=== PATIENT | male | born 1970 | race Two or more races ===

== ENCOUNTER 2020-09-13 14:54 | Inpatient (IN) | payer OTHER, SELFPAY ==
[2020-09-13 15:41] VITALS: BP 133/82; PULSE 78; RESP 20; TEMP 36.6; O2SAT 97; BMI 29.7
--- NOTE | 2020-09-13 16:08 | CT_ITS ---
EXAMINATION: CT ABDOMEN AND PELVIS WITH CONTRAST CLINICAL INFORMATION: Abdominal pain. Recent cholecystectomy. COMPARISON: CT abdomen/pelvis dated 07/13/2020. TECHNIQUE: Multidetector volumetric images were obtained from the superior aspect of the liver through the pubic symphysis following administration 85 mL of Omnipaque 350 intravenous contrast. Sagittal and coronal reformatted images were obtained on the technologist's workstation. Oral Contrast: No. This CT examination was performed using dose optimization techniques as appropriate, variously including the following: *Automated exposure control. *Adjustment of mA and/or kV according to patient size (this includes techniques or standardized protocols for targeted exams where dose is matched to indication/reason for exam; i.e. extremities or head). *Use of iterative reconstruction technique. DLP: 791 mGy-cm FINDINGS: LUNG BASES: Linear foci of atelectasis versus scarring within the right middle and lower lobes. LIVER, GALLBLADDER, AND BILIARY TREE: The liver is normal in size and shape. Parenchymal hypoattenuation, consistent with steatosis. No focal hepatic lesion or biliary ductal dilatation is present. Status post cholecystectomy. Minimal stranding in the region of the gallbladder fossa, which could represent postsurgical change. No organized fluid collection or evidence of abscess formation. PANCREAS: Unremarkable. SPLEEN: Mildly enlarged measuring up to 14 cm in AP dimension. ADRENAL GLANDS: Unremarkable. KIDNEYS AND URETERS: The kidneys are normal in size, shape, and attenuation. No hydronephrosis, hydroureter, or calculi seen. No perinephric stranding. BLADDER: Nondistended and unremarkable. GASTROINTESTINAL TRACT: No bowel wall thickening or associated inflammatory change. No small or large bowel obstruction. Unremarkable appendix. PERITONEAL CAVITY: No intra-abdominal free air or free fluid. No intra-abdominal mass or organized fluid collection/abscess. ABDOMINAL WALL: No significant hernia is appreciated. LYMPH NODES: Subcentimeter retroperitoneal lymph nodes. No significant lymphadenopathy. VASCULAR: Unremarkable. PELVIC VISCERA: The prostate and seminal vesicles are unremarkable. Phleboliths within the pelvis. OSSEOUS STRUCTURES: Unremarkable. CT/CT abdomen pelvis w con IMPRESSION: 1. Status post cholecystectomy. Mild stranding within the gallbladder fossa and adjacent to the common bile duct, which may represent a postsurgical result. A residual infectious or inflammatory process cannot be entirely excluded. No evidence of fluid collection or abscess formation. 2. Linear areas of scarring versus atelectasis within the right middle and lower lobes. 3. Mild splenomegaly.
[2020-09-13 16:16] LABS: MANUAL DIFF FLAG NO
[2020-09-13 16:19] LABS: Glucose Urine UA NEG (NEG); Leukocyte Esterase Urine NEG (NEG); Nitrite Urine NEG (NEG); Urine Blood NEG (NEG); Urine Ketones NEG (NEG); Urine Protein NEG (NEG-TRACE)
[2020-09-13 16:21] LABS: Basophils Absolute Auto 0.1 X10*3/uL (0.0-0.2); Basophils Percent Auto 1.1 % (0-2); Eosinophils Absolute Auto 0.3 X10*3/uL (0.0-0.4); Eosinophils Percent Auto 4.8 % (0-4); Hemoglobin 12.5 g/dl (14.0-18.0); Imm Gran Pct Auto 1.8 % (0.0-0.4); Lymphocytes Absolute Auto 0.8 X10*3/uL (1.2-4.9); Lymphocytes Percent Auto 13.5 % (20-40); Mean Corpuscular HGB Conc 32.9 g/dl (31.0-36.0); Mean Corpuscular Hemoglobin 26.5 pg (27.0-33.0); Mean Corpuscular Volume 80.5 fL (80-98); Mean Platelet Volume 9.1 fL (9.4-12.4); Monocytes Absolute Auto 0.3 X10*3/uL (0.1-1.2); Monocytes Percent Auto 6.1 % (2-11); Neutrophils Absolute Auto 4.1 X10*3/uL (2.0-8.3); Neutrophils Percent Auto 72.7 % (45-73); Platelet Count 160 X10*3/uL (160-400); Red Blood Count 4.72 X10*6/uL (4.60-5.80); Red Cell Distribution Width 14.2 % (11.0-16.0); White Blood Count 5.6 X10*3/uL (4.8-10.8)
--- NOTE | 2020-09-13 16:21 | ED.ABDPAIN ---
HPI - Abdominal Pain General Chief Complaint: Abdominal Pain Stated Complaint: ABD PAIN Time Seen by Provider: 09/13/20 15:33 Source: patient Mode of arrival: ambulatory Limitations: no limitations History of Present Illness HPI narrative: 50-year-old male with a past medical history of anxiety, diabetes, s/p lap alice 09/[address] Prince here with abdominal pain, vomiting since monday. patient tells me night he had [place] Citizen soup with spice and pork. Woke up 3am with upper abdominal pain and vomiting. Called out of work Monday and Monday d/t persistent pain and vomiting. No vomiting today. Patient continues to have pain and took a Bentyl at home with continued pain. He tells me his urine was very dark today. He drink a lot of water and then his urine seems to lighten up. No fevers, chills, diarrhea. Last bowel movement was Monday. MD elicited complaint: abdominal pain Pertinent past history: none Onset (ago): day(s) Pain Consistency: constant Location: none Severity: mild Quality: sharp Radiation: LUQ, RUQ and epigastric Migration to: no migration Exacerbating factors: nothing Relieving factors: nothing Associated symptoms: nausea and vomiting Related Data Allergies Allergy/AdvReac Type Severity Reaction Status Date / Time No Known Allergies Allergy Unverified 07/30/20 15:59 [No Known Allergies*] Review of Systems Review of Systems Yes all other systems are reviewed and are negative Constitutional: Reports no additional constitutional complaints, Denies body ache(s), Denies chills, Denies fever(s), Denies headache(s) and Denies weakness Eyes: Reports no additional eye complaints and Denies change in vision Reports system reviewed and no additional complaints, except as documented, Denies dizziness, Denies headache(s), Denies nasal congestion, Denies nasal discharge and Denies neck pain Cardiovascular: Reports no additional cardiovascular complaints, Denies chest pain, Denies leg edema and Denies dyspnea Respiratory: Reports no additional respiratory complaints, Denies cough and Denies dyspnea Gastrointestinal: Reports no additional gastrointestinal complaints, Reports abdominal pain, Denies diarrhea, Reports nausea and Reports vomiting Genitourinary: Denies urinary incontinence Musculoskeletal: Reports no additional musculoskeletal complaints, Denies back pain, Denies arthralgias, Denies joint swelling, Denies neck pain, Denies numbness and Denies tingling Skin/Breast: Reports system reviewed and no additional complaints, except as docu and Denies rash Reports system reviewed and no additional complaints, except as documented, Denies Abnormal speech present, Denies dizziness, Denies headache(s), Denies numbness, Denies tingling and Denies weakness Physical Exam Vital Signs: Vital Signs: Vital Signs Temp Pulse Resp BP Pulse Ox 09/13/20 15:41 97.8 F 78 20 133/82 97 Body Mass Index 29.7 Const: General: cooperative, healthy appearing, comfortable and no acute distress Orientation/consciousness: patient oriented x3 Limitations: no limitations HENMT: Head: Yes normal to inspection Ears: hearing grossly normal bilaterally General nose exam: Normal external nose present Face and sinus: Yes normal facial exam Mouth: Normal oral and palatal mucosa present Throat: Yes posterior oropharynx normal Eyes: General: appearance normal, both eyes and all related structures Pupils: Equal, round and reactive pupils present Neck: Neck: Yes normal visual inspection Chest: Chest palpation & inspection: normal inspection of the chest Resp: Effort & Inspection: normal respiratory effort Auscultation: clear to auscultation bilaterally Cardio: Rate: regular rate Rhythm: regular rhythm Peripheral pulses: Peripheral pulses 2+ throughout GI: Inspection: Yes normal to inspection Palpation (GI): Soft to palpation and Tenderness to palpation present (GI) ( diffuse tenderness but more focal in the epigastric area. Some guarding w) Auscultation: normal bowel sounds Back/Spine/Pelvis: Thoracic/Lumbar Spine: thoracic and lumbar spine normal to inspection Skin: General skin exam: no rashes or lesions noted Neuro: General: patient oriented x3, no focal motor deficits and normal sensation to monofilament Cranial nerves: Yes Equal, round and reactive pupils present Cognition (Neuro): normal cognition Speech: No Abnormal speech present Gait exam (Neuro): Normal gait present Motor exam (neuro): 5/5 motor strength present throughout Extrem: General: Yes normal to inspection Course Course Course Narrative: 50-year-old male here with abdominal pain more focal in the epigastric area for the last few days. Recently had a lap choly with Dr. Carnes here. The patient has also had some associated vomiting. On exam he does have some epigastric discomfort. Will need labs, UA, CT abdomen / pelvis. Will give IV fluids, antiemetic and analgesia. 1700-Elevated LFTs. Add on APAP, hepatitis panel. May be from retained gallstone. patient will need admission. Rapid COVID ordered. Sign out to Mary DELGADILLO pending above. MDM - Abdominal Pain MDM Narrative Medical decision making narrative: Retained gallstone, perforation, gastritis, gastroenteritis, pancreatitis, GERD Medical Records Attestation: I reviewed the patient's medical records. Lab Data Attestation: I reviewed the patient's lab results. Result diagrams: 09/13/20 16:09 09/13/20 16:09 Labs: Lab Results 09/13/20 09/13/20 09/13/20 Range/Units 16:09 16:09 16:09 WBC 5.6 (4.8-10.8) X10*3/uL RBC 4.72 (4.60-5.80) X10*6/uL Hgb 12.5 L (14.0-18.0) g/dl Hct 38.0 L (42-52) % MCV 80.5 (80-98) fL MCH 26.5 L (27.0-33.0) pg MCHC 32.9 (31.0-36.0) g/dl RDW 14.2 (11.0-16.0) % Plt Count 160 (160-400) X10*3/uL MPV 9.1 L (9.4-12.4) fL Immature Gran % (Auto) 1.8 H (0.0-0.4) % Neut % (Auto) 72.7 (45-73) % Lymph % (Auto) 13.5 L (20-40) % [place] % (Auto) 6.1 (2-11) % Eos % (Auto) 4.8 H (0-4) % Baso % (Auto) 1.1 (0-2) % Lymph # (Auto) 0.8 L (1.2-4.9) X10*3/uL [place] # (Auto) 0.3 (0.1-1.2) X10*3/uL Eos # (Auto) 0.3 (0.0-0.4) X10*3/uL Baso # (Auto) 0.1 (0.0-0.2) X10*3/uL Abs Immat Gran (auto) 0.10 H (0.00-0.03) X10*3/uL Absolute Neuts (auto) 4.1 (2.0-8.3) X10*3/uL Absolute Nucleated RBC 0.000 (0.0-0.012) X10*3/uL Nucleated RBC % (auto) 0.0 (0.0-0.2) /100WBC Hold Blue Top SEE NOTE Sodium (135-145) mmol/L Potassium (3.3-5.1) mmol/l Chloride (96-108) mmol/L Carbon Dioxide (22-29) mmol/L Anion Gap (12-20) BUN (9-16) mg/dL Creatinine (0.5-1.4) mg/dL Estim Creat Clear Calc Estimated GFR Random Glucose (60-115) mg/dL Calcium (8.4-10.2) mg/dL Magnesium (1.6-2.6) mg/dL Total Bilirubin (0.0-1.0) mg/dL Direct Bilirubin (0.0-0.5) mg/dL AST (5-37) U/L ALT (0-40) U/L Alkaline Phosphatase (39-117) U/L Total Protein (6.5-8.0) g/dL Albumin (3.5-5.0) g/dL Lipase (8-78) U/L Urine Color YELLOW Urine Appearance CLEAR Urine pH 6.0 (5.0-8.0) Ur Specific [place] 1.010 (1.005-1.025) Urine Protein NEG (NEG-TRACE) MG/DL Urine Glucose (UA) NEG (NEG) MG/DL Urine Ketones NEG (NEG) MG/DL Urine Blood NEG (NEG) Urine Nitrite NEG (NEG) Ur Leukocyte Esterase NEG (NEG) 09/13/20 Range/Units 16:09 WBC (4.8-10.8) X10*3/uL RBC (4.60-5.80) X10*6/uL Hgb (14.0-18.0) g/dl Hct (42-52) % MCV (80-98) fL MCH (27.0-33.0) pg MCHC (31.0-36.0) g/dl RDW (11.0-16.0) % Plt Count (160-400) X10*3/uL MPV (9.4-12.4) fL Immature Gran % (Auto) (0.0-0.4) % Neut % (Auto) (45-73) % Lymph % (Auto) (20-40) % [place] % (Auto) (2-11) % Eos % (Auto) (0-4) % Baso % (Auto) (0-2) % Lymph # (Auto) (1.2-4.9) X10*3/uL [place] # (Auto) (0.1-1.2) X10*3/uL Eos # (Auto) (0.0-0.4) X10*3/uL Baso # (Auto) (0.0-0.2) X10*3/uL Abs Immat Gran (auto) (0.00-0.03) X10*3/uL Absolute Neuts (auto) (2.0-8.3) X10*3/uL Absolute Nucleated RBC (0.0-0.012) X10*3/uL Nucleated RBC % (auto) (0.0-0.2) /100WBC Hold Blue Top Sodium 138 (135-145) mmol/L Potassium 3.7 (3.3-5.1) mmol/l Chloride 102 (96-108) mmol/L Carbon Dioxide 24 (22-29) mmol/L Anion Gap 16 (12-20) BUN 10 (9-16) mg/dL Creatinine 0.80 (0.5-1.4) mg/dL Estim Creat Clear Calc 140.2 Estimated GFR > 60 Random Glucose 153 H (60-115) mg/dL Calcium 8.1 L (8.4-10.2) mg/dL Magnesium 1.9 (1.6-2.6) mg/dL Total Bilirubin 3.8 H (0.0-1.0) mg/dL Direct Bilirubin 3.1 H (0.0-0.5) mg/dL AST 366 H (5-37) U/L ALT 596 H (0-40) U/L Alkaline Phosphatase 249 H (39-117) U/L Total Protein 6.4 L (6.5-8.0) g/dL Albumin 3.8 (3.5-5.0) g/dL Lipase 14 (8-78) U/L Urine Color Urine Appearance Urine pH (5.0-8.0) Ur Specific [place] (1.005-1.025) Urine Protein (NEG-TRACE) MG/DL Urine Glucose (UA) (NEG) MG/DL Urine Ketones (NEG) MG/DL Urine Blood (NEG) Urine Nitrite (NEG) Ur Leukocyte Esterase (NEG) [facility] Past Medical History Attestation statement: The following information was validated with the patient. Source: obtained from family and nursing notes reviewed Medical History Anxiety Cholecystectomy planned Diabetes mellitus, type 2 Social History Social History Alcohol intake: current Alcohol intake frequency: a few times a week Smoking Status: Current some day smoker Use of substances other than those prescribed or required for medical reasons: No Advance Directives: No Advance Directives Information Provided: Yes
[2020-09-13 16:24] LABS: Appearance Urine CLEAR; Color Urine YELLOW
[2020-09-13 16:47] LABS: Alanine Aminotransferase 596 U/L (0-40); Albumin Level 3.8 g/dL (3.5-5.0); Alkaline Phosphatase 249 U/L (39-117); Anion Gap 16 (12-20); Aspartate Amino Transferase 366 U/L (5-37); Bilirubin Direct 3.1 mg/dL (0.0-0.5); Bilirubin Total 3.8 mg/dL (0.0-1.0); Blood Urea Nitrogen 10 mg/dL (9-16); Calcium 8.1 mg/dL (8.4-10.2); Carbon Dioxide 24 mmol/L (22-29); Chloride 102 mmol/L (96-108); Creatinine Clr Calc Pharmacy 140.2; Estimated Glomerular Filt Rate > 60; Glucose Random 153 mg/dL (60-115); Lipase 14 U/L (8-78); Magnesium 1.9 mg/dL (1.6-2.6); Potassium 3.7 mmol/l (3.3-5.1); Sodium 138 mmol/L (135-145); Total Protein 6.4 g/dL (6.5-8.0)
[2020-09-13] MEDS: Morphine Sulfate 4 MG/ML CARTRIDGE IVPUSH (16:58)
[2020-09-13] MEDS: ondansetron HCL 4 MG/2 ML VIAL IVPUSH (16:58)
[2020-09-13] MEDS: 0.9 % Sodium Chloride 1,000 ML 999 ML IV (16:59)
[2020-09-13 17:21] LABS: Acetaminophen LAB 3 mcg/mL (<30)
[2020-09-13] MEDS: iohexoL 350 MG/ML 100 ML INFUS..BTL IV (17:50)
[2020-09-13 17:51] VITALS: PULSE 68; RESP 16
[2020-09-13 17:51] LABS: SARS COV2 PCR INHOUSE NEGATIVE (Negative)
[2020-09-13 18:22] VITALS: BP 158/82; PULSE 72; RESP 20
--- NOTE | 2020-09-13 19:13 | PC.NURSE ---
Patient awake and alert. Skin PWD, resp even and non labored. Speaking in full, clear sentences. reports abdominal pain w/ n/v. states pain is under control at this time. Hospitalist at bedside
--- NOTE | 2020-09-13 19:40 | PM.IMHP ---
History of Present Illness Date of Service: 09/13/20 <ELIE Craig - Last Filed: 09/13/20 20:00> Chief Complaint: abdominal pain <ELIE Craig - Last Filed: 09/13/20 20:00> this is a 50-year-old male who presents to the emergency department with abdominal pain. Patient states he woke up with abdominal pain on Monday morning. His abdominal pain is generalized and associated with nausea. He had 1 episode of vomiting on Monday morning. He also had 1 episode of chills. He denies any diarrhea, recent travel, takeout food, recent sick contacts. Workup in the emergency department revealed elevated LFTs. He went underwent a CAT scan of the abdomen which showed mild stranding within the gallbladder fossa and adjacent to the common bile duct which could be a result of his cholecystectomy longest although infectious or inflammatory process could not be entirely excluded. Patient does report that he takes 2 325 mg Tylenol twice daily to manage his chronic back pain. He denies using any other [id number] medication. He denies use of alcohol. Tylenol level was 3. abdominal pain as per significantly after morphine <ELIE Craig - Last Filed: 09/13/20 20:00> Review of Systems Review of Systems: Yes all other systems are reviewed and are negative <ELIE Craig - Last Filed: 09/13/20 20:00> Constitutional: Constitutional: Denies chills and Denies fever(s) <EILE Craig - Last Filed: 09/13/20 20:00> Cardiovascular: Cardiovascular: Denies chest pain <ELIE Craig Last Filed: 09/13/20 20:00> Respiratory: Respiratory: Denies cough <ELIE Craig Last Filed: 09/13/20 20:00> Gastrointestinal: Gastrointestinal: Reports abdominal pain and Reports nausea <ELIE Craig Last Filed: 09/13/20 20:00> [facility] Medical History: Medical History Anxiety Elevated triglycerides with high cholesterol Pre-diabetes <ELIE Craig Last Filed: 09/13/20 20:00> Functional capacity: independent ambulation <ELIE Craig - Last Filed: 09/13/20 20:00> Family history: reviewed and not pertinent <ELIE Craig - Last Filed: 09/13/20 20:00> Surgical History: Surgical History History of cholecystectomy <ELIE Craig - Last Filed: 09/13/20 20:00> Social History: Social History (Updated 09/13/20 @ 19:49 by ELIE Craig) Household Members: Spouse Housing: House Alcohol intake: current Smoking Status: Current some day smoker Use of substances other than those prescribed or required for medical reasons: No Currently Displaying Signs/Symptoms of Drug Intoxication Withdrawal: No Other Past Substance Use Problem:: remote abuse of pain pills - on suboxone Have you been hit, kicked, punched, or otherwise hurt by someone within the past year? If so, by whom?: No Do you feel safe in your current relationship?: Yes Is there a partner from a previous relationship who is making you feel unsafe now?: No Are you made to feel afraid or neglected: No Advance Directives: No Advance Directives Information Provided: Yes Do you have thoughts of harming others: None Do you have a plan to hurt others: No Plan Recently lost weight without trying: No <ELIE Craig - Last Filed: 09/13/20 20:00> Meds Allergies/Adverse reactions: Allergies Allergy/AdvReac Type Severity Reaction Status Date / Time No Known Allergies Allergy Verified 09/13/20 22:59 [No Known Allergies*] <ELIE Craig - Last Filed: 09/13/20 20:00> Home medications: Home Medications Medication Instructions Recorded Confirmed Type buprenorphine-naloxone 1 strip SUBLINGUAL DAILY 09/13/20 09/13/20 History clonidine HCl 1 tab PO BID 09/13/20 09/13/20 History dicyclomine 1 tab PO QID 09/13/20 09/13/20 History hydroxyzine HCl 1 tab PO TID PRN 09/13/20 09/13/20 History metformin 1 tab PO BID 09/13/20 09/13/20 History <ELIE Craig - Last Filed: 09/13/20 20:00> Physical Exam Vital Signs and Narrative: Vital Signs: Last Vital Signs Temp 97.8 F 09/13/20 15:41 Pulse 72 09/13/20 18:22 Resp 20 09/13/20 18:22 BP 158/82 H 09/13/20 18:22 Pulse Ox 97 09/13/20 15:41 Body Mass Index 29.7 <ELIE Craig - Last Filed: 09/13/20 20:00> Const: Nutritional Appearance: well nourished <ELIE Craig - Last Filed: 09/13/20 20:00> Orientation/consciousness: patient oriented x3 <ELIE Craig - Last Filed: 09/13/20 20:00> HENMT: Head: Yes normocephalic and Yes atraumatic <ELIE Craig - Last Filed: 09/13/20 20:00> Eyes: Sclerae: sclerae normal <ELIE Craig - Last Filed: 09/13/20 20:00> Chest: Chest palpation & inspection: normal inspection of the chest <ELIE Craig - Last Filed: 09/13/20 20:00> Resp: Effort & Inspection: normal respiratory effort and no respiratory distress <ELIE Craig - Last Filed: 09/13/20 20:00> Auscultation: clear to auscultation bilaterally <ELIE Craig - Last Filed: 09/13/20 20:00> Cardio: Rate: regular rate <ELIE Craig - Last Filed: 09/13/20 20:00> Rhythm: regular rhythm <ELIE Craig - Last Filed: 09/13/20 20:00> GI: Palpation (GI): Soft to palpation and nontender <ELIE Craig - Last Filed: 09/13/20 20:00> Skin: General skin exam: no rashes or lesions noted <ELIE Craig - Last Filed: 09/13/20 20:00> Neuro: General: patient oriented x3 <ELIE Craig - Last Filed: 09/13/20 20:00> Cranial nerves: Yes CN's II-XII intact bilaterally and Yes Bilaterally intact EOM present <ELIE Craig Last Filed: 09/13/20 20:00> Extrem: General: Yes normal to inspection <ELIE Craig - Last Filed: 09/13/20 20:00> Results Labs Labs: Laboratory Tests 09/13/20 09/13/20 09/13/20 16:09 16:09 16:09 WBC 5.6 RBC 4.72 Hgb 12.5 L Hct 38.0 L MCV 80.5 MCH 26.5 L MCHC 32.9 RDW 14.2 Plt Count 160 MPV 9.1 L Immature Gran % (Auto) 1.8 H Neut % (Auto) 72.7 Lymph % (Auto) 13.5 L [place] % (Auto) 6.1 Eos % (Auto) 4.8 H Baso % (Auto) 1.1 Lymph # (Auto) 0.8 L [place] # (Auto) 0.3 Eos # (Auto) 0.3 Baso # (Auto) 0.1 Abs Immat Gran (auto) 0.10 H Absolute Neuts (auto) 4.1 Absolute Nucleated RBC 0.000 Nucleated RBC % (auto) 0.0 Hold Blue Top SEE NOTE Sodium Potassium Chloride Carbon Dioxide Anion Gap BUN Creatinine Estim Creat Clear Calc Estimated GFR Random Glucose Calcium Magnesium Total Bilirubin Direct Bilirubin AST ALT Alkaline Phosphatase Total Protein Albumin Lipase Urine Color YELLOW Urine Appearance CLEAR Urine pH 6.0 Ur Specific [place] 1.010 Urine Protein NEG Urine Glucose (UA) NEG Urine Ketones NEG Urine Blood NEG Urine Nitrite NEG Ur Leukocyte Esterase NEG Acetaminophen Coronavirus (PCR) 09/13/20 09/13/20 16:09 16:54 WBC RBC Hgb Hct MCV MCH MCHC RDW Plt Count MPV Immature Gran % (Auto) Neut % (Auto) Lymph % (Auto) [place] % (Auto) Eos % (Auto) Baso % (Auto) Lymph # (Auto) [place] # (Auto) Eos # (Auto) Baso # (Auto) Abs Immat Gran (auto) Absolute Neuts (auto) Absolute Nucleated RBC Nucleated RBC % (auto) Hold Blue Top Sodium 138 Potassium 3.7 Chloride 102 Carbon Dioxide 24 Anion Gap 16 BUN 10 Creatinine 0.80 Estim Creat Clear Calc 140.2 Estimated GFR > 60 Random Glucose 153 H Calcium 8.1 L Magnesium 1.9 Total Bilirubin 3.8 H Direct Bilirubin 3.1 H AST 366 H ALT 596 H Alkaline Phosphatase 249 H Total Protein 6.4 L Albumin 3.8 Lipase 14 Urine Color Urine Appearance Urine pH Ur Specific [place] Urine Protein Urine Glucose (UA) Urine Ketones Urine Blood Urine Nitrite Ur Leukocyte Esterase Acetaminophen 3 Coronavirus (PCR) NEGATIVE <ELIE Craig - Last Filed: 09/13/20 20:00> Assessment and Plan (1) Elevated LFTs: Status: Acute <ELIE Craig - Last Filed: 09/13/20 20:00> this is a 50 year male with history of prediabetes, dyslipidemia, remote history of opiate abuse on Suboxone, cholecystectomy in June who presents with abdominal pain found to have elevated LFTs abdominal pain/ elevated LFTs CT shows steatosis. ? component of chronic toxicity given daily tylenol use - hepatitis panel - abdominal ultrasound - GI consult - trend LFTs - supportive care pre diabetes - hold metformin dyslipidemia - fenofibrate not on med reconciliation. confirm in a.m. mood - continue Atarax DVT prophylaxis- mechanical devices code status- full code this case was discussed with Dr. Rose <ELIE Craig - Last Filed: 09/13/20 20:00>
--- NOTE | 2020-09-13 20:00 | PM.EVENT ---
Event Note Event Note: Admisssion note: 50 y/o male who presented from home due to abdominal pain x 3 days associated with nausea and vomiting. No hx of alcohol abuse, smoking or drug abuse. Acetaminophen level of 3. Patient has hx of cholecystectomy in the past. Reports taking tylenol but a total of 650 mg per day. On presentation patient noted to have elevated LFT's, alk phosph and direct bilirubin of 3.1. CT abdomen showing possible inflammatory changes. Decision for admission given. ROS as above otherwise negative. Physical exam negative for guarding or any palpable masses. Assessment/Plan: 1- Abnormal liver function test likely secondary to intrabiliriary obstruction vs autoimmune US abdomen done shows no evidence of any biliary ductal dilation Follow up GGT Follow up AMA level GI consult for possible need of ERCP if recommended Diet as tolerated Rest of the plan as discussed with ELIE Leyva as per H and P
--- NOTE | 2020-09-13 20:16 | US_ITS ---
EXAMINATION: US ABDOMEN LIMITED CLINICAL INFORMATION: Abdominal pain. Cholecystectomy, evaluate for retained stones. Elevated LFTs. COMPARISON: None TECHNIQUE: Real-time imaging of the right upper quadrant abdominal viscera including the pancreas, liver, and common bile duct as per the ordering clinician. FINDINGS: PANCREAS: Unremarkable. LIVER: Increased hepatic parenchymal echogenicity, which can be seen in the setting of steatosis. Underlying hepatocellular disease cannot be excluded. No hepatic parenchymal lesion or biliary ductal dilatation. GALLBLADDER: Status post cholecystectomy. Trace fluid within the gallbladder fossa. COMMON BILE DUCT: The common bile duct measures up to 0.8 cm in greatest dimension. No visualized common bile duct stone. US/US abdomen limited IMPRESSION: 1. Status post cholecystectomy. Trace fluid within the gallbladder fossa. No organized fluid collection or mass. 2. Common bile duct measures up to 0.8 cm without visualized choledocholithiasis. No intrahepatic biliary ductal dilatation.
[2020-09-13 20:29] LABS: INTERNATIONAL NORM RATIO 1.1 (0.9-1.1); Prothrombin Time 13.1 SEC (10.8-13.0)
[2020-09-13 20:42] VITALS: BP 123/72; PULSE 55; RESP 16; O2SAT 100
--- NOTE | 2020-09-13 20:45 | PC.NURSE ---
Report given to RN on S3 for patient admit
--- NOTE | 2020-09-13 21:08 | PC.NURSE ---
waiting for ultrasound prior to transfer to S3
[2020-09-13 21:29] LABS: Amphetamine Screen Urine Not Detected (Not Detect); Barbiturates, Urine Not Detected (Not Detect); Benzodiazepines Screen Urine POSITIVE (Not Detect); Cannabinoid Screen Urine Not Detected (Not Detect); Cocaine Screen Urine Not Detected (Not Detect); Opiate Screen Urine Not Detected (Not Detect); Phencyclidine Screen Urine Not Detected (Not Detect)
[2020-09-13 22:00] VITALS: BP 126/72; PULSE 66; RESP 16; TEMP 36.1; O2SAT 94
[2020-09-13] MEDS: 0.9 % Sodium Chloride 1,000 ML 100 ML IVCONT (22:26)
[2020-09-13] MEDS: cloNIDine HCL 0.1 MG TABLET 0.3 MG PO (22:28)
[2020-09-13] MEDS: Docusate Sodium 100 MG CAPSULE PO (22:29)
[2020-09-14] VITALS (14 sets, daily range): BP systolic 119–152; BP diastolic 59–96; PULSE 44–68; RESP 16–20; TEMP 35.9–36.9; O2SAT 93–100; BMI 29.7
--- NOTE | 2020-09-14 | MR_ITS ---
EXAMINATION: MR ABDOMEN WITHOUT CONTRAST CLINICAL INFORMATION: Elevated liver function tests. Post laparoscopic cholecystectomy June 2020 COMPARISON: Previous CT of the abdomen and pelvis 09/13/2020 and ultrasound of the abdomen limited 09/13/2020 TECHNIQUE: MR abdomen is performed without gadolinium contrast. MRCP sequences were also performed. FINDINGS: LUNG BASES: The visualized lung bases are unremarkable. LIVER, GALLBLADDER, AND BILIARY TREE: There is fatty infiltration of the liver. The liver is slightly enlarged, right lobe measuring 20 cm in length. The liver is normal in shape. No focal liver lesion is seen. The gallbladder has been removed. There is trace fluid seen in the gallbladder fossa adjacent to the right lobe of the liver. There is no intra or extrahepatic biliary duct dilatation. The common bile duct measures 6 mm. There is a small 3 mm filling defect in the distal common bile duct suggestive of a common bile duct stone. PANCREAS: There is focal fatty infiltration of the uncinate process of the head of the pancreas. The pancreas is otherwise unremarkable. The main pancreatic duct is normal. SPLEEN: The spleen is slightly enlarged. The spleen measures 13.5 cm in length. ADRENAL GLANDS: Unremarkable. KIDNEYS AND URETERS: The kidneys are normal in size and shape. No hydronephrosis. No perinephric stranding. GASTROINTESTINAL TRACT: No bowel obstruction. No ascites or fluid collection. ABDOMINAL WALL: There is a small umbilical hernia containing fat. LYMPH NODES: No lymphadenopathy. VASCULAR: Unremarkable. OSSEOUS STRUCTURES: Marrow signal normal. There is loss of bright T2 disc signal at L4-L5. MR/MR MRCP IMPRESSION: No intra or extrahepatic biliary duct dilatation. 3 mm filling defect in the distal common bile duct suggestive of a common bile duct stone. Slightly enlarged fatty liver. Mild splenomegaly. Focal fatty infiltration of the uncinate process of the head of the pancreas.
[2020-09-14] MEDS: Morphine Sulfate 4 MG/ML CARTRIDGE 2 MG IVPUSH ×2 (01:23→07:37)
[2020-09-14 03:37] LABS: HBS Num1 25.28 mIU/mL (0-7.99); HBc Num1 0.04 S/CO (0.00-0.79); Hepatitis B Core Antibody Nonreactive (Nonreactive); ~HepC Num1 0.06 S/CO (0.00-0.79); ~Hepatitis B Surface Antibody REACTIVE (Nonreactive); ~Hepatitis C Antibody Nonreactive (Nonreactive)
[2020-09-14 04:08] LABS: HBsAGNum1 0.12 S/CO (0.00-0.99); Hepatitis B Surface Antigen Negative (Negative)
[2020-09-14] MEDS: ondansetron HCL 4 MG/2 ML VIAL IVPUSH (06:25)
[2020-09-14 06:50] LABS: Hematocrit 37.6 % (42-52); Mean Corpuscular HGB Conc 31.9 g/dl (31.0-36.0); Mean Corpuscular Hemoglobin 26.3 pg (27.0-33.0); Mean Corpuscular Volume 82.3 fL (80-98); Mean Platelet Volume 9.4 fL (9.4-12.4); Platelet Count 165 X10*3/uL (160-400); Red Blood Count 4.57 X10*6/uL (4.60-5.80); Red Cell Distribution Width 14.4 % (11.0-16.0); White Blood Count 4.3 X10*3/uL (4.8-10.8)
[2020-09-14 07:00] LABS: Alanine Aminotransferase 511 U/L (0-40); Albumin Level 3.6 g/dL (3.5-5.0); Alkaline Phosphatase 275 U/L (39-117); Anion Gap 13 (12-20); Aspartate Amino Transferase 292 U/L (5-37); Bilirubin Direct 2.9 mg/dL (0.0-0.5); Bilirubin Total 3.4 mg/dL (0.0-1.0); Blood Urea Nitrogen 7 mg/dL (9-16); Calcium 8.2 mg/dL (8.4-10.2); Carbon Dioxide 26 mmol/L (22-29); Chloride 106 mmol/L (96-108); Creatinine Clr Calc Pharmacy 136.8; Estimated Glomerular Filt Rate > 60; Gamma Glutamyl Transpeptidase 1360 U/L (11-51); Glucose Random 165 mg/dL (60-115); Potassium 4.8 mmol/l (3.3-5.1); Sodium 140 mmol/L (135-145); Total Protein 6.1 g/dL (6.5-8.0)
--- NOTE | 2020-09-14 08:35 | P.CONGS_ITS ---
History of Present Illness Consult details Narrative: 50M referred for abdominal pain and abnormal LFT's. He came to the ED last night because of pain around the umbilicus and the epigastric area. This started very early Monday morning and has been constant. He had some vomitting as well last Monday and his pain persisted, so he decided to go the the ED last night. He had an inpatient laparoscopic cholecystectomy with Dr. Carnes last June and was noted to have gangrenous cholecystitis. He had some low grade fevers postop, and mildly elevated liver tests, and was eventually discharged on Jul.16. He says he had been doing well since that time until last Monday which was 2-3 days before admission. He currently states he is comfortable because he just got pain meds. Review of Systems Constitutional: Constitutional: Denies headache(s) and Denies weakness ENT: Denies dizziness and Denies headache(s) Cardiovascular: Cardiovascular: Denies chest pain, Denies dyspnea and Denies dyspnea on exertion Respiratory: Respiratory: Denies cough, Denies dyspnea and Denies dyspnea on exertion Gastrointestinal: Gastrointestinal: Denies hematochezia and Denies change in bowel habits Genitourinary: Genitourinary: Reports hematuria and Reports difficulty urinating Musculoskeletal: Musculoskeletal: Denies numbness and Denies tingling Neurologic: Reports system reviewed and no additional complaints, except as documented, Denies Abnormal speech present, Denies dizziness, Denies headache( s), Denies numbness, Denies tingling and Denies weakness Psychiatric: Psychiatric: Denies depression and Denies mood swings PMFSH Past Medical History Medical History Anxiety Elevated triglycerides with high cholesterol Pre-diabetes Functional capacity: independent ambulation Family History Family history: reviewed and not pertinent Surgical History Surgical History History of cholecystectomy Social History Social History Household Members: Spouse Housing: House Alcohol intake: current Smoking Status: Current some day smoker Use of substances other than those prescribed or required for medical reasons: No Currently Displaying Signs/Symptoms of Drug Intoxication Withdrawal: No Other Past Substance Use Problem:: remote abuse of pain pills - on suboxone Have you been hit, kicked, punched, or otherwise hurt by someone within the past year? If so, by whom?: No Do you feel safe in your current relationship?: Yes Is there a partner from a previous relationship who is making you feel unsafe now?: No Are you made to feel afraid or neglected: No Advance Directives: No Advance Directives Information Provided: Yes Do you have thoughts of harming others: None Do you have a plan to hurt others: No Plan Recently lost weight without trying: No Meds Allergies Allergy/AdvReac Type Severity Reaction Status Date / Time No Known Allergies Allergy Verified 09/13/20 22:59 [No Known Allergies*] Home Medications Medication Instructions Recorded Confirmed Type buprenorphine-naloxone 1 strip SUBLINGUAL DAILY 09/13/20 09/13/20 History clonidine HCl 1 tab PO BID 09/13/20 09/13/20 History dicyclomine 1 tab PO QID 09/13/20 09/13/20 History hydroxyzine HCl 1 tab PO TID PRN 09/13/20 09/13/20 History metformin 1 tab PO BID 09/13/20 09/13/20 History Physical Exam Vital Signs: Vital Signs: Vital Signs Temp Pulse Resp BP Pulse Ox 09/14/20 07:39 97.6 F 57 16 140/84 H 94 09/14/20 04:05 54 09/14/20 03:55 96.8 F 44 L 16 121/59 L 94 09/14/20 02:31 20 09/14/20 00:00 97.1 F 49 L 18 119/68 93 09/13/20 22:00 96.9 F 66 16 126/72 94 09/13/20 20:42 55 16 123/72 100 09/13/20 18:22 72 20 158/82 H 09/13/20 17:51 68 16 09/13/20 15:41 97.8 F 78 20 133/82 97 Body Mass Index 29.7 Const: General: comfortable and no acute distress Orientation/ consciousness: patient oriented x3 Eyes: Other: mildly icteric Neck: Neck: Yes no lymphadenopathy Resp: Auscultation: clear to auscultation bilaterally Cardio: Rhythm: regular rhythm GI: Palpation (GI): Soft to palpation, Tenderness to palpation present (GI) (mild tenderness to deep palpation, epigastric area) and no guarding Neuro: General: patient oriented x3 Speech: No Abnormal speech present Results Labs Result diagrams: 09/14/20 06:07 09/14/20 06:07 Labs: Abnormal lab results 09/13/20 09/13/20 09/13/20 Range/Units 16:09 16:09 16:09 WBC (4.8-10.8) X10*3/uL RBC (4.60-5.80) X10*6/uL Hgb 12.5 L (14.0-18.0) g/dl Hct 38.0 L (42-52) % MCH 26.5 L (27.0-33.0) pg MPV 9.1 L (9.4-12.4) fL Immature Gran % (Auto) 1.8 H (0.0-0.4) % Lymph % (Auto) 13.5 L (20-40) % Eos % (Auto) 4.8 H (0-4) % Lymph # (Auto) 0.8 L (1.2-4.9) X10*3/uL Abs Immat Gran (auto) 0.10 H (0.00-0.03) X10*3/uL PT (10.8-13.0) SEC BUN (9-16) mg/dL Random Glucose 153 H (60-115) mg/dL Calcium 8.1 L (8.4-10.2) mg/dL Total Bilirubin 3.8 H (0.0-1.0) mg/dL Direct Bilirubin 3.1 H (0.0-0.5) mg/dL GGT (11-51) U/L AST 366 H (5-37) U/L ALT 596 H (0-40) U/L Alkaline Phosphatase 249 H (39-117) U/L Total Protein 6.4 L (6.5-8.0) g/dL U Benzodiazepines Scrn POSITIVE H (Not Detect) 09/13/20 09/14/20 09/14/20 Range/Units 20:19 06:07 06:07 WBC 4.3 L (4.8-10.8) X10*3/uL RBC 4.57 L (4.60-5.80) X10*6/uL Hgb 12.0 L (14.0-18.0) g/dl Hct 37.6 L (42-52) % MCH 26.3 L (27.0-33.0) pg MPV (9.4-12.4) fL Immature Gran % (Auto) (0.0-0.4) % Lymph % (Auto) (20-40) % Eos % (Auto) (0-4) % Lymph # (Auto) (1.2-4.9) X10*3/uL Abs Immat Gran (auto) (0.00-0.03) X10*3/uL PT 13.1 H (10.8-13.0) SEC BUN 7 L (9-16) mg/dL Random Glucose 165 H (60-115) mg/dL Calcium 8.2 L (8.4-10.2) mg/dL Total Bilirubin 3.4 H (0.0-1.0) mg/dL Direct Bilirubin 2.9 H (0.0-0.5) mg/dL GGT 1360 H (11-51) U/L AST 292 H (5-37) U/L ALT 511 H (0-40) U/L Alkaline Phosphatase 275 H (39-117) U/L Total Protein 6.1 L (6.5-8.0) g/dL U Benzodiazepines Scrn (Not Detect) Short CBC 09/13/20 09/14/20 Range/Units 16:09 06:07 WBC 5.6 4.3 L (4.8-10.8) X10*3/uL Hgb 12.5 L 12.0 L (14.0-18.0) g/dl Hct 38.0 L 37.6 L (42-52) % Plt Count 160 165 (160-400) X10*3/uL BMP 09/13/20 09/14/20 16:09 06:07 Sodium 138 140 Potassium 3.7 4.8 D Chloride 102 106 Carbon Dioxide 24 26 BUN 10 7 L Creatinine 0.80 0.82 Calcium 8.1 L 8.2 L Liver Function 09/13/20 09/14/20 Range/Units 16:09 06:07 Total Bilirubin 3.8 H 3.4 H (0.0-1.0) mg/dL Direct Bilirubin 3.1 H 2.9 H (0.0-0.5) mg/dL GGT 1360 H (11-51) U/L AST 366 H 292 H (5-37) U/L ALT 596 H 511 H (0-40) U/L Alkaline Phosphatase 249 H 275 H (39-117) U/L Albumin 3.8 3.6 (3.5-5.0) g/dL Urine 09/13/20 Range/Units 16:09 Urine Color YELLOW Urine Appearance CLEAR Urine pH 6.0 (5.0-8.0) Ur Specific [place] 1.010 (1.005-1.025) Urine Protein NEG (NEG-TRACE) MG/DL Urine Glucose (UA) NEG (NEG) MG/DL All other labs normal. Assessment and Plan (1) Elevated LFTs: Status: Acute He had laparoscopic cholecystectomy last July 13 for gangrenous cholecystitis. His CT scan shows mild stranding in the GB fossa that may be seen as postop changes. There is no obvious CBD dilatation on CT, although his elevated bilirubin, both direct and total suggests CBD obstruction. this may be from a retained stone. He just had an MRCP done and we will review this. He is awaiting GI consult as well for possible ERCP or primary hepatic parenchymal disease. He has a benign exam otherwise, and his bilirubin has trended down slightly today.
--- NOTE | 2020-09-14 09:23 | P.PNIM_ITS ---
Subjective Subjective Date of Service: 09/14/20 Interval History: Seen in f/u for acute hepatitis, abdominal pain. Persistent pain, no n/v Review of Systems Gen: no fever Resp: no sob, no cough CV: no chest, no VELASQUEZ, no leg edema GI: No n/v, +abd pain Physical Exam Vital Signs: Vital Signs: Vital Signs Temp Pulse Resp BP Pulse Ox 09/14/20 07:39 97.6 F 57 16 140/84 H 94 09/14/20 04:05 54 09/14/20 03:55 96.8 F 44 L 16 121/59 L 94 09/14/20 02:31 20 09/14/20 00:00 97.1 F 49 L 18 119/68 93 09/13/20 22:00 96.9 F 66 16 126/72 94 09/13/20 20:42 55 16 123/72 100 09/13/20 18:22 72 20 158/82 H 09/13/20 17:51 68 16 09/13/20 15:41 97.8 F 78 20 133/82 97 Body Mass Index 29.7 General: AO X 3, no acute distress but Resp: CTA bilateral CVS: S1,S2,RRR GI: +BS, NT, no distention, no tenderness Skin: No rash, jaundice Neuro: motor grossly intact Psych: appropriate affect Objective Data Current Medications Generic Name Dose Route Start Last Admin Trade Name Freq PRN Reason Stop Dose Admin Buprenorphine/Naloxone 1 film 09/14/20 09:00 Buprenorphine/Naloxone 4/1 Mg Film SUBLINGUAL DAILY ALIYA Clonidine HCl 0.3 mg 09/13/20 21:00 09/13/20 22:28 Clonidine Hcl 0.1 Mg Tablet PO 0.3 mg BID ALIYA Administration Protocol Docusate Sodium 100 mg 09/13/20 21:00 09/13/20 22:29 Docusate Sodium 100 Mg Capsule PO 100 mg BID ALIYA Administration Hydroxyzine HCl 25 mg 09/13/20 20:16 Hydroxyzine Hcl 25 Mg Tablet PO TID PRN Anxiety Sodium Chloride 1,000 mls @ 100 mls/hr 09/13/20 20:16 09/14/20 06:08 Ns IVCONT Not Given .Q10H ALIYA Morphine Sulfate 2 mg 09/13/20 20:16 09/14/20 07:37 Morphine Sulfate 4 Mg/Ml Cartridge IVPUSH 2 mg Q4H PRN Administration Pain, Severe (Pain Scale 7-10) Ondansetron HCl 4 mg 09/13/20 20:16 09/14/20 06:25 Ondansetron Hcl 4 Mg/2 Ml Vial IVPUSH 4 mg Q8H PRN Administration Nausea and Vomiting Pharmacy Consult 1 each 09/13/20 16:51 Consult Rx Perform Med Rec MISCELLANE ONCE PRN Consult order Sodium Chloride 3 ml 09/14/20 00:00 09/14/20 07:32 0.9 % Sodium Chloride Flush 3 Ml Syringe IVFLUSH Not Given QSHIFT [facility] Labs CBC & Chem 7: 09/14/20 06:07 09/14/20 06:07 Labs: Laboratory Tests 09/13/20 09/14/20 16:09 06:07 Total Bilirubin 3.8 H 3.4 H AST 366 H 292 H ALT 596 H 511 H INR 1.1 today Assessment and Plan (1) Common bile duct stone: Status: Acute (2) Elevated LFTs: Status: Acute (3) Jaundice: Status: Acute (4) Total bilirubin, elevated: Status: Acute Assessment and Plan: 50/M with who had Cholecystectomy in June of this year due to gangrenous gallbladder disease and now here with abdominal pain, elevated LFTs, Jaundice and MRCP suggesting CBD stone. 1. CBD stone, elevated LFTs--likely from retained stone. -GI eval for ERCP and stone estraction -surgery following 2. Diabetes--SSI, hold Metformin 3. HLD--hold statin due to increased LFTs 4. h/o of opiate dependence--Suboxone
[2020-09-14] MEDS: cloNIDine HCL 0.1 MG TABLET 0.3 MG PO ×2 (09:52→20:06)
[2020-09-14] MEDS: Buprenorphine/Naloxone 4/1 mg FILM 1 FILM SUBLINGUAL (09:52)
[2020-09-14] MEDS: Docusate Sodium 100 MG CAPSULE PO ×2 (09:53→20:05)
[2020-09-14] MEDS: 0.9 % Sodium Chloride 1,000 ML 100 ML IVCONT (09:56)
--- NOTE | 2020-09-14 12:19 | MHC.CM.PN ---
PER PHYSICAN ROUNDS, PATIENT IS LIKELY GOING TO NEED AN ERCP. CASE MANAGEMENT FOLLOWING FOR ANY DISCHARGE NEEDS.
[2020-09-14] MEDS: levoFLOXacin/D5W 500 MG/100 ML PIGGYBACK 100 MG IV (14:38)
--- NOTE | 2020-09-14 15:20 | HO.ANESPROP2 ---
HPI - Anesthesia Eval Consult details Narrative: 50 M s/p lap alice pf Ercp. PMFSH Past Medical History Medical History Anxiety Elevated triglycerides with high cholesterol Pre-diabetes Functional capacity: independent ambulation Surgical History Surgical History (Updated 09/14/20 @ 15:22 by Paxton Burroughs MD) History of cholecystectomy Social History Social History Household Members: Spouse Housing: House Alcohol intake: current Smoking Status: Current some day smoker Use of substances other than those prescribed or required for medical reasons: No Currently Displaying Signs/Symptoms of Drug Intoxication Withdrawal: No Other Past Substance Use Problem:: remote abuse of pain pills - on suboxone Have you been hit, kicked, punched, or otherwise hurt by someone within the past year? If so, by whom?: No Do you feel safe in your current relationship?: Yes Is there a partner from a previous relationship who is making you feel unsafe now?: No Are you made to feel afraid or neglected: No Advance Directives: No Advance Directives Information Provided: Yes Do you have thoughts of harming others: None Do you have a plan to hurt others: No Plan Recently lost weight without trying: No service: No Current occupational status: employed Meds Allergies Allergy/AdvReac Type Severity Reaction Status Date / Time No Known Allergies Allergy Verified 09/13/20 22:59 [No Known Allergies*] Home Medications Medication Instructions Recorded Confirmed Type buprenorphine-naloxone 1 strip SUBLINGUAL DAILY 09/13/20 09/13/20 History clonidine HCl 1 tab PO BID 09/13/20 09/13/20 History dicyclomine 1 tab PO QID 09/13/20 09/13/20 History hydroxyzine HCl 1 tab PO TID PRN 09/13/20 09/13/20 History metformin 1 tab PO BID 09/13/20 09/13/20 History Exam Exam Date and Time: September 14, 2020 1520 Height,Weight and Vital Signs: Height 6 ft 1 in Weight 102.058 kg Last Vital Signs Temp 97.9 F 09/14/20 14:32 Pulse 61 09/14/20 14:32 Resp 16 09/14/20 14:32 BP 135/88 09/14/20 14:32 Pulse Ox 95 09/14/20 14:32 Pertinent Lab Results Pertinent Lab Results: Laboratory Tests 09/13/20 09/13/20 09/13/20 16:09 16:09 16:09 WBC 5.6 RBC 4.72 Hgb 12.5 L Hct 38.0 L MCV 80.5 MCH 26.5 L MCHC 32.9 RDW 14.2 Plt Count 160 MPV 9.1 L Immature Gran % (Auto) 1.8 H Neut % (Auto) 72.7 Lymph % (Auto) 13.5 L [place] % (Auto) 6.1 Eos % (Auto) 4.8 H Baso % (Auto) 1.1 Lymph # (Auto) 0.8 L [place] # (Auto) 0.3 Eos # (Auto) 0.3 Baso # (Auto) 0.1 Abs Immat Gran (auto) 0.10 H Absolute Neuts (auto) 4.1 Absolute Nucleated RBC 0.000 Nucleated RBC % (auto) 0.0 PT INR Hold Blue Top SEE NOTE Sodium Potassium Chloride Carbon Dioxide Anion Gap BUN Creatinine Estim Creat Clear Calc Estimated GFR Random Glucose Calcium Magnesium Total Bilirubin Direct Bilirubin GGT AST ALT Alkaline Phosphatase Total Protein Albumin Lipase Urine Color YELLOW Urine Appearance CLEAR Urine pH 6.0 Ur Specific [place] 1.010 Urine Protein NEG Urine Glucose (UA) NEG Urine Ketones NEG Urine Blood NEG Urine Nitrite NEG Ur Leukocyte Esterase NEG Urine Opiates Screen Acetaminophen Ur Barbiturates Screen Ur Phencyclidine Scrn Ur Amphetamines Screen U Benzodiazepines Scrn Urine Cocaine Screen U Marijuana (THC) Screen Coronavirus (PCR) Hep Bs Antigen Hep Bs Antibody Hep B Core Total Ab Hepatitis C Ab (EIA) 09/13/20 09/13/20 09/13/20 16:09 16:09 16:54 WBC RBC Hgb Hct MCV MCH MCHC RDW Plt Count MPV Immature Gran % (Auto) Neut % (Auto) Lymph % (Auto) [place] % (Auto) Eos % (Auto) Baso % (Auto) Lymph # (Auto) [place] # (Auto) Eos # (Auto) Baso # (Auto) Abs Immat Gran (auto) Absolute Neuts (auto) Absolute Nucleated RBC Nucleated RBC % (auto) PT INR Hold Blue Top Sodium 138 Potassium 3.7 Chloride 102 Carbon Dioxide 24 Anion Gap 16 BUN 10 Creatinine 0.80 Estim Creat Clear Calc 140.2 Estimated GFR > 60 Random Glucose 153 H Calcium 8.1 L Magnesium 1.9 Total Bilirubin 3.8 H Direct Bilirubin 3.1 H GGT AST 366 H ALT 596 H Alkaline Phosphatase 249 H Total Protein 6.4 L Albumin 3.8 Lipase 14 Urine Color Urine Appearance Urine pH Ur Specific [place] Urine Protein Urine Glucose (UA) Urine Ketones Urine Blood Urine Nitrite Ur Leukocyte Esterase Urine Opiates Screen Not Detected Acetaminophen 3 Ur Barbiturates Screen Not Detected Ur Phencyclidine Scrn Not Detected Ur Amphetamines Screen Not Detected U Benzodiazepines Scrn POSITIVE H Urine Cocaine Screen Not Detected U Marijuana (THC) Screen Not Detected Coronavirus (PCR) NEGATIVE Hep Bs Antigen Hep Bs Antibody Hep B Core Total Ab Hepatitis C Ab (EIA) 09/13/20 09/13/20 09/14/20 17:07 20:19 06:07 WBC 4.3 L RBC 4.57 L Hgb 12.0 L Hct 37.6 L MCV 82.3 MCH 26.3 L MCHC 31.9 RDW 14.4 Plt Count 165 MPV 9.4 Immature Gran % (Auto) Neut % (Auto) Lymph % (Auto) [place] % (Auto) Eos % (Auto) Baso % (Auto) Lymph # (Auto) [place] # (Auto) Eos # (Auto) Baso # (Auto) Abs Immat Gran (auto) Absolute Neuts (auto) Absolute Nucleated RBC 0.000 Nucleated RBC % (auto) 0.0 PT 13.1 H INR 1.1 Hold Blue Top Sodium Potassium Chloride Carbon Dioxide Anion Gap BUN Creatinine Estim Creat Clear Calc Estimated GFR Random Glucose Calcium Magnesium Total Bilirubin Direct Bilirubin GGT AST ALT Alkaline Phosphatase Total Protein Albumin Lipase Urine Color Urine Appearance Urine pH Ur Specific [place] Urine Protein Urine Glucose (UA) Urine Ketones Urine Blood Urine Nitrite Ur Leukocyte Esterase Urine Opiates Screen Acetaminophen Ur Barbiturates Screen Ur Phencyclidine Scrn Ur Amphetamines Screen U Benzodiazepines Scrn Urine Cocaine Screen U Marijuana (THC) Screen Coronavirus (PCR) Hep Bs Antigen Negative Hep Bs Antibody REACTIVE Hep B Core Total Ab Nonreactive Hepatitis C Ab (EIA) Nonreactive 09/14/20 06:07 WBC RBC Hgb Hct MCV MCH MCHC RDW Plt Count MPV Immature Gran % (Auto) Neut % (Auto) Lymph % (Auto) [place] % (Auto) Eos % (Auto) Baso % (Auto) Lymph # (Auto) [place] # (Auto) Eos # (Auto) Baso # (Auto) Abs Immat Gran (auto) Absolute Neuts (auto) Absolute Nucleated RBC Nucleated RBC % (auto) PT INR Hold Blue Top Sodium 140 Potassium 4.8 D Chloride 106 Carbon Dioxide 26 Anion Gap 13 BUN 7 L Creatinine 0.82 Estim Creat Clear Calc 136.8 Estimated GFR > 60 Random Glucose 165 H Calcium 8.2 L Magnesium Total Bilirubin 3.4 H Direct Bilirubin 2.9 H GGT 1360 H AST 292 H ALT 511 H Alkaline Phosphatase 275 H Total Protein 6.1 L Albumin 3.6 Lipase Urine Color Urine Appearance Urine pH Ur Specific [place] Urine Protein Urine Glucose (UA) Urine Ketones Urine Blood Urine Nitrite Ur Leukocyte Esterase Urine Opiates Screen Acetaminophen Ur Barbiturates Screen Ur Phencyclidine Scrn Ur Amphetamines Screen U Benzodiazepines Scrn Urine Cocaine Screen U Marijuana (THC) Screen Coronavirus (PCR) Hep Bs Antigen Hep Bs Antibody Hep B Core Total Ab Hepatitis C Ab (EIA) Airway Mallampati Class: II Neck ROM: Full Loose/Missing/Broken Teeth: No Heart: rrr Lungs: nl Other: o Assessment and Plan Assessment Anesthesia Assessment: Anesthesia Plan Discussed and Chart Reviewed Final Anesthetic Review NPO: Yes ASA Class: II Final Preanesthetic Review: No Changes in Pt Med Stat, Meds/Allgs Chart Reviewed, Consent Obtained/Reviewed and Anes Risks/Benef Reviewed Patient Risk: Intermediate Procedure Risk: Intermediate Anesthetic Plan Anesthetic Plan: GA Disposition: Standard PACU
--- NOTE | 2020-09-14 15:32 | PM.EVENT ---
Event Note Event Note: GI Consult-Full note dictated Hx via patient and EMR. Imp: Choledocholithiasis based on MRCP findings, clinical history, and elevated LFT's. Rec: ERCP today. Full consent obtained from him for this, including risks of bleeding, perforation, cholangitis, and pancreatitis. The patient is comfortable with this plan. Thanks.
--- NOTE | 2020-09-14 15:58 | FL_ITS ---
EXAMINATION: XR FLUOROSCOPY WITH IMAGES CLINICAL INFORMATION: ERCP. Elevated liver function tests. Status post laparoscopic cholecystectomy June 2020. 3 mm distal CBD calculus suspected on MRCP. COMPARISON: MRCP 09/14/2020, ultrasound abdomen 09/13/2020, CT abdomen 09/13/2020 TECHNIQUE: Fluoroscopy performed by Dr. Jhon Eisenberg. Fluoroscopy time: 3.2 minutes DAP: 21.1 Gycm2 Images: 11 FINDINGS: There is contrast in the biliary tree. The common duct shows no stricture or displacement or extrinsic compression. There is no persistent intraluminal filling defect seen to correspond to the small calculus suspected on MRCP. FL/FL guidance in OR IMPRESSION: Fluoroscopy for ERCP.
--- NOTE | 2020-09-14 16:28 | CONS_ITS ---
DATE OF SERVICE: 09/14/2020 REASON FOR CONSULTATION: Abdominal pain and choledocholithiasis, elevated LFTs. HISTORY OF PRESENT ILLNESS: This has been obtained from the patient and the medical record. The patient is a 50-year-old male, who underwent a laparoscopic cholecystectomy at the end of June for gallstones and a gangrenous gallbladder. He describes that he did well thereafter up until 2 days before this admission. Two days ago, he began having abdominal pain rather diffusely and some dark urine. He came to the ER last night and was admitted. He does report that the pain is somewhat better today. He was noted to have elevated LFTs and underwent MRCP with the finding of a small distal common duct stone on MRCP. Prior to the past 2 days, he was not having any problems with abdominal pain nor jaundice. He tends to enjoy a good appetite without any significant heartburn nor dysphagia. His bowel movements have been fairly regular and without any hematochezia nor melena. He denies any pre-existing history of liver disease in himself nor family members. He denies any recent weight loss. His hospital course has otherwise been stable including vital signs. He has been afebrile. MEDICATIONS: At home included Suboxone, clonidine, hydroxyzine, and metformin. He also reports he is on sertraline. His medications here in the hospital include acetaminophen, Suboxone, clonidine, Colace, Dilaudid p.r.n., Atarax, morphine p.r.n., Zofran p.r.n., oxycodone p.r.n. PAST MEDICAL HISTORY: Laparoscopic cholecystectomy as above. Hemorrhoid surgery. Anxiety and depression. Previous history of addiction to pain medication. Borderline diabetes. He denies any history of heart disease, stroke, nor lung disease. SOCIAL HISTORY: He is . He does not smoke nor use any significant amounts of alcohol. 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 FAMILY HISTORY: Noncontributory. REVIEW OF SYSTEMS: CONSTITUTIONAL: Prior to the past 2 days, he has been feeling well with good energy and good appetite. SKIN: No rash. No pruritus. CARDIAC: No chest pain. PULMONARY: No cough. No hemoptysis. GASTROINTESTINAL: As above. URINARY: No dysuria. No hematuria. PHYSICAL EXAMINATION: GENERAL: The patient is presently comfortable and appears well. SKIN: Warm and dry. HEENT: Anicteric sclerae. NECK: Supple. ABDOMEN: Soft, nondistended, but with some mild diffuse tenderness. There is no palpable mass, rebound, or guarding. LABORATORY DATA: White blood cell count 4.3, hemoglobin 12.0, platelets 165,000. PT 13.1 with INR 1.1. His electrolytes, BUN, and creatinine have been normal. His total bilirubin yesterday was 3.8 and today is 3.4 with a direct bilirubin of 2.9. AST yesterday was 366 and today is 292. ALT yesterday was 596 and today is 511. Alkaline phosphatase yesterday was 249 and today is 275. His MRCP as mentioned above does show evidence of a 6 mm bile duct and a 3 mm filling defect in the distal duct consistent with a stone. There was no intrahepatic biliary ductal dilatation. There was no sign of any ascites. IMPRESSION: Given the patient's clinical history along with the findings on his LFTs and MRCP, this seems quite consistent with choledocholithiasis. As such, he will undergo planned ERCP today with general anesthesia. Full consent has been obtained for this, including risks of bleeding, perforation, cholangitis, and pancreatitis. He will receive a dose of IV Levaquin prior to the procedure. This has been discussed with the patient in detail and he is comfortable with this plan. Thank your for this consultation. MD ALEX Fallon/DONALD / [id number]
--- NOTE | 2020-09-14 17:03 | PM.OP ---
Brief Operative Note Date of procedure: 09/14/20 Pre-op diagnosis: Choledocholithiasis Post-op diagnosis: other (Normal cholangiogram) Procedure: ERCP with sphincterotomy Surgeon: Jhon Eisenberg Anesthesia: GETA (General Anesthesia) Estimated blood loss (mL): 2.0 Pathology: none sent Condition: stable Disposition: PACU
--- NOTE | 2020-09-14 17:05 | PM.EVENT ---
Event Note Event Note: ERCP-Full note dictated Findings: 1. Normal major papilla. 2. Selective cholangiograms revealed a normal intrahepatic and extrahepatic biliary tree, without any sign of obstruction, filling defects, nor stricture. 3. Performed an approx 8mm sphincterotomy given the clinical history and MRCP report of a 3mm stone. There was good flow of bile and contrast noted. 4. Duct swept multiple times with a fully inflated 12mm balloon catheter which pulled easily into the duodenum, but without any stone nor sludge removed from the bile duct. There was no purulent drainage. 5. The pancreatic duct was not cannulated nor injected. Imp: Normal appearing biliary tree. He most likely passed the tiny CBD stone spontaneously. Rec: Observe overnight, F/U LFT's, advance diet as tolerated. He can be discharged in AM, 11/3, if stable. D/W patient and his . Thanks
[2020-09-14] MEDS: 0.9 % Sodium Chloride Flush 3 ML SYRINGE IVFLUSH (18:07)
--- NOTE | 2020-09-14 19:04 | OP_ITS ---
SURGEON: Jhon Eisenberg MD INDICATIONS: The patient presents for evaluation of abdominal pain, elevated LFTs, and MRCP suggesting a tiny common duct stone. Full consent has been obtained from him for this, including risks of bleeding, perforation, cholangitis, and pancreatitis. PREOPERATIVE DIAGNOSIS: Choledocholithiasis. POSTOPERATIVE DIAGNOSIS: Normal cholangiogram. PROCEDURE PERFORMED: ERCP, sphincterotomy. ESTIMATED BLOOD LOSS: COMPLICATIONS: ANESTHESIA: General anesthesia and glucagon 0.5 mg IV x2 doses. ASSISTANTS: SPECIMENS: DESCRIPTION OF PROCEDURE: The patient was placed in the semiprone position. The [employer] disposable therapeutic duodenoscope was passed in the posterior oropharynx and upper esophagus. The scope entered into the stomach and was advanced to pylorus. The duodenum was cannulated to the descending portion. The region of the major papilla was visualized. This appeared normal. I was able to achieve a selective cannulation of the biliary tree over a straight guidewire. Selective cholangiograms at that point revealed good filling of the intrahepatic and extrahepatic biliary tree. The biliary tree appeared normal without any sign of filling defects, stricture, nor any sign of obstruction. There was no sign of any extravasation of contrast. Given the patient's clinical history and the reported MRI with a tiny stone, I did opt to perform an approximately 8 mm sphincterotomy over the guidewire without any immediate complication. There was good drainage of bile and dye noted without any purulence. Over the guidewire, I passed a 12 mm balloon catheter. With the balloon fully inflated, the duct was swept multiple times and pulled easily into the duodenum. However, I did not see any stone nor sludge come into the duodenum. Cholangiograms with the balloon both inflated and deflated appeared normal. Again, the 12 mm balloon pulled easily into the duodenum. Final cholangiogram did not show any sign of filling defects. At that point with good drainage obtained, the procedure was terminated. Of note, the pancreas was not injected nor cannulated. He was transferred to the recovery area in stable condition. IMPRESSION: Normal cholangiogram. PLAN: The patient will be observed overnight. He will have followup laboratories tomorrow. If he is feeling better and the LFTs are improving, his diet can be advanced and he can hopefully be discharged by tomorrow. Instructions have been given that he should not use any aspirin, NSAIDs, nor anticoagulants for 1 week. This has all been discussed with the patient and his . MD ALEX Fallon/DONALD / [id number]
[2020-09-14] MEDS: oxyCODONE HCl Immed Release 5 MG TABLET PO (20:06)
[2020-09-15] MEDS: 0.9 % Sodium Chloride 1,000 ML 100 ML IVCONT ×2 (00:16→09:41)
[2020-09-15 03:06] VITALS: BP 160/85; PULSE 50; RESP 19; TEMP 36.4; O2SAT 94
[2020-09-15 03:11] VITALS: RESP 18
[2020-09-15] MEDS: Morphine Sulfate 4 MG/ML CARTRIDGE 2 MG IVPUSH (03:11)
[2020-09-15 06:11] LABS: MANUAL DIFF FLAG NO
[2020-09-15 06:27] LABS: Basophils Percent Auto 0.6 % (0-2); Eosinophils Percent Auto 0.1 % (0-4); Hematocrit 38.6 % (42-52); Hemoglobin 12.6 g/dl (14.0-18.0); Imm Gran Abs Auto 0.16 X10*3/uL (0.00-0.03); Imm Gran Pct Auto 2.2 % (0.0-0.4); Lymphocytes Absolute Auto 1.2 X10*3/uL (1.2-4.9); Lymphocytes Percent Auto 16.1 % (20-40); Mean Corpuscular HGB Conc 32.6 g/dl (31.0-36.0); Mean Corpuscular Volume 79.8 fL (80-98); Mean Platelet Volume 9.3 fL (9.4-12.4); Monocytes Absolute Auto 0.4 X10*3/uL (0.1-1.2); Monocytes Percent Auto 5.1 % (2-11); Neutrophils Absolute Auto 5.5 X10*3/uL (2.0-8.3); Neutrophils Percent Auto 75.9 % (45-73); Platelet Count 219 X10*3/uL (160-400); Red Blood Count 4.84 X10*6/uL (4.60-5.80); Red Cell Distribution Width 13.9 % (11.0-16.0); White Blood Count 7.3 X10*3/uL (4.8-10.8)
[2020-09-15 06:55] LABS: Alanine Aminotransferase 518 U/L (0-40); Alkaline Phosphatase 340 U/L (39-117); Anion Gap 16 (12-20); Aspartate Amino Transferase 314 U/L (5-37); Bilirubin Direct 1.6 mg/dL (0.0-0.5); Blood Urea Nitrogen 7 mg/dL (9-16); Calcium 8.6 mg/dL (8.4-10.2); Carbon Dioxide 23 mmol/L (22-29); Chloride 105 mmol/L (96-108); Creatinine Clr Calc Pharmacy 149.5; Estimated Glomerular Filt Rate > 60; Glucose Fasting 172 mg/dL (60-99); Sodium 140 mmol/L (135-145); Total Protein 6.8 g/dL (6.5-8.0)
[2020-09-15 07:25] VITALS: BP 174/97; PULSE 54; RESP 20; TEMP 36.5; O2SAT 95
[2020-09-15 07:30] VITALS: BP 174/97; PULSE 55; RESP 20; TEMP 36.1; O2SAT 95
--- NOTE | 2020-09-15 08:19 | PM.PNGS ---
Subjective Subjective Interval history: Ezequiel feels improved today with no abdominal pain, nausea, or vomiting. Tolerated the ERCP well yesterday. He tolerated the clear liquid diet last night as well. Physical Exam Vital Signs: Vital Signs: Vital Signs Temp Pulse Resp BP Pulse Ox 09/15/20 07:30 97 F 55 20 174/97 H 95 09/15/20 07:25 97.7 F 54 20 174/97 H 95 09/15/20 03:11 18 09/15/20 03:06 97.6 F 50 19 160/85 H 94 09/14/20 23:27 97.7 F 68 19 152/85 H 94 09/14/20 17:44 96.7 F L 60 18 147/96 H 93 09/14/20 17:28 68 18 142/88 H 96 09/14/20 17:13 60 16 139/83 96 09/14/20 17:08 58 18 134/79 97 09/14/20 17:03 60 18 138/84 98 09/14/20 16:58 98.2 F 68 18 146/84 H 100 09/14/20 14:32 97.9 F 61 16 135/88 95 09/14/20 11:39 98.5 F 59 17 145/83 H 94 Body Mass Index 29.7 Const: General: comfortable and no acute distress Nutritional Appearance: well nourished Orientation/consciousness: patient oriented x3 Resp: Effort & Inspection: normal respiratory effort GI: Other: Soft, nondistended, nontender, no rebound Skin: Other: warm and dry, no apparent jaundice Neuro: General: patient oriented x3 Progress Note: A&P Assessment and plan (1) Common bile duct stone: Status: Acute Assessment and Plan: status post laparoscopic cholecystectomy now presenting with choledocholithiasis presumably from a retained cystic duct stone. He is status post ERCP, sphincterotomy. No stone was noted on this examination. LFTs today reveal a down trending of the bilirubin levels but continued elevation of the transaminases. Symptomatic lead the patient is much improved suggestive of a passed stone. Fall Risk Details Current Medications: Current Medications Generic Name Dose Route Start Last Admin Trade Name Freq PRN Reason Stop Dose Admin Acetaminophen 650 mg 09/14/20 15:24 Acetaminophen 325 Mg Tablet PO ONCE PRN Pain, Mild (Pain Scale 1-3) Buprenorphine/Naloxone 1 film 09/14/20 09:00 09/14/20 09:52 Buprenorphine/Naloxone 4/1 Mg Film SUBLINGUAL 1 film DAILY ALIYA Administration Clonidine HCl 0.3 mg 09/13/20 21:00 09/14/20 20:06 Clonidine Hcl 0.1 Mg Tablet PO 0.3 mg BID ALIYA Administration Protocol Docusate Sodium 100 mg 09/13/20 21:00 09/14/20 20:05 Docusate Sodium 100 Mg Capsule PO 100 mg BID ALIYA Administration Hydromorphone HCl 0.25 mg 09/14/20 15:24 Hydromorphone Hcl 0.5 Mg/0.5 Ml Syringe IVPUSH Q5M PRN Pain, Severe (Pain Scale 7-10) Hydroxyzine HCl 25 mg 09/13/20 20:16 Hydroxyzine Hcl 25 Mg Tablet PO TID PRN Anxiety Sodium Chloride 1,000 mls @ 100 mls/hr 09/13/20 20:16 09/15/20 00:16 Ns IVCONT 100 mls/hr .Q10H ALIYA Administration Medication 1 each 09/14/20 17:55 No Nsaids MISCELLANE 09/22/20 17:18 DAILY ALIYA Medication 1 each 09/14/20 17:55 No Anticoagulants MISCELLANE 09/22/20 17:18 DAILY [facility] Medication 1 each 09/14/20 17:55 No Aspirin MISCELLANE 09/22/20 17:19 DAILY [facility] Morphine Sulfate 2 mg 09/13/20 20:16 09/15/20 03:11 Morphine Sulfate 4 Mg/Ml Cartridge IVPUSH 2 mg Q4H PRN Administration Pain, Severe (Pain Scale 7-10) Ondansetron HCl 4 mg 09/13/20 20:16 09/14/20 06:25 Ondansetron Hcl 4 Mg/2 Ml Vial IVPUSH 4 mg Q8H PRN Administration Nausea and Vomiting Ondansetron HCl 4 mg 09/14/20 15:24 Ondansetron Hcl 4 Mg/2 Ml Vial IVPUSH ONCE PRN Nausea and Vomiting Pharmacy Consult 1 each 09/13/20 16:51 Consult Rx Perform Med Rec MISCELLANE ONCE PRN Consult order Sodium Chloride 3 ml 09/14/20 00:00 09/15/20 00:13 0.9 % Sodium Chloride Flush 3 Ml Syringe IVFLUSH Not Given QSHIFT [facility] Time Spent With Patient Time: Total time spent is greater than 50% in coordination of care (as documented) at patient's floor/unit and/or counseling patient: Time with patient: less than 15 minutes
--- NOTE | 2020-09-15 09:39 | HO.PM.IMPN ---
Subjective Subjective Date of Service: 09/15/20 Interval History: Seen in f/u for acute hepatitis, abdominal pain. Pain is better, tolerating liquid diet. LFTs remain high Review of Systems no fever no abdominal pain Physical Exam Vital Signs: Vital Signs: Vital Signs Temp Pulse Resp BP Pulse Ox 09/15/20 07:30 97 F 55 20 174/97 H 95 09/15/20 07:25 97.7 F 54 20 174/97 H 95 09/15/20 03:11 18 09/15/20 03:06 97.6 F 50 19 160/85 H 94 09/14/20 23:27 97.7 F 68 19 152/85 H 94 09/14/20 17:44 96.7 F L 60 18 147/96 H 93 09/14/20 17:28 68 18 142/88 H 96 09/14/20 17:13 60 16 139/83 96 09/14/20 17:08 58 18 134/79 97 09/14/20 17:03 60 18 138/84 98 09/14/20 16:58 98.2 F 68 18 146/84 H 100 09/14/20 14:32 97.9 F 61 16 135/88 95 09/14/20 11:39 98.5 F 59 17 145/83 H 94 Body Mass Index 29.7 General: AO X 3, no acute distress but Resp: CTA bilateral CVS: S1,S2,RRR GI: +BS, NT, no distention, no tenderness Skin: No rash, jaundice Neuro: motor grossly intact Psych: appropriate affect Objective Data Current Medications Generic Name Dose Route Start Last Admin Trade Name Miranda PRN Reason Stop Dose Admin Acetaminophen 650 mg 09/14/20 15:24 Acetaminophen 325 Mg Tablet PO ONCE PRN Pain, Mild (Pain Scale 1-3) Buprenorphine/Naloxone 1 film 09/14/20 09:00 09/14/20 09:52 Buprenorphine/Naloxone 4/1 Mg Film SUBLINGUAL 1 film DAILY ALIYA Administration Clonidine HCl 0.3 mg 09/13/20 21:00 09/14/20 20:06 Clonidine Hcl 0.1 Mg Tablet PO 0.3 mg BID ALIYA Administration Protocol Docusate Sodium 100 mg 09/13/20 21:00 09/14/20 20:05 Docusate Sodium 100 Mg Capsule PO 100 mg BID ALIYA Administration Hydromorphone HCl 0.25 mg 09/14/20 15:24 Hydromorphone Hcl 0.5 Mg/0.5 Ml Syringe IVPUSH Q5M PRN Pain, Severe (Pain Scale 7-10) Hydroxyzine HCl 25 mg 09/13/20 20:16 Hydroxyzine Hcl 25 Mg Tablet PO TID PRN Anxiety Sodium Chloride 1,000 mls @ 100 mls/hr 09/13/20 20:16 09/15/20 00:16 Ns IVCONT 100 mls/hr .Q10H ALIYA Administration Medication 1 each 09/14/20 17:55 No Nsaids MISCELLANE 09/22/20 17:18 DAILY [facility] Medication 1 each 09/14/20 17:55 No Anticoagulants MISCELLANE 09/22/20 17:18 DAILY [facility] Medication 1 each 09/14/20 17:55 No Aspirin MISCELLANE 09/22/20 17:19 DAILY [facility] Morphine Sulfate 2 mg 09/13/20 20:16 09/15/20 03:11 Morphine Sulfate 4 Mg/Ml Cartridge IVPUSH 2 mg Q4H PRN Administration Pain, Severe (Pain Scale 7-10) Ondansetron HCl 4 mg 09/13/20 20:16 09/14/20 06:25 Ondansetron Hcl 4 Mg/2 Ml Vial IVPUSH 4 mg Q8H PRN Administration Nausea and Vomiting Ondansetron HCl 4 mg 09/14/20 15:24 Ondansetron Hcl 4 Mg/2 Ml Vial IVPUSH ONCE PRN Nausea and Vomiting Pharmacy Consult 1 each 09/13/20 16:51 Consult Rx Perform Med Rec MISCELLANE ONCE PRN Consult order Sodium Chloride 3 ml 09/14/20 00:00 09/15/20 00:13 0.9 % Sodium Chloride Flush 3 Ml Syringe IVFLUSH Not Given QSHIFT [facility] Labs CBC & Chem 7: 09/15/20 05:57 09/15/20 05:57 Assessment and Plan (1) Common bile duct stone: Status: Acute (2) Elevated LFTs: Status: Acute (3) Jaundice: Status: Acute (4) Total bilirubin, elevated: Status: Acute Assessment and Plan: 50/M with who had Cholecystectomy in June of this year due to gangrenous gallbladder disease and now here with abdominal pain, elevated LFTs, Jaundice and MRCP suggesting CBD stone. 1. Elevted LFTs, concern for CBD stone but cholangiogram on 09/14 was normal - -GI eval for ERCP and stone estraction -surgery following 2. Diabetes--SSI, hold Metformin 3. HLD--hold statin due to increased LFTs 4. h/o of opiate dependence--Suboxone
[2020-09-15] MEDS: Docusate Sodium 100 MG CAPSULE PO (09:40)
[2020-09-15] MEDS: Buprenorphine/Naloxone 4/1 mg FILM 1 FILM SUBLINGUAL (09:40)
[2020-09-15] MEDS: cloNIDine HCL 0.1 MG TABLET 0.3 MG PO (09:41)
--- NOTE | 2020-09-15 10:57 | HO.POSTANES ---
Post Anesthesia Evaluation Post Anesthesia Evaluation Vital Signs: Vital Signs Temp Pulse Resp BP Pulse Ox 09/15/20 07:30 97 F 55 20 174/97 H 95 09/15/20 07:25 97.7 F 54 20 174/97 H 95 09/15/20 03:11 18 09/15/20 03:06 97.6 F 50 19 160/85 H 94 09/14/20 23:27 97.7 F 68 19 152/85 H 94 Anesthesia: Monitored Mental Status: Awake Pain Control: Satisfactory Nausea/Vomiting: None Hydration: Adequate Anesthesia-Related Issues: No Anes. Related Issues
[2020-09-15 12:00] VITALS: BP 141/86; PULSE 57; RESP 20; TEMP 36.6; O2SAT 92
--- NOTE | 2020-09-15 12:05 | P.DS_ITS ---
DS: Providers Provider Date of admission: 09/13/20 19:39 Primary care physician: Unknown Physician Consults: 09/13/20 20:16 Consult to Gastroenterology Routine Consulting Provider: Jhon Eisenberg Reason for consultation: abdominal pain, elevated lfts Has provider been notified: No 09/14/20 08:48 Consult to General Surgery Routine Consulting Provider: Deni Garcia Reason for consultation: abd pain Has provider been notified: Yes DS: Diagnosis Discharge Diagnosis (1) Common bile duct stone: Status: Acute (2) Elevated LFTs: Status: Acute (3) Jaundice: Status: Acute (4) Total bilirubin, elevated: Status: Acute DS: Summary Hospital Course Hospital Course: 50M with diabetes who presented to ED with abdominal pain and elevated LFTS. t. He had an inpatient laparoscopic cholecystectomy with Dr. Carnes on June and was noted to have gangrenous cholecystitis. He was discharged on July 16 and was doing well until 2 to 3 days prior to admission when having abdominal pain, some nausea and vomitting. He was noted to have elevated LFTS and bili. AST was 366 and ALT was [address] and US showed no evidence of stone. MRCP later showed obstruction in CBD so he underwent ERCP by Dr. Eisenberg on 09/14/20 yet cholangiogram was normal--may have passed stone. The next day bili went down to 20 and LFTs slightly higher but likely related to dye, and experimentation. His symptoms however have dicipated and he is tolerating regular. He will have repeat LFTS on Monday09/14/20. He is advised to avoid Tyelenol, Motrin, ASA for at least one week due Phycterectomy during ERCP and to call Dr. Eisenberg if any symptoms arise. Status at Discharge Functional status at discharge: independent ambulation Overall status at discharge: patient is progressing back to baseline Time Spent with Patient Time attestation: Total time spent providing and/or coordinating discharge services: Time spent: Greater than 30 minutes Physical Exam Vital Signs: Vital Signs: Vital Signs Temp Pulse Resp BP Pulse Ox 09/15/20 12:00 97.8 F 57 20 141/86 H 92 09/15/20 07:30 97 F 55 20 174/97 H 95 09/15/20 07:25 97.7 F 54 20 174/97 H 95 09/15/20 03:11 18 09/15/20 03:06 97.6 F 50 19 160/85 H 94 09/14/20 23:27 97.7 F 68 19 152/85 H 94 09/14/20 17:44 96.7 F L 60 18 147/96 H 93 09/14/20 17:28 68 18 142/88 H 96 09/14/20 17:13 60 16 139/83 96 09/14/20 17:08 58 18 134/79 97 09/14/20 17:03 60 18 138/84 98 09/14/20 16:58 98.2 F 68 18 146/84 H 100 09/14/20 14:32 97.9 F 61 16 135/88 95 Body Mass Index 29.7 General: AO X 3, no acute distress but Resp: CTA bilateral CVS: S1,S2,RRR GI: +BS, NT, no distention, no tenderness Skin: No rash, jaundice Neuro: motor grossly intact Psych: appropriate affect DS: Data Data Completed and Pending Labs on day of discharge: Labs from last 24 hours 09/15/20 09/15/20 05:57 05:57 WBC 7.3 RBC 4.84 Hgb 12.6 L Hct 38.6 L MCV 79.8 L MCH 26.0 L MCHC 32.6 RDW 13.9 Plt Count 219 D MPV 9.3 L Immature Gran % (Auto) 2.2 H Neut % (Auto) 75.9 H Lymph % (Auto) 16.1 L Bennett % (Auto) 5.1 Eos % (Auto) 0.1 Baso % (Auto) 0.6 Lymph # (Auto) 1.2 Bennett # (Auto) 0.4 Eos # (Auto) 0.0 Baso # (Auto) 0.0 Abs Immat Gran (auto) 0.16 H Absolute Neuts (auto) 5.5 Absolute Nucleated RBC 0.000 Nucleated RBC % (auto) 0.0 Sodium 140 Potassium 4.0 Chloride 105 Carbon Dioxide 23 Anion Gap 16 BUN 7 L Creatinine 0.75 Estim Creat Clear Calc 149.5 Estimated GFR > 60 Fasting Glucose 172 H Calcium 8.6 Total Bilirubin 2.0 H Direct Bilirubin 1.6 H AST 314 H ALT 518 H Alkaline Phosphatase 340 H D Total Protein 6.8 Albumin 4.0 Discharge Plan Discharge Anticipated Discharge Date/Time: 11/03/20 11:58 Patient Disposition: Home, Self-Care Referrals: Physician,Unknown [Primary Care Provider] - Discharge Medications: Continued clonidine HCl 0.3 mg tablet 1 tab PO BID RF: 0 dicyclomine 20 mg tablet 1 tab PO QID RF: 0 metformin 1,000 mg tablet 1 tab PO BID RF: 0 hydroxyzine HCl 25 mg tablet 1 tab PO TID PRN (Reason: Anxiety) RF: 0 buprenorphine-naloxone 4-1 mg film 1 strip sublingual DAILY RF: 0 Discharge Orders: Discharge Order (Routine); Ordered 09/15/20 Ordered By: Av Freeman Diet: advance to your usual diet and diabetic diet Activity on Discharge: As tolerated Stand Alone Forms: Work/School Release Discharge Date/Time: 09/15/20 14:16 Other Ambulatory Orders: Liver Panel (Routine) Timeframe: 20200921 Facility: [facility] - Location: Laboratory Ordered By: Av Freeman Visit Report Forms: Patient Portal Discharge page Care Plan Goals: Resolution of jaundice and return of Liver test to normal Health Concerns: liver injury Plan of Treatment: Avoid Tyelenol, Motrin or advil or Aspirin. Check with your Doctor before taking any new medication. Check liver labs on September 21 and if you have your symptoms come back contact Dr. Eisenberg's office at [phone]. Call your Doctor and arrange for follow up appointment within a week.
--- NOTE | 2020-09-15 12:29 | MHC.CM.PN ---
Patient is discharged home with no need for services. RN aware of plan to transport.
[2020-09-16 07:27] LABS: Hepatitis A Antibody IgM 0.31 Index (0-0.79); ~Hepatitis A Antibody IgM Nonreactive (Nonreactive)
[2020-09-17 12:53] LABS: Mitochondrial Antibodies NEGATIVE (NEGATIVE)
== END 2020-09-15 14:16 | disposition home or self-care (01) | DRG 445 ==
LOC: HO.ED 19:28 → HO.S3 20:00
PROVIDERS: Internal Medicine; Nurse Practitioner Family; Physician Assistant; Physician Assistant Medical; Admitting Provider Internal Medicine; Emergency Provider Emergency Medicine; Visit Provider Internal Medicine
PROC: 0F798DZ Dilation of Common Bile Duct with Intraluminal Device, Via Natural or Artificial Opening Endoscopic (ICD-10-PCS; CPT 43260; principal; 2020-09-14 15:00)
DX: K80.50 Calculus of bile duct without cholangitis or cholecystitis without obstruction (principal); F11.20 Opioid dependence, uncomplicated; F41.9 Anxiety disorder, unspecified; Z20.828 Contact with and (suspected) exposure to other viral communicable diseases; F17.210 Nicotine dependence, cigarettes, uncomplicated; Z71.6 Tobacco abuse counseling; E78.5 Hyperlipidemia, unspecified; R73.03 Prediabetes; Z79.84 Long term (current) use of oral hypoglycemic drugs; Z79.899 Other long term (current) drug therapy
CPT/HCPCS: 36415; 74177; 74181; 76705; 80048; 80053; 80076; 80307; 81003; 82977; 83690; 83735; 85025; 85027; 85610; 86255; 86256; 86704; 86706; 86709; 86803; 87340; 96361; 96374; 96375; 99284; G0480; J0330; J0573; J1100; J1610; J1956; J2250; J2270; J2405; J2765; J3010; Q9967; U0003

== ENCOUNTER 2021-01-20 08:33 | Outpatient (REF) | payer OTHER, SELFPAY ==
[2021-01-20 09:47] LABS: Hematocrit 45.9 % (42-52); Hemoglobin 14.8 g/dl (14.0-18.0); Mean Corpuscular HGB Conc 32.2 g/dl (31.0-36.0); Mean Corpuscular Hemoglobin 26.3 pg (27.0-33.0); Mean Corpuscular Volume 81.5 fL (80-98); Mean Platelet Volume 9.7 fL (9.4-12.4); Platelet Count 212 X10*3/uL (160-400); Red Blood Count 5.63 X10*6/uL (4.60-5.80); Red Cell Distribution Width 13.8 % (11.0-16.0); White Blood Count 7.2 X10*3/uL (4.8-10.8)
[2021-01-20 09:58] LABS: Estimated Average Glucose 143 mg/dL; Hemoglobin A1c % 6.6 %
[2021-01-20 10:09] LABS: Alanine Aminotransferase 20 U/L (0-40); Albumin Level 4.6 g/dL (3.5-5.0); Alkaline Phosphatase 76 U/L (39-117); Anion Gap 13 (12-20); Aspartate Amino Transferase 22 U/L (5-37); Bilirubin Total 0.4 mg/dL (0.0-1.0); Blood Urea Nitrogen 13 mg/dL (9-16); Calcium 9.4 mg/dL (8.4-10.2); Carbon Dioxide 28 mmol/L (22-29); Chloride 103 mmol/L (96-108); Cholesterol 250 mg/dL; Estimated Glomerular Filt Rate > 60; Glucose Random 124 mg/dL (60-115); HDL Cholesterol 45 mg/dL; Potassium 4.4 mmol/L (3.3-5.1); Sodium 140 mmol/L (135-145); Total Protein 7.4 g/dL (6.5-8.0); Triglycerides 557 mg/dL
[2021-01-20 10:34] LABS: Prostate Specific Antigen 0.55 ng/mL (<0.05-4.0); Vitamin D 25-OH Total 41.6 ng/mL (>30)
[2021-01-20 10:45] LABS: Reflex LDLD? Yes
[2021-01-21 04:06] LABS: LDL Cholesterol Direct 111 mg/dL (<100)
== END 2021-01-20 08:34 | disposition home or self-care (01) ==
LOC: HO.LAB 08:33
PROVIDERS: PCP Internal Medicine; Visit Provider Internal Medicine
DX: E11.9 Type 2 diabetes mellitus without complications (principal); Z12.5 Encounter for screening for malignant neoplasm of prostate
CPT/HCPCS: 36415; 80053; 80061; 82306; 83036; 83721; 84153; 85027

== ENCOUNTER 2021-03-09 10:35 | Inpatient (IN) | payer OTHER, SELFPAY ==
--- NOTE | ~2021-03-09 | CT_ITS ---
EXAMINATION: CT ABDOMEN AND PELVIS WITH CONTRAST CLINICAL INFORMATION: 51-year-old male with abdominal pain. COMPARISON: MRCP September 14, 2020 and abdominal ultrasound and CT abdomen pelvis September 13, 2020 TECHNIQUE: Multidetector volumetric images were obtained from the superior aspect of the liver through the pubic symphysis following administration 85 mL of Omnipaque 350 intravenous contrast. Sagittal and coronal reformatted images were obtained on the technologist's workstation. Oral contrast: No This CT examination was performed using dose optimization techniques as appropriate, variously including the following: *Automated exposure control *Adjustment of mA and/or kV according to patient size (this includes techniques or standardized protocols for targeted exams where dose is matched to indication/reason for exam; i.e. extremities or head) *Use of iterative reconstruction technique DLP: 784 mGy-cm FINDINGS: Visualized lung bases demonstrate mild dependent atelectasis. The liver is normal in size but demonstrates diffusely decreased attenuation suggesting hepatic steatosis. The gallbladder is surgically absent. Symmetrically enhancing pancreas. There is peripancreatic stranding most prominent around the pancreatic head. No pancreatic pseudocysts identified. Similar mild prominence of the spleen. The adrenal glands are unremarkable. Symmetrically enhancing kidneys. There is no hydronephrosis bilaterally. Normal caliber loops of small and large bowel. Normal appendix. Small fat-containing umbilical hernia is unchanged. Nonaneurysmal abdominal aorta. No retroperitoneal lymphadenopathy. The bladder is well-distended and normal in appearance. The prostate gland is not enlarged. No gross free pelvic fluid. No inguinal lymphadenopathy. No acute osseous abnormality. CT/CT abdomen pelvis w con IMPRESSION: CT findings most suggestive of acute pancreatitis. No complicating pseudocyst identified. Correlation with amylase and lipase it is recommended.
--- NOTE | ~2021-03-09 | XR_ITS ---
EXAMINATION: XR ABDOMEN KUB CLINICAL INDICATION: Abdominal pain COMPARISON: 03/09/2021 TECHNIQUE: AP view of the abdomen. FINDINGS: Right upper quadrant surgical clips. Contrast in the bladder. Phleboliths overlie the pelvis. Nonobstructive bowel gas pattern. No dilated loops of bowel. XR/XR KUB IMPRESSION: Normal bowel gas pattern.
--- NOTE | ~2021-03-09 | US_ITS ---
EXAMINATION: US ABDOMEN COMPLETE CLINICAL INFORMATION: Acute pancreatitis. COMPARISON: None TECHNIQUE: Real-time imaging of the abdominal viscera. FINDINGS: PANCREAS: The pancreas is obscured by overlying gas. ABDOMINAL AORTA: The proximal are normal in caliber. The mid and distal segments of the aorta are not seen well. INFERIOR VENA CAVA: Visualized portions are normal. LIVER: Normal. The liver is normal in size. The liver contour is normal. Parenchymal echogenicity is increased. No focal hepatic lesion. There is no intrahepatic biliary duct dilatation seen. GALLBLADDER: Normal. The gallbladder is physiologically distended without evidence of stones, sludge, polyps, wall thickening or pericholecystic fluid. COMMON BILE DUCT: Normal in caliber measuring 0.2 cm in diameter. RIGHT KIDNEY: Normal. No hydronephrosis. No renal calculi or focal parenchymal lesions. The kidney measures 10.9 cm in maximum dimension. LEFT KIDNEY: Normal. No hydronephrosis. No renal calculi or focal parenchymal lesions. The kidney measures 12.7 cm in maximum dimension. SPLEEN: Normal. The spleen measures 14.2 cm in maximum dimension. FREE FLUID: None. US/US abdomen complete IMPRESSION: Diffuse hepatic steatosis without any focal lesion. The pancreas is not well visualized. Rest of the abdominal ultrasound is unremarkable.
--- NOTE | 2021-03-09 10:40 | ED_ITS ---
HPI - Abdominal Pain General Chief Complaint: Abdominal Pain Stated Complaint: abd pain Time Seen by Provider: 03/09/21 10:40 History of Present Illness HPI narrative: Patient complains of onset of abdominal pain this morning which is similar to prior bouts of pancreatitis, he feels nauseous but has not vomited, the pain does not radiate it is in the upper abdomen, pain is a 10/10, there is no diarrhea there is no burning on urination is no fever no chills no dysuria no chest pain no shortness of breath Related Data Home Medications Medication Instructions Recorded Confirmed buprenorphine-naloxone 1 strip SUBLINGUAL DAILY 09/13/20 09/13/20 clonidine HCl 1 tab PO BID 09/13/20 09/13/20 dicyclomine 1 tab PO QID 09/13/20 09/13/20 hydroxyzine HCl 1 tab PO TID PRN 09/13/20 09/13/20 metformin 1 tab PO BID 09/13/20 09/13/20 ascorbic acid (vitamin C) [Vitamin 500 mg PO DAILY 03/09/21 03/09/21 C] cholecalciferol (vitamin D3) 25 mcg PO DAILY 03/09/21 03/09/21 fenofibrate 1 tab PO DAILY 03/09/21 03/09/21 melatonin 3 mg PO BEDTIME PRN 03/09/21 03/09/21 multivitamin 1 tab PO DAILY 03/09/21 03/09/21 omega-3 fatty acids [[place] 3] 1,000 mg PO DAILY 03/09/21 03/09/21 sertraline 2 tab PO DAILY 03/09/21 zinc 100 mg PO DAILY 03/09/21 03/09/21 Allergies Allergy/AdvReac Type Severity Reaction Status Date / Time No Known Allergies Allergy Verified 09/13/20 22:59 [No Known Allergies*] Review of Systems Review of Systems Positive for abdominal pain and nausea Negatives are no fever no chills no dizziness no weakness no fainting no shortness of breath no chest pain no headache no neck pain no diarrhea no dysuria no frequency no burning of urination no changes to bowel or bladder no skin rash no numbness no weakness Yes all other systems are reviewed and are negative Physical Exam Vital Signs: Vital Signs: Last Vital Signs Temp 98.0 F 03/09/21 14:54 Pulse 66 03/09/21 14:54 Resp 22 H 03/09/21 14:54 BP 136/86 03/09/21 14:54 Pulse Ox 97 03/09/21 14:54 Body Mass Index 29.8 General appearance is very uncomfortable appearing, no acute distress, A&O x3 and come and cooperative The head is normocephalic atraumatic Eyes are anicteric with no pallor The pharynx is moist The chest is clear to auscultation bilaterally with symmetric equal breath sounds Heart no murmur auscultated The abdomen had tenderness over the mid upper abdomen, no rebound no guarding no right-sided tenderness, no McBurney point tenderness The back had no CVA tenderness The extremities full range of motion x4 No edema of the legs, no calf tenderness or swelling Skin no rash Neuro no focal motor or sensory deficit, no facial asymmetry, verbal interaction both understanding and speech are normal Course Course Course Narrative: Patient blood testing showed a lipase of [address] scan results that showed pancreatic stranding but no abscess no other acute finding Renal function and liver function were normal Patient was afebrile and stable throughout time in the ER Patient's pain was very difficult to control as he has been taking Suboxone Dilaudid would control pain for a period of time and then pain would return Patient was hydrated, nausea was controlled with Zofran Patient was admitted to medical service for pancreatitis MDM - Abdominal Pain Lab Data Attestation: I reviewed the patient's lab results. Result diagrams: 03/09/21 10:52 03/09/21 10:52 Labs: Lab Results 03/09/21 03/09/21 03/09/21 Range/Units 10:52 10:52 10:52 WBC 9.2 (4.8-10.8) X10*3/uL RBC 5.60 (4.60-5.80) X10*6/uL Hgb 14.8 (14.0-18.0) g/dl Hct 44.9 (42-52) % MCV 80.2 (80-98) fL MCH 26.4 L (27.0-33.0) pg MCHC 33.0 (31.0-36.0) g/dl RDW 13.5 (11.0-16.0) % Plt Count 214 (160-400) X10*3/uL MPV 9.0 L (9.4-12.4) fL Immature Gran % (Auto) 0.9 H (0.0-0.4) % Neut % (Auto) 66.7 (45-73) % Lymph % (Auto) 23.6 (20-40) % [place] % (Auto) 5.2 (2-11) % Eos % (Auto) 2.6 (0-4) % Baso % (Auto) 1.0 (0-2) % Lymph # (Auto) 2.2 (1.2-4.9) X10*3/uL [place] # (Auto) 0.5 (0.1-1.2) X10*3/uL Eos # (Auto) 0.2 (0.0-0.4) X10*3/uL Baso # (Auto) 0.1 (0.0-0.2) X10*3/uL Abs Immat Gran (auto) 0.08 H (0.00-0.03) X10*3/uL Absolute Neuts (auto) 6.2 (2.0-8.3) X10*3/uL Absolute Nucleated RBC 0.000 (0.0-0.012) X10*3/uL Nucleated RBC % (auto) 0.0 (0.0-0.2) /100WBC Hold Blue Top SEE NOTE Sodium 138 (135-145) mmol/L Potassium 4.0 (3.3-5.1) mmol/L Chloride 99 (96-108) mmol/L Carbon Dioxide 29 (22-29) mmol/L Anion Gap 14 (12-20) BUN 10 (9-16) mg/dL Creatinine 0.94 (0.5-1.4) mg/dL Estim Creat Clear Calc 114.9 Estimated GFR > 60 Random Glucose 154 H (60-115) mg/dL Calcium 10.1 D (8.4-10.2) mg/dL Total Bilirubin 0.5 (0.0-1.0) mg/dL Direct Bilirubin 0.2 (0.0-0.5) mg/dL AST 34 D (5-37) U/L ALT 35 (0-40) U/L Alkaline Phosphatase 65 (39-117) U/L Total Protein 7.4 (6.5-8.0) g/dL Albumin 4.6 (3.5-5.0) g/dL Triglycerides 310 mg/dL Lipase 358 H (8-78) U/L COVID-19 (OLE) (Negative) COVID-19 Clin Com 03/09/21 Range/Units 15:08 WBC (4.8-10.8) X10*3/uL RBC (4.60-5.80) X10*6/uL Hgb (14.0-18.0) g/dl Hct (42-52) % MCV (80-98) fL MCH (27.0-33.0) pg MCHC (31.0-36.0) g/dl RDW (11.0-16.0) % Plt Count (160-400) X10*3/uL MPV (9.4-12.4) fL Immature Gran % (Auto) (0.0-0.4) % Neut % (Auto) (45-73) % Lymph % (Auto) (20-40) % [place] % (Auto) (2-11) % Eos % (Auto) (0-4) % Baso % (Auto) (0-2) % Lymph # (Auto) (1.2-4.9) X10*3/uL [place] # (Auto) (0.1-1.2) X10*3/uL Eos # (Auto) (0.0-0.4) X10*3/uL Baso # (Auto) (0.0-0.2) X10*3/uL Abs Immat Gran (auto) (0.00-0.03) X10*3/uL Absolute Neuts (auto) (2.0-8.3) X10*3/uL Absolute Nucleated RBC (0.0-0.012) X10*3/uL Nucleated RBC % (auto) (0.0-0.2) /100WBC Hold Blue Top Sodium (135-145) mmol/L Potassium (3.3-5.1) mmol/L Chloride (96-108) mmol/L Carbon Dioxide (22-29) mmol/L Anion Gap (12-20) BUN (9-16) mg/dL Creatinine (0.5-1.4) mg/dL Estim Creat Clear Calc Estimated GFR Random Glucose (60-115) mg/dL Calcium (8.4-10.2) mg/dL Total Bilirubin (0.0-1.0) mg/dL Direct Bilirubin (0.0-0.5) mg/dL AST (5-37) U/L ALT (0-40) U/L Alkaline Phosphatase (39-117) U/L Total Protein (6.5-8.0) g/dL Albumin (3.5-5.0) g/dL Triglycerides mg/dL Lipase (8-78) U/L COVID-19 (OLE) Negative (Negative) COVID-19 Clin Com See Note Imaging Data CT scan - abdomen: Radiologist's impression: *Adjustment of mA and/or kV according to patient size (this includes techniques or standardized protocols for targeted exams where dose is matched to indication/reason for exam; i.e. extremities or head) *Use of iterative reconstruction technique DLP: 784 mGy-cm FINDINGS: Visualized lung bases demonstrate mild dependent atelectasis. The liver is normal in size but demonstrates diffusely decreased attenuation suggesting hepatic steatosis. The gallbladder is surgically absent. Symmetrically enhancing pancreas. There is peripancreatic stranding most prominent around the pancreatic head. No pancreatic pseudocysts identified. Similar mild prominence of the spleen. The adrenal glands are unremarkable. Symmetrically enhancing kidneys. There is no hydronephrosis bilaterally. Normal caliber loops of small and large bowel. Normal appendix. Small fat-containing umbilical hernia is unchanged. Nonaneurysmal abdominal aorta. No retroperitoneal lymphadenopathy. The bladder is well-distended and normal in appearance. The prostate gland is not enlarged. No gross free pelvic fluid. No inguinal lymphadenopathy. No acute osseous abnormality. CT/CT abdomen pelvis w con IMPRESSION: CT findings most suggestive of acute pancreatitis. No complicating pseudocyst identified. Correlation with amylase and lipase it is recommended. Discharge Plan Discharge Clinical Impression: Acute pancreatitis Qualifiers: Pancreatitis type: unspecified pancreatitis type Acute pancreatitis compl ication: unspecified Qualified Code(s): K85.90 - Acute pancreatitis without necrosis or infection, unspecified Patient Disposition: Admitted As Inpatient [facility] Past Medical History [facility] Narrative: Past medical history includes cholecystitis with surgery to remove his gallbladder as well as pancreatitis in the past He takes Suboxone and no longer uses any street drugs and he denies any recent alcohol use but says he did drink years ago Source: nursing notes reviewed Medical History Anxiety Elevated triglycerides with high cholesterol Pancreatitis Pre-diabetes Surgical History History of cholecystectomy Social History Social History Household Members: Spouse Housing: House Alcohol intake: current Smoking Status: Current some day smoker Advance Directives: No Advance Directives Information Provided: No service: No Current occupational status: employed
[2021-03-09 10:42] VITALS: BP 151/105; PULSE 65; RESP 21; TEMP 37; O2SAT 96; BMI 29.8
[2021-03-09] MEDS: 0.9 % Sodium Chloride 1,000 ML 999 ML IV ×3 (10:53→18:41)
[2021-03-09 10:57] LABS: MANUAL DIFF FLAG NO
[2021-03-09] MEDS: ondansetron HCL 4 MG/2 ML VIAL IVPUSH ×2 (10:58→16:25)
[2021-03-09 11:00] LABS: Basophils Absolute Auto 0.1 X10*3/uL (0.0-0.2); Eosinophils Absolute Auto 0.2 X10*3/uL (0.0-0.4); Eosinophils Percent Auto 2.6 % (0-4); Hematocrit 44.9 % (42-52); Hemoglobin 14.8 g/dl (14.0-18.0); Imm Gran Abs Auto 0.08 X10*3/uL (0.00-0.03); Imm Gran Pct Auto 0.9 % (0.0-0.4); Lymphocytes Absolute Auto 2.2 X10*3/uL (1.2-4.9); Lymphocytes Percent Auto 23.6 % (20-40); Mean Corpuscular Hemoglobin 26.4 pg (27.0-33.0); Mean Corpuscular Volume 80.2 fL (80-98); Monocytes Absolute Auto 0.5 X10*3/uL (0.1-1.2); Monocytes Percent Auto 5.2 % (2-11); Neutrophils Absolute Auto 6.2 X10*3/uL (2.0-8.3); Neutrophils Percent Auto 66.7 % (45-73); Platelet Count 214 X10*3/uL (160-400); Red Cell Distribution Width 13.5 % (11.0-16.0); White Blood Count 9.2 X10*3/uL (4.8-10.8)
[2021-03-09] MEDS: HYDROmorphone HCl 2 MG/ML VIAL IVPUSH ×3 (11:00→15:03)
[2021-03-09 11:37] LABS: Alanine Aminotransferase 35 U/L (0-40); Albumin Level 4.6 g/dL (3.5-5.0); Alkaline Phosphatase 65 U/L (39-117); Anion Gap 14 (12-20); Aspartate Amino Transferase 34 U/L (5-37); Bilirubin Direct 0.2 mg/dL (0.0-0.5); Bilirubin Total 0.5 mg/dL (0.0-1.0); Blood Urea Nitrogen 10 mg/dL (9-16); Calcium 10.1 mg/dL (8.4-10.2); Carbon Dioxide 29 mmol/L (22-29); Chloride 99 mmol/L (96-108); Creatinine Clr Calc Pharmacy 114.9; Estimated Glomerular Filt Rate > 60; Glucose Random 154 mg/dL (60-115); Lipase 358 U/L (8-78); Sodium 138 mmol/L (135-145); Total Protein 7.4 g/dL (6.5-8.0)
[2021-03-09 11:52] VITALS: RESP 20
[2021-03-09] MEDS: HYDROmorphone HCl 2 MG/ML VIAL 1.5 MG IVPUSH (11:52)
[2021-03-09] MEDS: iohexoL 350 MG/ML 100 ML INFUS..BTL IV (13:01)
[2021-03-09] MEDS: HYDROmorphone HCl 0.5 MG/0.5 ML SYRINGE IVPUSH (13:11)
[2021-03-09 14:49] VITALS: BP 136/85; PULSE 61; RESP 24
[2021-03-09 14:54] VITALS: BP 136/86; PULSE 66; RESP 22; TEMP 36.7; O2SAT 97
[2021-03-09 15:40] LABS: COVID-19 Test Negative (Negative); IDNOW Serial# 9DD0AD1C
[2021-03-09] MEDS: Acetaminophen 325 MG TABLET 650 MG PO (16:25)
[2021-03-09] MEDS: HYDROmorphone HCl 1 MG/ML SYRINGE IVPUSH ×4 (16:25→23:20)
--- NOTE | 2021-03-09 16:38 | P.HPHOSP_ITS ---
History of Present Illness Date of Service: 03/09/21 Chief Complaint: Abdominal pain, nausea, vomiting A 51 years old male with PMH of prediabetes, HLD who presents to the hospital complaining of abdominal pain, nausea and vomiting of sudden onset since the morning. Reported doing well until yesterday night with no abdominal pain or nausea. He woke up this morning severe pain and was unable to tolerated associ ated with nausea and episode of vomiting. Pain is mainly epigastric and goes to his back. He has a history of pancreatitis previously and CBD problem with stone but had cholecystectomy and has been doing well since then. In the emergency CT scan was positive for pancreatitis picture with elevated l ipase. Admitted for further evaluation and treatment. Review of Systems Review of Systems: No fever, chills or weakness No chest pain, palpitation No shortness of breath or coughing Severe abdominal pain with associated nausea and vomiting No urinary symptoms No any rash or wounds [facility] Medical History Anxiety Elevated triglycerides with high cholesterol Pancreatitis Pre-diabetes Surgical History History of cholecystectomy Social History Household Members: Spouse Housing: Apartment Do you presently have visiting nurse or other home services: No Alcohol intake: current Smoking Status: Never smoker Second Hand Smoke Exposure: No Use of substances other than those prescribed or required for medical reasons: No Currently Displaying Signs/Symptoms of Drug Intoxication Withdrawal: No Have you been hit, kicked, punched, or otherwise hurt by someone within the past year? If so, by whom?: No Do you feel safe in your current relationship?: Yes Is there a partner from a previous relationship who is making you feel unsafe now?: No Are you made to feel afraid or neglected: No Advance Directives: No Advance Directives Information Provided: No Do you have thoughts of harming others: None Do you have a plan to hurt others: No Plan Recently lost weight without trying: No service: No Current occupational status: employed Meds Allergies Allergy/AdvReac Type Severity Reaction Status Date / Time No Known Allergies Allergy Verified 09/13/20 22:59 [No Known Allergies*] Active Medications: Current Medications Generic Name Dose Route Start Last Admin Trade Name Freq PRN Reason Stop Dose Admin Acetaminophen 650 mg 03/09/21 16:18 03/09/21 16:25 Acetaminophen 325 Mg Tablet PO 650 mg Q6H PRN Administration Pain, Mild (Pain Scale 1-3) Enoxaparin Sodium 40 mg 03/09/21 18:00 Enoxaparin Sodium 40 Mg/0.4 Ml Syringe SUBCUT Q24H ALIYA Fenofibrate 160 mg 03/10/21 09:00 Fenofibrate 160 Mg Tablet PO DAILY ALIYA Hydromorphone HCl 1 mg 03/09/21 16:45 Hydromorphone Hcl 1 Mg/Ml Syringe IVPUSH Q2H ALIYA Sodium Chloride 1,000 mls @ 999 mls/hr 03/09/21 16:15 03/09/21 16:24 Ns IV 03/09/21 17:15 999 mls/hr .Q1H1M ALIYA Administration Sodium Chloride 1,000 mls @ 150 mls/hr 03/09/21 16:18 Ns IVCONT .Q6H40M ALIYA Sodium Chloride 1,000 mls @ 999 mls/hr 03/09/21 16:45 Ns IV 03/09/21 17:45 .Q1H1M ALIYA Ondansetron HCl 4 mg 03/09/21 16:18 03/09/21 16:25 Ondansetron Hcl 4 Mg/2 Ml Vial IVPUSH 4 mg Q8H PRN Administration Nausea and Vomiting Pharmacy Consult 1 each 03/09/21 16:05 Consult Rx Perform Med Rec MISCELLANE ONCE PRN Consult order Sodium Chloride 3 ml 03/10/21 00:00 0.9 % Sodium Chloride Flush 3 Ml Syringe IVFLUSH QSHIFT [facility] Home Medications Medication Instructions Recorded Confirmed Last Taken Type buprenorphine-naloxone 1 strip SUBLINGUAL DAILY 09/13/20 03/09/21 03/08/21 History clonidine HCl 1 tab PO BID 09/13/20 03/09/21 03/08/21 History dicyclomine 1 tab PO QID PRN 09/13/20 03/09/21 03/08/21 History hydroxyzine HCl 1 tab PO TID PRN 09/13/20 03/09/21 03/08/21 History metformin 1 tab PO BID 09/13/20 03/09/21 03/08/21 History ascorbic acid (vitamin C) [Vitamin 500 mg PO DAILY 03/09/21 03/09/21 03/08/21 History C] cholecalciferol (vitamin D3) 25 mcg PO DAILY 03/09/21 03/09/21 03/08/21 History fenofibrate 1 tab PO DAILY 03/09/21 03/09/21 03/08/21 History melatonin 3 mg PO BEDTIME PRN 03/09/21 03/09/21 Unknown History multivitamin 1 tab PO DAILY 03/09/21 03/09/21 03/08/21 History omega-3 fatty acids [[place] 3] 1,000 mg PO DAILY 03/09/21 03/09/21 03/08/21 History sertraline 2 tab PO DAILY 03/09/21 03/09/21 03/08/21 History zinc 100 mg PO DAILY 03/09/21 03/09/21 03/08/21 History Physical Exam Vital Signs and Narrative: Vital Signs: Last Vital Signs Temp 98.0 F 03/09/21 14:54 Pulse 66 03/09/21 14:54 Resp 22 H 03/09/21 14:54 BP 136/86 03/09/21 14:54 Pulse Ox 97 03/09/21 14:54 Body Mass Index 29.8 Const: Other: Constitutional : Alert, oriented, not in distress Neck : Normal inspection, Supple Cardiovascular : RRR, S1 S2, no lower extremity edema Respiratory : Good bilateral air entry, no crackles, wheezes or rhonchi Gastrointestinal: Epigastric tenderness, abdomen is soft and lax though, no rebound or surgical signs. Skin : Warm/Dry, No rash Neurological : Alert & oriented x3, No focal deficit Results Labs CBC and Chem 7: 03/10/21 06:59 03/10/21 06:59 Labs: Laboratory Results - last 24 hr 03/09/21 03/09/21 03/09/21 10:52 10:52 10:52 MCV 80.2 MCH 26.4 L MCHC 33.0 RDW 13.5 Plt Count 214 MPV 9.0 L Immature Gran % (Auto) 0.9 H Neut % (Auto) 66.7 Lymph % (Auto) 23.6 [place] % (Auto) 5.2 Eos % (Auto) 2.6 Baso % (Auto) 1.0 Lymph # (Auto) 2.2 [place] # (Auto) 0.5 Eos # (Auto) 0.2 Baso # (Auto) 0.1 Abs Immat Gran (auto) 0.08 H Absolute Neuts (auto) 6.2 Absolute Nucleated RBC 0.000 Nucleated RBC % (auto) 0.0 Hold Blue Top SEE NOTE Anion Gap 14 Estim Creat Clear Calc 114.9 Estimated GFR > 60 Random Glucose 154 H Calcium 10.1 D Total Bilirubin 0.5 Direct Bilirubin 0.2 AST 34 D ALT 35 Alkaline Phosphatase 65 Total Protein 7.4 Albumin 4.6 Lipase 358 H COVID-19 (OLE) COVID-19 Clin Com 03/09/21 15:08 MCV MCH MCHC RDW Plt Count MPV Immature Gran % (Auto) Neut % (Auto) Lymph % (Auto) [place] % (Auto) Eos % (Auto) Baso % (Auto) Lymph # (Auto) [place] # (Auto) Eos # (Auto) Baso # (Auto) Abs Immat Gran (auto) Absolute Neuts (auto) Absolute Nucleated RBC Nucleated RBC % (auto) Hold Blue Top Anion Gap Estim Creat Clear Calc Estimated GFR Random Glucose Calcium Total Bilirubin Direct Bilirubin AST ALT Alkaline Phosphatase Total Protein Albumin Lipase COVID-19 (OLE) Negative COVID-19 Clin Com See Note Imaging Radiologist's Impressions: Impressions Abdomen/Pelvis CT 03/09/21 11:14 IMPRESSION: CT findings most suggestive of acute pancreatitis. No complicating pseudocyst identified. Correlation with amylase and lipase it is recommended. Assessment and Plan (1) Pancreatitis, acute: Status: Acute A 51 years old male with PMH of prediabetes, HLD who presents to the hospital complaining of abdominal pain, nausea and vomiting of sudden onset since the morning. Acute pancreatitis Patient denies any alcohol abuse and reports the last drink was years ago He had gallbladder removed surgically with no CBD dilatation noticed on images To check triglyceride level next [place] to start IV fluid bolus and maintenance Dilaudid for pain Zofran p.r.n. for nausea pre diabetes SSI HLD continue fenofibrate DVT PPX Lovenox
[2021-03-09 16:50] LABS: Triglycerides 310 mg/dL
[2021-03-09] MEDS: 0.9 % Sodium Chloride 1,000 ML 150 ML IVCONT (18:49)
[2021-03-09] MEDS: Enoxaparin Sodium 40 MG/0.4 ML SYRINGE SUBCUT (18:50)
[2021-03-09 19:22] LABS: Glucose, Whole Blood 176 mg/dL (60-115)
[2021-03-09 21:03] LABS: Glucose, Whole Blood 195 mg/dL (60-115)
[2021-03-09 21:04] VITALS: BP 145/89; PULSE 78
[2021-03-09] MEDS: cloNIDine HCL 0.1 MG TABLET 0.3 MG PO (21:04)
[2021-03-09] MEDS: Insulin Lispro 100 UNIT/ML 3 ML VIAL SUBCUT (21:04)
[2021-03-09 22:12] VITALS: BP 160/93; PULSE 73; RESP 18; O2SAT 96
[2021-03-09] MEDS: Metoclopramide HCl 10 MG/2 ML VIAL 5 MG IVPUSH (23:25)
--- NOTE | 2021-03-09 23:29 | PC.NURSE ---
patient was starting to vomit- called the hospitalist and reglan was ordered and give, patient vomited 300cc of dark green emesis.
[2021-03-10] VITALS (8 sets, daily range): BP systolic 125–161; BP diastolic 66–97; PULSE 80–95; RESP 16–19; TEMP 36.1–37.3; O2SAT 93–97
[2021-03-10] MEDS: 0.9 % Sodium Chloride 1,000 ML 150 ML IVCONT ×3 (01:27→12:54)
[2021-03-10] MEDS: 0.9 % Sodium Chloride Flush 3 ML SYRINGE IVFLUSH ×2 (01:28→16:18)
[2021-03-10] MEDS: ondansetron HCL 4 MG/2 ML VIAL IVPUSH ×3 (01:47→20:42)
[2021-03-10] MEDS: HYDROmorphone HCl 1 MG/ML SYRINGE IVPUSH ×6 (01:49→20:33)
--- NOTE | 2021-03-10 01:49 | PC.NURSE ---
patient is up ambulatory to the bathroom with a steady gait, patient was vomiting in the bathroom. Medicated per orders.
[2021-03-10 02:03] LABS: Glucose, Whole Blood 196 mg/dL (60-115)
[2021-03-10 02:06] LABS: Appearance Urine CLEAR; Color Urine YELLOW; Glucose Urine UA NEG (NEG); Leukocyte Esterase Urine TRACE (NEG); Nitrite Urine NEG (NEG); UACC Culture Trigger YES; Urine Blood NEG (NEG); Urine Ketones NEG (NEG); Urine Protein NEG (NEG-TRACE)
[2021-03-10 02:15] LABS: Bacteria Urine TRACE /LPF; Mucus Urine TRACE /LPF; RBC Urine 0 /HPF (0); Squamous Epithelial Cell Urine TRACE /LPF
[2021-03-10] MEDS: Morphine Sulfate 2 MG/ML CARTRIDGE IVPUSH (02:58)
--- NOTE | 2021-03-10 05:05 | PC.NURSE ---
patient was sleeping, awoke with severe pain, medicated with dilaudid per order
[2021-03-10 07:16] LABS: MANUAL DIFF FLAG NO
[2021-03-10 07:25] LABS: Basophils Absolute Auto 0.1 X10*3/uL (0.0-0.2); Basophils Percent Auto 0.3 % (0-2); Eosinophils Absolute Auto 0.1 X10*3/uL (0.0-0.4); Eosinophils Percent Auto 0.5 % (0-4); Hematocrit 43.8 % (42-52); Hemoglobin 14.6 g/dl (14.0-18.0); Imm Gran Abs Auto 0.11 X10*3/uL (0.00-0.03); Imm Gran Pct Auto 0.8 % (0.0-0.4); Lymphocytes Percent Auto 6.6 % (20-40); Mean Corpuscular HGB Conc 33.3 g/dl (31.0-36.0); Mean Corpuscular Hemoglobin 26.5 pg (27.0-33.0); Mean Corpuscular Volume 79.5 fL (80-98); Mean Platelet Volume 9.2 fL (9.4-12.4); Monocytes Absolute Auto 0.6 X10*3/uL (0.1-1.2); Monocytes Percent Auto 4.3 % (2-11); Neutrophils Absolute Auto 12.7 X10*3/uL (2.0-8.3); Neutrophils Percent Auto 87.5 % (45-73); Platelet Count 205 X10*3/uL (160-400); Red Blood Count 5.51 X10*6/uL (4.60-5.80); Red Cell Distribution Width 13.5 % (11.0-16.0); White Blood Count 14.6 X10*3/uL (4.8-10.8)
[2021-03-10] MEDS: hydrOXYzine HCL 25 MG TABLET PO ×2 (08:03→20:33)
[2021-03-10 08:10] LABS: Alanine Aminotransferase 29 U/L (0-40); Alkaline Phosphatase 54 U/L (39-117); Anion Gap 14 (12-20); Aspartate Amino Transferase 22 U/L (5-37); Bilirubin Direct 0.3 mg/dL (0.0-0.5); Bilirubin Total 0.6 mg/dL (0.0-1.0); Blood Urea Nitrogen 9 mg/dL (9-16); Carbon Dioxide 25 mmol/L (22-29); Chloride 102 mmol/L (96-108); Creatinine Clr Calc Pharmacy 136.8; Estimated Glomerular Filt Rate > 60; Glucose Random 184 mg/dL (60-115); Potassium 3.9 mmol/L (3.3-5.1); Sodium 137 mmol/L (135-145); Total Protein 6.5 g/dL (6.5-8.0)
[2021-03-10 08:12] LABS: Glucose, Whole Blood 173 mg/dL (60-115)
[2021-03-10 08:13] LABS: Estimated Average Glucose 140 mg/dL; Hemoglobin A1c % 6.5 %
--- NOTE | 2021-03-10 10:26 | MHC.CM.PN ---
NURSE SIGNAL CONSTRUCTOR NOTE ELECTRONIC MEDICAL RECORD REVIEWED ALONG , MET WITH PATIENT , ALERT AND ORIENTATED, CONTINUES TO BE HAVING ABDOMINAL PAIN. 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 discharge plan home no services will need return to work note pcp power [facility] [employer] [facility]
[2021-03-10] MEDS: Fenofibrate 160 MG TABLET PO (10:35)
[2021-03-10] MEDS: Sertraline HCL 100 MG TABLET 200 MG PO (10:35)
[2021-03-10] MEDS: cloNIDine HCL 0.1 MG TABLET 0.3 MG PO ×2 (10:35→20:34)
[2021-03-10] MEDS: Ketorolac Tromethamine 30 MG/ML VIAL IVPUSH (10:36)
[2021-03-10 11:40] LABS: Glucose, Whole Blood 149 mg/dL (60-115)
--- NOTE | 2021-03-10 13:51 | HO.PM.IMPN ---
Subjective Subjective Date of Service: 03/10/21 Interval History: the patient was seen and evaluated this morning Laying in bed, complaining of significant amount epigastric area Reporting nausea med mildly better than yesterday Denies any fever, chills or shortness of breath No reported other overnight events. Review of Systems No fever, chills or weakness No chest pain, palpitation No shortness of breath or coughing Severe abdominal pain with associated nausea and vomiting No urinary symptoms No any rash or wounds Physical Exam Vital Signs: Vital Signs: Last Vital Signs Temp 97.4 F 03/10/21 11:38 Pulse 95 03/10/21 11:38 Resp 18 03/10/21 11:38 BP 141/81 H 03/10/21 11:38 Pulse Ox 94 03/10/21 11:38 Body Mass Index 29.8 Const: Other: Constitutional : Alert, oriented, not in distress Neck : Normal inspection, Supple Cardiovascular : RRR, S1 S2, no lower extremity edema Respiratory : Good bilateral air entry, no crackles, wheezes or rhonchi Gastrointestinal: Epigastric tenderness, abdomen is soft and lax though, no rebound or surgical signs. Skin : Warm/Dry, No rash Neurological : Alert & oriented x3, No focal deficit Objective Data Current Medications Generic Name Dose Route Start Last Admin Trade Name Freq PRN Reason Stop Dose Admin Acetaminophen 650 mg 03/09/21 16:18 03/09/21 16:25 Acetaminophen 325 Mg Tablet PO 650 mg Q6H PRN Administration Pain, Mild (Pain Scale 1-3) Buprenorphine/Naloxone 1 film 03/10/21 09:00 03/10/21 10:04 Buprenorphine/Naloxone 4/1 Mg Film SUBLINGUAL Not Given DAILY ALIYA Clonidine HCl 0.3 mg 03/09/21 21:00 03/10/21 10:35 Clonidine Hcl 0.1 Mg Tablet PO 0.3 mg BID ALIYA Administration Protocol Enoxaparin Sodium 40 mg 03/09/21 18:00 03/09/21 18:50 Enoxaparin Sodium 40 Mg/0.4 Ml Syringe SUBCUT 40 mg Q24H ALIYA Administration Fenofibrate 160 mg 03/10/21 09:00 03/10/21 10:35 Fenofibrate 160 Mg Tablet PO 160 mg DAILY ALIYA Administration Hydromorphone HCl 1 mg 03/10/21 13:24 Hydromorphone Hcl 1 Mg/Ml Syringe IVPUSH Q4H PRN Pain, Severe (Pain Scale 7-10) Hydroxyzine HCl 25 mg 03/09/21 17:24 03/10/21 08:03 Hydroxyzine Hcl 25 Mg Tablet PO 25 mg TID PRN Administration Anxiety Sodium Chloride 1,000 mls @ 200 mls/hr 03/09/21 16:18 03/10/21 12:55 Ns IVCONT 200 mls/hr .Q5H [facility] Infusion Insulin Human Lispro 0 unit 03/09/21 21:00 03/10/21 12:48 Insulin Lispro 100 Unit/Ml 3 Ml Vial SUBCUT Not Given QIDACHS [facility] Protocol Melatonin 3 mg 03/09/21 17:24 Melatonin 3 Mg Tablet PO BEDTIME PRN Sleep Naloxone HCl 0.04 mg 03/10/21 13:24 Naloxone Hcl 0.4 Mg/Ml Vial IVPUSH Q5M PRN Respiratory Rate < 10 Ondansetron HCl 4 mg 03/09/21 16:18 03/10/21 10:36 Ondansetron Hcl 4 Mg/2 Ml Vial IVPUSH 4 mg Q8H PRN Administration Nausea and Vomiting Pharmacy Consult 1 each 03/09/21 16:05 Consult Rx Perform Med Rec MISCELLANE ONCE PRN Consult order Sertraline HCl 200 mg 03/10/21 09:00 03/10/21 10:35 Sertraline Hcl 100 Mg Tablet PO 200 mg DAILY ALIYA Administration Sodium Chloride 3 ml 03/10/21 00:00 03/10/21 08:02 0.9 % Sodium Chloride Flush 3 Ml Syringe IVFLUSH Not Given QSHIFT [facility] Labs CBC & Chem 7: 03/10/21 06:59 03/10/21 06:59 Assessment and Plan (1) Pancreatitis, acute: Status: Acute Assessment and Plan: A 51 years old male with PMH of prediabetes, HLD who presents to the hospital complaining of abdominal pain, nausea and vomiting of sudden onset since the morning. Acute pancreatitis Patient denies any alcohol abuse and reports the last drink was years ago He had gallbladder removed surgically with no CBD dilatation noticed on images Ultrasound negative for any CBD dilatation or slight itch Mildly elevated triglyceride of 500 To check IgG4 Increase IVF rate to 200 cc/hour Dilaudid for pain Zofran p.r.n. for nausea Keep NPO today Leukocytosis Likely reactive to vomiting No clear source of infection, will continue to monitor to follow CBC Hyperglycemia secondary to the pre diabetes A1c of 6.5 SSI HLD continue fenofibrate DVT PPX Lovenox
[2021-03-10 16:13] LABS: Glucose, Whole Blood 132 mg/dL (60-115)
[2021-03-10] MEDS: Enoxaparin Sodium 40 MG/0.4 ML SYRINGE SUBCUT (16:32)
[2021-03-10] MEDS: 0.9 % Sodium Chloride 1,000 ML 200 ML IVCONT ×2 (19:27→23:53)
[2021-03-10 20:19] LABS: Glucose, Whole Blood 113 mg/dL (60-115)
[2021-03-10] MEDS: Melatonin 3 MG TABLET PO (20:34)
[2021-03-11] MEDS: HYDROmorphone HCl 1 MG/ML SYRINGE IVPUSH ×2 (00:29→04:35)
[2021-03-11 03:20] VITALS: BP 146/77; PULSE 86; RESP 20; TEMP 36.9; O2SAT 95
[2021-03-11] MEDS: 0.9 % Sodium Chloride 1,000 ML 200 ML IVCONT ×4 (04:31→20:50)
[2021-03-11] MEDS: ondansetron HCL 4 MG/2 ML VIAL IVPUSH ×2 (04:38→14:16)
[2021-03-11 06:55] LABS: Hematocrit 37.8 % (42-52); Hemoglobin 12.3 g/dl (14.0-18.0); Mean Corpuscular HGB Conc 32.5 g/dl (31.0-36.0); Mean Corpuscular Hemoglobin 26.2 pg (27.0-33.0); Mean Corpuscular Volume 80.6 fL (80-98); Mean Platelet Volume 9.6 fL (9.4-12.4); Platelet Count 182 X10*3/uL (160-400); Red Blood Count 4.69 X10*6/uL (4.60-5.80); Red Cell Distribution Width 14.1 % (11.0-16.0); White Blood Count 10.6 X10*3/uL (4.8-10.8)
[2021-03-11 07:10] VITALS: BP 145/80; PULSE 89; RESP 20; TEMP 37.4; O2SAT 94
[2021-03-11 07:27] LABS: Anion Gap 12 (12-20); Blood Urea Nitrogen 10 mg/dL (9-16); Calcium 8.1 mg/dL (8.4-10.2); Carbon Dioxide 25 mmol/L (22-29); Chloride 108 mmol/L (96-108); Creatinine Clr Calc Pharmacy 138.5; Estimated Glomerular Filt Rate > 60; Glucose Random 130 mg/dL (60-115); Potassium 3.4 mmol/L (3.3-5.1); Sodium 142 mmol/L (135-145)
[2021-03-11 07:46] LABS: Glucose, Whole Blood 138 mg/dL (60-115)
[2021-03-11] MEDS: hydrOXYzine HCL 25 MG TABLET PO (08:15)
[2021-03-11] MEDS: Sertraline HCL 100 MG TABLET 200 MG PO (08:15)
[2021-03-11] MEDS: cloNIDine HCL 0.1 MG TABLET 0.3 MG PO (08:15)
[2021-03-11] MEDS: Fenofibrate 160 MG TABLET PO (08:15)
[2021-03-11] MEDS: Acetaminophen 325 MG TABLET 650 MG PO (08:20)
[2021-03-11] MEDS: Ketorolac Tromethamine 30 MG/ML VIAL IVPUSH ×2 (10:41→20:57)
[2021-03-11 11:25] LABS: Glucose, Whole Blood 132 mg/dL (60-115)
[2021-03-11 11:45] VITALS: BP 112/67; PULSE 70; RESP 18; TEMP 36.8; O2SAT 96
--- NOTE | 2021-03-11 11:52 | P.PNIM_ITS ---
Subjective Subjective Date of Service: 03/11/21 Interval History: Patient complaining of significant abdominal pain localized to epigastric area no radiation, associated with mild nausea, no fever, no chills, no diarrhea, patient NPO. General no headache, no dizziness no fever chills. CVS no chest pain, no palpitation. Respiratory no cough, no sob Gastrointestinal nausea, no vomiting, abdominal pain Physical Exam Vital Signs: Vital Signs: Last Vital Signs Temp 98.2 F 03/11/21 11:45 Pulse 70 03/11/21 11:45 Resp 18 03/11/21 11:45 BP 112/67 03/11/21 11:45 Pulse Ox 96 03/11/21 11:45 Body Mass Index 29.8 General no acute distress. Neck no JVD. CVS regular rate rhythm, Respiratory lungs clear to auscultation, no respiratory distress Gastrointestinal epigastric tenderness to palpation, bowel sounds audible, no guarding , no rigidity. Extremities no edema. Neuro nonfocal Skin no rash Objective Data Current Medications Generic Name Dose Route Start Last Admin Trade Name Abhinavq PRN Reason Stop Dose Admin Acetaminophen 650 mg 03/09/21 16:18 03/11/21 08:20 Acetaminophen 325 Mg Tablet PO 650 mg Q6H PRN Administration Pain, Mild (Pain Scale 1-3) Buprenorphine/Naloxone 1 film 03/10/21 09:00 03/11/21 10:12 Buprenorphine/Naloxone 4/1 Mg Film SUBLINGUAL Not Given DAILY ALIYA Clonidine HCl 0.3 mg 03/09/21 21:00 03/11/21 08:15 Clonidine Hcl 0.1 Mg Tablet PO 0.3 mg BID ALIYA Administration Protocol Enoxaparin Sodium 40 mg 03/09/21 18:00 03/10/21 16:32 Enoxaparin Sodium 40 Mg/0.4 Ml Syringe SUBCUT 40 mg Q24H ALIYA Administration Fenofibrate 160 mg 03/10/21 09:00 03/11/21 08:15 Fenofibrate 160 Mg Tablet PO 160 mg DAILY ALIYA Administration Hydromorphone HCl 1 mg 03/10/21 13:24 03/11/21 04:35 Hydromorphone Hcl 1 Mg/Ml Syringe IVPUSH 1 mg Q4H PRN Administration Pain, Severe (Pain Scale 7-10) Hydroxyzine HCl 25 mg 03/09/21 17:24 03/11/21 08:15 Hydroxyzine Hcl 25 Mg Tablet PO 25 mg TID PRN Administration Anxiety Sodium Chloride 1,000 mls @ 200 mls/hr 03/09/21 16:18 03/11/21 10:11 Ns IVCONT 200 mls/hr .Q5H ALIYA Administration Insulin Human Lispro 0 unit 03/09/21 21:00 03/11/21 08:15 Insulin Lispro 100 Unit/Ml 3 Ml Vial SUBCUT Not Given QIDACHS [facility] Protocol Ketorolac Tromethamine 30 mg 03/11/21 10:17 03/11/21 10:41 Ketorolac Tromethamine 30 Mg/Ml Vial IVPUSH 30 mg Q6H PRN Administration Pain, Severe (Pain Scale 7-10) Melatonin 3 mg 03/09/21 17:24 03/10/21 20:34 Melatonin 3 Mg Tablet PO 3 mg BEDTIME PRN Administration Sleep Naloxone HCl 0.04 mg 03/10/21 13:24 Naloxone Hcl 0.4 Mg/Ml Vial IVPUSH Q5M PRN Respiratory Rate < 10 Ondansetron HCl 4 mg 03/09/21 16:18 03/11/21 04:38 Ondansetron Hcl 4 Mg/2 Ml Vial IVPUSH 4 mg Q8H PRN Administration Nausea and Vomiting Pharmacy Consult 1 each 03/09/21 16:05 Consult Rx Perform Med Rec MISCELLANE ONCE PRN Consult order Sertraline HCl 200 mg 03/10/21 09:00 03/11/21 08:15 Sertraline Hcl 100 Mg Tablet PO 200 mg DAILY ALIYA Administration Sodium Chloride 3 ml 03/10/21 00:00 03/11/21 08:16 0.9 % Sodium Chloride Flush 3 Ml Syringe IVFLUSH Not Given QSHIFT [facility] Labs CBC & Chem 7: 03/11/21 05:53 03/11/21 05:53 Microbiology Microbiology Results: Microbiology 03/10/21 01:58 Urine clean catch - Clean Catch Midstream Urine Culture - Final No growth. Assessment and Plan (1) Acute pancreatitis: Status: Acute Assessment and Plan: 51 years old male with PMH of prediabetes, HLD who presents to the hospital complaining of abdominal pain, nausea and vomiting of sudden onset since the morning. Acute Pancreatitis Question etiology, Persistent abdominal pain and nausea,Patient denies alcohol abuse , reports last drink was years ago, normal LFTs, status post cholecystectomy, no CBD dilatation noticed on images,triglycerides in 300 patient on lofibrate, no trauma, no medications known to cause pancreatitis Continue supportive treatment with IVF 200 cc/hour, analgesic and antiemetic, continue NPO Obtain GI consultation Leukocytosis Resolved was Likely reactive to vomiting Hyperglycemia secondary to the pre diabetes A1c of 6.5, stable blood sugar continue SSI HLD continue fenofibrate h/o of opiate dependence--Suboxone Depression continue Zoloft DVT PPX Lovenox
[2021-03-11] MEDS: Buprenorphine/Naloxone 4/1 mg FILM 1 FILM SUBLINGUAL (12:02)
--- NOTE | 2021-03-11 13:00 | MHC.CM.PN ---
nurse acute care physical therapist note ELECTRONIC MEDICAL RECORD REVIEWED ALONG WITH CASE DISCUSSED WITH STAFF NURSE AND ON MULTIPLE DISCIPLINARY ROUNDS. WHEN I MET PATIENT YESTERDAY HE DENIED HAVING ANY HISTORY OF MENTAL HEALTH DIAGNOSIS AND DENIES USING DRUGS, (HE HOWEVER WAS ALSO IN A LOT OF PAIN ,
--- NOTE | 2021-03-11 13:08 | MHC.AU.CP8 ---
(Central) Auditory Processing Evaluation Date of Visit: Reason for Evaluation: Previous Evaluations: Previous Audiological Evaluation: / History: History: History (Other): /Delivery History: /Delivery History (Other): Hearing Screening: Patient History: Health History: Health History (Other): Medications: Developmental History: Family History of Childhood-Onset Hearing Loss: Academic History: School: Current Grade: Educational Services: Auditory Continuous Performance Test (ACPT): is an attention screening that evaluates the ability to listen over a prolonged period of time. Normative data for Jacky age at the time of testing indicates possible attention difficulties if 25 or more errors are made. Ezequiel scored inattention errors and impulsivity errors for a total of errors on this test, which is within normal limits and suggests Ezequiel is capable of sustained auditory attention. Ezequiel scored inattention errors and impulsivity errors for a total of errors on this test, which it outside normal limits and suggests possible difficulty sustaining attention. EVALUATION: Frequency Patterns Test is a test of temporal processing skills, specifically frequency discrimination, linguistic labeling, and temporal pattern perception. Three tones are presented to the listener, which alternate in pitch from low to high. The listener has to verbally label the pitch patterns. Bertrams score was correct when the pattern was labeled verbally. Normative values for this age group are 40% correct or better. The result of the Frequency Patterns test is within normal limits, suggesting normal temporal processing ability. The result of the Frequency Patterns test is below normal limits, suggesting a temporal processing deficit. When asked to sing/hum back the pattern of pitches, which does not require language, Bertrams score was for both ears. This suggests that temporal processing ability is normal, since Ezequiel is able to discriminate the difference between pitches. The difficulty attaching the language label to the sequence suggests an auditory integration/interhemispheric transfer deficit. Dichotic Digits Test is a test of binaural integration. During this test, a different pair of numbers is presented simultaneously to each ear, and the patient must repeat all four numbers presented. Bertrams scores were correct in the right ear and correct in the left ear. Normative values for this age group are 75% correct or better in the right ear and 65% or better in the left ear. The results of the Dichotic Digits test are within normal limits, and suggest normal binaural integration ability. The result of the Dichotic Digits test are within normal limits for the right ear and below normal limits for the left ear, suggesting a binaural integration deficit. The result of the Dichotic Digits test are below normal limits bilaterally, suggesting a binaural integration deficit. Competing Sentences Test is a test of binaural separation. Different sentences are presented to each ear simultaneously, with the target sentence 15 dBHL softer. The patient is asked to repeat only what was heard in the target ear. Ezequiel?s scores were correct in the right ear and correct in the left ear. Normative values for this age group are 82% or better in the right ear and 40% or better in the left ear. The results of the Competing Sentences test are within normal limits, and suggest normal binaural separation ability. The results of the Competing Sentences test are within normal limits for the right ear and below normal limits for the left ear, suggesting a binaural separation deficit. The results of the Competing Sentences test are below normal limits bilaterally, suggesting a binaural separation deficit. Nrooac-az-Arqkla is a test of auditory closure. The patient is asked to repeat single-syllable words in the presence of babble/noise. Ezequiel?s scores were correct in the right ear and correct in the left ear. Normative values for this age group are 70% or better for each ear. % The results of the Zxdwpw-ep-Zycchx test are within normal limits, and suggest normal auditory closure ability. The results of the Kejdvz-ea-Ldmwjg test are within normal limits for the right ear and below normal limits for the left ear, suggesting an auditory closure deficit. The results of the Ifhwje-ga-Oopyne test are within normal limits for the left ear and below normal limits for the right ear, suggesting an auditory closure deficit. The results of the Ephzvg-ar-Mgdkkt test are below normal limits bilaterally, suggesting an auditory closure deficit. Masking Level Difference is a test of binaural interaction. The listener repeats words in increasing levels of noise, first with the words out of phase, then with the words in phase, until they can no longer understand the words. The difference in threshold between words presented out of phase and in phase is calculated to measure the listener?s release from masking. Ezequiel?s score revealed a threshold release from masking. Normative values for this age group are 6 dB or greater. The result of the Masking Level Difference test is within normal limits, and suggests normal binaural interaction ability. The result of the Masking Level Difference test is below normal limits, which suggests a binaural interaction deficit. INTERPRETATION OF RESULTS: Ezequiel was able to sustain sufficient attention and effort throughout testing today. It is felt that today's results are a reliable representation of their auditory processing abilities. Ezequiel exhibited signs of inattention throughout the evaluation today, such as excessive fidgeting and needing frequent re-direction to stay on task. Children who have difficulty maintaining focus/attention often appear to not understand or follow auditory information; therefore, today's results should be interpreted with caution. Normative data for the tests performed was based on performance of individuals with IQs of 80 and above. When children have an IQ below 80, it is difficult to determine if the deficits noted on the auditory processing evaluation are truly due to an auditory processing disorder, or if they are due to a more global cognitive deficit; therefore, today's results should be interpreted with caution. A (Central) Auditory Processing Disorder is typically diagnosed if a child falls below normal limits on two or more subtests, or significantly poor performance (more than 3 standard deviations from the mean) on one subtest. -The results of today's (Central) Auditory Processing evaluation are consistent with a (Central) Auditory Processing Disorder. -The results of today?s (Central) Auditory Processing evaluation suggest normal (Central) auditory processing ability and are not consistent with a (Central) Auditory Processing Disorder. -Today, Ezequiel scored below normal limits on all five tests. According to the Caroleis/Patricia model of (Central) Auditory Processing, an individual who performs poorly on all tests administered suggests that there may be involvement of a higher-order cognitive, attention, or global deficit that is not specific to the auditory system; therefore, it cannot be concluded if today's results are due to an auditory processing disorder. IMPRESSIONS: Ezequiel exhibits difficulties in the areas of auditory closure, binaural separation, binaural integration, binaural interaction, temporal processing, and auditory integration (interhemsipheric transfer). The auditory system is usually matured around the age of 12 years. Younger children typically show left-ear deficits on dichotic listening tasks and weaker temporal sequencing skills. It is important for children who perform below normative values for their age to have frequent exposure to specific listening activities that will help strengthen the weaker skills. Auditory closure refers to the ability to fill in missing or distorted portions of the auditory signal and interpret the entire message. Difficulties with auditory closure may result in difficulty filling in the missing components when a portion of the auditory signal is inaudible. Often, the individual has difficulties with auditory discrimination and decoding. Listeners tend to have weak top-down processing, which may be influenced by attention or language-related problems. Binaural separation refers to the ability to process an auditory message coming into one ear while ignoring a message presented to the opposite ear at the same time. Deficits in binaural separation ability may cause difficulty hearing in background noise, or when more than one person is speaking at the same time. For example, a student who is trying to listen in a classroom may experience difficulty hearing and understanding the teacher if a classmate was talking nearby. Binaural integration refers to the ability of a listener to process different information being presented to both ears simultaneously. People with binaural separation or integration difficulties often show problems hearing in background noise or when more than one person is talking at the same time. Binaural interaction is the degree to which the auditory system can make use of subtle differences in frequency (pitch), intensity, or phase to enhance listening ability. Deficits in binaural interaction have been shown to lead to difficulties processing speech information in noisy environments. Temporal processing refers to time-related aspects of the acoustic signal, and reflects the listener's ability to recognize acoustic contours. This ability contributes to a listener's ability to extract and utilize prosodic aspects of speech, such as rhythm, stress, and intonation. Individuals who have difficulties with temporal processing may show deficits in sequencing, phonological processing, auditory discrimination, using prosodic features of speech, and understanding verbal social cues. Auditory Integration (Interhemispheric Transfer) refers to the ability to transfer auditory information between the two hemispheres of the brain. On the Frequency Patterns test, Ezequiel could recognize the difference between the high and low pitches, but had difficulty putting the language label to the sequence. Being able to say the language label requires transferring information to the left side of the brain efficiently. An auditory integration deficit may cause difficulty with background noise, sound-symbol association, and simultaneous use of multiple types of information (audio, visual, tactile, etc). RECOMMENDATIONS: -A comprehensive Neuropsychological Evaluation to better assess Ezequiel?s attention, memory, learning, cognition, and executive function. -Continued speech/language services. -Future suggested speech/language evaluations include: TAPS- Entire test CELF- Clinical Evaluation of Language Fundamentals (ages 5-21 receptive and expressive language) CASL- Comprehensive Assessment of Spoken Language (ages 3-21 Abstract language) CTOPP- Comprehensive Test of Phonological Processing (ages 4-25) Listening Comprehension Test - (2 versions, 6-11 year olds and Adolescents 12-17 years) -Listening activities, both at home and with a speech/language pathologist, are recommended. Research shows processing skills improve the more frequently the child is exposed to these listening activities. -Consideration of computer programs such as Earobics, SoundSmart, and Fast ForWord to enhance listening skills, phonemic awareness, working memory, etc. -Ezequiel may benefit from formal musical training. Research has strongly suggested that learning to play a musical instrument enhances auditory processing ability, improves sghess-wz-uerey understanding, and facilitates speech-language skills that play an important role in academic performance. The instructor should be educated regarding the nature of Ezequiel?s disorder so that lessons aren't initially made too challenging. -In order to determine if today's noted weaknesses are related to delayed maturation of the auditory system or due to a fixed deficit, a repeat auditory processing assessment is recommended at the age of 12. -The environmental modifications and teaching strategies listed below are very important for Ezequiel. Students with auditory processing disorders already have to exert significant energy into listening, and therefore need better access to critical auditory information. Noise, reverberation, and distance can interfere with the ability to receive auditory information. Environmental Modifications -Reduce excessive background noise. -Identify consistent sources of noise, such as heating/cooling systems, fans, overhead projectors, fish tanks, etc. Ensure that the student is seated away from these sources of noise. -Check classroom acoustics. Reduce reflective surfaces, such as hard floors, bare windows, and hard wall surfaces. Ideas for covering reflective surfaces include carpet squares, cork boards/soft bulletin boards, window treatments, and adding felt pads to the bottom of chairs. -Reduce visual distractions. Complex visual stimulation may interfere with the ability to pay attention to auditory information. Teaching Strategies -Preferential seating near the teacher or other target sound source (ex. guest speaker, television, computer, etc). -Seat student away from open windows or hallway noise. -Ensure that the teacher or speaker's face is visible (less than a 45? angle) from the student. -Ensure that you have gained the student's attention prior to presenting important information. -Check frequently for understanding. -Multimodality cues (visual, tactile, audio, etc.), if used, should be introduced one modality at a time. Children with integration difficulties may not respond well when these cues are presented simultaneously, as it may cause more confusion. These cues are effective only if concrete examples and repeated modeling of the desired outcome are provided. -Rephrase or restate, rather than repeating exactly what has been said. -Use Clear Speech -Speak clearly and deliberately -Slow down your rate of speech -Take short pauses in between thoughts -Do not yell -Use multimodal teaching strategies (visual aids, props, hands-on examples, etc). -Provide written notes or an outline of information that will be presented verbally before class so the student can concentrate on the material presented and not on the writing of notes -Assign a peer sea captain to supplement the student's own notes -Pre-teach complicated information/topics -Have the student read ahead prior to starting a new topic -Describe upcoming vocabulary and concepts -Be cautious of the use of slang terms; check for understanding if you do -Encourage participation and questions. Provide positive reinforcement -Plan for breaks from listening Direct Remediation Ideas: Binaural Separation Suggested for School: -Speech in noise drills- Give verbal directions in both quiet and noisy/potentially distracting situations. The directions can be informal and in guise of another activity. Begin the directions as simple and straightforward for the student, and increase the difficulty by introducing multi-step directions. Suggested for Home: Localization training- Play games such as ?MoPalso? where the child is blindfolded, then locates the direction from which sounds or voices are coming. Suggested for Home and/or School: -Separation activities can be performed using two audio devices. Device 1 can be a portable audio device with headphones, such as an iPod or smartphone, that plays audio recordings the student will repeat. Device 2 will be a speaker ( ?boom box, computer speaker, etc.) that will play competing sound into the room. The setup is: -One earphone from Device 1 is placed on the target ear. -Device 2 is placed approximately two feet from the opposite ear. -At first, the volume level for Device 1 should be louder and heard easily compared to the volume level of Device 2. -Ask the child to repeat what is heard from Device 1. Begin with simple material and progress to more complex material. Use a variety of lists to the target ear to prevent the child from memorizing material. -When the child can correctly repeat 70-80% of the material presented from Device 1, progressively decrease the volume of Device 1 until it eventually is the same volume as Device 2. -The volume of Device 2 should remain the same during the entire training session. -Each training session should last 20-30 minutes. -When increasing the complexity of the stimuli (for example, passages of a book), comprehension is not important at first; however, as training progresses, the child should demonstrate understanding of the passages. The ultimate goal is to have passages from books presented to both ears at the different intensity levels and have the child answer comprehension questions about the target ear. Examples of stimuli include: Target Ear Opposite Ear Consonant-Vowel Combinations White Noise Single Words Sentences Sentences Digits Passage from a favorite book Babble/crowd noise Auditory Closure Suggested for School: -Auditory training with emphasis on phoneme decoding can assist in developing accurate phonemic representation. The focus should begin on consonant discrimination, involving the use of minimal contrast phoneme pairs (i.e. /p/ vs. /t/). Phonemes are presented in isolation and the child should be able to master one phoneme pair before moving on to another. Vowel discrimination activities can also be included in the training. After the child has mastered phonemes in isolation, training can focus on consonant-vowel or vowel-consonant complexes and then move onto words. Activities should work progress to work on identifying differences between: -High frequency consonants (/s/ /f/) vs. long vowels -High frequency consonants vs. short vowels -High frequency consonants vs. low frequency consonants (/v/ /l/) -Long vowels vs. voices stop consonant (/b/ /d/) -Long vowels vs. voiceless stop consonants (/t/ /k/) -Voiced stop consonants vs. voiceless stop consonants -Long vowels vs. consonant clusters (/pr/ /fr/) -Short vowels vs. consonant clusters -Consonant clusters vs. consonant clusters with widely variant acoustic cues (/st/ vs. /br/) -Consonant clusters vs. consonant clusters with similar acoustic cues (/sh/ vs. /st/) Discrimination of Sounds: -Dissimilar sounds - (Ex. bear/tear) -Similar sounds - (Ex. bear/pear) Student must recognize the unique qualities of a sound stimulus and differentiate one stimulus from another. -Remediation activities to target auditory closure should assist the child in learning to fill in the missing parts in order to perceive the entire message. Context plays an important role in auditory closure. Missing word exercises can include the use of familiar songs or rhymes to help the child predict rhyming words ( e.g. David and Phyllis went up a ), Progress to unfamiliar messages in which context is used to fill in the missing word. Missing syllable exercises can include sentences in which the target syllable is missing and the child must fill in the missing syllable (e.g. He hit a home run in ____ball game or (colors are pur___, yel___) ). Missing phoneme exercises include sentences where the target phoneme is missing (e.g. She (w)atches the (m)ovie). These types of drill help the child to rely less on hearing and decoding and become more reliant on contextual derivation to interpret the entire message. -Build vocabulary using context cues. Auditory and visual input of the new vocabulary word is essential as a first step in this process. The child must be able to say the new word and visually recognize it. At this point in the activity, no definition of the new word is given to the child. The next step is to have the child figure out the meaning of the new word from contextual cues. The context of the sentence must include familiar words which provide clues as to what the new word means. Example: pilfered The thief pilfered the timothy ring from the [employer] store. You can provide multiple sentences to the child if necessary to deduce the meaning of the word. To solidify the meaning of the new word, have the child read a story that incorporates the target word several times. The story can be read aloud to the child if necessary. This is another opportunity for the child to decode the meaning if they were not able to from the previous sentence provided. At this point if the child still is not able to deduce the meaning, provide a succinct definition of the word. Review the word to facilitate retention and memory. Ask the child to provide a definition in their own vocabulary and to use the word in a sentence. Suggested for Home: -Practice identifying where a sound is in a word (ex. t is at the end of cat, o is in the middle of coat). List words by designated sound (ex. fun, feet, fish). -Last Sound Game- Each person takes a turn and says a word that begins with the same sound as the last sound in the previous word (ex. [id number]). -Games such as Wheel [employer] and [employer]. -Selective listening activities- The child is first given words they need to listen for while the adult reads a story out loud (ex. the child could raise their hand every time an animal word is used). Over time the child should listen to the entire story, not only the individual words, so the child is encouraged to listen for meaning and answer comprehension questions. Interhemispheric Training Suggested for School: -The following activity to target auditory memory and the transfer of interhemispheric information is recommended. Provide a short written story which is broken down into segments. Each segment should have one main idea. The student should read each segment and sketch the main idea of each segment in 45 seconds. The time concept is critical; only allow 45 seconds to sketch after reading a segment. After the sketches are completed, take them away, and ask the student to summarize the story by looking at his sketches. Suggested for Home: -Music activities that involve both linguistic-output (a left-hemisphere function) and a melodic output (a right-hemisphere function). These activities can include listening to songs to decipher the lyrics and music lessons that involve the use of both hands. -Bipedal activities (Ex. dancing, jumping, basketball, tossing a ball) -Commercial games such as MediaPasst, Nextivaz, Brain Warp Suggested for Home and School: -Other interhemispheric training exercises include the following: -Instruct the child to find a particular object with their left hand from a bag where they cannot see the object. -Ask the child to find an object with their left hand and label it verbally in regards to shape, texture, and identifying details. -Have the child verbally describe a picture while they are drawing it. Temporal Processing Suggested for School: -Have the student imitate rhythm and beats. -Read aloud with exaggerated prosodic features (emphasis on intonation, stress, and rhythm). -Train the student on rhythm, stress, and intonation. Begin the training with word pairs in which the stress pattern changes the meaning of the word (convict vs. convict, record vs. record). Following training with words, sentence material can be introduced with different stress patterns (ex. I fell into a snowdrift vs I watched the snow drift by ). Suggested for Home and School: -Utilize the [place] Game in therapy -Initially the child and the individual who is facilitating the rehabilitation program should each play the [place] game on their own for 2 weeks according to the agricultural labor camp manager?s directions. -Next, the child must be turned away from the [place] game or blindfolded, so that no visual input can be received. The child should be instructed to listen to the patterns and report what is heard. In order to do this, a communication must be established as to how to report what is heard. This can be done in several ways. Examples include: tones can be labeled by color as specified by the agricultural labor camp manager, tones can be numbered 1 through 4, or tones can be assigned a ?pitch label?, such as low, mid-low, mid-high, and high. This step targets the process of temporal sequencing and ordering. -For the next step, targets should be selected from the patterns of the [place] game. Again, the child should not have visual input from the game. A target is a specific tone. When the child hears the target tone, they should keep track of it, and at the end of the entire sequence played report how many times it was heard, or if it was not heard at all. To progress after this skill is mastered, more than one target can be chosen in a sequence. The child can also be instructed to indicate where the target occurred; at the beginning, middle, or end of the sequence. This step targets the temporal analytic process. -Instruct the child to recognize a particular pattern within the sequences played without visual input. For example, red followed by yellow, or low followed by high. To begin, two successive tones should be identified from the sequence. To progress, three successive tones should be identified, but no more than three. The child should verbally indicate when they have heard the sequence to the elevator pilot. This gives the child practice at transferring a temporal sequence to an auditory imprint. -Lastly, the elevator pilot should play the Wellington game while the child has no visual input. [place] should be set to the setting of game choices where the player plays a sequence, and the instrument plays it back plus a new tone. Then the child plays that sequence back, plus a new tone. The game will alternate in this fashion, and a new tone is added at the end of every sequence. The goal of the child is to repeat back the new tone at the end of each sequence, and to compare it to the last tone in the sequence. The child should indicate if the new tone is higher, lower, or the same as the tone before it. This is a temporal discrimination comparison task. Central Resource Training Given the normal results on today's assessment, no recommendations for direct services to address auditory processing skills will be recommended; however, given Ezequiel?s academic difficulties and speech/language deficits, Central Resource Training may be beneficial. Central Resource Training involves the areas of general cognition, metacognition, and metalinguistic skills, which are highly dependent on attention, executive control, memory and decision making. It can help develop compensatory strategies to improve listening comprehension, as well help to determine and retain the content/meaning of a verbal message. Please refer to a speech-language pathologist for guidance in this area: The following are examples that may be incorporated as needed: -Use of active listening strategies to help accept responsibility for listening comprehension and strengthen existing processing skills. These include: Whole-body listening techniques where the child places their body in an alert position, inclining head toward the speaker, keeping his eyes firmly on the speaker, and avoiding activities that can take attention away from the speaker such as excess movement or fidgeting. Help the child to analyze their listening environments. The goal is to have the child independently identify sources of competing noise that interfere with speech intelligibility and determine how best to change the environment (for example, request to be moved to a quieter place in the classroom) The child should be encouraged to indicate when they do not understand what has been said. -Use of meta-memory strategies Chunking- Breaking down long messages or lists into smaller components and grouping similar concepts together. Elaboration- Use of analogies and acronyms to improve auditory memory. Verbal Rehearsal - repeating the auditory message over and over again. Self-instruction and re-auditorization- Begin with modeling a chosen task by having the clinician/teacher demonstrate the task while ?talking out? the steps involved. Then the adult verbalizes the steps while the student performs the task. Next, the student is taught to self-instruct or ?talk out? the steps as they perform the task. The self-instruction is first done aloud and progresses gradually to a whisper until it is finally silently performed by the student. -Use of linguistic strategies: Training in the use and meaning of tag words (first, last, next, before, but, however, although) that imply relationships among parts of a message. This helps the child with auditory processing difficulties to organize information and make predictions based on expectations. Using ?scripts? to rehearse particular situations. This helps the student to better interpret and understand a situation by using contextual cues and their experiences to ?fill in? missing pieces that may not have been understood. Diagnosis Codes: Primary Diagnosis: Secondary Diagnosis: Services Performed: Signature: Please feel free to contact us with any questions or concerns at . Student/Clinical Fellow: I have reviewed/agreed with student/fellow documentation: Provider:
--- NOTE | 2021-03-11 13:09 | MHC.CM.PN ---
NURSE TEST AND TURN UP TECHNICIAN NOTE ELECTRONIC MEDICAL RECORD REVIEWED INITIAL ASSESSMENT WITH PATIENT HE DENIED HISTORY OF SUBSTANCE ABUSE AND AND MENTAL HEALTH DIAGNOSIS , UPON REVIEWING THE CHART TODAY HOSPITALIST NOTED HISTORY OF OPIOD ABUSE AND HAS BEEN ON SUBOXONE HE ALSO HAS DEPRESSION AND IS ON ZOLOFT. PATIENE IS STILL IN SIGNIFANT ABDOMINAL PAIN, GERONTOLOGIST TO SEE P[ATIENT AND PER HOSPITALIST ANTICIPATE ERCP TO BE DONE DISCHARGE PLAN HOME NO SERVICES PCP DR CELSA ALMAZAN [facility]
[2021-03-11 15:57] LABS: Immunoglobulin G Subclass 1 388 mg/dL (382-929); Immunoglobulin G Subclass 2 281 mg/dL (241-700); Immunoglobulin G Subclass 3 27 mg/dL (22-178); Immunoglobulin G Subclass 4 25.8 mg/dL (4-86); Immunoglobulin G Total 740 mg/dL (600-1640)
[2021-03-11 16:00] VITALS: BP 141/87; PULSE 78; RESP 19; TEMP 35.6; O2SAT 92
--- NOTE | 2021-03-11 16:34 | PM.EVENT ---
Event Note Date of Service: 03/11/21 Event Note: Imp: Uncomplicated resolving pancreatitis of ? etiology. There is no hx of EtOH and there is no sign of biliary disease. He does have a hx of elevated TG's but most recently not in the range of causing pancreatitis. MRCP last year described a normal pancreatic duct. He had an ERCP with sphincterotomy in 09/2020 that was unremarkable. He presently feels much better other than an upset stomach . He denies actual abdominal pain. He is hungry. Rec: Try to advance diet. I ordered clear liquids for tonight. I told him to hold off on pain meds. F/U labs in AM. If stable in AM, his diet can be advanced and he could be discharged. If things worsen I would then order a MRCP. Continue his medication for the elevated TG's. D/W patient in detail. Thanks.
[2021-03-11 16:38] LABS: Glucose, Whole Blood 124 mg/dL (60-115)
[2021-03-11] MEDS: Enoxaparin Sodium 40 MG/0.4 ML SYRINGE SUBCUT (17:54)
[2021-03-11 19:52] VITALS: BP 146/86; PULSE 72; RESP 19; TEMP 35.8; O2SAT 94
[2021-03-11 20:26] LABS: Glucose, Whole Blood 140 mg/dL (60-115)
--- NOTE | 2021-03-11 21:31 | CONS_ITS ---
DATE OF SERVICE: 03/11/2021 REASON FOR CONSULTATION: Abdominal pain and pancreatitis. HISTORY OF PRESENT ILLNESS: The patient is a 51-year-old male with a previous history of a laparoscopic cholecystectomy in June of 2020 for gallstones and gangrenous gallbladder. He was admitted here in September of 2020 for recurrent abdominal pain, elevated LFTs, and what appeared to be a small common duct stone on MRCP. He underwent an ERCP, which did not reveal any definitive stones in the bile duct, although he did have a sphincterotomy done at that time. He did not have a pancreatogram at that time. The MRCP had revealed what appeared to be a normal-appearing pancreas at that time. Since September of 2020, he reports he was feeling very well up until the past several days when he began having some upper abdominal pain. He did have some vomiting, but no sign of any bleeding. He does not use any alcohol. He has not noticed any signs of jaundice. He has no family history of pancreatitis. He does have a history of hypertriglyceridemia, for which he is on medication. Since admission here, he does report that he is feeling better. He is now having some GI upset, but no actual pain. He has been passing flatus, but no bowel movements. He denies any urinary difficulties. He denies any chest pain or shortness of breath. MEDICATIONS: Medications at home included Suboxone, vitamin D, clonidine, dicyclomine, fenofibrate, hydroxyzine, melatonin, metformin, multivitamin, fish oil, sertraline, zinc. His medications here in the hospital include acetaminophen, clonidine, Lovenox, fenofibrate, Dilaudid p.r.n., Atarax p.r.n., sliding scale insulin, Toradol, melatonin, morphine p.r.n., Zofran, and sertraline. PAST MEDICAL HISTORY: Cholecystectomy. Zxw-[id number] diabetes mellitus. Hypertriglyceridemia. He has cholecystectomy. He has also had a hemorrhoidectomy. Has history of anxiety and depression. Previous history of addiction to pain medication. He denies any history of CT, stroke, nor lung disease. SOCIAL HISTORY: He is . He does not smoke nor use any alcohol. 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 FAMILY HISTORY: Noncontributory, specifically without any history of pancreatitis. REVIEW OF SYSTEMS: CONSTITUTIONAL: Prior to the past several days, he has been feeling well with good energy and good appetite. SKIN: No rash. No pruritus. CARDIAC: No chest pain. PULMONARY: No cough. No hemoptysis. GASTROINTESTINAL: As above. URINARY: No dysuria. No hematuria. PHYSICAL EXAMINATION: GENERAL: The patient is a pleasant, alert, comfortable-appearing male. SKIN: Warm and dry. HEENT: Anicteric sclerae. Moist mucous membranes. CHEST: Clear. CARDIAC: Normal S1 and S2. ABDOMEN: Soft. Normal bowel sounds. Nontender without mass or organomegaly. LABORATORY DATA: White blood cell count 10.6, hemoglobin 12.3, platelets 182,000. His liver profile on March 10 was completely normal as was the liver profile on March 09. His lipase level was 358 on March 09. It has not been repeated. Triglyceride level was 310 on March 09. His CAT scan of the abdomen and pelvis done on March 09 describes a mild inflammation in the head of the pancreas, but without any sign of necrosis nor pseudocyst. There is no sign of any biliary obstruction. Abdominal ultrasound done yesterday describes a normal-appearing liver and biliary tree. The common bile duct measured 2 mm. There was no ascites. IMPRESSION: The patient appears to have presented with an acute episode of pancreatitis that is now quickly resolving. This appears to be a very uncomplicated case. The etiology is not clear, however, given normal LFTs, no sign of biliary disease, and a triglyceride level that is not particularly high. He denies any history of alcohol use, which seems very reliable. Again, the MRCP last year described as normal pancreatic duct. Again, I do not think this is a biliary source of pancreatitis given normal LFTs and the previous ERCP with sphincterotomy last year. At this point since he is feeling better, I think we could treat him conservatively. I would recommend advancing his diet, and follow up laboratories in the morning. If things remain stable, I think he could be discharged in the next 24 hours. I did advise him to continue his medication for the history of hypertriglyceridemia. If things worsen, I would then recommend ordering a followup MRCP. This has all been discussed with the patient in detail and he is comfortable with the plan. Thank you for this consultation. MD ALEX Fallon/DONALD / [phone]
[2021-03-11 22:16] VITALS: BP 146/86; PULSE 72
[2021-03-11] MEDS: cloNIDine HCL 0.2 MG TABLET 0.3 MG PO (22:16)
[2021-03-12] VITALS: BP 118/64; PULSE 71; RESP 16; TEMP 37.1; O2SAT 93
[2021-03-12] MEDS: ondansetron HCL 4 MG/2 ML VIAL IVPUSH (00:32)
[2021-03-12] MEDS: 0.9 % Sodium Chloride 1,000 ML 200 ML IVCONT ×2 (02:30→07:28)
[2021-03-12 03:47] VITALS: BP 115/59; PULSE 67; RESP 17; TEMP 37.2; O2SAT 92
[2021-03-12 06:08] LABS: MANUAL DIFF FLAG NO
[2021-03-12 06:14] LABS: Basophils Absolute Auto 0.1 X10*3/uL (0.0-0.2); Basophils Percent Auto 0.7 % (0-2); Eosinophils Absolute Auto 0.3 X10*3/uL (0.0-0.4); Eosinophils Percent Auto 3.8 % (0-4); Hematocrit 34.8 % (42-52); Hemoglobin 11.3 g/dl (14.0-18.0); Imm Gran Abs Auto 0.07 X10*3/uL (0.00-0.03); Imm Gran Pct Auto 0.8 % (0.0-0.4); Lymphocytes Absolute Auto 1.5 X10*3/uL (1.2-4.9); Lymphocytes Percent Auto 16.6 % (20-40); Mean Corpuscular HGB Conc 32.5 g/dl (31.0-36.0); Mean Corpuscular Hemoglobin 26.2 pg (27.0-33.0); Mean Corpuscular Volume 80.7 fL (80-98); Mean Platelet Volume 9.1 fL (9.4-12.4); Monocytes Absolute Auto 0.6 X10*3/uL (0.1-1.2); Monocytes Percent Auto 6.8 % (2-11); Neutrophils Absolute Auto 6.3 X10*3/uL (2.0-8.3); Neutrophils Percent Auto 71.3 % (45-73); Platelet Count 163 X10*3/uL (160-400); Red Blood Count 4.31 X10*6/uL (4.60-5.80); Red Cell Distribution Width 13.6 % (11.0-16.0); White Blood Count 8.9 X10*3/uL (4.8-10.8)
[2021-03-12] MEDS: Ketorolac Tromethamine 30 MG/ML VIAL IVPUSH (06:21)
[2021-03-12 06:53] LABS: Alanine Aminotransferase 31 U/L (0-40); Albumin Level 3.3 g/dL (3.5-5.0); Alkaline Phosphatase 58 U/L (39-117); Anion Gap 13 (12-20); Aspartate Amino Transferase 43 U/L (5-37); Bilirubin Direct 0.2 mg/dL (0.0-0.5); Bilirubin Total 0.5 mg/dL (0.0-1.0); Blood Urea Nitrogen 8 mg/dL (9-16); Calcium 7.9 mg/dL (8.4-10.2); Carbon Dioxide 25 mmol/L (22-29); Chloride 109 mmol/L (96-108); Creatinine Clr Calc Pharmacy 144.1; Estimated Glomerular Filt Rate > 60; Glucose Random 127 mg/dL (60-115); Potassium 3.5 mmol/L (3.3-5.1); Sodium 143 mmol/L (135-145); Total Protein 5.4 g/dL (6.5-8.0)
[2021-03-12 06:54] LABS: Triglycerides 206 mg/dL
[2021-03-12 07:06] LABS: Lipase 143 U/L (8-78)
[2021-03-12 08:00] VITALS: BP 138/80; PULSE 99; RESP 18; TEMP 36.1; O2SAT 94
[2021-03-12] MEDS: Sertraline HCL 100 MG TABLET 200 MG PO (09:21)
[2021-03-12] MEDS: Buprenorphine/Naloxone 4/1 mg FILM 1 FILM SUBLINGUAL (09:21)
[2021-03-12] MEDS: Fenofibrate 160 MG TABLET PO (09:21)
[2021-03-12] MEDS: cloNIDine HCL 0.2 MG TABLET 0.3 MG PO (09:21)
[2021-03-12] MEDS: hydrOXYzine HCL 25 MG TABLET PO (09:21)
[2021-03-12] MEDS: Omeprazole 20 MG CAPSULE.DR PO (09:50)
--- NOTE | 2021-03-12 11:52 | P.DS_ITS ---
DS: Providers Provider Date of Service: 03/12/21 Date of admission: 03/09/21 16:09 Primary care physician: Gasper Coker MD Consults: 03/11/21 08:06 Consult to Gastroenterology Routine Consulting Provider: Jhon Eisenberg Reason for consultation: pancreatitis Has provider been notified: No DS: Diagnosis Discharge Diagnosis (1) Acute pancreatitis: Status: Acute DS: Medications Discharge Medications Home Medications: Home Medications Medication Instructions Recorded Confirmed buprenorphine-naloxone 1 strip SUBLINGUAL DAILY 09/13/20 03/09/21 clonidine HCl 1 tab PO BID 09/13/20 03/09/21 dicyclomine 1 tab PO QID PRN 09/13/20 03/09/21 hydroxyzine HCl 1 tab PO TID PRN 09/13/20 03/09/21 metformin 1 tab PO BID 09/13/20 03/09/21 ascorbic acid (vitamin C) [Vitamin 500 mg PO DAILY 03/09/21 03/09/21 C] cholecalciferol (vitamin D3) 25 mcg PO DAILY 03/09/21 03/09/21 fenofibrate 1 tab PO DAILY 03/09/21 03/09/21 melatonin 3 mg PO BEDTIME PRN 03/09/21 03/09/21 multivitamin 1 tab PO DAILY 03/09/21 03/09/21 omega-3 fatty acids 1,000 mg PO DAILY 03/09/21 03/09/21 sertraline 2 tab PO DAILY 03/09/21 03/09/21 zinc 100 mg PO DAILY 03/09/21 03/09/21 DS: Summary Hospital Course Hospital Course: HPI Chief Complaint: Abdominal pain, nausea, vomiting A 51 years old male with PMH of prediabetes, HLD who presents to the hospital complaining of abdominal pain, nausea and vomiting of sudden onset since the morning. Reported doing well until yesterday night with no abdominal pain or nausea. He woke up this morning severe pain and was unable to tolerated associated with nausea and episode of vomiting. Pain is mainly epigastric and goes to his back. He has a history of pancreatitis previously and CBD problem with stone but had cholecystectomy and has been doing well since then. In the emergency CT scan was positive for pancreatitis picture with elevated lipase. Admitted for further evaluation and treatment. Past medical history Anxiety Elevated triglycerides with high cholesterol Pancreatitis Pre-diabetes History of cholecystectomy Hospital course 51 years old male with PMH of prediabetes, HLD who presents to the hospital complaining of abdominal pain, nausea and vomiting of sudden onset since the morning , patient diagnosed to have acute pancreatitis with abnormal CT abdomen and pelvis and elevated lipase. Acute Pancreatitis Question etiology, patient treated with IV fluid and analgesics and kept NPO, subsequently patient abdominal pain improved and diet advanced, since patient is feeling better he is being discharged home on all of his baseline medications and recommended to strictly follow low-fat low-calorie diet, patient was evaluated by Dr. Eisenberg from Gastroenterology since patient had an ERCP with sphincterotomy in 09/2020 that was unremarkable, MRCP last year describe a normal pancreatic duct and since patient feels clinically feeling better he recommended no further intervention at this time, likely hypertriglyceridemia playing a role despite stable triglyceride value this admission, patient denied alcohol use and has no signs of biliary disease. Leukocytosis resolved was likely reactive to vomiting. Hyperglycemia secondary to pre diabetes A1c of 6.5, stable blood sugar continue metformin HLD continue fenofibrate h/o of opiate dependence continue Suboxone Time Spent with Patient Time attestation: Total time spent providing and/or coordinating discharge services: Discharge coordination time: Greater than 30 minutes Physical Exam Vital Signs: Vital Signs: Last Vital Signs Temp 97.0 F 03/12/21 08:00 Pulse 99 03/12/21 08:00 Resp 18 03/12/21 08:00 BP 138/80 03/12/21 08:00 Pulse Ox 94 03/12/21 08:00 Body Mass Index 29.8 General no acute distress. Neck no JVD. CVS regular rate rhythm, Respiratory lungs clear to auscultation, no respiratory distress Gastrointestinal no epigastric tenderness to palpation, bowel sounds audible, no guarding , no rigidity. Extremities no edema. Neuro nonfocal Skin no rash DS: Data Data Completed and Pending Completed studies during hospitalization [Text1]: Procedures Dilation of Common Bile Duct with Intraluminal Device, Via Natural or Artificial Opening Endoscopic (09/13/20) Labs on day of discharge: Laboratory Results - last 24 hr 03/10/21 03/11/21 03/11/21 13:58 16:32 20:18 WBC RBC Hgb Hct MCV MCH MCHC RDW Plt Count MPV Immature Gran % (Auto) Neut % (Auto) Lymph % (Auto) [place] % (Auto) Eos % (Auto) Baso % (Auto) Lymph # (Auto) [place] # (Auto) Eos # (Auto) Baso # (Auto) Abs Immat Gran (auto) Absolute Neuts (auto) Absolute Nucleated RBC Nucleated RBC % (auto) Sodium Potassium Chloride Carbon Dioxide Anion Gap BUN Creatinine Estim Creat Clear Calc Estimated GFR POC Glucose 124 H 140 H Random Glucose Calcium Total Bilirubin Direct Bilirubin AST ALT Alkaline Phosphatase Total Protein Albumin Triglycerides Lipase IgG Total 740 IgG Subclass 1 388 IgG Subclass 2 281 IgG Subclass 3 27 IgG Subclass 4 25.8 03/12/21 03/12/21 03/12/21 05:37 05:37 05:37 WBC 8.9 RBC 4.31 L Hgb 11.3 L Hct 34.8 L MCV 80.7 MCH 26.2 L MCHC 32.5 RDW 13.6 Plt Count 163 MPV 9.1 L Immature Gran % (Auto) 0.8 H Neut % (Auto) 71.3 Lymph % (Auto) 16.6 L [place] % (Auto) 6.8 Eos % (Auto) 3.8 Baso % (Auto) 0.7 Lymph # (Auto) 1.5 [place] # (Auto) 0.6 Eos # (Auto) 0.3 Baso # (Auto) 0.1 Abs Immat Gran (auto) 0.07 H Absolute Neuts (auto) 6.3 Absolute Nucleated RBC 0.000 Nucleated RBC % (auto) 0.0 Sodium 143 Potassium 3.5 Chloride 109 H Carbon Dioxide 25 Anion Gap 13 BUN 8 L Creatinine 0.75 Estim Creat Clear Calc 144.1 Estimated GFR > 60 POC Glucose Random Glucose 127 H Calcium 7.9 L Total Bilirubin 0.5 Direct Bilirubin 0.2 AST 43 H D ALT 31 Alkaline Phosphatase 58 Total Protein 5.4 L Albumin 3.3 L Triglycerides 206 Lipase 143 H IgG Total IgG Subclass 1 IgG Subclass 2 IgG Subclass 3 IgG Subclass 4 Discharge Plan Discharge Patient Disposition: Home, Self-Care Discharge Diagnosis: Acute pancreatitis Referrals: Gasper Coker MD [Primary Care Provider] - 1 Week Discharge Medications: Continued clonidine HCl 0.3 mg tablet 1 tab PO BID RF: 0 dicyclomine 20 mg tablet 1 tab PO QID PRN (Reason: Muscle Spasticity) RF: 0 metformin 1,000 mg tablet 1 tab PO BID RF: 0 hydroxyzine HCl 25 mg tablet 1 tab PO TID PRN (Reason: Anxiety) RF: 0 buprenorphine-naloxone 4-1 mg film 1 strip sublingual DAILY RF: 0 sertraline 100 mg tablet 2 tab PO DAILY RF: 0 fenofibrate 160 mg tablet 1 tab PO DAILY RF: 0 multivitamin Tablet 1 tab PO DAILY RF: 0 zinc 100 mg Tablet 100 mg PO DAILY RF: 0 melatonin 3 mg Tablet 3 mg PO BEDTIME PRN (Reason: Sleep) RF: 0 ascorbic acid (vitamin C) [Vitamin C] 500 mg Tablet 500 mg PO DAILY RF: 0 omega-3 fatty acids Capsule 1,000 mg PO DAILY RF: 0 cholecalciferol (vitamin D3) 25 mcg (1,000 unit) Tablet 25 mcg PO DAILY RF: 0 Discharge Orders: Discharge Order (Routine); Ordered 03/12/21 Ordered By: Kamran Beth Diet: diabetic diet and low fat, low cholesterol Activity on Discharge: As tolerated Stand Alone Forms: Patient Portal Discharge page Care Plan Goals: Follow diet , exercise, follow blood sugars and triglyceride levels closely Health Concerns: You have been diagnosed to have acute pancreatitis follow low-cholesterol and low carbohydrate diet continue all home medication Plan of Treatment: Outpatient follow-up with primary care physician. Assessment: As per discharge summary
[2021-03-12] MEDS: Insulin Lispro 100 UNIT/ML 3 ML VIAL SUBCUT (12:10)
[2021-03-12 12:17] LABS: Glucose, Whole Blood 181 mg/dL (60-115)
--- NOTE | 2021-03-12 13:01 | MHC.CM.PN ---
NURSE CARE MANGER NOTE ELECTRONIC MEDICAL RECORD REVIEWED ALONG WITH CASE DISCUSSED WITH STAFF NURSE AND ON MULTIPLE DISCIPLIARRY ROUNDS. PATIENT IS AWARE THAT HE WILL BE DISCHARGED HOME TODAY WITH NO NEW SERVICES , DISCHARGE PLAN HOME WITH NO NEW SERVICES . PCP DR CELSA SPARROW (WHOM ALSO PRESCRIBES HIS SUBOXONE , MENTAL HEALTH COUNSELING FOR HIS DEPRESSION WAS SEEING A COUNSELOR AT [facility] BUT THE THEARPIST IS NO LONGER THERE PATIENT DELINED TO SPEAK WITH ANY ONE FROM THE CARES TEAM HE IS FINDING A THEARPIST ON HIS OWN TRANSPORTATION FAMILY
== END 2021-03-12 14:10 | disposition home or self-care (01) | DRG 439 ==
LOC: HO.ED 11:02 → HO.EDOVER 16:18 → HO.S3 03-10 07:14
PROVIDERS: Internal Medicine; Physician Assistant Medical; Admitting Provider Student in an Organized Health Care Education/Training Program; Emergency Provider Student in an Organized Health Care Education/Training Program; PCP Internal Medicine; Visit Provider Hospitalist
DX: K85.90 Acute pancreatitis without necrosis or infection, unspecified (principal); F11.20 Opioid dependence, uncomplicated; E78.5 Hyperlipidemia, unspecified; D72.829 Elevated white blood cell count, unspecified; F32.9 Major depressive disorder, single episode, unspecified; F41.9 Anxiety disorder, unspecified; R73.03 Prediabetes; F17.210 Nicotine dependence, cigarettes, uncomplicated; Z71.6 Tobacco abuse counseling; Z20.822 Contact with and (suspected) exposure to COVID-19; Z79.84 Long term (current) use of oral hypoglycemic drugs; Z79.899 Other long term (current) drug therapy
CPT/HCPCS: 36415; 74018; 74177; 76700; 80048; 80053; 80076; 81001; 81003; 82784; 82947; 83036; 83690; 84478; 85025; 85027; 87086; 87635; 96374; 96375; 99285; J1170; J1650; J1885; J2270; J2405; J2765; Q9967

== ENCOUNTER 2021-08-29 15:56 | Inpatient (IN) | payer OTHER, SELFPAY ==
--- NOTE | ~2021-08-29 | CT_ITS ---
EXAMINATION: CT ABDOMEN AND PELVIS WITH CONTRAST CLINICAL INFORMATION: History of pancreatitis COMPARISON: CT scan abdomen pelvis March 09, 2021. Ultrasound abdomen March 10, 2021 TECHNIQUE: Multidetector volumetric images were obtained from the superior aspect of the liver through the pubic symphysis following administration 85 mL of Omnipaque 350 intravenous contrast. Sagittal and coronal reformatted images were obtained on the technologist's workstation. Oral contrast: No This CT examination was performed using dose optimization techniques as appropriate, variously including the following: *Automated exposure control *Adjustment of mA and/or kV according to patient size (this includes techniques or standardized protocols for targeted exams where dose is matched to indication/reason for exam; i.e. extremities or head) *Use of iterative reconstruction technique DLP: 588 mGy-cm FINDINGS: LUNG BASES: The visualized lung bases are unremarkable. LIVER, GALLBLADDER, AND BILIARY TREE: Mild diffuse low attenuation of liver parenchyma due to fatty change. No focal liver lesion or intrahepatic bile duct dilatation. Status post cholecystectomy.. PANCREAS: There is pancreatitis. Edema present around the head and body of the pancreas with enlargement of the pancreatic head similar to the prior CAT scan of March 09, 2021. There is no pancreatic duct dilatation. No pseudocyst formation. There is enhancement of the parenchyma of the pancreas, no evidence of necrosis. SPLEEN: Unremarkable. ADRENAL GLANDS: Unremarkable. KIDNEYS AND URETERS: The kidneys are normal in size, shape, and attenuation. No hydronephrosis, hydroureter, or calculi seen. No perinephric stranding. BLADDER: Unremarkable. GASTROINTESTINAL TRACT: There is edema around the duodenal sweep related to the pancreatitis. There is no bowel obstruction. There is a moderate volume of stool in the colon. The appendix is normal . The small bowel loops are unremarkable. The stomach is normal. There is no hiatal hernia. ABDOMINAL WALL: Fat-containing umbilical hernia. LYMPH NODES: Normal. VASCULAR: Unremarkable. PELVIC VISCERA: Unremarkable. OSSEOUS STRUCTURES: Unremarkable. CT/CT abdomen pelvis w con IMPRESSION: Pancreatitis similar in severity to the prior CAT scan March 09, 2021. No pseudocyst
--- NOTE | ~2021-08-29 | XR_ITS ---
EXAMINATION: XR CHEST CLINICAL INFORMATION: Abdominal pain. Vomiting. COMPARISON: Abdomen March 10, 2021 TECHNIQUE: Frontal portable view of the chest was obtained. 4:15 PM FINDINGS: No significant abnormality is noted involving the heart, lungs, mediastinum, bony thorax or soft tissues. XR/XR chest 1V IMPRESSION: Unremarkable examination.
[2021-08-29 16:03] VITALS: BP 160/90; BP 160/91; PULSE 66; PULSE 68; RESP 18; TEMP 37; O2SAT 100; BMI 30.5
--- NOTE | 2021-08-29 16:05 | ED.ABDPAIN ---
HPI - Abdominal Pain General Chief Complaint: Abdominal Pain Stated Complaint: abdominal pain Time Seen by Provider: 08/29/21 19:28 Source: patient Mode of arrival: ambulatory Limitations: no limitations History of Present Illness HPI narrative: 51-year-old male presents with intractable nausea, vomiting, and abdominal pain for the past 24 hours. States that he feels that this is similar to his prior experiences with pancreatitis. Patient does not drink alcohol, participate illicit drug use, is not diabetic. MD elicited complaint: abdominal pain Pertinent past history: kidney stones Onset (ago): day(s) (1) Pain Consistency: constant Location: epigastric, LUQ and RUQ Severity: severe Pain scale (0-10): 10 Quality: aching Migration to: no migration Exacerbating factors: vomiting Relieving factors: nothing Context: history of similar episodes Associated symptoms: nausea, vomiting, chills and anorexia Related Data Home Medications Medication Instructions Recorded Confirmed buprenorphine 4 mg-naloxone 1 mg 1 strip SUBLINGUAL DAILY 09/13/20 03/09/21 sublingual film clonidine HCl 0.3 mg tablet 1 tab PO BID 09/13/20 03/09/21 dicyclomine 20 mg tablet 1 tab PO QID PRN 09/13/20 03/09/21 hydroxyzine HCl 25 mg tablet 1 tab PO TID PRN 09/13/20 03/09/21 metformin 1,000 mg tablet 1 tab PO BID 09/13/20 03/09/21 ascorbic acid (vitamin C) 500 mg 500 mg PO DAILY 03/09/21 03/09/21 tablet (Vitamin C) cholecalciferol (vitamin D3) 25 25 mcg PO DAILY 03/09/21 03/09/21 mcg (1,000 unit) tablet fenofibrate 160 mg tablet 1 tab PO DAILY 03/09/21 03/09/21 melatonin 3 mg tablet 3 mg PO BEDTIME PRN 03/09/21 03/09/21 multivitamin 1 tab PO DAILY 03/09/21 03/09/21 omega-3 fatty acids 1,000 mg PO DAILY 03/09/21 03/09/21 sertraline 100 mg tablet 2 tab PO DAILY 03/09/21 03/09/21 zinc 100 mg tablet 100 mg PO DAILY 03/09/21 03/09/21 Allergies Allergy/AdvReac Type Severity Reaction Status Date / Time No Known Allergies Allergy Verified 09/13/20 22:59 [No Known Allergies*] Review of Systems Review of Systems Constitutional: No Fever, positive Chills ENT/Mouth: No Ear Pain, No Hoarseness, No sore throat Eyes: No Eye Pain, No Swelling, No Redness, No Foreign Body Cardiovascular: No Chest Pain, No SOB Respiratory: No Cough, No Dyspnea Gastrointestinal: Positive Nausea, positive Vomiting, No Diarrhea, positive abdominal Pain Genitourinary: No Dysuria, No Hematuria Musculoskeletal: No joint pain, No Myalgias, No Joint Swelling Skin: No Skin lacerations, No rash Neuro: No Weakness, No Numbness, No Paresthesias, No Loss of Consciousness, No Dizziness, No Headache Psych: No Anxiety/Panic, No Depression Heme/Lymph: no easy bruising, no Lymphadenopathy Endocrine: No Polyuria, No Polydipsia Yes all other systems are reviewed and are negative Physical Exam Vital Signs: Vital Signs: Last Vital Signs Temp 98.3 F 08/29/21 19:03 Pulse 73 08/29/21 19:03 Resp 18 08/29/21 19:03 BP 138/68 08/29/21 19:03 Pulse Ox 97 08/29/21 19:03 Body Mass Index 30.5 Appearance: Alert. Oriented X3. Moderate distress. Eyes: Pupils equal, round and reactive to light. Sclera nonicteric. ENT: Pharynx normal. Moist mucous membranes. Neck: Normal inspection. Neck supple. CVS: Normal heart rate and rhythm. Pulses normal. Respiratory: No respiratory distress. Breath sounds normal. Abdomen: Soft and tender to the left upper, right upper quadrants and epigastric. Normoactive bowel sounds all 4 quadrants. Obese. No rigidity or rebound tenderness. Skin: Skin warm and dry. Normal skin color. Normal skin turgor. Extremities: No lower extremity edema. Moves all extremities against resistance. Neuro: No motor deficit. No sensory deficit. Cranial nerves 2-12 intact. Course Course Course Narrative: 51-year-old male presents with nausea, vomiting, and abdominal pain. Diffusely tender abdominal exam at the upper right, left and epigastric quadrants. Patient does have a history of pancreatitis. Will order labs, fluids, pain management with morphine and Zofran. 4:48 p.m. patient continues with dry heaving and vomiting. Order for Reglan and Benadryl at this time. 6:17 p.m. nausea and pain continues. Repeat Zofran, morphine, and 2nd L of fluid. Discussion with hospitalist via [facility] text for admission for pancreatitis. 7:30 p.m. discussion with extrusion technician. Patient admitted for pancreatitis. Consultations Consultation #1: Heather Time: 18:17 MDM - Abdominal Pain Differential Diagnosis Differential diagnosis: Likely abdominal pain, acute appendicitis, bowel perforation, gastritis, pancreatitis, peptic ulcer disease and small bowel obstruction Medical Records Attestation: I reviewed the patient's medical records. Lab Data Attestation: I reviewed the patient's lab results. Result diagrams: 08/29/21 16:24 08/29/21 16:24 Labs: Lab Results 08/29/21 08/29/21 08/29/21 Range/Units 16:06 16:24 16:24 WBC 12.1 H (4.8-10.8) X10*3/uL RBC 5.42 D (4.60-5.80) X10*6/uL Hgb 14.7 D (14.0-18.0) g/dl Hct 43.0 D (42-52) % MCV 79.3 L (80-98) fL MCH 27.1 (27.0-33.0) pg MCHC 34.2 (31.0-36.0) g/dl RDW 12.4 (11.0-16.0) % Plt Count 223 D (160-400) X10*3/uL MPV 9.3 L (9.4-12.4) fL Immature Gran % (Auto) 1.0 H (0.0-0.4) % Neut % (Auto) 80.2 H (45-73) % Lymph % (Auto) 12.1 L (20-40) % [place] % (Auto) 4.9 (2-11) % Eos % (Auto) 1.1 (0-4) % Baso % (Auto) 0.7 (0-2) % Lymph # (Auto) 1.5 (1.2-4.9) X10*3/uL [place] # (Auto) 0.6 (0.1-1.2) X10*3/uL Eos # (Auto) 0.1 (0.0-0.4) X10*3/uL Baso # (Auto) 0.1 (0.0-0.2) X10*3/uL Abs Immat Gran (auto) 0.12 H (0.00-0.03) X10*3/uL Absolute Neuts (auto) 9.8 H (2.0-8.3) X10*3/uL Absolute Nucleated RBC 0.000 (0.0-0.012) X10*3/uL Nucleated RBC % (auto) 0.0 (0.0-0.2) /100WBC PT 11.7 (9.9-13.0) SEC INR 1.0 (0.9-1.1) APTT 35.1 (24.1-38.0) SEC Sodium (135-145) mmol/L Potassium (3.3-5.1) mmol/L Chloride (96-108) mmol/L Carbon Dioxide (22-29) mmol/L Anion Gap (12-20) BUN (9-16) mg/dL Creatinine (0.5-1.4) mg/dL Estim Creat Clear Calc Estimated GFR POC Glucose 157 H (60-115) mg/dL Random Glucose (60-115) mg/dL Calcium (8.4-10.2) mg/dL Total Bilirubin (0.0-1.0) mg/dL Direct Bilirubin (0.0-0.5) mg/dL AST (5-37) U/L ALT (0-40) U/L Alkaline Phosphatase (39-117) U/L Total Protein (6.5-8.0) g/dL Albumin (3.5-5.0) g/dL Lipase (8-78) U/L COVID-19 (OLE) (Negative) COVID-19 Clin Com 08/29/21 08/29/21 Range/Units 16:24 19:02 WBC (4.8-10.8) X10*3/uL RBC (4.60-5.80) X10*6/uL Hgb (14.0-18.0) g/dl Hct (42-52) % MCV (80-98) fL MCH (27.0-33.0) pg MCHC (31.0-36.0) g/dl RDW (11.0-16.0) % Plt Count (160-400) X10*3/uL MPV (9.4-12.4) fL Immature Gran % (Auto) (0.0-0.4) % Neut % (Auto) (45-73) % Lymph % (Auto) (20-40) % [place] % (Auto) (2-11) % Eos % (Auto) (0-4) % Baso % (Auto) (0-2) % Lymph # (Auto) (1.2-4.9) X10*3/uL [place] # (Auto) (0.1-1.2) X10*3/uL Eos # (Auto) (0.0-0.4) X10*3/uL Baso # (Auto) (0.0-0.2) X10*3/uL Abs Immat Gran (auto) (0.00-0.03) X10*3/uL Absolute Neuts (auto) (2.0-8.3) X10*3/uL Absolute Nucleated RBC (0.0-0.012) X10*3/uL Nucleated RBC % (auto) (0.0-0.2) /100WBC PT (9.9-13.0) SEC INR (0.9-1.1) APTT (24.1-38.0) SEC Sodium 141 (135-145) mmol/L Potassium 4.1 (3.3-5.1) mmol/L Chloride 103 (96-108) mmol/L Carbon Dioxide 23 (22-29) mmol/L Anion Gap 19 (12-20) BUN 14 D (9-16) mg/dL Creatinine 1.14 (0.5-1.4) mg/dL Estim Creat Clear Calc 95.8 Estimated GFR > 60 POC Glucose (60-115) mg/dL Random Glucose 162 H (60-115) mg/dL Calcium 10.0 D (8.4-10.2) mg/dL Total Bilirubin 0.3 (0.0-1.0) mg/dL Direct Bilirubin < 0.2 (0.0-0.5) mg/dL AST 29 (5-37) U/L ALT 34 (0-40) U/L Alkaline Phosphatase 58 (39-117) U/L Total Protein 7.4 D (6.5-8.0) g/dL Albumin 4.6 D (3.5-5.0) g/dL Lipase 584 H (8-78) U/L COVID-19 (OLE) Negative (Negative) COVID-19 Clin Com See Note Imaging Data CT abdomen pelvis: Attestation: I personally reviewed and interpreted this imaging study as follows: Radiologist's impression: EXAMINATION: CT ABDOMEN AND PELVIS WITH CONTRAST? CLINICAL INFORMATION: History of pancreatitis? COMPARISON: CT scan abdomen pelvis March 09, 2021. Ultrasound abdomen March 10, 2021? TECHNIQUE: Multidetector volumetric images were obtained from the superior aspect of the liver through the pubic symphysis following administration 85 mL of Omnipaque 350 intravenous contrast. Sagittal and coronal reformatted images were obtained on the technologist's workstation.? Oral contrast: No This CT examination was performed using dose optimization techniques as appropriate, variously including the following: *Automated exposure control *Adjustment of mA and/or kV according to patient size (this includes techniques or standardized protocols for targeted exams where dose is matched to indication/reason for exam; i.e. extremities or head) *Use of iterative reconstruction technique DLP: 588 mGy-cm FINDINGS: LUNG BASES: The visualized lung bases are unremarkable.? LIVER, GALLBLADDER, AND BILIARY TREE: Mild diffuse low attenuation of liver parenchyma due to fatty change. No focal liver lesion or intrahepatic bile duct dilatation. ?Status post cholecystectomy.. PANCREAS: There is pancreatitis. Edema present around the head and body of the pancreas with enlargement of the pancreatic head similar to the prior CAT scan of March 09, 2021. There is no pancreatic duct dilatation. No pseudocyst formation. There is enhancement of the parenchyma of the pancreas, no evidence of necrosis.? SPLEEN: Unremarkable.? ADRENAL GLANDS: Unremarkable.? KIDNEYS AND URETERS: The kidneys are normal in size, shape, and attenuation. No hydronephrosis, hydroureter, or calculi seen. No perinephric stranding. ? BLADDER: Unremarkable.? GASTROINTESTINAL TRACT: There is edema around the duodenal sweep related to the pancreatitis. There is no bowel obstruction. There is a moderate volume of stool in the colon. The appendix is normal . The small bowel loops are unremarkable. The stomach is normal. There is no hiatal hernia.? ABDOMINAL WALL: Fat-containing umbilical hernia.? LYMPH NODES: Normal. VASCULAR: Unremarkable. PELVIC VISCERA: Unremarkable.? OSSEOUS STRUCTURES: Unremarkable.? CT/CT abdomen pelvis w con IMPRESSION: Pancreatitis similar in severity to the prior CAT scan March 09, 2021. No pseudocyst? Chest x-ray: Attestation: I personally reviewed and interpreted this imaging study as follows: Radiologist's impression: EXAMINATION: XR CHEST CLINICAL INFORMATION: Abdominal pain. Vomiting. COMPARISON: Abdomen March 10, 2021 TECHNIQUE: Frontal portable view of the chest was obtained. 4:15 PM FINDINGS: No significant abnormality is noted involving the heart, lungs, mediastinum, bony thorax or soft tissues. XR/XR chest 1V IMPRESSION: Unremarkable examination. ? ECG Data Attestation: I personally reviewed and interpreted this ECG as follows: ECG interpretation date: 08/29/21 Interpretation: Ventricular rate 62, [place] 154, QRS 86, QT 396, QTC 401 normal sinus rhythm with sinus arrhythmia, no indication of ST elevation or depression. No indication of ischemia. Critical Care Time Critical Care Time Critical Care Time: Yes Total Critical Care Time: 45 Attestation: I have personally provided critical care time exclusive of time spent on separately billable procedures. Time includes review of laboratory data, radiology results, discussion with consultants, and monitoring for potential decompensation. Interventions were performed as documented. Discharge Plan Discharge Clinical Impression: Pancreatitis Qualifiers: Chronicity: acute Pancreatitis type: unspecified pancreatitis type Acute pancreatitis complication: unspecified Qualified Code(s): K85.90 - Acute pancreatitis without necrosis or infection, unspecified Patient Disposition: Admitted As Inpatient [facility] Past Medical History Attestation statement: The following information was validated with the patient. Source: old records reviewed Medical History Anxiety Elevated triglycerides with high cholesterol Pancreatitis Pre-diabetes Surgical History History of cholecystectomy Social History Social History Household Members: Spouse Housing: Apartment Do you presently have visiting nurse or other home services: No Alcohol intake: current Second Hand Smoke Exposure: No Advance Directives: No Advance Directives Information Provided: No service: No Current occupational status: employed
--- NOTE | 2021-08-29 16:08 | ECG_ITS ---
Test Reason : abdominal pain Blood Pressure : / mmHG Vent. Rate : 062 BPM Atrial Rate : 062 BPM P-R Int : 154 ms QRS Dur : 086 ms QT Int : 396 ms P-R-T Axes : 056 058 045 degrees QTc Int : 401 ms Normal sinus rhythm with sinus arrhythmia Normal ECG No significant changes seen Referred By: Sofya Kumari Electronically Signed By:PAUL CAMARILLO MD
[2021-08-29 16:10] LABS: Glucose, Whole Blood 157 mg/dL (60-115)
[2021-08-29 16:29] LABS: Basophils Absolute Auto 0.1 X10*3/uL (0.0-0.2); Basophils Percent Auto 0.7 % (0-2); Eosinophils Absolute Auto 0.1 X10*3/uL (0.0-0.4); Eosinophils Percent Auto 1.1 % (0-4); Hemoglobin 14.7 g/dl (14.0-18.0); Imm Gran Abs Auto 0.12 X10*3/uL (0.00-0.03); Lymphocytes Absolute Auto 1.5 X10*3/uL (1.2-4.9); Lymphocytes Percent Auto 12.1 % (20-40); MANUAL DIFF FLAG NO; Mean Corpuscular HGB Conc 34.2 g/dl (31.0-36.0); Mean Corpuscular Hemoglobin 27.1 pg (27.0-33.0); Mean Corpuscular Volume 79.3 fL (80-98); Mean Platelet Volume 9.3 fL (9.4-12.4); Monocytes Absolute Auto 0.6 X10*3/uL (0.1-1.2); Monocytes Percent Auto 4.9 % (2-11); Neutrophils Absolute Auto 9.8 X10*3/uL (2.0-8.3); Neutrophils Percent Auto 80.2 % (45-73); Platelet Count 223 X10*3/uL (160-400); Red Blood Count 5.42 X10*6/uL (4.60-5.80); Red Cell Distribution Width 12.4 % (11.0-16.0); White Blood Count 12.1 X10*3/uL (4.8-10.8)
[2021-08-29 16:34] LABS: Prothrombin Time 11.7 SEC (9.9-13.0)
[2021-08-29] MEDS: ondansetron HCL 4 MG/2 ML VIAL IVPUSH ×2 (16:34→18:33)
[2021-08-29] MEDS: 0.9 % Sodium Chloride 1,000 ML 999 ML IVCONT ×3 (16:34→18:35)
[2021-08-29] MEDS: Morphine Sulfate 4 MG/ML CARTRIDGE IVPUSH ×2 (16:35→18:33)
[2021-08-29 16:37] LABS: Partial Thromboplastin Time 35.1 SEC (24.1-38.0)
[2021-08-29] MEDS: diphenhydrAMINE HCL 50 MG/ML VIAL IVPUSH (16:55)
[2021-08-29] MEDS: Metoclopramide HCl 10 MG/2 ML VIAL IVPUSH (16:55)
[2021-08-29 17:01] LABS: Alanine Aminotransferase 34 U/L (0-40); Albumin Level 4.6 g/dL (3.5-5.0); Alkaline Phosphatase 58 U/L (39-117); Anion Gap 19 (12-20); Aspartate Amino Transferase 29 U/L (5-37); Bilirubin Direct < 0.2 mg/dL (0.0-0.5); Bilirubin Total 0.3 mg/dL (0.0-1.0); Blood Urea Nitrogen 14 mg/dL (9-16); Carbon Dioxide 23 mmol/L (22-29); Chloride 103 mmol/L (96-108); Creatinine Clr Calc Pharmacy 95.8; Estimated Glomerular Filt Rate > 60; Glucose Random 162 mg/dL (60-115); Lipase 584 U/L (8-78); Potassium 4.1 mmol/L (3.3-5.1); Sodium 141 mmol/L (135-145); Total Protein 7.4 g/dL (6.5-8.0)
[2021-08-29] MEDS: iohexoL 350 MG/ML 100 ML INFUS..BTL IV (17:18)
[2021-08-29 19:03] VITALS: BP 138/68; PULSE 73; RESP 18; TEMP 36.8; O2SAT 97
[2021-08-29 19:23] LABS: COVID-19 Test Negative (Negative)
--- NOTE | 2021-08-29 19:30 | P.HPHOSP_ITS ---
History of Present Illness Date of Service: 08/29/21 Chief Complaint: Abdominal pain 51-year-old male with a past medical history of hypertriglyceridemia, diabetes, depression, opiate dependence on Suboxone, history of gangrenous cholecystitis status post cholecystectomy, history of CBD obstruction with normal cho langiogram in September 2020; presented to the hospital today with a chief complaint of abdominal pain. Patient reported that over the past 1 day he has been having abdominal pain more so in the epigastrium, associated nausea and vomiting; denies any blood in the vomitus. Patient reported that his father recently ; ER couple readings at her sister's place on Monday night; on Monday morning he had his coffee and suddenly developed abdominal pain located in the epigastrium, sharp in nature, nonradiating, associated nausea and vomiting. Mentioned that he has a history of hypertriglyceridemia disease been on medications; reports that he has non complaint with low carb diet. Denies any fever chills cough. Denies any alcohol use. Denies any numbness tingling or focal weakness. Denies any chest pain palpitations lightheadedness or dizziness. Denies any urinary symptoms. Review of all other systems is negative except mentioned above ER course: Per ER team patient noted abdominal tenderness; CT scan showed pancreatitis similar to the prior CAT scan; liver enzymes were within normal limits; lipase was elevated to 500s; admitted to the hospital for further management. [facility] Medical History Anxiety Elevated triglycerides with high cholesterol Pancreatitis Pre-diabetes Pertinent family history: Mother had history of irritable bowel syndrome Surgical History History of cholecystectomy Social History Household Members: Spouse Housing: Apartment Do you presently have visiting nurse or other home services: No Alcohol intake: current Second Hand Smoke Exposure: No Advance Directives: No Advance Directives Information Provided: No service: No Current occupational status: employed Meds Allergies Allergy/AdvReac Type Severity Reaction Status Date / Time No Known Allergies Allergy Verified 09/13/20 22:59 [No Known Allergies*] Active Medications: Current Medications Acetaminophen (Acetaminophen 325 Mg Tablet) 650 mg PO Q6H PRN PRN Reason: Pain, Mild (Pain Scale 1-3) Dextrose/Sodium Chloride (D51/2ns) 1,000 mls @ 100 mls/hr IVCONT .Q10H [facility] Melatonin (Melatonin 3 Mg Tablet) 6 mg PO BEDTIME PRN PRN Reason: Insomnia Ondansetron HCl (Ondansetron Hcl 4 Mg/2 Ml Vial) 4 mg IVPUSH Q8H PRN PRN Reason: Nausea and Vomiting Senna (Sennosides 8.6 Mg Tablet) 17.2 mg PO BEDTIME PRN PRN Reason: Constipation Sodium Chloride (0.9 % Sodium Chloride Flush 3 Ml Syringe) 3 ml IVFLUSH QSHIFT [facility] Home Medications Medication Instructions Recorded Confirmed Last Taken Type buprenorphine 4 mg-naloxone 1 mg 1 strip SUBLINGUAL DAILY 09/13/20 03/09/21 03/08/21 History sublingual film clonidine HCl 0.3 mg tablet 1 tab PO BID 09/13/20 03/09/21 08/28/21 History dicyclomine 20 mg tablet 1 tab PO QID PRN 09/13/20 03/09/21 08/29/21 History 2 hydroxyzine HCl 25 mg tablet 1 tab PO TID PRN 09/13/20 03/09/21 08/28/21 History metformin 1,000 mg tablet 1 tab PO BID 09/13/20 03/09/21 08/29/21 History ascorbic acid (vitamin C) 500 mg 500 mg PO DAILY 03/09/21 03/09/21 08/28/21 History tablet (Vitamin C) 1 cholecalciferol (vitamin D3) 25 25 mcg PO DAILY 03/09/21 03/09/21 08/28/21 History mcg (1,000 unit) tablet fenofibrate 160 mg tablet 1 tab PO DAILY 03/09/21 03/09/21 08/28/21 History melatonin 3 mg tablet 3 mg PO BEDTIME PRN 03/09/21 03/09/21 Unknown History multivitamin 1 tab PO DAILY 03/09/21 03/09/21 08/29/21 History omega-3 fatty acids 1,000 mg PO DAILY 03/09/21 03/09/21 08/28/21 History sertraline 100 mg tablet 2 tab PO DAILY 03/09/21 03/09/21 08/29/21 History zinc 100 mg tablet 100 mg PO DAILY 03/09/21 03/09/21 03/08/21 History Physical Exam Vital Signs and Narrative: Vital Signs: Last Vital Signs Temp 98.3 F 08/29/21 19:03 Pulse 73 08/29/21 19:03 Resp 18 08/29/21 19:03 BP 138/68 08/29/21 19:03 Pulse Ox 97 08/29/21 19:03 Body Mass Index 30.5 Gen: Appears be in no acute distress HEENT: NCAT, Moist mucosa. Pulmonary: Vesicular breath sounds, fair air entry CVS: Normal S1-S2 Abdomen: BS+, Soft, tender in epigastrium, no guarding no rigidity. Extremities: Warm well perfused Neuro: Alert and awake. Results Labs CBC and Chem 7: 08/29/21 16:24 08/29/21 16:24 Labs: Laboratory Results - last 24 hr 08/29/21 08/29/21 08/29/21 16:06 16:24 16:24 MCV 79.3 L MCH 27.1 MCHC 34.2 RDW 12.4 Plt Count 223 D MPV 9.3 L Immature Gran % (Auto) 1.0 H Neut % (Auto) 80.2 H Lymph % (Auto) 12.1 L [place] % (Auto) 4.9 Eos % (Auto) 1.1 Baso % (Auto) 0.7 Lymph # (Auto) 1.5 [place] # (Auto) 0.6 Eos # (Auto) 0.1 Baso # (Auto) 0.1 Abs Immat Gran (auto) 0.12 H Absolute Neuts (auto) 9.8 H Absolute Nucleated RBC 0.000 Nucleated RBC % (auto) 0.0 PT 11.7 INR 1.0 APTT 35.1 Anion Gap Estim Creat Clear Calc Estimated GFR POC Glucose 157 H Random Glucose Calcium Total Bilirubin Direct Bilirubin AST ALT Alkaline Phosphatase Total Protein Albumin Lipase COVID-19 (OLE) COVID-19 Clin Com 08/29/21 08/29/21 16:24 19:02 MCV MCH MCHC RDW Plt Count MPV Immature Gran % (Auto) Neut % (Auto) Lymph % (Auto) [place] % (Auto) Eos % (Auto) Baso % (Auto) Lymph # (Auto) [place] # (Auto) Eos # (Auto) Baso # (Auto) Abs Immat Gran (auto) Absolute Neuts (auto) Absolute Nucleated RBC Nucleated RBC % (auto) PT INR APTT Anion Gap 19 Estim Creat Clear Calc 95.8 Estimated GFR > 60 POC Glucose Random Glucose 162 H Calcium 10.0 D Total Bilirubin 0.3 Direct Bilirubin < 0.2 AST 29 ALT 34 Alkaline Phosphatase 58 Total Protein 7.4 D Albumin 4.6 D Lipase 584 H COVID-19 (OLE) Negative COVID-19 Clin Com See Note Imaging Radiologist's Impressions: Impressions Abdomen/Pelvis CT 08/29/21 16:08 IMPRESSION: Pancreatitis similar in severity to the prior CAT scan March 09, 2021. No pseudocyst Chest X-Ray 08/29/21 16:08 IMPRESSION: Unremarkable examination. Assessment and Plan (1) Pancreatitis: Qualifiers: Acute pancreatitis complication: unspecified Chronicity: acute Pancreatitis type: unspecified pancreatitis type Qualified Code(s): K85.90 - Acute pancreatitis without necrosis or infection, unspecified Status: Acute 51-year-old male with a past medical history of hypertriglyceridemia, diabetes, depression, opiate dependence on Suboxone, history of gangrenous cholecystitis status post cholecystectomy, history of CBD obstruction with normal cholangiogram in September 2020; presented to the hospital today with a [facility] complaint of abdominal pain. Noted to have pancreatitis. Admitted for further management. Recurrent pancreatitis: Patient has prior history of hypertriglyceridemia; will repeat triglyceride lev els. Patient reports having couple of drinks of alcohol the night before Will consult GI for further recommendations Pain control IV fluids Diabetes: Insulin sliding scale History of opiate dependence: Patient on Suboxone. Addiction Medicine consult for confirmation/resumption of his home medications. For all other chronic conditions, home medications will be continued History of anxiety/depression: Continue home medications. DVT prophylaxis: SCD boots Code status: Full code Quality Stroke Does the patient have a stroke diagnosis?: No VTE Prior VTE?: No VTE Risk Level:: Medical - low VTE Device Contraindication: N/A - Device Ordered VTE Drug Contraindication: N/A - Med Ordered
[2021-08-29 19:49] VITALS: BP 157/88; PULSE 69; RESP 18; TEMP 36.7
[2021-08-29 19:52] VITALS: BP 157/88; PULSE 67; RESP 18; TEMP 36.7; O2SAT 100
[2021-08-29 20:46] LABS: Glucose, Whole Blood 171 mg/dL (60-115)
[2021-08-29] MEDS: Insulin Lispro 100 UNIT/ML 3 ML VIAL SUBCUT (21:33)
[2021-08-29 21:34] VITALS: RESP 16
[2021-08-29] MEDS: HYDROmorphone HCl 0.5 MG/0.5 ML SYRINGE IVPUSH (21:34)
[2021-08-29] MEDS: Dextrose 5 % and 0.45 % NaCl 1,000 ML 100 ML IVCONT (21:37)
[2021-08-29 22:11] LABS: Triglycerides 140 mg/dL
[2021-08-29 22:13] LABS: Appearance Urine CLEAR; Color Urine YELLOW; Glucose Urine UA NEG (NEG); Leukocyte Esterase Urine NEG (NEG); Nitrite Urine NEG (NEG); PH 7.5 (5.0-8.0); Urine Blood NEG (NEG); Urine Ketones NEG (NEG); Urine Protein NEG (NEG-TRACE)
[2021-08-30 00:06] VITALS: BP 129/68; PULSE 66; RESP 18
[2021-08-30] MEDS: ondansetron HCL 4 MG/2 ML VIAL IVPUSH ×2 (05:14→15:20)
[2021-08-30] MEDS: HYDROmorphone HCl 0.5 MG/0.5 ML SYRINGE IVPUSH ×2 (05:16→18:45)
[2021-08-30] MEDS: Dextrose 5 % and 0.45 % NaCl 1,000 ML 100 ML IVCONT (06:34)
[2021-08-30 07:19] LABS: MANUAL DIFF FLAG NO
[2021-08-30 07:23] LABS: Basophils Absolute Auto 0.1 X10*3/uL (0.0-0.2); Basophils Percent Auto 0.8 % (0-2); Eosinophils Absolute Auto 0.1 X10*3/uL (0.0-0.4); Hematocrit 40.5 % (42-52); Hemoglobin 13.6 g/dl (14.0-18.0); Imm Gran Pct Auto 0.9 % (0.0-0.4); Lymphocytes Absolute Auto 1.9 X10*3/uL (1.2-4.9); Mean Corpuscular HGB Conc 33.6 g/dl (31.0-36.0); Mean Corpuscular Hemoglobin 26.8 pg (27.0-33.0); Mean Corpuscular Volume 79.7 fL (80-98); Mean Platelet Volume 9.2 fL (9.4-12.4); Monocytes Absolute Auto 0.7 X10*3/uL (0.1-1.2); Monocytes Percent Auto 6.3 % (2-11); Neutrophils Absolute Auto 7.8 X10*3/uL (2.0-8.3); Platelet Count 235 X10*3/uL (160-400); Red Blood Count 5.08 X10*6/uL (4.60-5.80); Red Cell Distribution Width 12.4 % (11.0-16.0); White Blood Count 10.6 X10*3/uL (4.8-10.8)
[2021-08-30 07:52] LABS: Anion Gap 12 (12-20); Blood Urea Nitrogen 9 mg/dL (9-16); Calcium 9.2 mg/dL (8.4-10.2); Carbon Dioxide 28 mmol/L (22-29); Chloride 105 mmol/L (96-108); Creatinine Clr Calc Pharmacy 117.4; Estimated Glomerular Filt Rate > 60; Glucose Random 139 mg/dL (60-115); Potassium 3.7 mmol/L (3.3-5.1); Sodium 141 mmol/L (135-145)
[2021-08-30 08:16] LABS: Lactate Dehydrogenase 172 U/L (118-273); Magnesium 1.7 mg/dL (1.6-2.6)
[2021-08-30 08:35] LABS: Estimated Average Glucose 151 mg/dL; Hemoglobin A1c % 6.9 %
[2021-08-30] MEDS: 0.9 % Sodium Chloride Flush 3 ML SYRINGE IVFLUSH (08:42)
[2021-08-30] MEDS: Lactated Ringers 1,000 ML 150 ML IVCONT ×3 (08:50→22:30)
--- NOTE | 2021-08-30 08:55 | PC.NURSE ---
pt is resting in the stretcher skin appropriate for ethnicity, respirations even and unlabored, reports upper abd pain 5/10 but mostly reports having nausea. pt does have zofran order but q8 hr already had zofran early this morning around 0500 will reach out to the hospitalist in regards to the nausea and pharmacy is working on the pt's med rec. vs stable
--- NOTE | 2021-08-30 09:00 | PHA.MEDREC ---
Pharmacy Consult ? Medication Reconciliation Pharmacy has completed the medication reconciliation. There are no remarkable issues for provider's attention. Denae Negron, YaaD
[2021-08-30 09:19] LABS: Glucose, Whole Blood 128 mg/dL (60-115)
--- NOTE | 2021-08-30 10:15 | MHC.CM.PN ---
pt lives at home c his . he reports that he is independent in his care. he works a job and drives a car. he will have his provide transport at dc. pt denies the need for vna at dc. dc plan is home no svcs. cm to cont. to follow.
[2021-08-30 11:36] VITALS: BP 145/79; PULSE 75; RESP 18; TEMP 36.7; O2SAT 95
[2021-08-30] MEDS: Multivitamin TABLET 1 TAB PO (11:38)
[2021-08-30] MEDS: Buprenorphine/Naloxone 4/1 mg FILM 1 FILM SUBLINGUAL (11:38)
[2021-08-30] MEDS: Sertraline HCL 100 MG TABLET 200 MG PO (11:38)
--- NOTE | 2021-08-30 11:40 | PC.NURSE ---
patient a&ox3, vss, pt medicated per order, c/o mid abd pain 5/10, will continue to monitor.
[2021-08-30 12:25] LABS: Glucose, Whole Blood 149 mg/dL (60-115)
--- NOTE | 2021-08-30 12:51 | PC.NURSE ---
attempted to call floor, no answer, will notify charge
[2021-08-30 15:12] VITALS: BP 132/84; PULSE 67; RESP 18; TEMP 36.8; O2SAT 95
[2021-08-30] MEDS: Dicyclomine HCl 10 MG CAPSULE 20 MG PO (15:20)
[2021-08-30 16:07] LABS: Glucose, Whole Blood 120 mg/dL (60-115)
--- NOTE | 2021-08-30 16:46 | HO.PM.IMPN ---
Subjective Subjective Date of Service: 08/30/21 Interval History: Abd pain improved. C/o nausea. Father 2 wk ago and he had a few alcohol drinks. Review of Systems Review of Systems: Yes all other systems are reviewed and are negative Physical Exam Vital Signs: Vital Signs: Last Vital Signs Temp 98.2 F 08/30/21 15:12 Pulse 67 08/30/21 15:12 Resp 18 08/30/21 15:12 BP 132/84 08/30/21 15:12 Pulse Ox 95 08/30/21 15:12 Body Mass Index 30.5 Gen: in no acute distress HEENT: sclera anicteric, moist mucus membranes Neck: supple Lungs: clear to auscultation bilaterally Heart: regular rate and rhythm, no murmurs Abd: soft, periumbilical and epigastric tenderness, no rebound, non-distended Ext: no edema Skin: warm/well-perfused Neuro: alert and oriented x3, no focal findings Psych: appropriate affect Objective Data Active Medications Acetaminophen (Acetaminophen 325 Mg Tablet) 650 mg PO Q6H PRN PRN Reason: Pain, Mild (Pain Scale 1-3) Buprenorphine/Naloxone (Buprenorphine/Naloxone 4/1 Mg Film) 0.5 film SUBLINGUAL BEDTIME ALIYA Buprenorphine/Naloxone (Buprenorphine/Naloxone 4/1 Mg Film) 1 film SUBLINGUAL DAILY ALIYA Last Admin: 08/30/21 11:38 Dose: 1 film Documented by: ISAIAH Clonidine HCl (Clonidine Hcl 0.1 Mg Tablet) 0.2 mg PO BEDTIME ALIYA; Protocol Dextrose (Dextrose 50 % 25 Gm/50 Ml Vial) 25 gm IVPUSH Q15M PRN; Protocol PRN Reason: per Hypoglycemia Standing Ord. Dicyclomine HCl (Dicyclomine Hcl 10 Mg Capsule) 20 mg PO QID PRN PRN Reason: Muscle Spasticity Last Admin: 08/30/21 15:20 Dose: 20 mg Documented by: SIMEON Fenofibrate (Fenofibrate 160 Mg Tablet) 160 mg PO DAILY ALIYA Last Admin: 08/30/21 11:39 Dose: Not Given Documented by: ISAIAH Non-Admin Reason: See Note Glucose (Glucose Gel 15 Gm Gel..Gram.) 15 gm PO Q15M PRN; Protocol PRN Reason: per Hypoglycemia Standing Ord. Hydromorphone HCl (Hydromorphone Hcl 0.5 Mg/0.5 Ml Syringe) 0.5 mg IVPUSH Q4H PRN; Protocol PRN Reason: Pain, Severe (Pain Scale 7-10) Last Admin: 08/30/21 05:16 Dose: 0.5 mg Documented by: TALIA Hydroxyzine HCl (Hydroxyzine Hcl 25 Mg Tablet) 25 mg PO TID PRN PRN Reason: Anxiety Lactated Ringer's (Lr) 1,000 mls @ 150 mls/hr IVCONT .Q6H40M [facility] Last Admin: 08/30/21 15:00 Dose: 150 mls/hr Documented by: SIMEON Insulin Human Lispro (Insulin Lispro 100 Unit/Ml 3 Ml Vial) 0 unit SUBCUT QIDACHS [facility]; Protocol Last Admin: 08/30/21 16:42 Dose: Not Given Documented by: SIMEON Non-Admin Reason: No Insulin Coverage Melatonin (Melatonin 3 Mg Tablet) 6 mg PO BEDTIME PRN PRN Reason: Insomnia Metoclopramide HCl (Metoclopramide Hcl 10 Mg/2 Ml Vial) 5 mg IVPUSH Q6H PRN PRN Reason: nausea/vomiting Multivitamins/Vitamin C (Multivitamin Tablet) 1 tab PO DAILY [facility] Last Admin: 08/30/21 11:38 Dose: 1 tab Documented by: ISAIAH Ondansetron HCl (Ondansetron Hcl 4 Mg/2 Ml Vial) 4 mg IVPUSH Q6H PRN PRN Reason: Nausea and Vomiting Last Admin: 08/30/21 15:20 Dose: 4 mg Documented by: SIMEON Senna (Sennosides 8.6 Mg Tablet) 17.2 mg PO BEDTIME PRN PRN Reason: Constipation Sertraline HCl (Sertraline Hcl 100 Mg Tablet) 200 mg PO DAILY@1200 [facility] Last Admin: 08/30/21 11:38 Dose: 200 mg Documented by: ISAIAH Sodium Chloride (0.9 % Sodium Chloride Flush 3 Ml Syringe) 3 ml IVFLUSH QSHIFT [facility] Last Admin: 08/30/21 15:00 Dose: Not Given Documented by: SIMEON Non-Admin Reason: IV Running Labs CBC & Chem 7: 08/30/21 06:55 08/30/21 06:55 Labs: Laboratory Results - last 24 hr 08/29/21 08/29/21 08/29/21 16:06 16:24 19:02 MCV MCH MCHC RDW Plt Count MPV Immature Gran % (Auto) Neut % (Auto) Lymph % (Auto) Camp % (Auto) Eos % (Auto) Baso % (Auto) Lymph # (Auto) Camp # (Auto) Eos # (Auto) Baso # (Auto) Abs Immat Gran (auto) Absolute Neuts (auto) Absolute Nucleated RBC Nucleated RBC % (auto) Anion Gap 19 Estim Creat Clear Calc 95.8 Estimated GFR > 60 POC Glucose 157 H Random Glucose 162 H Estimat Average Glucose Hemoglobin A1c % Calcium 10.0 D Magnesium Total Bilirubin 0.3 Direct Bilirubin < 0.2 AST 29 ALT 34 Alkaline Phosphatase 58 Lactate Dehydrogenase Total Protein 7.4 D Albumin 4.6 D Triglycerides Lipase 584 H Urine Color Urine Appearance Urine pH Ur Specific [place] Urine Protein Urine Glucose (UA) Urine Ketones Urine Blood Urine Nitrite Ur Leukocyte Esterase COVID-19 (OLE) Negative COVID-19 Mamina Shkola See Note 08/29/21 08/29/21 08/29/21 20:41 21:46 21:46 MCV MCH MCHC RDW Plt Count MPV Immature Gran % (Auto) Neut % (Auto) Lymph % (Auto) Camp % (Auto) Eos % (Auto) Baso % (Auto) Lymph # (Auto) Camp # (Auto) Eos # (Auto) Baso # (Auto) Abs Immat Gran (auto) Absolute Neuts (auto) Absolute Nucleated RBC Nucleated RBC % (auto) Anion Gap Estim Creat Clear Calc Estimated GFR POC Glucose 171 H Random Glucose Estimat Average Glucose Hemoglobin A1c % Calcium Magnesium Total Bilirubin Direct Bilirubin AST ALT Alkaline Phosphatase Lactate Dehydrogenase Total Protein Albumin Triglycerides 140 Lipase Urine Color YELLOW Urine Appearance CLEAR Urine pH 7.5 Ur Specific [place] 1.010 Urine Protein NEG Urine Glucose (UA) NEG Urine Ketones NEG Urine Blood NEG Urine Nitrite NEG Ur Leukocyte Esterase NEG COVID-19 (OLE) COVID-Funding [employer] 08/30/21 08/30/21 08/30/21 06:55 06:55 06:55 MCV 79.7 L MCH 26.8 L MCHC 33.6 RDW 12.4 Plt Count 235 MPV 9.2 L Immature Gran % (Auto) 0.9 H Neut % (Auto) 73.0 Lymph % (Auto) 18.0 L Camp % (Auto) 6.3 Eos % (Auto) 1.0 Baso % (Auto) 0.8 Lymph # (Auto) 1.9 Camp # (Auto) 0.7 Eos # (Auto) 0.1 Baso # (Auto) 0.1 Abs Immat Gran (auto) 0.10 H Absolute Neuts (auto) 7.8 Absolute Nucleated RBC 0.000 Nucleated RBC % (auto) 0.0 Anion Gap 12 Estim Creat Clear Calc 117.4 Estimated GFR > 60 POC Glucose Random Glucose 139 H Estimat Average Glucose 151 Hemoglobin A1c % 6.9 Calcium 9.2 D Magnesium 1.7 Total Bilirubin Direct Bilirubin AST ALT Alkaline Phosphatase Lactate Dehydrogenase 172 Total Protein Albumin Triglycerides Lipase Urine Color Urine Appearance Urine pH Ur Specific [place] Urine Protein Urine Glucose (UA) Urine Ketones Urine Blood Urine Nitrite Ur Leukocyte Esterase COVID-19 (OLE) COVID-19 Mamina Shkola 08/30/21 08/30/21 08/30/21 07:03 11:45 16:02 MCV MCH MCHC RDW Plt Count MPV Immature Gran % (Auto) Neut % (Auto) Lymph % (Auto) Camp % (Auto) Eos % (Auto) Baso % (Auto) Lymph # (Auto) Camp # (Auto) Eos # (Auto) Baso # (Auto) Abs Immat Gran (auto) Absolute Neuts (auto) Absolute Nucleated RBC Nucleated RBC % (auto) Anion Gap Estim Creat Clear Calc Estimated GFR POC Glucose 128 H 149 H 120 H Random Glucose Estimat Average Glucose Hemoglobin A1c % Calcium Magnesium Total Bilirubin Direct Bilirubin AST ALT Alkaline Phosphatase Lactate Dehydrogenase Total Protein Albumin Triglycerides Lipase Urine Color Urine Appearance Urine pH Ur Specific [place] Urine Protein Urine Glucose (UA) Urine Ketones Urine Blood Urine Nitrite Ur Leukocyte Esterase COVID-19 (OLE) COVID-19 Clin Com Assessment and Plan (1) Pancreatitis: Status: Acute Assessment and Plan: hospital d#2 51yo M with hx gangrenous cholecystitis s/p cholecystectomy, hx CBD obstruction with normal cholangiogram Sep 2020, hyperTG, preDM, opioid use disorder, depression admitted with acute pancreatitis # recurrent pancreatitis - TGs normal. pt had recent EtOH intake; used to drink much heavier. counseled to avoid EtOH. NPO, aggressive isotonic fluid resuscitation, prn hydromorphone # hx hyperTG - continue fenofibrate # hx preDM, now elicia DM2 [A1c 6.9] - correction-dose lispro, diet, MTF upon d/c # opioid use disorder - Suboxone # mood disorder - continue clonidine + sertraline + hydroxyzine # VTE ppx - LMWH Quality Stroke Does the patient have a stroke diagnosis?: No VTE Prior VTE?: No VTE Risk Level:: Medical - low VTE Device Contraindication: N/A - Device Ordered VTE Drug Contraindication: N/A - Med Ordered
[2021-08-30] MEDS: Enoxaparin Sodium 40 MG/0.4 ML SYRINGE SUBCUT (17:20)
--- NOTE | 2021-08-30 17:39 | PM.EVENT ---
Event Note Date of Service: 08/30/21 Event Note: GI Consult--Full note dictated Imp: Acute pancreatitis based on his history, labs, and CT results. This does not appear to be related to a biliary source nor to any medication. His IgG subtypes were negative in regard to autoimmune pancreatitis in the past. He does have a hx of hypertriglyceridemia but his recent TG level was only 140. He does does describe a lot of dietary indiscretion with fatty foods and having approx 3 beers at a time, although reportedly not daily. Therefore, his diet and some EtOH may be playing a role. At this point he seems to be improving rapidly. His abdominal pain is almost completely gone and his abdominal exam is benign. Rec: Supportive care, F/U labs, and most likely advance diet on 08/31. I advised him of the need to stay on a very careful low fat diet and to avoid alcohol completely. I advised him that I want to see him in F/U in my office by Sep/Oct, at which time we can schedule him for a F/U CT or MRI of the pancreas and a screening colonoscopy. If the pancreatitis remains a problem going forward I would arrange for an EUS of the pancreas for further evaluation. D/W patient in detail and he is comfortable with this plan. Thanks
[2021-08-30 19:20] VITALS: BP 156/94; PULSE 62; RESP 18; TEMP 36.8; O2SAT 95
[2021-08-30 20:09] LABS: Glucose, Whole Blood 197 mg/dL (60-115)
[2021-08-30 22:22] VITALS: BP 156/94; PULSE 62
[2021-08-30] MEDS: Buprenorphine/Naloxone 4/1 mg FILM 0.5 FILM SUBLINGUAL (22:22)
[2021-08-30] MEDS: Insulin Lispro 100 UNIT/ML 3 ML VIAL SUBCUT (22:22)
[2021-08-30] MEDS: cloNIDine HCL 0.1 MG TABLET 0.2 MG PO (22:22)
[2021-08-30 23:44] VITALS: BP 144/88; PULSE 65; RESP 18; TEMP 36.6; O2SAT 93
--- NOTE | 2021-08-31 01:08 | CONS_ITS ---
DATE OF SERVICE: 08/30/2021 REASON FOR CONSULTATION: Pancreatitis. HISTORY OF PRESENT ILLNESS: The patient is a 51-year-old male known to me from previous hospitalizations and GI consults with associated pancreatitis. I met the patient in September 2020, when he was admitted for elevated LFTs and suspected choledocholithiasis on MRCP. He had undergone a laparoscopic cholecystectomy in June of 2020 for gallstones and gangrenous gallbladder. In September 2020, he underwent an ERCP with sphincterotomy, but without any definitive stones removed. Subsequent to that procedure, he did well up until February of 2021 when he presented with acute pancreatitis. At that time, it was felt that he had a possible acute pancreatitis in relation to a previous history of hypertriglyceridemia. His previous imaging studies had revealed a normal-appearing pancreatic duct. During the admission in February of 2021, there was no evidence of any choledocholithiasis based on the imaging and his normal LFTs. Since that episode in February 2021, he reports he had been feeling well again. He describes compliance with his fenofibrate in relation to a previous history of hypertriglyceridemia, but reports that he is not particularly compliant with a low-fat diet and does occasionally drink some alcohol, although not to excess. The patient reports he was feeling well up until just on the morning of admission when he developed the fairly acute onset of epigastric pain with associated vomiting. There was no sign of any GI bleeding. Due to the persistent symptoms, he came to the ER and was found to have pancreatitis based on his CT scan and elevated lipase. He was admitted. Over the less than 24 hours in the hospital, he does report that he is feeling much better with much less pain and no further vomiting. The patient does describe a lot of dietary indiscretion lately with fatty foods. He has also been having 2 to 3 beers at a time, although not on a daily basis. He describes that he has been under lot of stress due to his father's recent from colon cancer. The patient denies any known family history of pancreatic disease. He did undergo other workup for his pancreatitis earlier this year with normal IgG subtypes and without any sign of medication-induced pancreatitis. His triglyceride levels have been quite high in the past with a triglyceride level of 1179 in September 2019. However, triglyceride levels over the past year or so have not been particularly remarkable. His level on this admission was 140. MEDICATIONS: At home included Suboxone, clonidine, dicyclomine, fenofibrate, hydroxyzine, metformin, vitamins, fish oil, and sertraline. His medications here in the hospital include acetaminophen, Suboxone, clonidine, dicyclomine, Lovenox, fenofibrate, Dilaudid p.r.n., Atarax p.r.n., insulin, melatonin, vitamins, Zofran p.r.n., Senokot p.r.n., and sertraline. PAST MEDICAL HISTORY: Cholecystectomy in 2019 as above. Hemorrhoid surgery. Hypertriglyceridemia. Diabetes mellitus. Depression. Opiate dependence. He denies history of [place], stroke, lung disease, or kidney disease. SOCIAL HISTORY: He works in the [employer] field. He does not smoke cigarettes, but does vape, THC, and/or CBD. Alcohol as above with 2 to 3 beers at a time, although not on a daily basis. FAMILY HISTORY: Notable for his father having recently from colon cancer in his 70s. REVIEW OF SYSTEMS: CONSTITUTIONAL: Up until the day of admission, he was feeling well with good energy good appetite. SKIN: No rash. No pruritus. CARDIAC: No chest pain. PULMONARY: No coughing. No hemoptysis. GI: As above. URINARY: No dysuria. No hematuria. PHYSICAL EXAMINATION: GENERAL: The patient is a pleasant, alert, comfortable-appearing male. SKIN: Warm and dry. HEENT: Anicteric sclerae. NECK: Supple. CHEST: Clear. CARDIAC: Normal S1, S2. ABDOMEN: Soft. Normal bowel sounds. Nondistended and nontender, other than very minimal tenderness to palpation in the epigastric area. There is no mass, rebound, or guarding. EXTREMITIES: Without edema. LABORATORY DATA: As above. His CT scan on admission describes changes consistent with pancreatitis with associated edema in the head and body of the pancreas similar to that of February 2021. There was no pancreatic duct dilatation nor pseudocysts. There was no evidence of any necrosis. He also had a chest x-ray, which was unremarkable. White blood cell count 12.1 with a repeat of 10.6. Hemoglobin 14.7 with a repeat of 13.6. Platelets 235,000. PT 11.7 with INR 1.0. Normal electrolytes. BUN 9, creatinine 0.9, total bilirubin 0.3, AST 29, ALT 34, alkaline phosphatase 58, albumin 4.6, lipase 584. Triglyceride level was 140. IMPRESSION: Given the patient's clinical history and workup, he certainly has another case of acute pancreatitis. This does not appear to be biliary in etiology, given the normal-appearing bile duct on the CT scan and normal LFTs presently. His previous workup with IgG subtype was negative. He does not appear to be on any suspicious medication that would cause pancreatitis. He does have a history of hypertriglyceridemia, but his most recent triglyceride level was quite low and would not be anywhere in the range of causing pancreatitis. However, he does admit to a lot of dietary indiscretion with fatty foods and some alcohol. Therefore, this dietary indiscretion and alcohol use may be the contributing factor to the most recent episode of pancreatitis. At this point, I would continue supportive care as he seems to be doing much better since admission. I would check laboratories in the morning and if stable, his diet could be advanced and he could most likely be discharged in the next 24 to 48 hours, if things remain stable. I did review with him the importance to stay on a low-fat diet and avoid alcohol completely. We did review that I would like to see him in the office within a month or 2 and then at that point, repeat imaging with either MRI or CT scan of the pancreas to be sure there is no underlying abnormality once the inflammation has cleared. He may ultimately need an endoscopic ultrasound if suspicion remains or he continues to have episodes of pancreatitis. We also discussed that he should have a screening colonoscopy both for his age and the family history of colon cancer in his father recently. I do not think a repeat ERCP is presently required. This has all been discussed in detail with the patient and he is comfortable with this plan. Thank you for the consultation. MD ALEX Fallon/DONALD / [phone] DARRYL
[2021-08-31] MEDS: Lactated Ringers 1,000 ML 150 ML IVCONT ×4 (03:50→22:32)
[2021-08-31] MEDS: HYDROmorphone HCl 0.5 MG/0.5 ML SYRINGE IVPUSH ×2 (03:51→13:14)
[2021-08-31 03:56] VITALS: BP 136/71; PULSE 69; RESP 18; TEMP 36.7; O2SAT 97
[2021-08-31 05:36] LABS: Hematocrit 39.3 % (42-52); Mean Corpuscular HGB Conc 33.1 g/dl (31.0-36.0); Mean Corpuscular Hemoglobin 26.9 pg (27.0-33.0); Mean Corpuscular Volume 81.2 fL (80-98); Mean Platelet Volume 9.2 fL (9.4-12.4); Platelet Count 198 X10*3/uL (160-400); Red Blood Count 4.84 X10*6/uL (4.60-5.80); Red Cell Distribution Width 12.4 % (11.0-16.0); White Blood Count 8.9 X10*3/uL (4.8-10.8)
[2021-08-31 05:52] LABS: Alanine Aminotransferase 21 U/L (0-40); Alkaline Phosphatase 49 U/L (39-117); Anion Gap 15 (12-20); Aspartate Amino Transferase 17 U/L (5-37); Bilirubin Total 0.5 mg/dL (0.0-1.0); Blood Urea Nitrogen 10 mg/dL (9-16); Calcium 9.1 mg/dL (8.4-10.2); Carbon Dioxide 26 mmol/L (22-29); Chloride 104 mmol/L (96-108); Estimated Glomerular Filt Rate > 60; Glucose Random 151 mg/dL (60-115); Lipase 147 U/L (8-78); Magnesium 1.8 mg/dL (1.6-2.6); Potassium 3.6 mmol/L (3.3-5.1); Sodium 141 mmol/L (135-145); Total Protein 6.4 g/dL (6.5-8.0)
[2021-08-31 08:00] VITALS: BP 136/82; PULSE 70; RESP 16; TEMP 37; O2SAT 96
[2021-08-31] MEDS: Multivitamin TABLET 1 TAB PO (08:07)
[2021-08-31] MEDS: Fenofibrate 160 MG TABLET PO (08:07)
[2021-08-31] MEDS: Buprenorphine/Naloxone 4/1 mg FILM 1 FILM SUBLINGUAL (08:08)
--- NOTE | 2021-08-31 10:09 | HO.PM.IMPN ---
Subjective Subjective Date of Service: 08/31/21 Interval History: Abd pain resolved. Nausea improved. No fever. Review of Systems Review of Systems: Yes all other systems are reviewed and are negative Physical Exam Vital Signs: Vital Signs: Last Vital Signs Temp 98.6 F 08/31/21 08:00 Pulse 70 08/31/21 08:00 Resp 16 08/31/21 08:00 BP 136/82 08/31/21 08:00 Pulse Ox 96 08/31/21 08:00 Body Mass Index 30.5 Gen: in no acute distress HEENT: sclera anicteric, moist mucus membranes Neck: supple Lungs: clear to auscultation bilaterally Heart: regular rate and rhythm, no murmurs Abd: soft, periumbilical and epigastric tenderness, no rebound, non-distended Ext: no edema Skin: warm/well-perfused Neuro: alert and oriented x3, no focal findings Psych: appropriate affect Objective Data Active Medications Acetaminophen (Acetaminophen 325 Mg Tablet) 650 mg PO Q6H PRN PRN Reason: Pain, Mild (Pain Scale 1-3) Buprenorphine/Naloxone (Buprenorphine/Naloxone 4/1 Mg Film) 0.5 film SUBLINGUAL BEDTIME ALIYA Last Admin: 08/30/21 22:22 Dose: 0.5 film Documented by: DENISE Buprenorphine/Naloxone (Buprenorphine/Naloxone 4/1 Mg Film) 1 film SUBLINGUAL DAILY ALIYA Last Admin: 08/31/21 08:08 Dose: 1 film Documented by: RAJEEV Clonidine HCl (Clonidine Hcl 0.1 Mg Tablet) 0.2 mg PO BEDTIME ALIYA; Protocol Last Admin: 08/30/21 22:22 Dose: 0.2 mg Documented by: DENISE Dextrose (Dextrose 50 % 25 Gm/50 Ml Vial) 25 gm IVPUSH Q15M PRN; Protocol PRN Reason: per Hypoglycemia Standing Ord. Dicyclomine HCl (Dicyclomine Hcl 10 Mg Capsule) 20 mg PO QID PRN PRN Reason: Muscle Spasticity Last Admin: 08/30/21 15:20 Dose: 20 mg Documented by: SIMEON Enoxaparin Sodium (Enoxaparin Sodium 40 Mg/0.4 Ml Syringe) 40 mg SUBCUT Q24H ALIYA Last Admin: 08/30/21 17:20 Dose: 40 mg Documented by: SIMEON Fenofibrate (Fenofibrate 160 Mg Tablet) 160 mg PO DAILY [facility] Last Admin: 08/31/21 08:07 Dose: 160 mg Documented by: RAJEEV Glucose (Glucose Gel 15 Gm Gel..Gram.) 15 gm PO Q15M PRN; Protocol PRN Reason: per Hypoglycemia Standing Ord. Hydromorphone HCl (Hydromorphone Hcl 0.5 Mg/0.5 Ml Syringe) 0.5 mg IVPUSH Q4H PRN; Protocol PRN Reason: Pain, Severe (Pain Scale 7-10) Last Admin: 08/31/21 03:51 Dose: 0.5 mg Documented by: KIERSTENFA Hydroxyzine HCl (Hydroxyzine Hcl 25 Mg Tablet) 25 mg PO TID PRN PRN Reason: Anxiety Lactated Ringer's (Lr) 1,000 mls @ 150 mls/hr IVCONT .Q6H40M [facility] Last Admin: 08/31/21 08:08 Dose: 150 mls/hr Documented by: RJAEEV Insulin Human Lispro (Insulin Lispro 100 Unit/Ml 3 Ml Vial) 0 unit SUBCUT QIDACHS [facility]; Protocol Last Admin: 08/31/21 07:28 Dose: Not Given Documented by: RAJEEV Non-Admin Reason: No Insulin Coverage Melatonin (Melatonin 3 Mg Tablet) 6 mg PO BEDTIME PRN PRN Reason: Insomnia Metoclopramide HCl (Metoclopramide Hcl 10 Mg/2 Ml Vial) 5 mg IVPUSH Q6H PRN PRN Reason: nausea/vomiting Multivitamins/Vitamin C (Multivitamin Tablet) 1 tab PO DAILY [facility] Last Admin: 08/31/21 08:07 Dose: 1 tab Documented by: RAJEEV Ondansetron HCl (Ondansetron Hcl 4 Mg/2 Ml Vial) 4 mg IVPUSH Q6H PRN PRN Reason: Nausea and Vomiting Last Admin: 08/30/21 15:20 Dose: 4 mg Documented by: SIMEON Senna (Sennosides 8.6 Mg Tablet) 17.2 mg PO BEDTIME PRN PRN Reason: Constipation Sertraline HCl (Sertraline Hcl 100 Mg Tablet) 200 mg PO DAILY@1200 ALIYA Last Admin: 08/30/21 11:38 Dose: 200 mg Documented by: HO.[email or web address] Sodium Chloride (0.9 % Sodium Chloride Flush 3 Ml Syringe) 3 ml IVFLUSH QSHIFT ALIYA Last Admin: 08/31/21 08:08 Dose: Not Given Documented by: RAJEEV Non-Admin Reason: IV Running Labs CBC & Chem 7: 08/31/21 05:18 08/31/21 05:18 Labs: Laboratory Results - last 24 hr 08/30/21 08/30/21 08/30/21 11:45 16:02 20:06 MCV MCH MCHC RDW Plt Count MPV Absolute Nucleated RBC Nucleated RBC % (auto) Anion Gap Estim Creat Clear Calc Estimated GFR POC Glucose 149 H 120 H 197 H Random Glucose Calcium Magnesium Total Bilirubin AST ALT Alkaline Phosphatase Total Protein Albumin Lipase 08/31/21 08/31/21 05:18 05:18 MCV 81.2 MCH 26.9 L MCHC 33.1 RDW 12.4 Plt Count 198 MPV 9.2 L Absolute Nucleated RBC 0.000 Nucleated RBC % (auto) 0.0 Anion Gap 15 Estim Creat Clear Calc 104.0 Estimated GFR > 60 POC Glucose Random Glucose 151 H Calcium 9.1 Magnesium 1.8 Total Bilirubin 0.5 AST 17 D ALT 21 Alkaline Phosphatase 49 Total Protein 6.4 L Albumin 4.0 Lipase 147 H Assessment and Plan (1) Pancreatitis: Status: Acute Assessment and Plan: hospital d#3 51yo M with hx gangrenous cholecystitis s/p cholecystectomy, hx CBD obstruction with normal cholangiogram Sep 2020, hyperTG, preDM, opioid use disorder, depression admitted with acute pancreatitis, his 3rd episode # recurrent pancreatitis - TGs normal. pt had recent EtOH intake; used to drink much heavier. counseled to avoid EtOH- this is the likely trigger. GI consulted [Dr Eisenberg]. Pt will need outpt f/u with GI and CT or MRI in 1-2 months to r/o underlying anatomic abnormality. for now, advance diet to clear liquids, continue IV fluids, and give prn hydromorphine + ondansetron # hx hyperTG - continue fenofibrate # hx preDM, now elicia DM2 [A1c 6.9] - correction-dose lispro, diet, will prescribe MTF upon d/c # opioid use disorder - continue Suboxone outpt dose # mood disorder - continue clonidine + sertraline + hydroxyzine # VTE ppx - LMWH # dispo - anticipate home after tolerating solid diet, perhaps tomorrow Quality Stroke Does the patient have a stroke diagnosis?: No VTE Prior VTE?: No VTE Risk Level:: Medical - low VTE Device Contraindication: N/A - Device Ordered VTE Drug Contraindication: N/A - Med Ordered
[2021-08-31 11:13] LABS: Glucose, Whole Blood 128 mg/dL (60-115)
[2021-08-31 11:40] VITALS: BP 152/92; PULSE 70; RESP 18; TEMP 36.6; O2SAT 95
[2021-08-31] MEDS: Sertraline HCL 100 MG TABLET 200 MG PO (11:56)
[2021-08-31 12:42] LABS: Glucose, Whole Blood 141 mg/dL (60-115)
[2021-08-31 15:45] VITALS: BP 166/89; PULSE 72; RESP 18; TEMP 36.8; O2SAT 98
[2021-08-31 16:07] LABS: Glucose, Whole Blood 125 mg/dL (60-115)
[2021-08-31] MEDS: Enoxaparin Sodium 40 MG/0.4 ML SYRINGE SUBCUT (16:22)
[2021-08-31 19:02] VITALS: BP 174/86; PULSE 69; RESP 18; TEMP 36.8; O2SAT 94
[2021-08-31] MEDS: 0.9 % Sodium Chloride Flush 3 ML SYRINGE IVFLUSH (19:38)
[2021-08-31] MEDS: ondansetron HCL 4 MG/2 ML VIAL IVPUSH (19:38)
[2021-08-31 20:17] LABS: Glucose, Whole Blood 140 mg/dL (60-115)
[2021-08-31] MEDS: cloNIDine HCL 0.1 MG TABLET 0.2 MG PO (21:07)
[2021-08-31] MEDS: Melatonin 3 MG TABLET 6 MG PO (21:08)
[2021-08-31] MEDS: hydrOXYzine HCL 25 MG TABLET PO (21:08)
[2021-08-31] MEDS: Dicyclomine HCl 10 MG CAPSULE 20 MG PO (21:09)
[2021-08-31 23:30] VITALS: BP 119/74; PULSE 66; RESP 18; TEMP 36.9; O2SAT 94
[2021-09-01 04:00] VITALS: BP 129/82; PULSE 51; RESP 16; TEMP 36.3; O2SAT 94
[2021-09-01] MEDS: Lactated Ringers 1,000 ML 150 ML IVCONT (05:03)
[2021-09-01] MEDS: Acetaminophen 325 MG TABLET 650 MG PO (05:06)
[2021-09-01 07:14] VITALS: BP 127/77; PULSE 75; RESP 17; TEMP 36.6; O2SAT 97
[2021-09-01 07:19] LABS: Glucose, Whole Blood 131 mg/dL (60-115)
[2021-09-01] MEDS: Fenofibrate 160 MG TABLET PO (07:43)
[2021-09-01] MEDS: Multivitamin TABLET 1 TAB PO (07:44)
[2021-09-01] MEDS: Buprenorphine/Naloxone 4/1 mg FILM 0.5 FILM SUBLINGUAL (07:58)
[2021-09-01] MEDS: Buprenorphine/Naloxone 4/1 mg FILM 1 FILM SUBLINGUAL (09:01)
--- NOTE | 2021-09-01 10:10 | P.DS_ITS ---
DS: Providers Provider Date of Service: 09/01/21 Date of admission: 08/29/21 19:28 Primary care physician: Gasper Coker MD Consults: 08/29/21 19:27 Consult to Gastroenterology Routine Consulting Provider: Jhon Eisenberg Reason for consultation: Recurrent pancreatitis, 08/29/21 19:32 Addiction Medicine Routine Consulting Provider: Kimberly Salvador Reason for consultation: Patient on Suboxone DS: Diagnosis Discharge Diagnosis (1) Pancreatitis: Status: Acute DS: Summary Hospital Course Hospital Course: Chief Complaint: Abdominal pain 51-year-old male with a past medical history of hypertriglyceridemia, diabetes, depression, opiate dependence on Suboxone, history of gangrenous cholecystitis status post cholecystectomy, history of CBD obstruction with normal cholangiogram in September 2020; presented to the hospital today with a chief complaint of abdominal pain. Patient reported that over the past 1 day he has been having abdominal pain more so in the epigastrium, associated nausea and vomiting; denies any blood in the vomitus. Patient reported that his father recently ; ER couple readings at her sister's place on Monday night; on Monday morning he had his coffee and suddenly developed abdominal pain located in the epigastrium, sharp in nature, nonradiating, associated nausea and vomiting. Mentioned that he has a history of hypertriglyceridemia disease been on medications; reports that he has non complaint with low carb diet. Hospital course: Acute pancreatitis. Patient was admitted due to acute pancreatitis that is recurring related to chronic alcohol use . His management consisted of IV hydration, initial NPO, subsequently put on a liquid diet which is tolerating, at this time his lipase level has dropped to 147 from a584, he has no pain his diet has been advanced to regular diet which he is tolerating and will be discharged home he has been advised of the dangers of alcohol use and advised to avoid using alcohol. # history of hypertriglyceridemia - continue fenofibrate # hx preDM, now elicia DM2 [A1c 6.9] - Starting on Metformin 500 bid and to follow with PCP # opioid use disorder - continue Suboxone # mood disorder - continue clonidine + sertraline + hydroxyzine Time Spent with Patient Time attestation: Total time spent providing and/or coordinating discharge serv ices: Discharge coordination time: Greater than 30 minutes Quality: Stroke Does the patient have a stroke diagnosis?: No Physical Exam Vital Signs: Vital Signs: Last Vital Signs Temp 97.8 F 09/01/21 07:14 Pulse 75 09/01/21 07:14 Resp 17 09/01/21 07:14 BP 127/77 09/01/21 07:14 Pulse Ox 97 09/01/21 07:14 Body Mass Index 30.5 DS: Data Data Completed and Pending Completed studies during hospitalization [Text1]: Procedures Dilation of Common Bile Duct with Intraluminal Device, Via Natural or Artificial Opening Endoscopic (09/13/20) Labs on day of discharge: Laboratory Results - last 24 hr 08/31/21 08/31/21 08/31/21 07:23 11:13 15:50 POC Glucose 128 H 141 H 125 H 08/31/21 09/01/21 20:12 07:12 POC Glucose 140 H 131 H Discharge Plan Discharge Anticipated Discharge Date/Time: 09/01/21 10:08 Patient Disposition: Home, Self-Care Discharge Diagnosis: Acute pancreatitis Referrals: Gasper Coker MD [Primary Care Provider] - 1 Week Discharge Medications: Continued clonidine HCl 0.3 mg tablet 0.6 tab PO BEDTIME RF: 0 dicyclomine 20 mg tablet 1 tab PO QID PRN (Reason: Muscle Spasticity) RF: 0 metformin 1,000 mg tablet 1 tab PO BID RF: 0 hydroxyzine HCl 25 mg tablet 1 tab PO TID PRN (Reason: Anxiety) RF: 0 buprenorphine-naloxone 4-1 mg film 1 strip sublingual DAILY RF: 0 sertraline 100 mg tablet 2 tab PO DAILY@1200 RF: 0 fenofibrate 160 mg tablet 1 tab PO DAILY RF: 0 multivitamin Tablet 1 tab PO DAILY RF: 0 omega-3 fatty acids Capsule 1,000 mg PO DAILY RF: 0 buprenorphine-naloxone 4-1 mg film 0.5 film sublingual BEDTIME RF: 0 Discharge Orders: Discharge Order (Routine); Ordered 09/01/21 Ordered By: Av Romero Diet: advance to usual diet and low fat, low cholesterol Activity on Discharge: As tolerated Stand Alone Forms: Patient Portal Discharge page Care Plan Goals: Full recovery from pancreatitis, prevent rehospitalization for pancreatitis. Health Concerns: Recurring pancreatitis, chronic alcohol use. Plan of Treatment: Avoid alcohol, taking medications as directed, follow-up with her primary care doctor within a week, call for appointment. Assessment: As above
--- NOTE | 2021-09-01 10:17 | MHC.CM.PN ---
PT DISCHARGING HOME SELF-CARE, PT WILL ARRANGE TRANSPORT
[2021-09-01] MEDS: Sertraline HCL 100 MG TABLET 200 MG PO (12:23)
[2021-09-02 00:23] LABS: Glucose, Whole Blood 124 mg/dL (60-115)
== END 2021-09-01 14:15 | disposition home or self-care (01) | DRG 439 ==
LOC: HO.ED 18:20 → HO.EDOVER 19:56 → HO.IMC 08-30 02:16 → HO.EDOVER 08-30 02:27 → HO.S3 08-30 12:45
PROVIDERS: Family Medicine; Nurse Practitioner Family; Admitting Provider Hospitalist; Emergency Provider Emergency Medicine; PCP Internal Medicine; Visit Provider Internal Medicine
DX: K85.20 Alcohol induced acute pancreatitis without necrosis or infection (principal); F11.20 Opioid dependence, uncomplicated; E78.1 Pure hyperglyceridemia; F39 Unspecified mood [affective] disorder; Z20.822 Contact with and (suspected) exposure to COVID-19; Z79.84 Long term (current) use of oral hypoglycemic drugs; Z79.899 Other long term (current) drug therapy
CPT/HCPCS: 36415; 71045; 74177; 80048; 80053; 80076; 81003; 82947; 83036; 83615; 83690; 83735; 84478; 85025; 85027; 85610; 85730; 87635; 90686; 93005; 99285; J1170; J1200; J1650; J2270; J2405; J2765; Q9967

== ENCOUNTER 2022-01-10 13:07 | Outpatient (REF) | payer OTHER, SELFPAY ==
--- NOTE | ~2022-01-10 | CT_ITS ---
EXAMINATION: CT ABDOMEN AND PELVIS WITH CONTRAST CLINICAL INFORMATION: Acute pancreatitis. COMPARISON: CT abdomen pelvis 08/29/2021 TECHNIQUE: Multidetector volumetric images were obtained from the superior aspect of the liver through the pubic symphysis following administration 85 mL of Omnipaque 350 intravenous contrast. Sagittal and coronal reformatted images were obtained on the technologist's workstation. Oral contrast: No This CT examination was performed using dose optimization techniques as appropriate, variously including the following: *Automated exposure control *Adjustment of mA and/or kV according to patient size (this includes techniques or standardized protocols for targeted exams where dose is matched to indication/reason for exam; i.e. extremities or head) *Use of iterative reconstruction technique DLP: 595 mGy-cm FINDINGS: LUNG BASES: There is plate-like atelectasis right lower lobe and lingula. Heart size is normal. LIVER, GALLBLADDER, AND BILIARY TREE: The liver is normal in size, shape, and diffusely attenuated. No focal hepatic lesion or biliary ductal dilatation is present. The gallbladder has been surgically removed. PANCREAS: The pancreas is homogeneous in density and normal size. There is no peripancreatic fat stranding seen to suspect any pancreatitis. There is no fluid in the paracolic gutters either. SPLEEN: Unremarkable. ADRENAL GLANDS: Unremarkable. KIDNEYS AND URETERS: The kidneys are normal in size, shape, and attenuation. No hydronephrosis, hydroureter, or calculi seen. No perinephric stranding. BLADDER: Unremarkable. GASTROINTESTINAL TRACT: There is scattered oral contrast seen throughout the small bowel loops without distention. There is scattered stool in the right colon without distention. No pericolic fat stranding seen. There is no obstruction. Appendix is normal caliber. ABDOMINAL WALL: There is a small umbilical hernia containing fat. LYMPH NODES: Normal. VASCULAR: Unremarkable. PELVIC VISCERA: There are several phleboliths in the pelvis. No free air or free fluid seen. The prostate gland is normal size. OSSEOUS STRUCTURES: No aggressive lytic or sclerotic process seen. There is calcification of the annular ligament at L4-L5 disc level. No lytic or sclerotic process seen. CT/CT abdomen pelvis w con IMPRESSION: 1. Diffuse hepatic steatosis without focal lesion. 2. Normal appendix. Normal pancreas. 3. Mild constipation. Fleischner guidelines were followed.
[2022-01-10 14:39] LABS: Alanine Aminotransferase 25 U/L (0-40); Albumin Level 4.4 g/dL (3.5-5.0); Alkaline Phosphatase 71 U/L (39-117); Aspartate Amino Transferase 25 U/L (5-37); Bilirubin Direct < 0.2 mg/dL (0.0-0.5); Bilirubin Total 0.4 mg/dL (0.0-1.0); Blood Urea Nitrogen 11 mg/dL (9-16); Estimated Glomerular Filt Rate > 60; Lipase 15 U/L (8-78)
[2022-01-10] MEDS: iohexoL 350 MG/ML 100 ML INFUS..BTL IV (16:23)
[2022-01-10] MEDS: Barium Sulfate Oral (Berry) 450 ML ORAL.SUSP 900 ML PO (16:23)
== END 2022-01-10 13:08 | disposition home or self-care (01) ==
LOC: HO.CT 13:07
PROVIDERS: PCP Internal Medicine; Visit Provider Internal Medicine
DX: K85.00 Idiopathic acute pancreatitis without necrosis or infection (principal)
CPT/HCPCS: 36415; 74177; 80076; 82565; 83690; 84520; Q9967

== ENCOUNTER 2022-01-21 09:28 | Day surgery (SDC) | payer OTHER, SELFPAY ==
[2022-01-21 09:34] VITALS: BP 116/63; PULSE 69; RESP 19; TEMP 36.8; O2SAT 97; BMI 28.8
[2022-01-21 09:45] LABS: Glucose, Whole Blood 173 mg/dL (60-115)
[2022-01-21] MEDS: Lactated Ringers 1,000 ML 50 ML IVCONT (09:56)
--- NOTE | 2022-01-21 10:39 | HO.ANESPROP2 ---
HPI - Anesthesia Eval Consult details Narrative: Screening [facility] Active Problems Active Problems: All Active Problems (Updated 11/19/21 @ 08:21 by Leticia Tenorio RN) Elevated LFTs (Acute) Total bilirubin, elevated (Acute) Jaundice (Acute) Diabetes (Acute) Past Medical History Medical History (Updated 11/19/21 @ 08:21 by Leticia Tenorio RN) Anxiety Depression Diabetes Difficult airway for intubation Elevated triglycerides with high cholesterol History of COVID-19 Hx of opioid abuse Pancreatitis Family History Family history of problems with anesthesia: No Surgical History Surgical History (Updated 11/18/21 @ 15:27 by Leticia Tenorio RN) History of cholecystectomy History of ERCP Hx of hemorrhoidectomy History of Problems with Anesthesia: No Social History Social History Household Members: Spouse Housing: House Do you presently have visiting nurse or other home services: No Alcohol intake: current Alcohol intake frequency: does not drink Patient Tobacco Use Status: Former Tobacco user Tobacco use type: Cigarette Second Hand Smoke Exposure: No Substance Use Type: Other Are you DNR?: No Advance Directives: No Advance Directives Information Provided: Yes service: No Current occupational status: employed Meds Allergies Allergy/AdvReac Type Severity Reaction Status Date / Time No Known Allergies Allergy Verified 09/13/20 22:59 [No Known Allergies*] Active Medications: Current Medications Lactated Ringer's (Lr) 1,000 mls @ 50 mls/hr IVCONT .Q20H ALIYA Last Admin: 01/21/22 09:56 Dose: 50 mls/hr Documented by: Sodium Biphosphate/Sodium Phosphate (Sodium Phosphate,Onslow-Dibasic 133 Ml Enema) 133 ml GA ONCE PRN PRN Reason: Poor Colonoscopy Prep Results Home Medications Medication Instructions Recorded Confirmed Last Taken Type buprenorphine 4 mg-naloxone 1 mg 1 strip SUBLINGUAL DAILY 09/13/20 08/30/21 08/28/21 History sublingual film clonidine HCl 0.3 mg tablet 0.6 tab PO BEDTIME 09/13/20 08/30/21 08/28/21 History dicyclomine 20 mg tablet 1 tab PO QID PRN 09/13/20 08/30/21 08/28/21 History hydroxyzine HCl 25 mg tablet 1 tab PO TID PRN 09/13/20 08/30/21 08/28/21 History metformin 1,000 mg tablet 1 tab PO BID 09/13/20 08/30/21 08/28/21 History fenofibrate 160 mg tablet 1 tab PO DAILY 03/09/21 08/30/21 08/28/21 History multivitamin 1 tab PO DAILY 03/09/21 08/30/21 08/28/21 History omega-3 fatty acids 1,000 mg PO DAILY 03/09/21 08/30/21 08/28/21 History sertraline 100 mg tablet 2 tab PO DAILY@1200 03/09/21 08/30/21 08/28/21 History buprenorphine 4 mg-naloxone 1 mg 0.5 film SUBLINGUAL BEDTIME 08/30/21 08/30/21 08/28/21 History sublingual film Exam Exam Date and Time: January 21, 2022 1039 Height,Weight and Vital Signs: Height 6 ft 2 in Weight 102.058 kg Last Vital Signs Temp 98.2 F 01/21/22 09:34 Pulse 69 01/21/22 09:34 Resp 19 01/21/22 09:34 BP 116/63 01/21/22 09:34 Pulse Ox 97 01/21/22 09:34 Pertinent Lab Results Pertinent Lab Results: Laboratory Tests 01/21/22 09:39 POC Glucose 173 H Airway Mallampati Class: II TM Dist: >3cm Neck ROM: Full Loose/Missing/Broken Teeth: Yes (very poor dentition) Heart: rrr+[id number] Lungs: cta b/l Assessment and Plan Assessment Anesthesia Assessment: Anesthesia Plan Discussed and Chart Reviewed Final Anesthetic Review Family History of Problems with Anesthesia: No History of Problems with Anesthesia: No NPO: Yes ASA Class: II Final Preanesthetic Review: No Changes in Pt Med Stat, Meds/Allgs Chart Reviewed, Consent Obtained/Reviewed and Anes Risks/Benef Reviewed Patient Risk: Intermediate Procedure Risk: Low Assessment/Block/Sedation in SS: Assess/Block/Sedation-SS Anesthetic Plan Anesthetic Plan: MAC: and Agree w/ Assess. and Plan Disposition: Standard PACU
[2022-01-21 11:37] VITALS: BP 111/58; PULSE 62; RESP 16; TEMP 36.1; O2SAT 96
--- NOTE | 2022-01-21 11:41 | P.BOP_ITS ---
Brief Operative Note Date of Service: 01/21/22 Pre-op diagnosis: Screening Post-op diagnosis: other (Occasional diverticulosis, Small internal hemorrhoids) Procedure: Colonoscopy to the cecum and TI Surgeon: Jhon Eisenberg Anesthesia: MAC Was an Consumer Relations Complaint Clerk used for this Procedure?: No Estimated blood loss (mL): 0 Pathology: none sent Condition: stable Disposition: PACU
[2022-01-21 11:52] VITALS: BP 112/78; PULSE 61; RESP 16; TEMP 36.1; O2SAT 96
--- NOTE | 2022-01-21 13:11 | OP_ITS ---
SURGEON: Jhon Eisenberg MD INDICATIONS: The patient presents for evaluation of colorectal cancer screening and family history of colon cancer. Full consent was obtained from him for this including risks of bleeding and perforation. PREOPERATIVE DIAGNOSIS: POSTOPERATIVE DIAGNOSIS: PROCEDURE PERFORMED: Colonoscopy to cecum and terminal ileum. ESTIMATED BLOOD LOSS: COMPLICATIONS: ANESTHESIA: ASSISTANTS: SPECIMENS: PREOPERATIVE DIAGNOSES: Colorectal cancer screening and family history of colon cancer. POSTOPERATIVE DIAGNOSES: Colorectal cancer screening and family history of colon cancer, small internal hemorrhoids. PREOP MEDICATION USED: Monitored anesthesia care. DESCRIPTION OF PROCEDURE: Patient was placed in the left lateral decubitus position. The digital rectal exam revealed no abnormalities. The Olympus video pediatric colonoscope was entered into the rectum and advanced easily to the cecum. Once in the cecum, I did identify normal-appearing cecal pouch with appendiceal orifice and a normal-appearing ileocecal valve. The terminal ileum was cannulated and appeared normal. Scope was withdrawn back in the colon. The entire cecum and ileocecal valve appeared normal. Scope was slowly withdrawn assessing all mucosal surfaces carefully. Preparation was excellent. I did not visualize any sign of polyps, colitis, nor angiodysplasia. There was a very occasional diverticulum in the sigmoid colon. In the rectum, scope was retroflexed visualizing small internal hemorrhoids, but no other pathology. The rectal mucosa appeared normal. The scope was straightened and withdrawn from the patient. He tolerated the procedure well and was returned to the recovery area in stable condition. IMPRESSION: 1. Occasional sigmoid diverticulosis. 2. Small internal hemorrhoids. PLAN: Given the family history, I would recommend a followup colonoscopy in 5 years for further screening. He will otherwise see me on a p.r.n. basis. His recent CAT scan of the pancreas was normal as was his lab work. He has been advised to stay on a low-fat diet and avoid alcohol completely in regard to his previous history of pancreatitis. MD ALEX Fallon/DONALD / [phone]
== END 2022-01-21 12:30 | disposition home or self-care (01) ==
PROVIDERS: PCP Internal Medicine; Visit Provider Internal Medicine
PROC: 0DJD8ZZ Inspection of Lower Intestinal Tract, Via Natural or Artificial Opening Endoscopic (ICD-10-PCS; CPT 45378; principal; 2022-01-21 10:30)
DX: Z12.11 Encounter for screening for malignant neoplasm of colon (principal); Z80.0 Family history of malignant neoplasm of digestive organs; K57.30 Diverticulosis of large intestine without perforation or abscess without bleeding; K64.8 Other hemorrhoids; K58.1 Irritable bowel syndrome with constipation; E78.1 Pure hyperglyceridemia; F32.9 Major depressive disorder, single episode, unspecified; E11.9 Type 2 diabetes mellitus without complications; Z79.84 Long term (current) use of oral hypoglycemic drugs; Z79.899 Other long term (current) drug therapy; Z87.19 Personal history of other diseases of the digestive system; Z90.49 Acquired absence of other specified parts of digestive tract; Z87.891 Personal history of nicotine dependence; Z86.16 Personal history of COVID-19
CPT/HCPCS: 45378; 82947

== ENCOUNTER 2022-01-30 12:24 | Emergency (ER) | payer OTHER, SELFPAY ==
[2022-01-30 12:30] VITALS: BP 142/88; PULSE 108; RESP 16; TEMP 36.3; O2SAT 94; BMI 29.8
--- NOTE | 2022-01-30 12:47 | ED.WOUNDLAC ---
HPI - Wound/Laceration General Chief Complaint: Wound/Laceration Stated Complaint: Wound Lac Time Seen by Provider: 01/30/22 12:47 Source: patient Mode of arrival: ambulatory Limitations: no limitations History of Present Illness HPI narrative: Patient is a 52 year old male presenting to the emergency department today with a left index finger laceration. Patient states that last night at around 7pm, he sliced his finger tip while cutting steak. Patient states that he is concerned for infection because he was recently diagnosed as a diabetic. Patient states that he has had a tetanus shot within the last 5 years. Patient denies any dizziness, lightheadedness, abdominal pain, nausea, vomiting, fever, chills, blurry vision, double vision, loss of vision, chest pain, difficulty breathing, shortness of breath, back pain, night sweats, pain with urination, increased urinary frequency, increased urinary urgency, blood in his urine or stool, syncope or a near syncopal episode, bowel incontinence, bladder incontinence, bowel retention, bladder retention, or any other complaints at this time. Onset (ago): hour(s) (18) Location: other (left index finger) Place: home Patient tetanus UTD: Yes Context: accidental Associated symptoms: none Related Data Home Medications Medication Instructions Recorded Confirmed buprenorphine 4 mg-naloxone 1 mg 1 strip SUBLINGUAL DAILY 09/13/20 08/30/21 sublingual film clonidine HCl 0.3 mg tablet 0.6 tab PO BEDTIME 09/13/20 08/30/21 dicyclomine 20 mg tablet 1 tab PO QID PRN 09/13/20 08/30/21 hydroxyzine HCl 25 mg tablet 1 tab PO TID PRN 09/13/20 08/30/21 metformin 1,000 mg tablet 1 tab PO BID 09/13/20 08/30/21 fenofibrate 160 mg tablet 1 tab PO DAILY 03/09/21 08/30/21 multivitamin 1 tab PO DAILY 03/09/21 08/30/21 omega-3 fatty acids 1,000 mg PO DAILY 03/09/21 08/30/21 sertraline 100 mg tablet 2 tab PO DAILY@1200 03/09/21 08/30/21 buprenorphine 4 mg-naloxone 1 mg 0.5 film SUBLINGUAL BEDTIME 08/30/21 08/30/21 sublingual film Previous Rx's Medication Instructions Recorded alcohol swabs 1 pad TOPICAL QIDACHS #100 ea 09/01/21 blood sugar diagnostic (FreeStyle #100 ea 09/01/21 Lite Strips) blood-glucose meter (FreeStyle #1 ea 09/01/21 Lite Meter) lancets 28 gauge (FreeStyle #100 ea 09/01/21 Lancets) metformin 500 mg tablet 500 mg PO DAILY #30 tab 09/01/21 cephalexin 500 mg capsule 500 mg PO Q6H 7 Days #28 cap 01/30/22 Allergies Allergy/AdvReac Type Severity Reaction Status Date / Time No Known Allergies Allergy Verified 09/13/20 22:59 [No Known Allergies*] Review of Systems Constitutional: Constitutional: Reports no additional constitutional complaints, Denies chills, Denies fever(s) and Denies night sweats Eyes: Eyes: Reports no additional eye complaints, Denies blurry vision, Denies change in vision, Denies diplopia, Denies eye discharge, Denies loss of vision and Denies eye pain ENT: Denies dizziness Cardiovascular: Cardiovascular: Reports no additional cardiovascular complaints, Denies chest pain, Denies lightheadedness, Denies Loss of Consciousness and Denies dyspnea Respiratory: Respiratory: Reports no additional respiratory complaints and Denies dyspnea Gastrointestinal: Gastrointestinal: Reports no additional gastrointestinal complaints, Denies abdominal pain, Denies melena, Denies hematochezia, Denies change in bowel habits and Denies change in stool character Genitourinary: Genitourinary: Reports no additional male genitourinary complaints, Denies hematuria, Denies oliguria, Denies difficulty urinating, Denies dysuria, Denies urinary frequency, Denies urinary hesitancy, Denies urinary incontinence and Denies urinary urgency Musculoskeletal: Musculoskeletal: Reports no additional musculoskeletal complaints, Denies numbness and Denies tingling Integumentary/Breasts: Comments: left index finger laceration Neurologic: Denies dizziness, Denies loss of vision, Denies numbness and Denies tingling Psychiatric: Psychiatric: Reports no additional psychiatric complaints Endocrine: Endocrine: Reports no additional endocrine complaints Hematologic/Lymphatic: Hematologic/Lymphatic: Reports no additional hematologic/lymphatic complaints Allergic/Immunologic: Allergic/Immunologic: Reports no additional allergic/immunologic complaints PMFSH Past Medical History Attestation statement: The following information was validated with the patient. Source: old records reviewed Medical History Anxiety Depression Diabetes Difficult airway for intubation Elevated triglycerides with high cholesterol History of COVID-19 Hx of opioid abuse Pancreatitis Surgical History History of cholecystectomy History of ERCP Hx of hemorrhoidectomy Social History Social History Household Members: Spouse Housing: House Do you presently have visiting nurse or other home services: No Alcohol intake: current Alcohol intake frequency: does not drink Patient Tobacco Use Status: Former Tobacco user Tobacco use type: Cigarette Second Hand Smoke Exposure: No Substance Use Type: Other Advance Directives: No Advance Directives Information Provided: Yes service: No Current occupational status: employed Physical Exam Vital Signs: Vital Signs: Last Vital Signs Temp 97.3 F 01/30/22 12:30 Pulse 108 H 01/30/22 12:30 Resp 16 01/30/22 12:30 BP 142/88 H 01/30/22 12:30 Pulse Ox 94 01/30/22 12:30 BMI result Body Mass Index 29.8 Const: General: cooperative, no acute distress, alert and awake Nutritional Appearance: well nourished Orientation/consciousness: patient oriented x3 Limitations: no limitations HENMT: Head: Yes normal to inspection and Yes atraumatic Ears: hearing grossly normal bilaterally and external ears normal General nose exam: Normal external nose present, no nasal discharge noted and no epistaxis Face and sinus: Yes normal facial exam, No abrasion and No laceration Mouth: Normal oral and palatal mucosa present, no drooling and no muffled voice Eyes: General: appearance normal, both eyes and all related structures Periorbital: periorbital findings normal Eyelids: Yes eyelids normal Conjunctivae: conjunctivae normal Pupils: Equal, round and reactive pupils present EOM: EOMs intact bilaterally Neck: Neck: Yes normal visual inspection, Yes full ROM and Yes no lymphadenopathy Chest: Chest palpation & inspection: normal inspection of the chest Resp: Effort & Inspection: normal respiratory effort and able to speak in complete sentences Auscultation: clear to auscultation bilaterally Cardio: Rate: regular rate Rhythm: regular rhythm GI: Inspection: Yes normal to inspection Skin: Other: avulsion to the left index finger with no active bleeding. The skin has been completely avulsed and it is not possible to manually repair it Neuro: General: patient oriented x3 and moves all extremities Cranial nerves: Yes Equal, round and reactive pupils present Cognition (Neuro): normal cognition Motor exam (neuro): 5/5 motor strength present throughout Sensory Exam: Normal double simultaneous stimulation for sensation Coordination: [id number] test normal Extrem: General: Yes normal to inspection, Yes full ROM and Yes capillary refill normal Psych: Appearance: grossly normal Mental Status: mental status grossly normal Affect: normal affect Attitude: cooperative Thought process: Normal thought process present Thought content: Normal thought content present Insight: Good insight present (Psych) MDM - Wound/Laceration MDM Narrative Medical decision making narrative: Patient is a 52 year old male presenting to the emergency department today with a left index finger injury. Patient's physical exam showed an avulsion to the left index finger however, the skin is completely gone and the wound is unable to be manually closed. I explained my physical exam findings to the patient. I answered all questions asked by the patient. I stressed the importance of the patient taking his medication as prescribed. I stressed the importance of the patient performing daily wound checks and daily dressing changes. I stressed the importance of the patient following up with his primary care provider. I stressed the importance of the patient returning to the emergency department immediately if his symptoms were to worsen or if he were to develop any dizziness, shortness of breath, difficulty breathing, chest pain, blurry vision, loss of vision, nausea, vomiting, abdominal pain, fever, chills, back pain, or any other complaints. Patient verbalized agreement and understanding with this treatment plan and discharge. Differential Diagnosis Differential diagnosis: Likely laceration Medical Records Attestation: I reviewed the patient's medical records. Discharge Plan Discharge Clinical Impression: Avulsion of skin Patient Disposition: Home, Self-Care Instructions: Laceration Without Closure (ED) Additional Instructions: Follow up with your primary care provider. Return to the emergency department immediately if your symptoms worsen or if you develop any dizziness, shortness of breath, difficulty breathing, chest pain, blurry vision, loss of vision, nausea, vomiting, abdominal pain, fever, chills, back pain, or any other complaints. Prescriptions: New cephalexin 500 mg capsule 500 mg PO Q6H 7 Days Qty: 28 0RF No Action clonidine HCl 0.3 mg tablet 0.6 tab PO BEDTIME 0RF dicyclomine 20 mg tablet 1 tab PO QID PRN (Reason: Muscle Spasticity) 0RF metformin 1,000 mg tablet 1 tab PO BID 0RF hydroxyzine HCl 25 mg tablet 1 tab PO TID PRN (Reason: Anxiety) 0RF buprenorphine-naloxone 4-1 mg film 1 strip sublingual DAILY 0RF sertraline 100 mg tablet 2 tab PO DAILY@1200 0RF fenofibrate 160 mg tablet 1 tab PO DAILY 0RF multivitamin Tablet 1 tab PO DAILY 0RF omega-3 fatty acids Capsule 1,000 mg PO DAILY 0RF buprenorphine-naloxone 4-1 mg film 0.5 film sublingual BEDTIME 0RF metformin 500 mg tablet 500 mg PO DAILY Qty: 30 0RF (DME) FreeStyle Lite Strips Strip Qty: 100 0RF Rx Instructions: Test four times a day or as directed. (DME) blood-glucose meter [FreeStyle Lite Meter] Kit Qty: 1 0RF Rx Instructions: As Directed , test 4 times a day alcohol swabs Pads, Medicated 1 pad TOPICAL QIDACHS Qty: 100 0RF Rx Instructions: Use four times a day or as directed. (DME) lancets [FreeStyle Lancets] 28 gauge Misc Qty: 100 0RF Rx Instructions: Test four times a day or as directed. Referrals: Gasper Coker MD [Primary Care Provider] - 2 days Interventions: ED Discharge Assessment Last Done: 01/30/22 13:05 Discharge Date/Time: 01/30/22 13:06 Print Language: Spanish
== END 2022-01-30 13:06 | disposition home or self-care (01) ==
PROVIDERS: Emergency Provider Emergency Medicine Emergency Medical Services; PCP Internal Medicine
DX: S61.211A Laceration without foreign body of left index finger without damage to nail, initial encounter (principal); M79.642 Pain in left hand; W26.0XXA Contact with knife, initial encounter; Y93.9 Activity, unspecified; Y92.9 Unspecified place or not applicable; Y99.9 Unspecified external cause status
CPT/HCPCS: 99283

== ENCOUNTER 2022-03-19 07:10 | Outpatient (REF) | payer OTHER, SELFPAY ==
[2022-03-19 07:28] LABS: MANUAL DIFF FLAG NO
[2022-03-19 08:21] LABS: Basophils Absolute Auto 0.1 X10*3/uL (0.0-0.2); Basophils Percent Auto 1.6 % (0-2); Eosinophils Absolute Auto 0.2 X10*3/uL (0.0-0.4); Eosinophils Percent Auto 2.5 % (0-4); Hematocrit 41.9 % (42.0-52.0); Hemoglobin 13.5 g/dl (14.0-18.0); Imm Gran Abs Auto 0.08 X10*3/uL (0.00-0.03); Imm Gran Pct Auto 1.3 % (0.0-0.4); Lymphocytes Absolute Auto 2.3 X10*3/uL (1.2-4.9); Lymphocytes Percent Auto 35.8 % (20-40); Mean Corpuscular HGB Conc 32.2 g/dl (31.0-36.0); Mean Corpuscular Hemoglobin 25.8 pg (27.0-33.0); Mean Platelet Volume 9.7 fL (9.4-12.4); Monocytes Absolute Auto 0.3 X10*3/uL (0.1-1.2); Monocytes Percent Auto 5.3 % (2-11); Neutrophils Absolute Auto 3.4 x10*3/uL (2.0-8.3); Neutrophils Percent Auto 53.5 % (45-73); Platelet Count 236 X10*3/uL (160-400); Red Blood Count 5.24 X10*6/uL (4.60-5.80); Red Cell Distribution Width 12.5 % (11.0-16.0); White Blood Count 6.4 X10*3/uL (4.8-10.8)
[2022-03-19 08:23] LABS: Estimated Average Glucose 189 mg/dL; Hemoglobin A1c % 8.2 %
[2022-03-19 08:32] LABS: Alanine Aminotransferase 23 U/L (0-40); Albumin Level 4.3 g/dL (3.5-5.0); Alkaline Phosphatase 60 U/L (39-117); Anion Gap 14 (12-20); Aspartate Amino Transferase 24 U/L (5-37); Bilirubin Total 0.4 mg/dL (0.0-1.0); Blood Urea Nitrogen 13 mg/dL (9-16); Calcium 9.9 mg/dL (8.4-10.2); Carbon Dioxide 28 mmol/L (22-29); Chloride 101 mmol/L (96-108); Cholesterol 212 mg/dL; Estimated Glomerular Filt Rate > 60; Glucose Random 177 mg/dL (60-115); HDL Cholesterol 44 mg/dL; Potassium 4.7 mmol/L (3.3-5.1); Sodium 138 mmol/L (135-145); Total Protein 7.1 g/dL (6.5-8.0); Triglycerides 421 mg/dL
[2022-03-19 08:55] LABS: Prostate Specific Antigen 0.31 ng/mL (<0.05-4.0); TSH reflex Free T4 4.03 uIU/mL (0.32-4.0)
[2022-03-19 09:56] LABS: Free T4 (Free Thyroxine) 0.86 ng/dL (0.71-1.85)
== END 2022-03-19 07:11 | disposition home or self-care (01) ==
LOC: HO.LAB 07:10
PROVIDERS: PCP Internal Medicine; Visit Provider Internal Medicine
DX: Z12.5 Encounter for screening for malignant neoplasm of prostate (principal); E11.9 Type 2 diabetes mellitus without complications; E78.2 Mixed hyperlipidemia
CPT/HCPCS: 36415; 80053; 80061; 83036; 84153; 84439; 84443; 85025

== ENCOUNTER 2022-07-23 07:15 | Outpatient (REF) | payer OTHER, SELFPAY ==
[2022-07-23 08:46] LABS: Alanine Aminotransferase 30 U/L (0-40); Albumin Level 4.6 g/dL (3.5-5.0); Alkaline Phosphatase 75 U/L (39-117); Anion Gap 17 (12-20); Aspartate Amino Transferase 24 U/L (5-37); Bilirubin Total 0.3 mg/dL (0.0-1.0); Blood Urea Nitrogen 12 mg/dL (9-16); Carbon Dioxide 26 mmol/L (22-29); Chloride 100 mmol/L (96-108); Cholesterol 280 mg/dL; Estimated Glomerular Filt Rate > 60; Glucose Random 151 mg/dL (60-115); HDL Cholesterol 45 mg/dL; Potassium 4.4 mmol/L (3.3-5.1); Sodium 139 mmol/L (135-145); Triglycerides 1240 mg/dL
[2022-07-23 09:10] LABS: TSH reflex Free T4 2.63 uIU/mL (0.32-4.0)
[2022-07-23 09:20] LABS: Estimated Average Glucose 148 mg/dL; Hemoglobin A1c % 6.8 %
[2022-07-23 09:49] LABS: Reflex LDLD? Yes
[2022-07-25 07:27] LABS: LDL Cholesterol Direct 91 mg/dL (<100)
== END 2022-07-23 07:16 | disposition home or self-care (01) ==
LOC: HO.LAB 07:15
PROVIDERS: PCP Internal Medicine; Visit Provider Internal Medicine
DX: E11.9 Type 2 diabetes mellitus without complications (principal); E78.2 Mixed hyperlipidemia; E03.9 Hypothyroidism, unspecified
CPT/HCPCS: 36415; 80053; 80061; 83036; 83721; 84443

== ENCOUNTER 2023-01-25 07:07 | Outpatient (REF) | payer OTHER, SELFPAY ==
[2023-01-25 07:21] LABS: MANUAL DIFF FLAG NO
[2023-01-25 07:39] LABS: Basophils Absolute Auto 0.1 X10*3/uL (0.0-0.2); Eosinophils Absolute Auto 0.2 X10*3/uL (0.0-0.4); Eosinophils Percent Auto 3.1 % (0-4); Hemoglobin 13.1 g/dl (14.0-18.0); Imm Gran Abs Auto 0.07 X10*3/uL (0.00-0.03); Imm Gran Pct Auto 1.1 % (0.0-0.4); Lymphocytes Absolute Auto 2.2 X10*3/uL (1.2-4.9); Lymphocytes Percent Auto 35.1 % (20-40); Mean Corpuscular Hemoglobin 26.3 pg (27.0-33.0); Mean Corpuscular Volume 82.3 fL (80.0-98.0); Mean Platelet Volume 9.9 fL (9.4-12.4); Monocytes Absolute Auto 0.5 X10*3/uL (0.1-1.2); Monocytes Percent Auto 7.4 % (2-11); Neutrophils Absolute Auto 3.3 x10*3/uL (2.0-8.3); Neutrophils Percent Auto 51.3 % (45-73); Platelet Count 259 X10*3/uL (160-400); Red Blood Count 4.98 X10*6/uL (4.60-5.80); Red Cell Distribution Width 12.9 % (11.0-16.0); White Blood Count 6.4 X10*3/uL (4.8-10.8)
[2023-01-25 08:19] LABS: Estimated Average Glucose 177 mg/dL; Hemoglobin A1c % 7.8 %
[2023-01-25 08:26] LABS: Alanine Aminotransferase 34 U/L (0-40); Albumin Level 4.2 g/dL (3.5-5.0); Alkaline Phosphatase 56 U/L (39-117); Anion Gap 13 (12-20); Aspartate Amino Transferase 31 U/L (5-37); Bilirubin Total 0.4 mg/dL (0.0-1.0); Blood Urea Nitrogen 18 mg/dL (9-16); Calcium 9.3 mg/dL (8.4-10.2); Carbon Dioxide 28 mmol/L (22-29); Chloride 103 mmol/L (96-108); Cholesterol 156 mg/dL; Estimated Glomerular Filt Rate > 60; Glucose Random 243 mg/dL (60-115); HDL Cholesterol 39 mg/dL; LDL Cholesterol Calculated 80 mg/dl; Potassium 4.6 mmol/L (3.3-5.1); Sodium 139 mmol/L (135-145); Total Protein 6.6 g/dL (6.5-8.0); Triglycerides 187 mg/dL
[2023-01-25 08:56] LABS: Creatinine Urine 197.32 mg/dL; Microalbumin Urine < 5.0 mg/L
== END 2023-01-25 07:08 | disposition home or self-care (01) ==
LOC: HO.LAB 07:07
PROVIDERS: PCP Internal Medicine; Visit Provider Internal Medicine
DX: E11.9 Type 2 diabetes mellitus without complications (principal); E78.2 Mixed hyperlipidemia; K86.1 Other chronic pancreatitis
CPT/HCPCS: 36415; 80053; 80061; 82043; 83036; 85025

== ENCOUNTER 2023-11-09 07:15 | Outpatient (REF) | payer OTHER, SELFPAY ==
[2023-11-09 07:30] LABS: MANUAL DIFF FLAG NO
[2023-11-09 07:57] LABS: Basophils Absolute Auto 0.1 X10*3/uL (0.0-0.2); Basophils Percent Auto 1.8 % (0-2); Eosinophils Absolute Auto 0.2 X10*3/uL (0.0-0.4); Hemoglobin 13.6 g/dl (14.0-18.0); Imm Gran Abs Auto 0.05 X10*3/uL (0.00-0.03); Imm Gran Pct Auto 0.8 % (0.0-0.4); Lymphocytes Percent Auto 32.7 % (20-40); Mean Corpuscular HGB Conc 31.6 g/dl (31.0-36.0); Mean Corpuscular Volume 82.2 fL (80.0-98.0); Mean Platelet Volume 9.8 fL (9.4-12.4); Monocytes Absolute Auto 0.4 X10*3/uL (0.1-1.2); Monocytes Percent Auto 7.2 % (2-11); Neutrophils Absolute Auto 3.2 x10*3/uL (2.0-8.3); Neutrophils Percent Auto 54.5 % (45-73); Platelet Count 217 X10*3/uL (160-400); Red Blood Count 5.23 X10*6/uL (4.60-5.80)
[2023-11-09 08:07] LABS: Estimated Average Glucose 131 mg/dL; Hemoglobin A1c % 6.2 % (<6.0)
[2023-11-09 08:26] LABS: Alanine Aminotransferase 16 U/L (0-40); Albumin Level 4.3 g/dL (3.5-5.0); Alkaline Phosphatase 59 U/L (39-117); Anion Gap 14 (12-20); Aspartate Amino Transferase 22 U/L (5-37); Bilirubin Total 0.4 mg/dL (0.0-1.0); Blood Urea Nitrogen 15 mg/dL (9-16); Calcium 9.7 mg/dL (8.4-10.2); Carbon Dioxide 27 mmol/L (22-29); Chloride 106 mmol/L (96-108); Cholesterol 169 mg/dL (<200); Estimated Glomerular Filt Rate > 60; Glucose Random 121 mg/dL (60-115); HDL Cholesterol 51 mg/dL (>40); LDL Cholesterol Calculated 91 mg/dL (<100); Potassium 4.2 mmol/L (3.3-5.1); Sodium 143 mmol/L (135-145); Total Protein 7.1 g/dL (6.5-8.0); Triglycerides 138 mg/dL (<150)
[2023-11-09 08:43] LABS: TSH reflex Free T4 1.83 uIU/mL (0.32-4.0)
[2023-11-09 09:42] LABS: Creatinine Urine 100.08 mg/dL; Microalbumin Urine < 5.0 mg/L
[2023-11-09 14:09] LABS: Vitamin B12 925 pg/mL (200-900)
== END 2023-11-09 07:16 | disposition home or self-care (01) ==
LOC: HO.LAB 07:15
PROVIDERS: PCP Internal Medicine; Visit Provider Internal Medicine
DX: E11.9 Type 2 diabetes mellitus without complications (principal)
CPT/HCPCS: 36415; 80053; 80061; 82043; 82570; 82607; 83036; 84443; 85025

== ENCOUNTER 2024-03-05 21:40 | Inpatient (IN) | payer OTHER, SELFPAY ==
--- NOTE | ~2024-03-05 | CT_ITS ---
EXAMINATION: CT ABDOMEN AND PELVIS WITHOUT CONTRAST CLINICAL INFORMATION: Abdominal pain. COMPARISON: Multiple prior CT scans of the abdomen and pelvis dated 03/06/2024, 01/10/2022, 08/29/2021, 03/09/2021 and multiple others. TECHNIQUE: Multidetector volumetric imaging was performed from the superior aspect of the liver through the pubic symphysis. Sagittal and coronal reformatted images were obtained on the technologist's workstation. This CT examination was performed using dose optimization techniques as appropriate, variously including the following: *Automated exposure control. *Adjustment of mA and/or kV according to patient size (this includes techniques or standardized protocols for targeted exams where dose is matched to indication/reason for exam; i.e. extremities or head). *Use of iterative reconstruction technique. DLP: 667 mGy-cm FINDINGS: LUNG BASES: Interval worsening of bibasilar atelectasis since yesterday. Coronary calcifications are seen. Heart size is normal. LIVER, GALLBLADDER, AND BILIARY TREE: The liver is normal in size, shape, and attenuation. No focal hepatic lesion or biliary ductal dilatation is present. Status post cholecystectomy. PANCREAS: Again seen are marked changes of pancreatitis with peripancreatic inflammation or fluid in the anterior pararenal space. No drainable collection is seen. There is an increase in size of a high density fluid collection anterior to the pancreatic head measuring about 4.6 x 3.4 cm (2:42). SPLEEN: Unremarkable. ADRENAL GLANDS: Unremarkable. KIDNEYS AND URETERS: The kidneys are normal in size, shape, and attenuation. No hydronephrosis, hydroureter, or calculi seen. Bilateral nonspecific perinephric stranding has increased since yesterday. BLADDER: Unremarkable. GASTROINTESTINAL TRACT: The small and large bowel are unremarkable. The appendix is not seen with certainty but there is no evidence of appendicitis. ABDOMINAL WALL: Tiny periumbilical hernia is seen containing fat. Air in subcutaneous abdominal wall tissues presumably secondary to subcutaneous injections. LYMPH NODES: No gross retroperitoneal lymphadenopathy. VASCULAR: Unremarkable, but suboptimally evaluated without IV contrast. PELVIC VISCERA: Prostate and seminal vesicles appear normal. New moderate fluid is present in the cul-de-sac which was not present yesterday. OSSEOUS STRUCTURES: Unremarkable. CT/CT abdomen pelvis wo IV con IMPRESSION: 1. Again seen are changes of pancreatitis with peripancreatic inflammation or fluid in the anterior pararenal space. There is an increase in size of a high density fluid collection anterior to the pancreatic head measuring about 4.6 x 3.4 cm. 2. New moderate fluid in the cul-de-sac. 3. Other incidental findings as described above. Fleischner guidelines were followed.
--- NOTE | ~2024-03-05 | CT_ITS ---
EXAMINATION: CT ABDOMEN AND PELVIS WITH CONTRAST CLINICAL INFORMATION: Pain. History of pancreatitis. COMPARISON: 01/10/2022 TECHNIQUE: Multidetector volumetric images were obtained from the superior aspect of the liver through the pubic symphysis following administration 85 mL of Omnipaque 350 intravenous contrast. Sagittal and coronal reformatted images were obtained on the technologist's workstation. Oral contrast: No This CT examination was performed using dose optimization techniques as appropriate, variously including the following: *Automated exposure control *Adjustment of mA and/or kV according to patient size (this includes techniques or standardized protocols for targeted exams where dose is matched to indication/reason for exam; i.e. extremities or head) *Use of iterative reconstruction technique DLP: 731 mGy-cm FINDINGS: LUNG BASES: The visualized lung bases are unremarkable. LIVER, GALLBLADDER, AND BILIARY TREE: The liver is normal in size, shape, and attenuation. No focal hepatic lesion or biliary ductal dilatation is present. There has been a prior cholecystectomy. PANCREAS: There is significant peripancreatic infiltration/fluid. SPLEEN: Unremarkable. ADRENAL GLANDS: Unremarkable. KIDNEYS AND URETERS: The kidneys are normal in size, shape, and attenuation. No hydronephrosis, hydroureter, or calculi seen. No perinephric stranding. BLADDER: Unremarkable. GASTROINTESTINAL TRACT: The small and large bowel are unremarkable. The appendix is unremarkable. ABDOMINAL WALL: There is a small umbilical hernia containing fat. LYMPH NODES: Normal. VASCULAR: Unremarkable. PELVIC VISCERA: Unremarkable. OSSEOUS STRUCTURES: Unremarkable. CT/CT abdomen pelvis w IV con IMPRESSION: Acute pancreatitis. Fleischner guidelines were followed.
--- NOTE | 2024-03-05 21:54 | ED.ABDPAIN ---
HPI - Abdominal Pain General Chief Complaint: Abdominal Pain Stated Complaint: Hx of pancreatitis, LLQ rigidity and dissention Time Seen by Provider: 03/05/24 21:50 Source: patient Mode of arrival: EMS Limitations: no limitations History of Present Illness HPI narrative: Patient's history of hypertriglyceridemia with pancreatitis also drinks alcohol for last few days noncompliant to his medication and had few drink comes here for mid abdominal pain radiating to the back for last hours with nausea and vomiting Related Data Home Medications ?Medication ?Instructions ?Recorded ?Confirmed buprenorphine 4 mg-naloxone 1 mg 1 strip sublingual DAILY 09/13/20 08/30/21 sublingual film clonidine HCl 0.3 mg tablet 0.6 tab PO BEDTIME insomnia 09/13/20 08/30/21 dicyclomine 20 mg tablet 1 tab PO QID PRN Muscle Spasticity 09/13/20 08/30/21 hydroxyzine HCl 25 mg tablet 1 tab PO TID PRN Anxiety 09/13/20 08/30/21 metformin 1,000 mg tablet 1 tab PO BID 09/13/20 08/30/21 fenofibrate 160 mg tablet 1 tab PO DAILY 03/09/21 08/30/21 multivitamin 1 tab PO DAILY 03/09/21 08/30/21 omega-3 fatty acids 1,000 mg PO DAILY 03/09/21 08/30/21 sertraline 100 mg tablet 2 tab PO DAILY@1200 03/09/21 08/30/21 buprenorphine 4 mg-naloxone 1 mg 0.5 film sublingual BEDTIME 08/30/21 08/30/21 sublingual film Previous Rx's ?Medication ?Instructions ?Recorded alcohol swabs 1 pad topical QIDACHS #100 ea 09/01/21 blood sugar diagnostic (FreeStyle #100 ea 09/01/21 Lite Strips) blood-glucose meter (FreeStyle #1 ea 09/01/21 Lite Meter kit) lancets 28 gauge (FreeStyle #100 ea 09/01/21 Lancets) metformin 500 mg tablet 500 mg PO DAILY #30 tabs 09/01/21 cephalexin 500 mg capsule 500 mg PO Q6H 7 days #28 caps 01/30/22 Allergies Allergy/AdvReac Type Severity Reaction Status Date / Time No Known Allergies Allergy Verified 03/05/24 22:06 [No Known Allergies*] Review of Systems Review of Systems Yes all other systems are reviewed and are negative COUNT INCLUDES [facility] Past Medical History Medical History Difficult airway for intubation Hx of opioid abuse History of COVID-19 Depression Diabetes Pancreatitis Elevated triglycerides with high cholesterol Anxiety Surgical History Hx of hemorrhoidectomy History of ERCP History of cholecystectomy Social History Social History Household Members: Spouse Housing: House Do you presently have visiting nurse or other home services: No Alcohol intake: current Alcohol intake frequency: 0-2 drinks per day Comment: sleeping Patient Tobacco Use Status: Former Tobacco user Tobacco use type: Cigarette Smoked in Last 30 Days: No Second Hand Smoke Exposure: No Use of substances other than those prescribed or required for medical reasons: Yes Substance Use Type: Marijuana Advance Directives: No Advance Directives Information Provided: Yes Do you have a plan to hurt others: No Plan service: No Current occupational status: employed Physical Exam ED Vital Signs: Vital Signs - 24 hr 03/05/24 21:56 Temperature 97.6 F Pulse Rate 66 Respiratory Rate 20 Blood Pressure 150/99 H Pulse Oximetry 97 Oxygen Delivery Method Room Air BMI result Body Mass Index 28.7 Appearance: Alert. Oriented X3. In moderate distress Eyes: No pallor or icterus ENT: Pharynx normal. Oral Mucosa moist Neck: Normal inspection. Neck supple. CVS: Normal heart rate and rhythm. Pulses normal. Respiratory: No respiratory distress. Equal air entry bilateral, no wheezing/rales/rhonchi Abdomen: Soft, tender mid abdomen Bowel sounds are present, no mass palpable, no CVA tenderness Skin: Skin warm and dry. Normal skin color. Normal skin turgor. Extremities: No lower extremity edema. No calf tenderness Neuro: Oriented X 3. No motor deficit. No sensory deficit.No cerebellar signs , cranial nerves II-XII intact Medical Decision Making Medical Decision Making MDM Narrative: Patient has acute pancreatitis with elevated lipase CT scan showed peripancreatic fluid collection no pseudocyst will admit patient for pain management Differential Diagnosis Differential Diagnoses: The differential diagnosis associated with the presentation includes Acute pancreatitis/necrotizing pancreatitis/cholecystitis Admission/Observation Consideration of admission/observation: Escalation of care including admission/observation considered Consult Healthcare Provider Management of the patient was discussed with: Hospitalist Lab Data MDM Lab Attestation statement: I reviewed the patient's lab results. 03/05/24 22:02 03/05/24 22:02 Labs: Lab Results 03/05/24 Range/Units 22:02 WBC 10.2 (4.8-10.8) X10*3/uL RBC 5.55 (4.60-5.80) X10*6/uL Hgb 14.6 (14.0-18.0) g/dl Hct 43.7 (42.0-52.0) % MCV 78.7 L (80.0-98.0) fL MCH 26.3 L (27.0-33.0) pg MCHC 33.4 (31.0-36.0) g/dl RDW 13.2 (11.0-16.0) % Plt Count 251 (160-400) X10*3/uL MPV 9.8 (9.4-12.4) fL Immature Gran % (Auto) 0.7 H (0.0-0.4) % Neut % (Auto) 50.5 (45-73) % Lymph % (Auto) 39.5 (20-40) % Randall % (Auto) 5.1 (2-11) % Eos % (Auto) 2.9 (0-4) % Baso % (Auto) 1.3 (0-2) % Lymph # (Auto) 4.0 (1.2-4.9) X10*3/uL Randall # (Auto) 0.5 (0.1-1.2) X10*3/uL Eos # (Auto) 0.3 (0.0-0.4) X10*3/uL Baso # (Auto) 0.1 (0.0-0.2) X10*3/uL Abs Immat Gran (auto) 0.07 H (0.00-0.03) X10*3/uL Absolute Neuts (auto) 5.1 (2.0-8.3) x10*3/uL Absolute Nucleated RBC 0.000 (0.0-0.012) X10*3/uL Nucleated RBC % (auto) 0.0 (0.0-0.2) /100WBC Sodium 141 (135-145) mmol/L Potassium 3.5 (3.3-5.1) mmol/L Chloride 105 (96-108) mmol/L Carbon Dioxide 24 (22-29) mmol/L Anion Gap 16 (12-20) BUN 19 H (9-16) mg/dL Creatinine 1.31 (0.5-1.4) mg/dL Estim Creat Clear Calc 73.8 Estimated GFR 57 Random Glucose 194 H (60-115) mg/dL Calcium 9.7 (8.4-10.2) mg/dL Total Bilirubin 0.4 (0.0-1.0) mg/dL AST 21 (5-37) U/L ALT 17 (0-40) U/L Alkaline Phosphatase 54 (39-117) U/L Total Protein 7.2 (6.5-8.0) g/dL Albumin 4.4 (3.5-5.0) g/dL Triglycerides 179 H (<150) mg/dL Lipase 737 H (8-78) U/L Independent Interpretation I performed an independent interpretation of an: CT Scan Radiology Impression Discussion of test interpretation with radiology: I have reviewed the radiologist's reading. Radiologist Impression: Ezequiel Fields??54??M??1970 ? Allergy/Adv: No Known Allergies Close Abdomen/Pelvis CT (Signed) Speedy Lambert - 03/06/24 Abdomen/Pelvis CT (Signed) Shekhar Shaw - 01/10/22 Chest X-Ray (Signed) Arose,Jesus - 08/29/21 Abdomen/Pelvis CT (Signed) Arose,Jesus - 08/29/21 Abdomen Ultrasound (Signed) Shekhar Shaw - 03/10/21 KUB X-Ray (Signed) Lamonte Monreal - 03/10/21 Abdomen/Pelvis CT (Signed) Laci Bernal - 03/09/21 Guidance Fluoroscopy (Signed) Nas Chan - 09/14/20 Cholangiopancreatography MRI (Signed) Alta Gordon - 09/14/20 Abdomen Ultrasound (Signed) David Bell - 09/13/20 Abdomen/Pelvis CT (Signed) David Bell - 09/13/20 Launch?Image [address] [address] [address] Scan Report Signed Patient: Ezequiel Fields MR#: [id number] : 1970 Acct:[id number] Age/Sex: 54 / M ADM Date: 03/05/24 Loc: HO.ED Attending Dr: Ordering Physician: Prince Alberts MD Date of Service: 03/06/24 Procedure(s): CT abdomen pelvis w IV con Accession Number(s): [id number] cc: Physician,Unknown ; Prince Alberts MD~ EXAMINATION: CT ABDOMEN AND PELVIS WITH CONTRAST CLINICAL INFORMATION: Pain. History of pancreatitis. COMPARISON: 01/10/2022 TECHNIQUE: Multidetector volumetric images were obtained from the superior aspect of the liver through the pubic symphysis following administration 85 mL of Omnipaque 350 intravenous contrast. Sagittal and coronal reformatted images were obtained on the technologist's workstation. Oral contrast: No This CT examination was performed using dose optimization techniques as appropriate, variously including the following: *Automated exposure control *Adjustment of mA and/or kV according to patient size (this includes techniques or standardized protocols for targeted exams where dose is matched to indication/reason for exam; i.e. extremities or head) *Use of iterative reconstruction technique DLP: 731 mGy-cm FINDINGS: LUNG BASES: The visualized lung bases are unremarkable. LIVER, GALLBLADDER, AND BILIARY TREE: The liver is normal in size, shape, and attenuation. No focal hepatic lesion or biliary ductal dilatation is present. There has been a prior cholecystectomy. PANCREAS: There is significant peripancreatic infiltration/fluid. SPLEEN: Unremarkable. ADRENAL GLANDS: Unremarkable. KIDNEYS AND URETERS: The kidneys are normal in size, shape, and attenuation. No hydronephrosis, hydroureter, or calculi seen. No perinephric stranding. BLADDER: Unremarkable. GASTROINTESTINAL TRACT: The small and large bowel are unremarkable. The appendix is unremarkable. ABDOMINAL WALL: There is a small umbilical hernia containing fat. LYMPH NODES: Normal. VASCULAR: Unremarkable. PELVIC VISCERA: Unremarkable. OSSEOUS STRUCTURES: Unremarkable. CT/CT abdomen pelvis w IV con IMPRESSION: Acute pancreatitis. Fleischner guidelines were followed. Medications Administered Discontinued Medications Generic Name Dose Route Start Last Admin Trade Name Freq PRN Reason Stop Dose Admin Famotidine 20 mg 03/05/24 22:41 03/05/24 22:50 Famotidine/Pf 20 Mg/2 Ml Vial IVPUSH 03/05/24 22:42 20 mg ONCE ONE Administration Hydromorphone HCl 2 mg 03/05/24 22:06 03/05/24 22:09 Hydromorphone Hcl 2 Mg/Ml Vial IVPUSH 03/05/24 22:07 2 mg ONCE ONE Administration Protocol Sodium Chloride 1,000 mls @ 999 mls/hr 03/05/24 21:50 03/05/24 23:05 Ns IV 03/05/24 22:50 Infused .Q1H1M ONE Infusion Sodium Chloride 1,000 mls @ 999 mls/hr 03/05/24 22:38 03/05/24 23:50 Ns IV 03/05/24 23:38 Infused .Q1H1M ONE Infusion Iohexol 85 ml 03/06/24 00:19 03/06/24 00:19 Iohexol 350 Mg/Ml 100 Ml Infus..Btl IV 03/06/24 00:20 85 ml ONCE ONE Administration Lorazepam 2 mg 03/05/24 21:51 03/05/24 22:00 Lorazepam 2 Mg/Ml Vial IVPUSH 03/05/24 21:52 2 mg ONCE ONE Administration Lorazepam 2 mg 03/05/24 22:41 03/05/24 22:50 Lorazepam 2 Mg/Ml Vial IVPUSH 03/05/24 22:42 2 mg ONCE ONE Administration Metoclopramide HCl 10 mg 03/05/24 22:41 03/05/24 22:50 Metoclopramide Hcl 10 Mg/2 Ml Vial IVPUSH 03/05/24 22:42 10 mg ONCE ONE Administration Morphine Sulfate 4 mg 03/05/24 21:50 03/05/24 22:01 Morphine Sulfate 4 Mg/Ml Cartridge IVPUSH 03/05/24 21:51 4 mg ONCE ONE Administration Protocol Morphine Sulfate 4 mg 03/05/24 22:38 03/05/24 22:45 Morphine Sulfate 4 Mg/Ml Cartridge IVPUSH 03/05/24 22:39 4 mg ONCE ONE Administration Protocol Ondansetron HCl 4 mg 03/05/24 21:50 03/05/24 22:01 Ondansetron Hcl 4 Mg/2 Ml Vial IVPUSH 03/05/24 21:51 4 mg ONCE ONE Administration Discharge Plan Discharge Clinical Impression: Acute pancreatitis Patient Disposition: Admitted As Inpatient Print Language: Mauritanian
[2024-03-05 21:56] VITALS: BP 150/99; PULSE 66; RESP 20; TEMP 36.4; O2SAT 97
[2024-03-05] MEDS: LORazepam 2 MG/ML VIAL IVPUSH ×2 (22:00→22:50)
[2024-03-05] MEDS: 0.9 % Sodium Chloride 1,000 ML 999 ML IV ×2 (22:01→22:46)
[2024-03-05] MEDS: Morphine Sulfate 4 MG/ML CARTRIDGE IVPUSH ×2 (22:01→22:45)
[2024-03-05] MEDS: ondansetron HCL 4 MG/2 ML VIAL IVPUSH (22:01)
[2024-03-05 22:03] VITALS: PULSE 72; O2SAT 98; BMI 28.7
[2024-03-05] MEDS: HYDROmorphone HCl 2 MG/ML VIAL IVPUSH (22:09)
[2024-03-05 22:12] LABS: MANUAL DIFF FLAG NO
[2024-03-05 22:13] LABS: Basophils Absolute Auto 0.1 X10*3/uL (0.0-0.2); Basophils Percent Auto 1.3 % (0-2); Eosinophils Absolute Auto 0.3 X10*3/uL (0.0-0.4); Eosinophils Percent Auto 2.9 % (0-4); Hematocrit 43.7 % (42.0-52.0); Hemoglobin 14.6 g/dl (14.0-18.0); Imm Gran Abs Auto 0.07 X10*3/uL (0.00-0.03); Imm Gran Pct Auto 0.7 % (0.0-0.4); Lymphocytes Percent Auto 39.5 % (20-40); Mean Corpuscular HGB Conc 33.4 g/dl (31.0-36.0); Mean Corpuscular Hemoglobin 26.3 pg (27.0-33.0); Mean Corpuscular Volume 78.7 fL (80.0-98.0); Mean Platelet Volume 9.8 fL (9.4-12.4); Monocytes Absolute Auto 0.5 X10*3/uL (0.1-1.2); Monocytes Percent Auto 5.1 % (2-11); Neutrophils Absolute Auto 5.1 x10*3/uL (2.0-8.3); Neutrophils Percent Auto 50.5 % (45-73); Platelet Count 251 X10*3/uL (160-400); Red Blood Count 5.55 X10*6/uL (4.60-5.80); Red Cell Distribution Width 13.2 % (11.0-16.0); White Blood Count 10.2 X10*3/uL (4.8-10.8)
[2024-03-05 22:21] LABS: Triglycerides 179 mg/dL (<150)
[2024-03-05 22:32] LABS: Alanine Aminotransferase 17 U/L (0-40); Albumin Level 4.4 g/dL (3.5-5.0); Alkaline Phosphatase 54 U/L (39-117); Anion Gap 16 (12-20); Aspartate Amino Transferase 21 U/L (5-37); Bilirubin Total 0.4 mg/dL (0.0-1.0); Blood Urea Nitrogen 19 mg/dL (9-16); Calcium 9.7 mg/dL (8.4-10.2); Carbon Dioxide 24 mmol/L (22-29); Chloride 105 mmol/L (96-108); Creatinine Clr Calc Pharmacy 73.8; Estimated Glomerular Filt Rate 57; Glucose Random 194 mg/dL (60-115); Potassium 3.5 mmol/L (3.3-5.1); Sodium 141 mmol/L (135-145); Total Protein 7.2 g/dL (6.5-8.0)
[2024-03-05 22:35] LABS: Lipase 737 U/L (8-78)
[2024-03-05] MEDS: Metoclopramide HCl 10 MG/2 ML VIAL IVPUSH (22:50)
[2024-03-05] MEDS: Famotidine/PF 20 MG/2 ML VIAL IVPUSH (22:50)
[2024-03-06] VITALS (9 sets, daily range): BP systolic 143–161; BP diastolic 78–98; PULSE 80–120; RESP 17–20; TEMP 36.7–37.4; O2SAT 87–98
[2024-03-06] MEDS: iohexoL 350 MG/ML 100 ML INFUS..BTL 85 ML IV (00:19)
--- NOTE | 2024-03-06 02:45 | PC.NURSE ---
Pt sleeping after administered medications, no acute distress.
[2024-03-06] MEDS: Morphine Sulfate 4 MG/ML CARTRIDGE IVPUSH ×4 (04:17→18:26)
[2024-03-06] MEDS: Lactated Ringers 1,000 ML 125 ML IVCONT ×2 (04:35→13:45)
--- NOTE | 2024-03-06 05:21 | PM.IMHP ---
History of Present Illness Date of Service: 03/06/24 Attending physician on admission: Emir Pleitez Chief Complaint: Abdominal pain Ezequiel Fields is a 54 years old man with past medical history significant for previous events of pancreatitis, alcohol abuse, hypertriglyceridemia, depression, opiate dependence on Suboxone and gangrenous cholecystitis s/p cholecystectomy presents to the emergency department complaining of worsening abdominal pain over the last several days. He stated that he only drank 2 alcoholic beverage on Monday. He reported 1 event of nonbloody vomiting. Denies fever, chills or diarrhea. Did not report headache, palpitations or dizziness. Did not report any acute urinary symptoms. He reported alcohol intake or illicit drug use. In the ED, he was found to have stable vital signs. Blood workup showed no leukocytosis platelets and hemoglobin are normal. There are no electrolyte imbalances. BUN is 19 and creatinine 1.31. LFTs are normal. Triglycerides are mildly elevated, 179. Lipase is 737. Abdominal pelvis CT scan showed no acute pancreatitis. ED tx: NS 2 L bolus, Zofran 4 mg, morphine 8 mg total IV, Dilaudid 2 mg IV, Ativan 2 mg IV, Reglan 10 mg IV. Review of Systems Review of Systems: All 12 systems were reviewed and normal except as noted in HPI. [facility] Medical History Difficult airway for intubation Hx of opioid abuse History of COVID-19 Depression Diabetes Pancreatitis Elevated triglycerides with high cholesterol Anxiety Surgical History Hx of hemorrhoidectomy History of ERCP History of cholecystectomy Social History Household Members: Spouse Housing: House Do you presently have visiting nurse or other home services: No Alcohol intake: current Alcohol intake frequency: 0-2 drinks per day Comment: sleeping Patient Tobacco Use Status: Former Tobacco user Tobacco use type: Cigarette Smoked in Last 30 Days: No Second Hand Smoke Exposure: No Use of substances other than those prescribed or required for medical reasons: Yes Substance Use Type: Marijuana Advance Directives: No Advance Directives Information Provided: Yes Do you have a plan to hurt others: No Plan service: No Current occupational status: employed Meds Allergies Allergy/AdvReac Type Severity Reaction Status Date / Time No Known Allergies Allergy Verified 03/05/24 22:06 [No Known Allergies*] Active Medications: Current Medications Lactated Ringer's (Lr) 1,000 mls @ 125 mls/hr IVCONT .Q8H [facility] Last Admin: 03/06/24 04:35 Dose: 125 mls/hr Morphine Sulfate (Morphine Sulfate 4 Mg/Ml Cartridge) 4 mg IVPUSH Q4H PRN; Protocol PRN Reason: Pain, Severe (Pain Scale 7-10) Sodium Chloride (0.9 % Sodium Chloride Flush 3 Ml Syringe) 3 ml IVFLUSH QSHIFT [facility] Home Medications ?Medication ?Instructions ?Recorded ?Confirmed ?Last Taken ?Type buprenorphine 4 mg-naloxone 1 mg 1.25 film sublingual DAILY 03/06/24 03/06/24 Unknown History sublingual film clonidine HCl 0.3 mg tablet 0.3 mg PO BEDTIME PRN Sleep 03/06/24 03/06/24 Unknown History empagliflozin 12.5 mg-metformin 1 tab PO BID 03/06/24 03/06/24 Unknown History 1,000 mg tablet (Synjardy) fenofibrate 160 mg tablet 160 mg PO DAILY 03/06/24 03/06/24 Unknown History hydroxyzine HCl 25 mg tablet 25 mg PO TID PRN pain 03/06/24 03/06/24 Unknown History sertraline 100 mg tablet 200 mg PO DAILY 03/06/24 03/06/24 Unknown History Physical Exam Vital Signs and Narrative: Vital Signs: Last Vital Signs Temp 98.0 F 03/06/24 04:38 Pulse 85 03/06/24 04:38 Resp 17 03/06/24 04:38 BP 147/85 H 03/06/24 04:38 Pulse Ox 97 03/06/24 04:38 O2 Del Method Room Air 03/06/24 04:38 BMI result Body Mass Index 28.7 Constitutional - Awake and Alert. In acute distress due to pain. HEENT - Pupils equally round. Normal sclerae. Dry oral mucosa. Heart - RRR. No murmur. Lungs - Normal lung expansion, Normal respiratory effort, No respiratory distress, CTA bilaterally Abdomen - Nondistended. Epigastric tenderness with guarding. No rebound. Decreased bowel sounds - No CVA tenderness Extremities - no calf tenderness bilaterally, no swelling Musculoskeletal - Normal inspection, normal ROM Skin - Warm/Dry Neurological - Alert & oriented x3. No focal weakness. Normal speech. Results Labs 03/05/24 22:02 03/05/24 22:02 Labs: Laboratory Results - last 24 hr 03/05/24 22:02 MCV 78.7 L MCH 26.3 L MCHC 33.4 RDW 13.2 Plt Count 251 MPV 9.8 Immature Gran % (Auto) 0.7 H Neut % (Auto) 50.5 Lymph % (Auto) 39.5 Lyon % (Auto) 5.1 Eos % (Auto) 2.9 Baso % (Auto) 1.3 Lymph # (Auto) 4.0 Lyon # (Auto) 0.5 Eos # (Auto) 0.3 Baso # (Auto) 0.1 Abs Immat Gran (auto) 0.07 H Absolute Neuts (auto) 5.1 Absolute Nucleated RBC 0.000 Nucleated RBC % (auto) 0.0 Anion Gap 16 Estim Creat Clear Calc 73.8 Estimated GFR 57 Random Glucose 194 H Calcium 9.7 Total Bilirubin 0.4 AST 21 ALT 17 Alkaline Phosphatase 54 Total Protein 7.2 Albumin 4.4 Triglycerides 179 H Lipase 737 H Imaging Radiologist's Impressions: Impressions Abdomen/Pelvis CT 03/06/24 00:15 IMPRESSION: Acute pancreatitis. Fleischner guidelines were followed. Assessment and Plan (1) Acute pancreatitis: Status: Acute (2) Diabetes: Status: Acute (3) Total bilirubin, elevated: Status: Acute (4) Elevated LFTs: Status: Acute Plan Ezequiel Fields is a 54 years old man admittted with: Acute alcoholic pancreatitis. Admit to hospitalist service. NPO. IV fluids. Pain control with Dilaudid and Protonix IV. Antiemetic therapy as needed. Patient was advised to abstain from alcohol consumption. Opiate dependence. Continue Suboxone. Depression. Continue sertraline, hydralazine and clonidine when able. Hypertriglyceridemia. Continue fenofibrate when able. Type 2 diabetes mellitus. PO meds on hold due to NPO status. Blood glucose monitoring every 6 hours. Insulin sliding scale. DVT prophylaxis: Heparin Code status: Full Patient will need hospitalization for at least 2 midnights for acute alcoholic pancreatitis treatment with IV fluids, antiemetic therapy and IV pain meds. Quality Stroke Does the patient have a stroke diagnosis?: No VTE Prior VTE?: No VTE Risk Level:: Medical - moderate - high VTE Device Contraindication: Treatment Not Indicated VTE Drug Contraindication: N/A - Med Ordered
[2024-03-06] MEDS: Prochlorperazine Edisylate 10 MG/2 ML VIAL IVPUSH (05:59)
[2024-03-06 06:02] LABS: Amphetamine Screen Urine Not Detected (Not Detect); Barbiturates, Urine Not Detected (Not Detect); Benzodiazepines Screen Urine Not Detected (Not Detect); Buprenorphine Scr Positive (Not Detect); Cannabinoid Screen Urine POSITIVE (Not Detect); Cocaine Screen Urine Not Detected (Not Detect); Fentanyl, urine Not Detected (Not Detect); Methadone Screen, Urine Not Detected (Not Detect); Opiate Screen Urine POSITIVE (Not Detect); Oxycodone Screen Urine Not Detected (Not Detect); Phencyclidine Screen Urine Not Detected (Not Detect)
[2024-03-06 07:46] LABS: Glucose, Whole Blood 155 mg/dL (60-115)
[2024-03-06] MEDS: HYDROmorphone HCl 2 MG/ML VIAL 1.5 MG IVPUSH ×3 (09:04→19:25)
--- NOTE | 2024-03-06 09:07 | PC.NURSE ---
pt found sating 83-87% on RA. ronnie sent to Dr. Lucas for O2 order. awaiting reply. Dr. Bernal ordered pt to be placed on 2L O2 via NC.
--- NOTE | 2024-03-06 09:24 | PHA.MEDREC ---
Pharmacy Consult ? Medication Reconciliation Pharmacy has completed the medication reconciliation. Spoke to patient at bedside, states he takes 1 and 1/4 films of Suboxone daily. Able to clarify all home meds
[2024-03-06] MEDS: Pantoprazole Sodium 40 MG/10 ML VIAL IVPUSH (10:36)
[2024-03-06] MEDS: Heparin Sodium,Porcine 5,000 UNIT/ML VIAL 5000 UNIT SUBCUT ×2 (10:37→17:35)
[2024-03-06] MEDS: Buprenorphine/Naloxone 4/1 mg FILM 1.25 FILM SUBLINGUAL (10:40)
[2024-03-06] MEDS: Sertraline HCL 100 MG TABLET 200 MG PO (10:42)
--- NOTE | 2024-03-06 11:18 | PC.NURSE ---
assumed care of pt at 0700. pt daughters in earlier this morning to visit with pt. pt found to be sating in 80s on room air. placed on 2L O2 via NC, now in mid-high 90s. pt medicated per mar and back to sleeping soundly. pt woke up from sleep, now complaining of pain to abdomen. pt not yet due to prn pain medications and will be medicated once able. pt resting quietly on stretcher. rr even/unlabored. call ko within reach. plan of care ongoing.
[2024-03-06 12:48] LABS: Glucose, Whole Blood 158 mg/dL (60-115)
[2024-03-06] MEDS: Fenofibrate 160 MG TABLET PO (12:52)
--- NOTE | 2024-03-06 13:00 | PC.NURSE ---
Assumed care of patient at this time. Patient reports 9/10 abd pain.
--- NOTE | 2024-03-06 13:04 | MHC.CM.PN ---
PT LIVES WITH HIS 30 YR OLD DGTER HE HAS A RIDE HOME IS INDEPEDENT DC PLAN HOME
[2024-03-06] MEDS: Insulin Lispro 100 UNIT/ML 3 ML VIAL SUBCUT ×2 (14:47→22:50)
--- NOTE | 2024-03-06 16:46 | MHC.EDTECH ---
THIS PCT ASSUMED CARE OF PATIENT AT 1500 ,VITALS TAKEN ,PATIENT BLOOD SUGAR CHECK ,PATIENT RESTING QUIETLY IN BED .
[2024-03-06 17:09] LABS: Glucose, Whole Blood 135 mg/dL (60-115)
[2024-03-06 20:33] LABS: Alanine Aminotransferase 19 U/L (0-40); Albumin Level 4.2 g/dL (3.5-5.0); Alkaline Phosphatase 46 U/L (39-117); Anion Gap 14 (12-20); Aspartate Amino Transferase 38 U/L (5-37); Bilirubin Total 0.8 mg/dL (0.0-1.0); Blood Urea Nitrogen 11 mg/dL (9-16); Calcium 9.3 mg/dL (8.4-10.2); Carbon Dioxide 25 mmol/L (22-29); Chloride 103 mmol/L (96-108); Creatinine Clr Calc Pharmacy 111.2; Estimated Glomerular Filt Rate > 60; Glucose Random 146 mg/dL (60-115); Magnesium 1.7 mg/dL (1.6-2.6); Potassium 3.7 mmol/L (3.3-5.1); Sodium 138 mmol/L (135-145); Total Protein 7.2 g/dL (6.5-8.0)
--- NOTE | 2024-03-06 20:42 | MHC.EDTECH ---
1999 rounding done ,vitals taken ,rn aware of patient high heart rate of 120 ,nd Patient low o2 sat of 92 % on room air per rb domenico request patient was back on 1 l o2 ,Patient is resting ,patient was offer ice chips and was given .
--- NOTE | 2024-03-06 20:46 | MHC.EDTECH ---
blood sugar was check rn aware of result of 158
[2024-03-06 20:56] LABS: Hematocrit 48.1 % (42.0-52.0); Hemoglobin 16.2 g/dl (14.0-18.0); Mean Corpuscular HGB Conc 33.7 g/dl (31.0-36.0); Mean Corpuscular Hemoglobin 26.2 pg (27.0-33.0); Mean Corpuscular Volume 77.8 fL (80.0-98.0); Mean Platelet Volume 9.8 fL (9.4-12.4); Platelet Count 233 X10*3/uL (160-400); Red Blood Count 6.18 X10*6/uL (4.60-5.80); Red Cell Distribution Width 13.7 % (11.0-16.0); White Blood Count 17.1 X10*3/uL (4.8-10.8)
[2024-03-06 21:10] LABS: Glucose, Whole Blood 158 mg/dL (60-115)
[2024-03-06 21:24] LABS: SLIDE REVIEW VERIFIED
[2024-03-06 21:26] LABS: Band Neutrophils Percent 20 % (3-5); Lymphocytes Absolute Manual 0.5 X10*3/uL (1.2-4.9); Lymphocytes Percent Manual 3 % (20-40); Monocytes Absolute Manual 0.3 X10*3/uL (0.1-1.2); Monocytes Percent Manual 2 % (2-11); Neutrophils Absolute Manual 16.2 X10*3/uL (2.0-8.3); Neutrophils Percent Manual 75 % (45-73)
[2024-03-06 21:27] LABS: Platelet Estimate NORMAL (NORMAL); Platelet Morphology Comment NORMAL; RBC Morphology NORMAL; Toxic Granulation PRESENT
[2024-03-07] VITALS (16 sets, daily range): BP systolic 143–175; BP diastolic 73–98; PULSE 97–129; RESP 14–20; TEMP 36.1–37.4; O2SAT 93–96
--- NOTE | 2024-03-07 00:32 | MHC.EDTECH ---
0000 rounding done ,vitals taken ,midnight blood sugar check ,rn domenico aware of result ,fresh ice chips given .
[2024-03-07 00:34] LABS: Glucose, Whole Blood 131 mg/dL (60-115)
[2024-03-07] MEDS: HYDROmorphone HCl 2 MG/ML VIAL 1.5 MG IVPUSH ×6 (00:34→22:34)
--- NOTE | 2024-03-07 01:34 | PC.NURSE ---
pt medicated for pain. resting bp elevated and will monitor closely.
[2024-03-07] MEDS: Heparin Sodium,Porcine 5,000 UNIT/ML VIAL 5000 UNIT SUBCUT ×3 (03:05→16:47)
[2024-03-07] MEDS: Morphine Sulfate 4 MG/ML CARTRIDGE IVPUSH ×5 (03:06→21:01)
[2024-03-07] MEDS: Lactated Ringers 1,000 ML 125 ML IVCONT ×3 (03:13→21:23)
[2024-03-07 07:02] LABS: MANUAL DIFF FLAG NO
[2024-03-07 07:12] LABS: Basophils Absolute Auto 0.1 X10*3/uL (0.0-0.2); Basophils Percent Auto 0.3 % (0-2); Eosinophils Percent Auto 0.1 % (0-4); Hematocrit 46.9 % (42.0-52.0); Hemoglobin 15.3 g/dl (14.0-18.0); Imm Gran Abs Auto 0.08 X10*3/uL (0.00-0.03); Imm Gran Pct Auto 0.5 % (0.0-0.4); Lymphocytes Absolute Auto 0.8 X10*3/uL (1.2-4.9); Lymphocytes Percent Auto 4.8 % (20-40); Mean Corpuscular HGB Conc 32.6 g/dl (31.0-36.0); Mean Corpuscular Hemoglobin 26.3 pg (27.0-33.0); Mean Corpuscular Volume 80.7 fL (80.0-98.0); Mean Platelet Volume 9.7 fL (9.4-12.4); Monocytes Absolute Auto 0.8 X10*3/uL (0.1-1.2); Monocytes Percent Auto 4.7 % (2-11); Neutrophils Absolute Auto 15.1 x10*3/uL (2.0-8.3); Neutrophils Percent Auto 89.6 % (45-73); Platelet Count 193 X10*3/uL (160-400); Red Blood Count 5.81 X10*6/uL (4.60-5.80); Red Cell Distribution Width 13.7 % (11.0-16.0); White Blood Count 16.9 X10*3/uL (4.8-10.8)
[2024-03-07 07:21] LABS: Alanine Aminotransferase 23 U/L (0-40); Albumin Level 3.9 g/dL (3.5-5.0); Alkaline Phosphatase 46 U/L (39-117); Anion Gap 16 (12-20); Aspartate Amino Transferase 47 U/L (5-37); Bilirubin Total 0.9 mg/dL (0.0-1.0); Blood Urea Nitrogen 11 mg/dL (9-16); Calcium 9.1 mg/dL (8.4-10.2); Carbon Dioxide 24 mmol/L (22-29); Chloride 103 mmol/L (96-108); Creatinine Clr Calc Pharmacy 122.4; Estimated Glomerular Filt Rate > 60; Glucose Random 133 mg/dL (60-115); Potassium 3.7 mmol/L (3.3-5.1); Sodium 139 mmol/L (135-145); Total Protein 6.9 g/dL (6.5-8.0)
[2024-03-07 07:30] LABS: Lipase 612 U/L (8-78)
[2024-03-07] MEDS: 0.9 % Sodium Chloride Flush 3 ML SYRINGE IVFLUSH (07:43)
[2024-03-07 07:47] LABS: Glucose, Whole Blood 143 mg/dL (60-115)
[2024-03-07] MEDS: Sertraline HCL 100 MG TABLET 200 MG PO (08:42)
[2024-03-07] MEDS: Fenofibrate 160 MG TABLET PO (08:42)
--- NOTE | 2024-03-07 08:46 | P.PNIM_ITS ---
Subjective Subjective Date of Service: 03/07/24 Interval History: Continues to have epigastric abdominal discomfort. Limited tolerance of diet. Also has been having nausea and vomiting. Review of Systems Review of Systems: Yes all other systems are reviewed and are negative Physical Exam 2 Vital Signs: Vital Signs: Last Vital Signs Temp 97.3 F 03/07/24 07:44 Pulse 115 H 03/07/24 07:44 Resp 18 03/07/24 07:44 BP 145/88 H 03/07/24 07:44 Pulse Ox 95 03/07/24 07:44 O2 Del Method Room Air 03/07/24 07:44 O2 Flow Rate 1 03/07/24 02:47 BMI result Body Mass Index 28.7 Constitutional - Awake and Alert. In acute distress due to pain. HEENT - Pupils equally round. Normal sclerae. Dry oral mucosa. Heart - RRR. No murmur. Lungs - Normal lung expansion, Normal respiratory effort, No respiratory distress, CTA bilaterally Abdomen - Nondistended. Epigastric tenderness with guarding. No rebound. Decreased bowel sounds - No CVA tenderness Extremities - no calf tenderness bilaterally, no swelling Musculoskeletal - Normal inspection, normal ROM Skin - Warm/Dry Neurological - Alert & oriented x3. No focal weakness. Normal speech. Objective Data Active Medications Buprenorphine/Naloxone (Buprenorphine/Naloxone 4/1 Mg Film) 1.25 film SUBLINGUAL DAILY [facility] Last Admin: 03/06/24 10:40 Dose: 1.25 film Documented By: ELIZ Clonidine HCl (Clonidine Hcl 0.1 Mg Tablet) 0.3 mg PO BEDTIME PRN; Protocol PRN Reason: Sleep Fenofibrate (Fenofibrate 160 Mg Tablet) 160 mg PO DAILY [facility] Last Admin: 03/06/24 12:52 Dose: 160 mg Documented By: ELIZ Glucose (Glucose Gel 15 Gm Gel..Gram.) 15 gm PO Q15M PRN; Protocol PRN Reason: per Hypoglycemia Standing Ord. Heparin Sodium (Porcine) (Heparin Sodium,Porcine 5,000 Unit/Ml Vial) 5,000 unit SUBCUT Q8H [facility] Last Admin: 03/07/24 03:05 Dose: 5,000 unit Documented By: MCTA Hydromorphone HCl (Hydromorphone Hcl 2 Mg/Ml Vial) 1.5 mg IVPUSH Q4H PRN; Protocol PRN Reason: Pain, Severe (Pain Scale 7-10) Last Admin: 03/07/24 05:21 Dose: 1.5 mg Documented By: PATRIC Lactated Ringer's (Lr) 1,000 mls @ 125 mls/hr IVCONT .Q8H [facility] Last Admin: 03/07/24 03:13 Dose: 125 mls/hr Documented By: SEJAL Dextrose (D10) 250 mls @ 750 mls/hr IV Q15M PRN; Protocol PRN Reason: per Hypoglycemia Standing Ord. Insulin Human Lispro (Insulin Lispro 100 Unit/Ml 3 Ml Vial) 0 unit SUBCUT QIDACHS [facility]; Protocol Last Admin: 03/07/24 07:44 Dose: Not Given Documented By: JANNET Non-Admin Reason: No Insulin Coverage Morphine Sulfate (Morphine Sulfate 4 Mg/Ml Cartridge) 4 mg IVPUSH Q4H PRN; Protocol PRN Reason: Pain, Severe (Pain Scale 7-10) Last Admin: 03/07/24 07:41 Dose: 4 mg Documented By: JANNET Pantoprazole Sodium (Pantoprazole Sodium 40 Mg/10 Ml Vial) 40 mg IVPUSH DAILY [facility] Last Admin: 03/06/24 10:36 Dose: 40 mg Documented By: ELIZ Prochlorperazine Edisylate (Prochlorperazine Edisylate 10 Mg/2 Ml Vial) 10 mg IVPUSH Q4H PRN PRN Reason: Nausea and Vomiting Last Admin: 03/06/24 05:59 Dose: 10 mg Documented By: ANUPAM Sertraline HCl (Sertraline Hcl 100 Mg Tablet) 200 mg PO DAILY [facility] Last Admin: 03/06/24 10:42 Dose: 200 mg Documented By: LEIZ Sodium Chloride (0.9 % Sodium Chloride Flush 3 Ml Syringe) 3 ml IVFLUSH QSHIFT [facility] Last Admin: 03/07/24 07:43 Dose: 3 ml Documented By: JANNET Labs 03/07/24 06:52 03/07/24 06:52 Labs: Laboratory Results - last 24 hr 03/06/24 03/06/24 03/06/24 12:42 16:43 20:11 MCV 77.8 L MCH 26.2 L MCHC 33.7 RDW 13.7 Plt Count 233 MPV 9.8 Immature Gran % (Auto) Cancelled Neut % (Auto) Cancelled Lymph % (Auto) Cancelled [place] % (Auto) Cancelled Eos % (Auto) Cancelled Baso % (Auto) Cancelled Lymph # (Auto) Cancelled [place] # (Auto) Cancelled Eos # (Auto) Cancelled Baso # (Auto) Cancelled Abs Immat Gran (auto) Cancelled Absolute Neuts (auto) Cancelled Absolute Nucleated RBC 0.000 Nucleated RBC % (auto) 0.0 Neutrophils % (Manual) 75 H Band Neutrophils % 20 H Lymphocytes % (Manual) 3 L Monocytes % (Manual) 2 Abs Neuts (Manual) 16.2 H Lymphocytes # (Manual) 0.5 L Monocytes # (Manual) 0.3 Toxic Granulation PRESENT Platelet Estimate NORMAL Plt Morphology Comment NORMAL RBC Morphology NORMAL Smear Tech's Comments VERIFIED Anion Gap 14 Estim Creat Clear Calc 111.2 Estimated GFR > 60 POC Glucose 158 H 135 H Random Glucose 146 H Calcium 9.3 Magnesium 1.7 Total Bilirubin 0.8 AST 38 H ALT 19 Alkaline Phosphatase 46 Total Protein 7.2 Albumin 4.2 Lipase 03/06/24 03/07/24 03/07/24 20:30 00:30 06:52 MCV 80.7 MCH 26.3 L MCHC 32.6 RDW 13.7 Plt Count 193 MPV 9.7 Immature Gran % (Auto) 0.5 H Neut % (Auto) 89.6 H Lymph % (Auto) 4.8 L [place] % (Auto) 4.7 Eos % (Auto) 0.1 Baso % (Auto) 0.3 Lymph # (Auto) 0.8 L [place] # (Auto) 0.8 Eos # (Auto) 0.0 Baso # (Auto) 0.1 Abs Immat Gran (auto) 0.08 H Absolute Neuts (auto) 15.1 H Absolute Nucleated RBC 0.000 Nucleated RBC % (auto) 0.0 Neutrophils % (Manual) Band Neutrophils % Lymphocytes % (Manual) Monocytes % (Manual) Abs Neuts (Manual) Lymphocytes # (Manual) Monocytes # (Manual) Toxic Granulation Platelet Estimate Plt Morphology Comment RBC Morphology Smear Tech's Comments Anion Gap 16 Estim Creat Clear Calc 122.4 Estimated GFR > 60 POC Glucose 158 H 131 H Random Glucose 133 H Calcium 9.1 Magnesium Total Bilirubin 0.9 AST 47 H ALT 23 Alkaline Phosphatase 46 Total Protein 6.9 Albumin 3.9 Lipase 612 H 03/07/24 07:41 MCV MCH MCHC RDW Plt Count MPV Immature Gran % (Auto) Neut % (Auto) Lymph % (Auto) [place] % (Auto) Eos % (Auto) Baso % (Auto) Lymph # (Auto) [place] # (Auto) Eos # (Auto) Baso # (Auto) Abs Immat Gran (auto) Absolute Neuts (auto) Absolute Nucleated RBC Nucleated RBC % (auto) Neutrophils % (Manual) Band Neutrophils % Lymphocytes % (Manual) Monocytes % (Manual) Abs Neuts (Manual) Lymphocytes # (Manual) Monocytes # (Manual) Toxic Granulation Platelet Estimate Plt Morphology Comment RBC Morphology Smear Tech's Comments Anion Gap Estim Creat Clear Calc Estimated GFR POC Glucose 143 H Random Glucose Calcium Magnesium Total Bilirubin AST ALT Alkaline Phosphatase Total Protein Albumin Lipase Assessment and Plan (1) Acute pancreatitis: Status: Acute Plan Ezequiel Fields is a 54 years old man admittted with: * Acute alcoholic pancreatitis. Continue IV crystalloid resuscitation and IV opiate p.r.n.. Continue clear liquid diet due to significant symptoms. May need to repeat CT scan if symptoms do not improve. Counseled regarding abstinence from alcohol * Reactive leukocytosis: Due to above. No indication for antibiotics. No sepsis * Opiate dependence. Continue Suboxone. * Depression. Continue sertraline, hydralazine and clonidine * Hypertriglyceridemia. Continue fenofibrate . * Type 2 diabetes mellitus. Accu-Cheks with sliding scale insulin before meals and at bedtime. Hold p.o. antihyperglycemics * DVT prophylaxis: Heparin Code status: Full Reason for continued hospitalization: Need for IV crystalloids and IV opiates in a patient with alcoholic pancreatitis. Awaiting return of normal bowel function Quality Stroke Does the patient have a stroke diagnosis?: No VTE Prior VTE?: No VTE Risk Level:: Medical - moderate - high VTE Device Contraindication: Treatment Not Indicated VTE Drug Contraindication: N/A - Med Ordered
[2024-03-07] MEDS: Pantoprazole Sodium 40 MG/10 ML VIAL IVPUSH (09:34)
[2024-03-07] MEDS: Prochlorperazine Edisylate 10 MG/2 ML VIAL IVPUSH ×2 (11:07→16:46)
[2024-03-07 11:23] LABS: Glucose, Whole Blood 144 mg/dL (60-115)
--- NOTE | 2024-03-07 15:44 | PM.EVENT ---
Event Note Date of Service: 03/07/24 Event Note: Addiction Note Patient medically admitted with acute pancreatitits Visibly uncomfortable, with emesis bag when seen by this chart writer. Resource folder left for patient with plan to return in the morning when he is able to participate in interview. Time Spent With Patient Time: Total time managing care of this patient today ____ minutes.
[2024-03-07 16:05] LABS: Glucose, Whole Blood 139 mg/dL (60-115)
--- NOTE | 2024-03-07 18:29 | PM.EVENT ---
Event Note Date of Service: 03/07/24 Event Note: Patient continues to have significant abdominal pain with multiple episodes of nonbloody emesis. Will repeat abdominal CT scan. Consider GI consult if symptoms do not improve pending CT scan results. Time Spent With Patient Time: Total time managing care of this patient today ____ minutes.
[2024-03-07 19:48] LABS: Glucose, Whole Blood 123 mg/dL (60-115)
[2024-03-07] MEDS: Metoclopramide HCl 10 MG/2 ML VIAL IVPUSH (20:13)
[2024-03-07 23:12] LABS: Glucose, Whole Blood 137 mg/dL (60-115)
[2024-03-08] VITALS (10 sets, daily range): BP systolic 142–177; BP diastolic 81–92; PULSE 97–100; RESP 16–20; TEMP 36.5–36.8; O2SAT 92–95
[2024-03-08] MEDS: Heparin Sodium,Porcine 5,000 UNIT/ML VIAL 5000 UNIT SUBCUT ×2 (00:25→08:51)
[2024-03-08] MEDS: Prochlorperazine Edisylate 10 MG/2 ML VIAL IVPUSH ×4 (00:34→20:55)
[2024-03-08] MEDS: HYDROmorphone HCl 2 MG/ML VIAL 1.5 MG IVPUSH ×9 (02:34→22:51)
[2024-03-08] MEDS: Lactated Ringers 1,000 ML 125 ML IVCONT ×2 (04:33→13:55)
[2024-03-08 05:37] LABS: Glucose, Whole Blood 115 mg/dL (60-115)
[2024-03-08 06:06] LABS: MANUAL DIFF FLAG NO
[2024-03-08 06:22] LABS: Anion Gap 17 (12-20); Blood Urea Nitrogen 11 mg/dL (9-16); Calcium 9.2 mg/dL (8.4-10.2); Carbon Dioxide 24 mmol/L (22-29); Chloride 102 mmol/L (96-108); Creatinine Clr Calc Pharmacy 130.7; Estimated Glomerular Filt Rate > 60; Glucose Random 116 mg/dL (60-115); Potassium 3.9 mmol/L (3.3-5.1); Sodium 139 mmol/L (135-145)
[2024-03-08 06:26] LABS: Basophils Absolute Auto 0.1 X10*3/uL (0.0-0.2); Basophils Percent Auto 0.3 % (0-2); Eosinophils Percent Auto 0.1 % (0-4); Hematocrit 43.2 % (42.0-52.0); Hemoglobin 14.1 g/dl (14.0-18.0); Imm Gran Abs Auto 0.15 X10*3/uL (0.00-0.03); Lymphocytes Absolute Auto 0.9 X10*3/uL (1.2-4.9); Lymphocytes Percent Auto 6.3 % (20-40); Mean Corpuscular HGB Conc 32.6 g/dl (31.0-36.0); Mean Corpuscular Hemoglobin 26.3 pg (27.0-33.0); Mean Corpuscular Volume 80.6 fL (80.0-98.0); Mean Platelet Volume 10.4 fL (9.4-12.4); Monocytes Absolute Auto 0.8 X10*3/uL (0.1-1.2); Monocytes Percent Auto 5.8 % (2-11); Neutrophils Absolute Auto 12.5 x10*3/uL (2.0-8.3); Neutrophils Percent Auto 86.5 % (45-73); Platelet Count 157 X10*3/uL (160-400); Red Blood Count 5.36 X10*6/uL (4.60-5.80); White Blood Count 14.4 X10*3/uL (4.8-10.8)
[2024-03-08 07:40] LABS: Glucose, Whole Blood 119 mg/dL (60-115)
[2024-03-08] MEDS: Fenofibrate 160 MG TABLET PO (08:45)
[2024-03-08] MEDS: Sertraline HCL 100 MG TABLET 200 MG PO (08:46)
[2024-03-08] MEDS: Pantoprazole Sodium 40 MG/10 ML VIAL IVPUSH (08:48)
--- NOTE | 2024-03-08 11:18 | MHC.CM.PN ---
Per MD rounds patient is not medically cleared for dc. No change to dc plan. CM will continue to follow.
[2024-03-08 11:31] LABS: Glucose, Whole Blood 141 mg/dL (60-115)
--- NOTE | 2024-03-08 11:33 | P.PNIM_ITS ---
Subjective Subjective Date of Service: 03/08/24 Interval History: still with sever pain Physical Exam 2 Vital Signs: Vital Signs: Last Vital Signs Temp 98.1 F 03/08/24 11:19 Pulse 100 03/08/24 11:19 Resp 17 03/08/24 11:19 BP 170/84 H 03/08/24 11:19 Pulse Ox 92 03/08/24 11:19 O2 Del Method Room Air 03/08/24 11:19 O2 Flow Rate 1 03/07/24 02:47 BMI result Body Mass Index 28.7 General: AO X 3, in acute distress Resp: CTA bilateral, no accessory muscles used CVS: S1,S2,RRR GI: soft, epigastric tender, non distended Neuro: motor grossly intact, alert Psych: appropriate affect, appropriate insight Objective Data Active Medications Buprenorphine/Naloxone (Buprenorphine/Naloxone 4/1 Mg Film) 1.25 film SUBLINGUAL DAILY [facility] Last Admin: 03/08/24 08:40 Dose: Not Given Documented By: GOSIA Non-Admin Reason: Patient Refused Clonidine HCl (Clonidine Hcl 0.1 Mg Tablet) 0.3 mg PO BEDTIME PRN; Protocol PRN Reason: Sleep Fenofibrate (Fenofibrate 160 Mg Tablet) 160 mg PO DAILY [facility] Last Admin: 03/08/24 08:45 Dose: 160 mg Documented By: GOSIA Glucose (Glucose Gel 15 Gm Gel..Gram.) 15 gm PO Q15M PRN; Protocol PRN Reason: per Hypoglycemia Standing Ord. Heparin Sodium (Porcine) (Heparin Sodium,Porcine 5,000 Unit/Ml Vial) 5,000 unit SUBCUT Q8H [facility] Last Admin: 03/08/24 08:51 Dose: 5,000 unit Documented By: GOSIA Hydromorphone HCl (Hydromorphone Hcl 2 Mg/Ml Vial) 1.5 mg IVPUSH Q2H PRN; Protocol PRN Reason: Pain, Severe (Pain Scale 7-10) Last Admin: 03/08/24 09:23 Dose: 1.5 mg Documented By: GOSIA Dextrose (D10) 250 mls @ 750 mls/hr IV Q15M PRN; Protocol PRN Reason: per Hypoglycemia Standing Ord. Insulin Human Lispro (Insulin Lispro 100 Unit/Ml 3 Ml Vial) 0 unit SUBCUT QIDACHS [facility]; Protocol Last Admin: 03/08/24 08:08 Dose: Not Given Documented By: GOSIA Non-Admin Reason: No Insulin Coverage Morphine Sulfate (Morphine Sulfate 4 Mg/Ml Cartridge) 4 mg IVPUSH Q4H PRN; Protocol PRN Reason: Pain, Severe (Pain Scale 7-10) Last Admin: 03/07/24 21:01 Dose: 4 mg Documented By: LAUREL Pantoprazole Sodium (Pantoprazole Sodium 40 Mg/10 Ml Vial) 40 mg IVPUSH DAILY [facility] Last Admin: 03/08/24 08:48 Dose: 40 mg Documented By: GOSIA Prochlorperazine Edisylate (Prochlorperazine Edisylate 10 Mg/2 Ml Vial) 10 mg IVPUSH Q4H PRN PRN Reason: Nausea and Vomiting Last Admin: 03/08/24 08:46 Dose: 10 mg Documented By: GOSIA Sertraline HCl (Sertraline Hcl 100 Mg Tablet) 200 mg PO DAILY [facility] Last Admin: 03/08/24 08:46 Dose: 200 mg Documented By: GOSIA Sodium Chloride (0.9 % Sodium Chloride Flush 3 Ml Syringe) 3 ml IVFLUSH QSHIFT [facility] Last Admin: 03/08/24 08:39 Dose: Not Given Documented By: GOSIA Non-Admin Reason: IV Running Labs 03/08/24 05:30 03/08/24 05:30 Labs: Laboratory Results - last 24 hr 03/07/24 03/07/24 03/07/24 16:00 19:28 23:09 MCV MCH MCHC RDW Plt Count MPV Immature Gran % (Auto) Neut % (Auto) Lymph % (Auto) [place] % (Auto) Eos % (Auto) Baso % (Auto) Lymph # (Auto) [place] # (Auto) Eos # (Auto) Baso # (Auto) Abs Immat Gran (auto) Absolute Neuts (auto) Absolute Nucleated RBC Nucleated RBC % (auto) Anion Gap Estim Creat Clear Calc Estimated GFR POC Glucose 139 H 123 H 137 H Random Glucose Calcium 03/08/24 03/08/24 03/08/24 05:30 05:35 07:31 MCV 80.6 MCH 26.3 L MCHC 32.6 RDW 14.0 Plt Count 157 L MPV 10.4 Immature Gran % (Auto) 1.0 H Neut % (Auto) 86.5 H Lymph % (Auto) 6.3 L [place] % (Auto) 5.8 Eos % (Auto) 0.1 Baso % (Auto) 0.3 Lymph # (Auto) 0.9 L [place] # (Auto) 0.8 Eos # (Auto) 0.0 Baso # (Auto) 0.1 Abs Immat Gran (auto) 0.15 H Absolute Neuts (auto) 12.5 H Absolute Nucleated RBC 0.000 Nucleated RBC % (auto) 0.0 Anion Gap 17 Estim Creat Clear Calc 130.7 Estimated GFR > 60 POC Glucose 115 119 H Random Glucose 116 H Calcium 9.2 03/08/24 11:23 MCV MCH MCHC RDW Plt Count MPV Immature Gran % (Auto) Neut % (Auto) Lymph % (Auto) [place] % (Auto) Eos % (Auto) Baso % (Auto) Lymph # (Auto) [place] # (Auto) Eos # (Auto) Baso # (Auto) Abs Immat Gran (auto) Absolute Neuts (auto) Absolute Nucleated RBC Nucleated RBC % (auto) Anion Gap Estim Creat Clear Calc Estimated GFR POC Glucose 141 H Random Glucose Calcium Assessment and Plan (1) Acute pancreatitis: Status: Acute Plan 54M PMH etoh dependence, hypertriglyceridemia, depression, diabetes, opiate dependence presented with abdominal pain Acute alcoholic pancreatitis Continue IV fluids, pain meds increased Advance diet as tolerated, currently on sips of clears Opiate dependence On Suboxone Depression Continue Zoloft Diabetes Hold orals continue insulin sliding scale Hypertriglyceridemia Continue fenofibrate DVT prophylaxis with Lovenox Full Code Reason for continued hospitalization: Still not tolerating p.o. Quality Stroke Does the patient have a stroke diagnosis?: No VTE Prior VTE?: No VTE Risk Level:: Medical - moderate - high VTE Device Contraindication: Treatment Not Indicated VTE Drug Contraindication: N/A - Med Ordered
--- NOTE | 2024-03-08 14:32 | MHC.RECOVRN ---
Met with pt in 372 after consult placed to Addiction Medicine for alcohol use. Pt had presented to the ED vomiting and with abdominal pain, hx pancreatitis. Upon evaluation, pt admitted for acute pancreatitis, diabetes, elevated total bilirubin, and elevated LFTs. Pt laying in bed, eyes closed, responds to voice. Pt keeps eyes closed throughout conversation, states he is feeling okay. 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 Pt reports abdominal pain began on Monday following the event. Pt denies other alcohol use. Pt is currently on Suboxone, 5 mg daily. Pt reports he has been prescribed Suboxone for over 10 years. Reports last illicit opioid use years ago. Pt reports he has declined his Suboxone for 2 days due to abdominal discomfort but will restart when appropriate. Pt reports he has strong family support, has had recovery engineer and therapist in the past. Pt reports he is currently going through a divorce. Discussed support options, pt interested in therapy referral. Pt denies questions or concerns for t/w. Discussed with Kimberly Salvador APRN. Referral placed to [facility] [address].
[2024-03-08 16:50] LABS: Glucose, Whole Blood 124 mg/dL (60-115)
[2024-03-08 20:24] LABS: Glucose, Whole Blood 131 mg/dL (60-115)
[2024-03-09] MEDS: cloNIDine HCL 0.1 MG TABLET 0.3 MG PO ×2 (00:10→21:33)
[2024-03-09] MEDS: Lactated Ringers 1,000 ML 125 ML IVCONT ×3 (00:49→19:16)
[2024-03-09] MEDS: Morphine Sulfate 4 MG/ML CARTRIDGE IVPUSH (01:37)
[2024-03-09 02:56] VITALS: BP 152/84; PULSE 88; RESP 18; TEMP 37.3; O2SAT 93
[2024-03-09] MEDS: HYDROmorphone HCl 2 MG/ML VIAL 1.5 MG IVPUSH ×9 (03:36→21:32)
[2024-03-09 06:22] LABS: Hematocrit 36.3 % (42.0-52.0); Hemoglobin 11.9 g/dl (14.0-18.0); Mean Corpuscular HGB Conc 32.8 g/dl (31.0-36.0); Mean Corpuscular Hemoglobin 25.9 pg (27.0-33.0); Mean Corpuscular Volume 78.9 fL (80.0-98.0); Mean Platelet Volume 9.3 fL (9.4-12.4); Platelet Count 175 X10*3/uL (160-400); Red Cell Distribution Width 13.8 % (11.0-16.0); White Blood Count 11.1 X10*3/uL (4.8-10.8)
[2024-03-09 06:37] LABS: Alanine Aminotransferase 16 U/L (0-40); Albumin Level 3.4 g/dL (3.5-5.0); Alkaline Phosphatase 61 U/L (39-117); Anion Gap 15 (12-20); Aspartate Amino Transferase 28 U/L (5-37); Bilirubin Direct 0.3 mg/dL (0.0-0.5); Bilirubin Total 0.7 mg/dL (0.0-1.0); Blood Urea Nitrogen 11 mg/dL (9-16); Calcium 9.1 mg/dL (8.4-10.2); Carbon Dioxide 25 mmol/L (22-29); Chloride 102 mmol/L (96-108); Creatinine Clr Calc Pharmacy 130.7; Estimated Glomerular Filt Rate > 60; Glucose Fasting 136 mg/dL (60-99); Lipase 61 U/L (8-78); Magnesium 2.1 mg/dL (1.6-2.6); Potassium 3.6 mmol/L (3.3-5.1); Sodium 138 mmol/L (135-145); Total Protein 6.6 g/dL (6.5-8.0)
[2024-03-09 07:28] LABS: Glucose, Whole Blood 114 mg/dL (60-115)
[2024-03-09 07:39] VITALS: BP 137/71; PULSE 50; RESP 16; TEMP 36.6; O2SAT 98
[2024-03-09] MEDS: Prochlorperazine Edisylate 10 MG/2 ML VIAL IVPUSH ×2 (08:02→17:02)
[2024-03-09] MEDS: 0.9 % Sodium Chloride Flush 3 ML SYRINGE IVFLUSH (08:04)
[2024-03-09] MEDS: Buprenorphine/Naloxone 4/1 mg FILM 1.25 FILM SUBLINGUAL (09:45)
--- NOTE | 2024-03-09 10:06 | HO.PM.IMPN ---
Subjective Subjective Date of Service: 03/09/24 Interval History: pain about the same Physical Exam Vital Signs: Vital Signs: Last Vital Signs Temp 98 F 03/09/24 07:39 Pulse 50 03/09/24 07:39 Resp 16 03/09/24 07:39 BP 137/71 03/09/24 07:39 Pulse Ox 98 03/09/24 07:39 O2 Del Method Room Air 03/09/24 07:39 O2 Flow Rate 1 03/07/24 02:47 BMI result Body Mass Index 28.7 General: AO X 3, in acute distress Resp: CTA bilateral, no accessory muscles used CVS: S1,S2,RRR GI: soft, epigastric tender, non distended Neuro: motor grossly intact, alert Psych: appropriate affect, appropriate insight Objective Data Active Medications Buprenorphine/Naloxone (Buprenorphine/Naloxone 4/1 Mg Film) 1.25 film SUBLINGUAL DAILY [facility] Last Admin: 03/09/24 09:45 Dose: 1.25 film Documented By: ALTON Clonidine HCl (Clonidine Hcl 0.1 Mg Tablet) 0.3 mg PO BEDTIME PRN; Protocol PRN Reason: Sleep Last Admin: 03/09/24 00:10 Dose: 0.3 mg Documented By: ANTOIC Enoxaparin Sodium (Enoxaparin Sodium 40 Mg/0.4 Ml Syringe) 40 mg SUBCUT Q24H [facility] Fenofibrate (Fenofibrate 160 Mg Tablet) 160 mg PO DAILY [facility] Last Admin: 03/08/24 08:45 Dose: 160 mg Documented By: REGINAAMER Glucose (Glucose Gel 15 Gm Gel..Gram.) 15 gm PO Q15M PRN; Protocol PRN Reason: per Hypoglycemia Standing Ord. Hydromorphone HCl (Hydromorphone Hcl 2 Mg/Ml Vial) 1.5 mg IVPUSH Q2H PRN; Protocol PRN Reason: Pain, Severe (Pain Scale 7-10) Last Admin: 03/09/24 08:01 Dose: 1.5 mg Documented By: ALTON Dextrose (D10) 250 mls @ 750 mls/hr IV Q15M PRN; Protocol PRN Reason: per Hypoglycemia Standing Ord. Lactated Ringer's (Lr) 1,000 mls @ 125 mls/hr IVCONT .Q8H [facility] Last Admin: 03/09/24 00:49 Dose: 125 mls/hr Documented By: THERON Insulin Human Lispro (Insulin Lispro 100 Unit/Ml 3 Ml Vial) 0 unit SUBCUT QIDACHS [facility]; Protocol Last Admin: 03/09/24 08:05 Dose: Not Given Documented By: ALTON Non-Admin Reason: No Insulin Coverage Morphine Sulfate (Morphine Sulfate 4 Mg/Ml Cartridge) 4 mg IVPUSH Q4H PRN; Protocol PRN Reason: Pain, Severe (Pain Scale 7-10) Last Admin: 03/09/24 01:37 Dose: 4 mg Documented By: THERON Prochlorperazine Edisylate (Prochlorperazine Edisylate 10 Mg/2 Ml Vial) 10 mg IVPUSH Q4H PRN PRN Reason: Nausea and Vomiting Last Admin: 03/09/24 08:02 Dose: 10 mg Documented By: ALTON Sertraline HCl (Sertraline Hcl 100 Mg Tablet) 200 mg PO DAILY [facility] Last Admin: 03/08/24 08:46 Dose: 200 mg Documented By: GOSIA Sodium Chloride (0.9 % Sodium Chloride Flush 3 Ml Syringe) [facility] Last Admin: 03/09/24 08:04 Dose: 3 ml Documented By: ALTON Labs 03/09/24 06:02 03/09/24 06:02 Labs: Laboratory Results - last 24 hr 03/08/24 03/08/24 03/08/24 11:23 16:43 20:17 MCV MCH MCHC RDW Plt Count MPV Absolute Nucleated RBC Nucleated RBC % (auto) Anion Gap Estim Creat Clear Calc Estimated GFR POC Glucose 141 H 124 H 131 H Fasting Glucose Calcium Magnesium Total Bilirubin Direct Bilirubin AST ALT Alkaline Phosphatase Total Protein Albumin Lipase 03/09/24 03/09/24 06:02 07:24 MCV 78.9 L MCH 25.9 L MCHC 32.8 RDW 13.8 Plt Count 175 MPV 9.3 L Absolute Nucleated RBC 0.000 Nucleated RBC % (auto) 0.0 Anion Gap 15 Estim Creat Clear Calc 130.7 Estimated GFR > 60 POC Glucose 114 Fasting Glucose 136 H Calcium 9.1 Magnesium 2.1 Total Bilirubin 0.7 Direct Bilirubin 0.3 AST 28 ALT 16 Alkaline Phosphatase 61 Total Protein 6.6 Albumin 3.4 L Lipase 61 Assessment and Plan (1) Acute pancreatitis: Status: Acute Plan 54M PMH etoh dependence, hypertriglyceridemia, depression, diabetes, opiate dependence presented with abdominal pain Acute alcoholic pancreatitis Continue IV fluids, continue dilaudid at 1.5mg q2h prn Advance diet as tolerated, currently on sips of clears Opiate dependence On Suboxone Depression Continue Zoloft Diabetes Hold orals continue insulin sliding scale Hypertriglyceridemia Continue fenofibrate DVT prophylaxis with Lovenox Full Code Reason for continued hospitalization: Still not tolerating p.o. Quality Stroke Does the patient have a stroke diagnosis?: No VTE Prior VTE?: No VTE Risk Level:: Medical - moderate - high VTE Device Contraindication: Treatment Not Indicated VTE Drug Contraindication: N/A - Med Ordered
[2024-03-09] MEDS: Enoxaparin Sodium 40 MG/0.4 ML SYRINGE SUBCUT (10:12)
[2024-03-09 11:22] LABS: Glucose, Whole Blood 172 mg/dL (60-115)
[2024-03-09 12:00] VITALS: BP 164/84; PULSE 86; RESP 16; TEMP 36.8; O2SAT 90
[2024-03-09] MEDS: Sertraline HCL 100 MG TABLET 200 MG PO (12:00)
[2024-03-09] MEDS: Fenofibrate 160 MG TABLET PO (12:00)
[2024-03-09] MEDS: Insulin Lispro 100 UNIT/ML 3 ML VIAL SUBCUT ×2 (12:00→21:35)
[2024-03-09 16:00] VITALS: BP 190/86; PULSE 87; RESP 16; TEMP 36.8; O2SAT 92
[2024-03-09 16:41] LABS: Glucose, Whole Blood 134 mg/dL (60-115)
[2024-03-09 19:25] VITALS: BP 155/86; PULSE 90; RESP 18; TEMP 36.9; O2SAT 93
[2024-03-09 20:27] LABS: Glucose, Whole Blood 188 mg/dL (60-115)
[2024-03-09] MEDS: Ketorolac Tromethamine 30 MG/ML VIAL IVPUSH (22:36)
[2024-03-10 02:12] VITALS: BP 136/79; PULSE 76; RESP 18; TEMP 36.1; O2SAT 94
[2024-03-10] MEDS: Lactated Ringers 1,000 ML 125 ML IVCONT ×3 (02:16→23:58)
[2024-03-10] MEDS: HYDROmorphone HCl 2 MG/ML VIAL 1.5 MG IVPUSH ×6 (02:19→16:03)
[2024-03-10] MEDS: Ketorolac Tromethamine 30 MG/ML VIAL IVPUSH ×2 (03:51→16:27)
[2024-03-10] MEDS: Prochlorperazine Edisylate 10 MG/2 ML VIAL IVPUSH ×4 (03:51→20:24)
[2024-03-10 06:18] LABS: Hematocrit 34.4 % (42.0-52.0); Hemoglobin 11.3 g/dl (14.0-18.0); Mean Corpuscular HGB Conc 32.8 g/dl (31.0-36.0); Mean Corpuscular Hemoglobin 26.1 pg (27.0-33.0); Mean Corpuscular Volume 79.4 fL (80.0-98.0); Mean Platelet Volume 9.1 fL (9.4-12.4); Platelet Count 178 X10*3/uL (160-400); Red Blood Count 4.33 X10*6/uL (4.60-5.80); Red Cell Distribution Width 13.7 % (11.0-16.0); White Blood Count 10.3 X10*3/uL (4.8-10.8)
[2024-03-10 06:52] LABS: Alanine Aminotransferase 15 U/L (0-40); Alkaline Phosphatase 61 U/L (39-117); Anion Gap 13 (12-20); Aspartate Amino Transferase 22 U/L (5-37); Bilirubin Direct 0.2 mg/dL (0.0-0.5); Bilirubin Total 0.5 mg/dL (0.0-1.0); Blood Urea Nitrogen 13 mg/dL (9-16); Carbon Dioxide 28 mmol/L (22-29); Chloride 104 mmol/L (96-108); Creatinine Clr Calc Pharmacy 122.4; Estimated Glomerular Filt Rate > 60; Glucose Fasting 110 mg/dL (60-99); Magnesium 2.2 mg/dL (1.6-2.6); Potassium 3.5 mmol/L (3.3-5.1); Sodium 141 mmol/L (135-145); Total Protein 6.1 g/dL (6.5-8.0)
[2024-03-10 07:22] VITALS: BP 146/74; PULSE 73; RESP 16; TEMP 36.2; O2SAT 93
[2024-03-10 07:42] LABS: Glucose, Whole Blood 139 mg/dL (60-115)
--- NOTE | 2024-03-10 09:15 | HO.PM.IMPN ---
Subjective Subjective Date of Service: 03/10/24 Interval History: reports some improvement today, still requiring frequent opiates, intersted in starting some solids Physical Exam Vital Signs: Vital Signs: Last Vital Signs Temp 97.1 F 03/10/24 07:22 Pulse 73 03/10/24 07:22 Resp 16 03/10/24 07:22 BP 146/74 H 03/10/24 07:22 Pulse Ox 93 03/10/24 07:22 O2 Del Method Room Air 03/10/24 07:22 O2 Flow Rate 1 03/07/24 02:47 BMI result Body Mass Index 28.7 General: AO X 3, no acute distress Resp: CTA bilateral, no accessory muscles used CVS: S1,S2,RRR GI: soft, epigastric tender, non distended Neuro: motor grossly intact, alert Psych: appropriate affect, appropriate insight Objective Data Active Medications Buprenorphine/Naloxone (Buprenorphine/Naloxone 4/1 Mg Film) 1.25 film SUBLINGUAL DAILY [facility] Last Admin: 03/09/24 09:45 Dose: 1.25 film Documented By: ALTON Clonidine HCl (Clonidine Hcl 0.1 Mg Tablet) 0.3 mg PO BEDTIME PRN; Protocol PRN Reason: Sleep Last Admin: 03/09/24 21:33 Dose: 0.3 mg Documented By: MICHAEL Enoxaparin Sodium (Enoxaparin Sodium 40 Mg/0.4 Ml Syringe) 40 mg SUBCUT Q24H [facility] Last Admin: 03/09/24 10:12 Dose: 40 mg Documented By: ALTON Fenofibrate (Fenofibrate 160 Mg Tablet) 160 mg PO DAILY [facility] Last Admin: 03/09/24 12:00 Dose: 160 mg Documented By: ALTON Glucose (Glucose Gel 15 Gm Gel..Gram.) 15 gm PO Q15M PRN; Protocol PRN Reason: per Hypoglycemia Standing Ord. Hydromorphone HCl (Hydromorphone Hcl 2 Mg/Ml Vial) 1.5 mg IVPUSH Q2H PRN; Protocol PRN Reason: Pain, Severe (Pain Scale 7-10) Last Admin: 03/10/24 07:24 Dose: 1.5 mg Documented By: ALTON Dextrose (D10) 250 mls @ 750 mls/hr IV Q15M PRN; Protocol PRN Reason: per Hypoglycemia Standing Ord. Lactated Ringer's (Lr) 1,000 mls @ 125 mls/hr IVCONT .Q8H [facility] Last Admin: 03/10/24 02:16 Dose: 125 mls/hr Documented By: MICHAEL Insulin Human Lispro (Insulin Lispro 100 Unit/Ml 3 Ml Vial) 0 unit SUBCUT QIDACHS [facility]; Protocol Last Admin: 03/10/24 07:48 Dose: Not Given Documented By: ALTON Non-Admin Reason: No Insulin Coverage Morphine Sulfate (Morphine Sulfate 4 Mg/Ml Cartridge) 4 mg IVPUSH Q4H PRN; Protocol PRN Reason: Pain, Severe (Pain Scale 7-10) Last Admin: 03/09/24 01:37 Dose: 4 mg Documented By: ANTOIC Prochlorperazine Edisylate (Prochlorperazine Edisylate 10 Mg/2 Ml Vial) 10 mg IVPUSH Q4H PRN PRN Reason: Nausea and Vomiting Last Admin: 03/10/24 08:31 Dose: 10 mg Documented By: ALTON Sertraline HCl (Sertraline Hcl 100 Mg Tablet) 200 mg PO DAILY [facility] Last Admin: 03/09/24 12:00 Dose: 200 mg Documented By: ALTON Sodium Chloride (0.9 % Sodium Chloride Flush 3 Ml Syringe) 3 ml IVFLUSH QSHIFT [facility] Last Admin: 03/10/24 09:14 Dose: Not Given Documented By: ALTON Non-Admin Reason: IV Running Labs 03/10/24 05:45 03/10/24 05:45 Labs: Laboratory Results - last 24 hr 03/09/24 03/09/24 03/09/24 11:04 16:13 20:20 MCV MCH MCHC RDW Plt Count MPV Absolute Nucleated RBC Nucleated RBC % (auto) Anion Gap Estim Creat Clear Calc Estimated GFR POC Glucose 172 H 134 H 188 H Fasting Glucose Calcium Magnesium Total Bilirubin Direct Bilirubin AST ALT Alkaline Phosphatase Total Protein Albumin 03/10/24 03/10/24 05:45 07:26 MCV 79.4 L MCH 26.1 L MCHC 32.8 RDW 13.7 Plt Count 178 MPV 9.1 L Absolute Nucleated RBC 0.000 Nucleated RBC % (auto) 0.0 Anion Gap 13 Estim Creat Clear Calc 122.4 Estimated GFR > 60 POC Glucose 139 H Fasting Glucose 110 H Calcium 9.0 Magnesium 2.2 Total Bilirubin 0.5 Direct Bilirubin 0.2 AST 22 ALT 15 Alkaline Phosphatase 61 Total Protein 6.1 L Albumin 3.0 L Assessment and Plan (1) Acute pancreatitis: Status: Acute Plan 54M PMH etoh dependence, hypertriglyceridemia, depression, diabetes, opiate dependence presented with abdominal pain Acute alcoholic pancreatitis Continue IV fluids, continue dilaudid at 1.5mg q2h prn advancing to low fat solids Opiate dependence On Suboxone Depression Continue Zoloft Diabetes Hold orals continue insulin sliding scale Hypertriglyceridemia Continue fenofibrate DVT prophylaxis with Lovenox Full Code Reason for continued hospitalization: frequent iv pain meds Quality Stroke Does the patient have a stroke diagnosis?: No VTE Prior VTE?: No VTE Risk Level:: Medical - moderate - high VTE Device Contraindication: Treatment Not Indicated VTE Drug Contraindication: N/A - Med Ordered
[2024-03-10] MEDS: Fenofibrate 160 MG TABLET PO (09:44)
[2024-03-10] MEDS: Enoxaparin Sodium 40 MG/0.4 ML SYRINGE SUBCUT (09:44)
[2024-03-10] MEDS: Sertraline HCL 100 MG TABLET 200 MG PO (09:44)
[2024-03-10 11:16] LABS: Glucose, Whole Blood 142 mg/dL (60-115)
[2024-03-10 11:51] VITALS: BP 144/77; PULSE 84; RESP 16; TEMP 36.6; O2SAT 93
[2024-03-10 15:47] VITALS: BP 131/72; PULSE 94; RESP 20; TEMP 36.8; O2SAT 94
[2024-03-10 16:31] LABS: Glucose, Whole Blood 153 mg/dL (60-115)
[2024-03-10] MEDS: HYDROmorphone HCl 2 MG/ML VIAL IVPUSH ×2 (18:20→20:30)
[2024-03-10 20:00] VITALS: BP 146/75; PULSE 81; RESP 18; TEMP 36.4; O2SAT 93
[2024-03-10] MEDS: cloNIDine HCL 0.1 MG TABLET 0.3 MG PO (20:24)
[2024-03-10 21:06] LABS: Glucose, Whole Blood 151 mg/dL (60-115)
[2024-03-10 23:33] VITALS: BP 124/58; PULSE 78; RESP 16; TEMP 36.4; O2SAT 94
[2024-03-10] MEDS: Morphine Sulfate 4 MG/ML CARTRIDGE IVPUSH (23:57)
[2024-03-11] MEDS: HYDROmorphone HCl 2 MG/ML VIAL IVPUSH ×10 (03:01→22:47)
[2024-03-11 07:03] VITALS: BP 153/78; PULSE 89; RESP 18; TEMP 37.2; O2SAT 94
[2024-03-11 07:15] LABS: Glucose, Whole Blood 121 mg/dL (60-115)
[2024-03-11] MEDS: Lactated Ringers 1,000 ML 125 ML IVCONT ×3 (07:27→22:46)
[2024-03-11] MEDS: Fenofibrate 160 MG TABLET PO (08:47)
[2024-03-11] MEDS: Prochlorperazine Edisylate 10 MG/2 ML VIAL IVPUSH (08:47)
[2024-03-11] MEDS: Sertraline HCL 100 MG TABLET 200 MG PO (08:47)
[2024-03-11] MEDS: Enoxaparin Sodium 40 MG/0.4 ML SYRINGE SUBCUT (08:47)
[2024-03-11] MEDS: Buprenorphine/Naloxone 4/1 mg FILM 1.25 FILM SUBLINGUAL (08:48)
[2024-03-11 09:44] VITALS: RESP 18
--- NOTE | 2024-03-11 09:47 | HO.PM.IMPN ---
Subjective Subjective Date of Service: 03/11/24 Interval History: still with significant pain, didnt tolerate solids Physical Exam Vital Signs: Vital Signs: Last Vital Signs Temp 99.0 F 03/11/24 07:03 Pulse 89 03/11/24 07:03 Resp 18 03/11/24 09:44 BP 153/78 H 03/11/24 07:03 Pulse Ox 94 03/11/24 07:03 O2 Del Method Room Air 03/11/24 07:03 O2 Flow Rate 1 03/07/24 02:47 BMI result Body Mass Index 28.7 General: AO X 3, in pain Resp: CTA bilateral, no accessory muscles used CVS: S1,S2,RRR GI: soft, epigastric tender, non distended Neuro: motor grossly intact, alert Psych: appropriate affect, appropriate insight Objective Data Active Medications Buprenorphine/Naloxone (Buprenorphine/Naloxone 4/1 Mg Film) 1.25 film SUBLINGUAL DAILY [facility] Last Admin: 03/11/24 08:48 Dose: 1.25 film Documented By: CORTNEY Clonidine HCl (Clonidine Hcl 0.1 Mg Tablet) 0.3 mg PO BEDTIME PRN; Protocol PRN Reason: Sleep Last Admin: 03/10/24 20:24 Dose: 0.3 mg Documented By: DOBROB Enoxaparin Sodium (Enoxaparin Sodium 40 Mg/0.4 Ml Syringe) 40 mg SUBCUT Q24H [facility] Last Admin: 03/11/24 08:47 Dose: 40 mg Documented By: CORTNEY Fenofibrate (Fenofibrate 160 Mg Tablet) 160 mg PO DAILY [facility] Last Admin: 03/11/24 08:47 Dose: 160 mg Documented By: CORTNEY Glucose (Glucose Gel 15 Gm Gel..Gram.) 15 gm PO Q15M PRN; Protocol PRN Reason: per Hypoglycemia Standing Ord. Hydromorphone HCl (Hydromorphone Hcl 2 Mg/Ml Vial) 2 mg IVPUSH Q2H PRN; Protocol PRN Reason: Pain, Severe (Pain Scale 7-10) Last Admin: 03/11/24 09:44 Dose: 2 mg Documented By: COTEMA Dextrose (D10) 250 mls @ 750 mls/hr IV Q15M PRN; Protocol PRN Reason: per Hypoglycemia Standing Ord. Lactated Ringer's (Lr) 1,000 mls @ 125 mls/hr IVCONT .Q8H [facility] Last Admin: 03/11/24 07:27 Dose: 125 mls/hr Documented By: CORTNEY Insulin Human Lispro (Insulin Lispro 100 Unit/Ml 3 Ml Vial) 0 unit SUBCUT QIDACHS [facility]; Protocol Last Admin: 03/11/24 07:17 Dose: Not Given Documented By: CORTNEY Non-Admin Reason: No Insulin Coverage Ondansetron HCl (Ondansetron Hcl 4 Mg/2 Ml Vial) 4 mg IVPUSH Q8H PRN PRN Reason: Nausea and Vomiting Sertraline HCl (Sertraline Hcl 100 Mg Tablet) 200 mg PO DAILY [facility] Last Admin: 03/11/24 08:47 Dose: 200 mg Documented By: CORTNEY Sodium Chloride (0.9 % Sodium Chloride Flush 3 Ml Syringe) 3 ml IVFLUSH QSHIFT [facility] Last Admin: 03/11/24 06:57 Dose: Not Given Documented By: CORTNEY Non-Admin Reason: IV Running Labs 03/10/24 05:45 03/10/24 05:45 Labs: Laboratory Results - last 24 hr 03/10/24 03/10/24 03/10/24 11:09 16:27 20:58 POC Glucose 142 H 153 H 151 H 03/11/24 07:07 POC Glucose 121 H Assessment and Plan (1) Acute pancreatitis: Status: Acute Plan 54M PMH etoh dependence, hypertriglyceridemia, depression, diabetes, opiate dependence presented with abdominal pain Acute alcoholic pancreatitis Continue IV fluids, continue dilaudid at 2mg q2h prn advancing to low fat solids - but not eating much Opiate dependence On Suboxone Depression Continue Zoloft Diabetes Hold orals continue insulin sliding scale Hypertriglyceridemia Continue fenofibrate DVT prophylaxis with Lovenox Full Code Reason for continued hospitalization: frequent iv pain meds Quality Stroke Does the patient have a stroke diagnosis?: No VTE Prior VTE?: No VTE Risk Level:: Medical - moderate - high VTE Device Contraindication: Treatment Not Indicated VTE Drug Contraindication: N/A - Med Ordered
[2024-03-11 11:20] LABS: Glucose, Whole Blood 122 mg/dL (60-115)
--- NOTE | 2024-03-11 13:02 | MHC.CM.PN ---
EMR REVIEWED, PER HOSPITALIST NOTE PT STILL W/CONSIDERABLE PAIN, NOT TOLERATING SOLID FOOD, NO PLAN FOR DC AT THIS TIME, CM WILL CONT TO FOLLOW DC NEEDS.
[2024-03-11 15:14] VITALS: BP 140/73; PULSE 80; RESP 18; TEMP 36.3; O2SAT 94
[2024-03-11 16:10] VITALS: RESP 18
[2024-03-11 16:27] LABS: Glucose, Whole Blood 143 mg/dL (60-115)
[2024-03-11 19:29] LABS: Glucose, Whole Blood 155 mg/dL (60-115)
[2024-03-11] MEDS: cloNIDine HCL 0.1 MG TABLET 0.3 MG PO (21:32)
[2024-03-11 23:14] VITALS: BP 111/58; PULSE 84; RESP 16; TEMP 36.6; O2SAT 93
[2024-03-12] MEDS: HYDROmorphone HCl 2 MG/ML VIAL IVPUSH ×4 (01:04→07:51)
[2024-03-12] MEDS: ondansetron HCL 4 MG/2 ML VIAL IVPUSH (03:33)
[2024-03-12] MEDS: Lactated Ringers 1,000 ML 125 ML IVCONT (05:28)
[2024-03-12 05:43] LABS: Hematocrit 33.8 % (42.0-52.0); Hemoglobin 11.1 g/dl (14.0-18.0); Mean Corpuscular HGB Conc 32.8 g/dl (31.0-36.0); Mean Corpuscular Hemoglobin 26.7 pg (27.0-33.0); Mean Corpuscular Volume 81.3 fL (80.0-98.0); Mean Platelet Volume 8.8 fL (9.4-12.4); Platelet Count 227 X10*3/uL (160-400); Red Blood Count 4.16 X10*6/uL (4.60-5.80); Red Cell Distribution Width 13.8 % (11.0-16.0); White Blood Count 13.5 X10*3/uL (4.8-10.8)
[2024-03-12 05:58] LABS: Alanine Aminotransferase 42 U/L (0-40); Albumin Level 2.9 g/dL (3.5-5.0); Alkaline Phosphatase 71 U/L (39-117); Anion Gap 11 (12-20); Aspartate Amino Transferase 57 U/L (5-37); Bilirubin Direct 0.2 mg/dL (0.0-0.5); Bilirubin Total 0.4 mg/dL (0.0-1.0); Blood Urea Nitrogen 8 mg/dL (9-16); Calcium 8.7 mg/dL (8.4-10.2); Carbon Dioxide 28 mmol/L (22-29); Chloride 105 mmol/L (96-108); Creatinine Clr Calc Pharmacy 127.3; Estimated Glomerular Filt Rate > 60; Glucose Fasting 136 mg/dL (60-99); Magnesium 1.8 mg/dL (1.6-2.6); Potassium 3.6 mmol/L (3.3-5.1); Sodium 140 mmol/L (135-145); Total Protein 5.9 g/dL (6.5-8.0)
[2024-03-12 07:10] VITALS: BP 132/72; PULSE 85; RESP 16; TEMP 36.2; O2SAT 95
[2024-03-12 07:22] LABS: Glucose, Whole Blood 131 mg/dL (60-115)
--- NOTE | 2024-03-12 07:40 | PC.NURSE ---
Pt ambulating in the hallway, tolerating regular diet, independent with ADL's, respirations even and unlabored, resting in chair with call ko in reach.
[2024-03-12] MEDS: Enoxaparin Sodium 40 MG/0.4 ML SYRINGE SUBCUT (09:04)
[2024-03-12] MEDS: Sertraline HCL 100 MG TABLET 200 MG PO (09:04)
[2024-03-12] MEDS: Fenofibrate 160 MG TABLET PO (09:05)
[2024-03-12] MEDS: Buprenorphine/Naloxone 4/1 mg FILM 1.25 FILM SUBLINGUAL (09:05)
--- NOTE | 2024-03-12 11:09 | P.DS_ITS ---
DS: Providers Provider Date of Service: 03/12/24 Date of admission: 03/06/24 04:23 Primary care physician: Gasper Coker MD Consults: 03/06/24 08:50 Addiction Medicine Routine Consulting Provider: Addiction Covering Reason for consultation: alcohol use disorder DS: Diagnosis Discharge Diagnosis (1) Acute pancreatitis: Status: Acute DS: Summary Hospital Course Hospital Course: from initial hpi: 54 years old man with past medical history significant for previous events of pancreatitis, alcohol abuse, hypertriglyceridemia, depression, opiate dependence on Suboxone and gangrenous cholecystitis s/p cholecystectomy presents to the emergency department complaining of worsening abdominal pain over the last several days. He stated that he only drank 2 alcoholic beverage on Monday. He reported 1 event of nonbloody vomiting. Denies fever, chills or diarrhea. Did not report headache, palpitations or dizziness. Did not report any acute urinary symptoms. He reported alcohol intake or illicit drug use. In the ED, he was found to have stable vital signs. Blood workup showed no leukocytosis platelets and hemoglobin are normal. There are no electrolyte imbalances. BUN is 19 and creatinine 1.31. LFTs are normal. Triglycerides are mildly elevated, 179. Lipase is 737. Abdominal pelvis CT scan showed no acute pancreatitis. ED tx: NS 2 L bolus, Zofran 4 mg, morphine 8 mg total IV, Dilaudid 2 mg IV, Ativan 2 mg IV, Reglan 10 mg IV. hospital course: Patient was admitted for acute alcoholic pancreatitis. He was given IV fluids and IV opiates. His pain slowly improved and he was slowly advanced to the point where he is tolerating solid diet. Patient is advised to avoid alcohol. For opiate dependency continued on Suboxone. For depression was continued on Zoloft. For diabetes his oral meds were held and he was continue insulin sliding scale oral meds can be restarted on discharge. For hypertriglyceridemia he was continued on fenofibrate. Patient is feeling better will be discharged home. Time Attestation Discharge Coordination Time (in mins): 35 Quality: Safe Use of Opioids Does Pt have an Active Cancer Diagnosis on the Problem List?: No Quality: Stroke Does the patient have a stroke diagnosis?: No Physical Exam Vital Signs: Vital Signs: Last Vital Signs Temp 97.1 F 03/12/24 07:10 Pulse 85 03/12/24 07:10 Resp 16 03/12/24 07:10 BP 132/72 03/12/24 07:10 Pulse Ox 95 03/12/24 07:10 O2 Del Method Room Air 03/12/24 07:10 O2 Flow Rate 1 03/07/24 02:47 BMI result Body Mass Index 28.7 General: AO X 3, in pain Resp: CTA bilateral, no accessory muscles used CVS: S1,S2,RRR GI: soft, epigastric tender, non distended Neuro: motor grossly intact, alert Psych: appropriate affect, appropriate insight DS: Data Data Completed and Pending Completed studies during hospitalization [Text1]: Procedures Dilation of Common Bile Duct with Intraluminal Device, Via Natural or Artificial Opening Endoscopic (09/13/20) Labs on day of discharge: Laboratory Results - last 24 hr 03/11/24 03/11/24 03/11/24 11:17 16:15 19:20 WBC RBC Hgb Hct MCV MCH MCHC RDW Plt Count MPV Absolute Nucleated RBC Nucleated RBC % (auto) Sodium Potassium Chloride Carbon Dioxide Anion Gap BUN Creatinine Estim Creat Clear Calc Estimated GFR POC Glucose 122 H 143 H 155 H Fasting Glucose Calcium Magnesium Total Bilirubin Direct Bilirubin AST ALT Alkaline Phosphatase Total Protein Albumin 03/12/24 03/12/24 05:36 07:18 WBC 13.5 H RBC 4.16 L Hgb 11.1 L Hct 33.8 L MCV 81.3 MCH 26.7 L MCHC 32.8 RDW 13.8 Plt Count 227 D MPV 8.8 L Absolute Nucleated RBC 0.000 Nucleated RBC % (auto) 0.0 Sodium 140 Potassium 3.6 Chloride 105 Carbon Dioxide 28 Anion Gap 11 L BUN 8 L Creatinine 0.76 Estim Creat Clear Calc 127.3 Estimated GFR > 60 POC Glucose 131 H Fasting Glucose 136 H Calcium 8.7 Magnesium 1.8 Total Bilirubin 0.4 Direct Bilirubin 0.2 AST 57 H ALT 42 H Alkaline Phosphatase 71 Total Protein 5.9 L Albumin 2.9 L Discharge Plan Discharge Anticipated Discharge Date/Time: 03/12/24 11:08 Patient Disposition: Home, Self-Care Discharge Diagnosis: etoh pancreatitis Referrals: Gasper Coker MD [Primary Care Provider] - 1 Week Discharge Medications: New oxycodone 5 mg Tablet 5 mg PO Q4H PRN (Reason: moderate pain) Qty: 10 0RF Rx Instructions: Partial Fill upon patient request. Continued clonidine HCl 0.3 mg tablet 0.3 mg PO BEDTIME PRN (Reason: Sleep) sertraline 100 mg tablet 200 mg PO DAILY hydroxyzine HCl 25 mg tablet 25 mg PO TID PRN (Reason: pain) fenofibrate 160 mg tablet 160 mg PO DAILY buprenorphine-naloxone 4-1 mg film 1.25 film sublingual DAILY Synjardy 12.5-1,000 mg tablet 1 tab PO BID Diet: low fat, bland diet Activity on Discharge: As tolerated Stand Alone Forms: Patient Portal Discharge page Print Language: Maltese Care Plan Goals: recovery Health Concerns: etoh pancreatitis Plan of Treatment: avoid etoh, advance diet as tolerated Assessment: see above
[2024-03-12] MEDS: oxyCODONE HCl Immed Release 5 MG TABLET PO (11:16)
[2024-03-12 11:17] LABS: Glucose, Whole Blood 120 mg/dL (60-115)
--- NOTE | 2024-03-12 13:33 | MHC.CM.PN ---
PATIENT DISCHARGED TO HOME SELF CARE. HE RECEIVED [employer] [employer] INFORMATION FROM THE [employer]. HE HAS ARRANGED FOR TRANSPORTATION HOME.
== END 2024-03-12 13:35 | disposition home or self-care (01) | DRG 439 ==
LOC: HO.ED 03-06 01:56 → HO.EDOVER 03-06 04:27 → HO.S3 03-07 04:04
PROVIDERS: Student in an Organized Health Care Education/Training Program; Admitting Provider Internal Medicine; Emergency Provider Internal Medicine; PCP Internal Medicine; Visit Provider Internal Medicine
DX: K85.20 Alcohol induced acute pancreatitis without necrosis or infection (principal); F11.20 Opioid dependence, uncomplicated; E78.1 Pure hyperglyceridemia; E11.9 Type 2 diabetes mellitus without complications; F10.20 Alcohol dependence, uncomplicated; F32.A Depression, unspecified; Z91.148 Patient's other noncompliance with medication regimen for other reason; Z87.891 Personal history of nicotine dependence; Z79.899 Other long term (current) drug therapy
CPT/HCPCS: 36415; 74176; 74177; 80048; 80053; 80076; 80307; 82947; 83690; 83735; 84478; 85007; 85025; 85027; 92950; 99285; C9113; J0737; J1170; J1644; J1650; J1885; J2060; J2270; J2405; J2765; J7120; Q9967

== ENCOUNTER → 2024-03-06 04:23 | Outpatient (BNV) | payer OTHER, SELFPAY | PROVIDERS: Admitting Provider Internal Medicine; Emergency Provider Internal Medicine; Visit Provider Internal Medicine | DX: K85.90 Acute pancreatitis without necrosis or infection, unspecified (principal) | CPT/HCPCS: 99223; 99232; 99233; 99239 ==

== ENCOUNTER 2024-10-29 07:50 | Inpatient (IN) | payer OTHER, SELFPAY ==
[2024-10-29] VITALS (13 sets, daily range): BP systolic 127–161; BP diastolic 60–93; PULSE 55–77; RESP 16–20; TEMP 36.7–37.2; O2SAT 95–100; BMI 28.5; BMI 28.8
--- NOTE | 2024-10-29 | ECG_ITS ---
Test Reason : upper abdominal pain Blood Pressure : / mmHG Vent. Rate : 064 BPM Atrial Rate : 064 BPM P-R Int : 122 ms QRS Dur : 082 ms QT Int : 392 ms P-R-T Axes : 068 062 058 degrees QTc Int : 404 ms Normal sinus rhythm Normal ECG When compared with ECG of 29-AUG-2021 16:22, No significant change was found Referred By: Generic ED Physician Electronically Signed By:JUNE PAZ
--- NOTE | ~2024-10-29 | CT_ITS ---
EXAMINATION: CT ABDOMEN AND PELVIS WITH CONTRAST CLINICAL INFORMATION: Severe abdominal pain, rule out pancreatitis. COMPARISON: Multiple previous CTs, most recent, 03/07/2024 TECHNIQUE: Multidetector volumetric images were obtained from the superior aspect of the liver through the pubic symphysis following administration 85 mL of Omnipaque 350 intravenous contrast. Sagittal and coronal reformatted images were obtained on the technologist's workstation. Oral contrast: No This CT examination was performed using dose optimization techniques as appropriate, variously including the following: *Automated exposure control *Adjustment of mA and/or kV according to patient size (this includes techniques or standardized protocols for targeted exams where dose is matched to indication/reason for exam; i.e. extremities or head) *Use of iterative reconstruction technique DLP: 629 mGy-cm FINDINGS: PRESS ASSISTANT AND FEEDER: Cholecystectomy clips. No obstructive bowel pattern. Multiple phleboliths. LUNG BASES: The visualized lung bases are unremarkable. LIVER, GALLBLADDER, AND BILIARY TREE: The liver is normal in size, shape, and attenuation. No focal hepatic lesion or biliary ductal dilatation is present. The gallbladder has been surgically removed. PANCREAS: Peripancreatic fluid identified fluid is seen, in intimate association with the patent superior mesenteric vein, and to a lesser extent, superior mesenteric artery. Mild heterogeneity to the pancreatic parenchyma. No focal lesions or significant regions of necrosis identified. In the midline epigastrium, anterior to the pancreas, 1.8 x 1.4 x 1.3 cm soft tissue oval density is seen. This is in the region of previous 4.6 cm high density fluid collection demonstrated on previous study. There is no surrounding inflammatory change currently. SPLEEN: Unremarkable. ADRENAL GLANDS: Unremarkable. KIDNEYS AND URETERS: The kidneys are normal in size, shape, and attenuation. No hydronephrosis, hydroureter, or calculi seen. No perinephric stranding. BLADDER: Distended. GASTROINTESTINAL TRACT: Stomach is not ideally distended. Nonobstructive bowel pattern. Terminal ileum and appendix are unremarkable.. Descending colon is decompressed. ABDOMINAL WALL: No significant hernia is appreciated. LYMPH NODES: No significant retroperitoneal or portal lymph nodes. VASCULAR: Minor atherosclerotic calcifications nonaneurysmal aorta. Unremarkable inferior vena cava and iliac veins. Portal system maintains patency. PELVIC VISCERA: Unremarkable. OSSEOUS STRUCTURES: No suspicious osseous lesions. Mild thecal sac compression L4-5 calcified disc and ligamentum flavum hypertrophy. CT/CT abdomen pelvis w IV con IMPRESSION: Acute pancreatitis. 1.8 cm soft tissue focus anterior to the pancreas may represent residual phlegmonous change from February. Enlarged lymph nodes node or soft tissue lesion not excluded. Consider short-term CT follow-up. Fleischner guidelines were followed. Electronically signed by: Rossana Robles MD 10/29/2024 11:10 AM [facility]
--- NOTE | 2024-10-29 08:09 | ED_ITS ---
HPI - Abdominal Pain General Chief Complaint: Abdominal Pain Stated Complaint: Abdominal pain Time Seen by Provider: 10/29/24 08:07 Source: patient Limitations: no limitations History of Present Illness ED Provider: Dr. Javi Nieves HPI narrative: 54-year-old male with a history of opiate use disorder on Suboxone, depression, diabetes, pancreatitis, high cholesterol, anxiety who presents emergency department for evaluation of abdominal pain starting at 04:00 hours. Patient states the pain came on suddenly and was severe on onset. He describes the pain is a constant, stabbing pain which is greater than 10/10. States the pain is similar to his pancreatitis pain and was admitted to the hospital on 03/02/2024. He denied alcohol or drug use. He denied fever, chills, chest pain or shortness of breath. Patient had associated nausea but no vomiting. He denied diarrhea. Patient was admitted for this pain from 03/06/2024 until 03/12/2024. His highest lipase at that time was 737. CT scan at that time was consistent with pancreatitis and the patient had a fluid collection anterior to the pancreas has measuring 4.6 x 3.4 cm which was noted previously but increased in size. Related Data Home Medications ?Medication ?Instructions ?Recorded ?Confirmed buprenorphine 4 mg-naloxone 1 mg 1.25 film sublingual DAILY 03/06/24 03/06/24 sublingual film clonidine HCl 0.3 mg tablet 0.3 mg PO BEDTIME PRN Sleep 03/06/24 03/06/24 empagliflozin 12.5 mg-metformin 1 tab PO BID 03/06/24 03/06/24 1,000 mg tablet (Synjardy) fenofibrate 160 mg tablet 160 mg PO DAILY 03/06/24 03/06/24 hydroxyzine HCl 25 mg tablet 25 mg PO TID PRN pain 03/06/24 03/06/24 sertraline 100 mg tablet 200 mg PO DAILY 03/06/24 03/06/24 Previous Rx's ?Medication ?Instructions ?Recorded oxycodone 5 mg tablet 5 mg PO Q4H PRN moderate pain #10 03/12/24 tabs Allergies Allergy/AdvReac Type Severity Reaction Status Date / Time No Known Allergies Allergy Verified 10/29/24 08:02 [No Known Allergies*] [facility] Past Medical History Medical History Difficult airway for intubation Hx of opioid abuse History of COVID-19 Depression Diabetes Pancreatitis Elevated triglycerides with high cholesterol Anxiety Surgical History Hx of hemorrhoidectomy History of ERCP History of cholecystectomy Social History Social History Household Members: Family Household Members Other:: Daughter Housing: House Do you presently have visiting nurse or other home services: No Alcohol intake: current Alcohol intake frequency: 0-2 drinks per day Comment: sleeping Patient Tobacco Use Status: Former Tobacco user Tobacco use type: Cigarette Second Hand Smoke Exposure: No Substance Use Type: Marijuana Advance Directives: No Advance Directives Information Provided: Yes Do you have a plan to hurt others: No Plan service: No Current occupational status: employed Physical Exam ED Vital Signs: Vital Signs - 24 hr 10/29/24 08:01 10/29/24 08:24 10/29/24 09:14 Temperature 98.4 F Pulse Rate 62 55 Respiratory Rate 18 20 18 Blood Pressure 149/91 H 137/67 Pulse Oximetry 99 Oxygen Delivery Method Room Air 10/29/24 10:08 10/29/24 10:13 Temperature Pulse Rate 58 Respiratory Rate 18 20 Blood Pressure 142/81 H Pulse Oximetry 100 Oxygen Delivery Method Room Air BMI result Body Mass Index 28.5 Vital signs revealed an elevated blood pressure otherwise unremarkable Exam: General: Awake, patient was moaning and appears to be uncomfortable secondary to his abdominal pain Head: Normocephalic, atraumatic EENT: PERRL, Lids normal, sclera normal, conjunctiva normal, nose normal , ears normal, throat without erythema or exudates Neck: Supple, no adenopathy Lung: breath sounds symmetric, no wheezing, rales or rhonchi Chest: symmetric movement, nontender Heart: regular rate and rhythm, normal S1, S2 no murmurs or rubs Abdomen: Diffuse moderate to severe tenderness, significant voluntary guarding , normoactive bowel sounds Back: no vertebral tenderness, no CVAT Extremities: no deformities, moves all extremities symmetrically Neuro: Awake, alert, oriented, normal speech, cranial nerves intact, moves all extremities symmetrically Medical Decision Making Medical Decision Making MDM Narrative: 54-year-old male with a history of opiate use disorder on Suboxone, depression, diabetes, pancreatitis, high cholesterol, anxiety who presents emergency department for evaluation of sudden onset, severe, abdominal pain starting at 04:00 hours, similar to pancreatitis pain that he has had in the past. He denied drug or alcohol use. Pain was greater than 10/10 associated with nausea but no vomiting or diarrhea. Initial vital signs revealed an elevated blood pressure of 149/91 otherwise unremarkable. Patient did appear to be in significant distress secondary to his abdominal pain and did have diffuse abdominal tenderness. Differential diagnosis: ?Includes but is not limited to pancreatitis, diverticulitis, cholecystitis, gastritis, anemia, electrolyte abnormalities Following evaluation was ordered: CBC, CMP, lipase, CT scan abdomen pelvis with IV contrast, EKG Patient was initially treated with the following: Toradol 15 mg IV, Dilaudid 1 mg IV, Zofran 4 mg IV, normal saline x1 L Course: 09:39 Patient's laboratory evaluation did reveal an elevated lipase of 373 which is greater than 4 times upper limit suggesting that the patient does have acute pancreatitis. Patient got minimal relief with the 1st dose of pain medications and was given a dose of Dilaudid 2 mg IV -patient was on Suboxone and will require high doses of narcotic medications for pain control. CT scan abdomen pelvis with IV contrast is pending patient was ordered to get a I ordered lactated Ringer's has a 2 L of fluid. 12:[address] scan is consistent with acute pancreatitis the patient did require a 2nd dose of Dilaudid 2 mg IV for his pain. I did discuss admission over tiger text with the covering hospitalist, nurse practitioner Rafaela Cortes the patient will be admitted to the hospitalist service for further management Admission/Observation Consideration of admission/observation: Escalation of care including admission/observation considered (Yes) Lab Data MDM Lab Attestation statement: I reviewed the patient's lab results. 09:38 hours: My interpretation patient's laboratory evaluation is as follows: CBC was normal. Glucose elevated 149. LFTs were normal. T bili was normal. Lipase was elevated at 372. Ethanol level was below detectable limits. Urine tox screen is pending collection. 10/29/24 08:06 10/29/24 08:06 Labs: Lab Results 10/29/24 Range/Units 08:06 WBC 7.1 (4.8-10.8) X10*3/uL RBC 5.51 D (4.60-5.80) X10*6/uL Hgb 14.7 D (14.0-18.0) g/dl Hct 44.6 D (42.0-52.0) % MCV 80.9 (80.0-98.0) fL MCH 26.7 L (27.0-33.0) pg MCHC 33.0 (31.0-36.0) g/dl RDW 12.9 (11.0-16.0) % Plt Count 255 (160-400) X10*3/uL MPV 9.6 (9.4-12.4) fL Immature Gran % (Auto) 0.7 H (0.0-0.4) % Neut % (Auto) 57.9 (45-73) % Lymph % (Auto) 30.1 (20-40) % [place] % (Auto) 6.6 (2-11) % Eos % (Auto) 2.9 (0-4) % Baso % (Auto) 1.8 (0-2) % Lymph # (Auto) 2.1 (1.2-4.9) X10*3/uL [place] # (Auto) 0.5 (0.1-1.2) X10*3/uL Eos # (Auto) 0.2 (0.0-0.4) X10*3/uL Baso # (Auto) 0.1 (0.0-0.2) X10*3/uL Abs Immat Gran (auto) 0.05 H (0.00-0.03) X10*3/uL Absolute Neuts (auto) 4.1 (2.0-8.3) x10*3/uL Absolute Nucleated RBC 0.000 (0.0-0.012) X10*3/uL Nucleated RBC % (auto) 0.0 (0.0-0.2) /100WBC Hold Purple Top SEE NOTE Sodium 140 (135-145) mmol/L Potassium 4.2 (3.3-5.1) mmol/L Chloride 104 (96-108) mmol/L Carbon Dioxide 26 (22-29) mmol/L Anion Gap 14 (12-20) BUN 16 (9-16) mg/dL Creatinine 1.10 (0.5-1.4) mg/dL Estim Creat Clear Calc 92.9 Estimated GFR > 60 Random Glucose 139 H (60-115) mg/dL Calcium 10.0 D (8.4-10.2) mg/dL Total Bilirubin 0.3 (0.0-1.0) mg/dL Direct Bilirubin 0.1 (0.0-0.5) mg/dL AST 37 (5-37) U/L ALT 24 (0-40) U/L Alkaline Phosphatase 49 (39-117) U/L Total Protein 8.0 (6.5-8.0) g/dL Albumin 4.7 (3.5-5.0) g/dL Lipase 372 H (8-78) U/L Hold Yellow Top See Note Ethyl Alcohol < 10 mg/dL Radiology Impression Discussion of test interpretation with radiology: I have reviewed the radiologist's reading. Radiologist Impression: CT abdomen pelvis w IV con IMPRESSION: Acute pancreatitis. 1.8 cm soft tissue focus anterior to the pancreas may represent residual phlegmonous change from February. Enlarged lymph nodes node or soft tissue lesion not excluded. Consider short-term CT follow-up. Fleischner guidelines were followed. Electronically signed by: Rossana Robles MD 10/29/2024 11:10 AM Medications Administered Discontinued Medications Generic Name Dose Route Start Last Admin Trade Name Freq PRN Reason Stop Dose Admin Hydromorphone HCl 1 mg 10/29/24 08:16 10/29/24 08:24 Hydromorphone Hcl 1 Mg/Ml Syringe IVPUSH 10/29/24 08:17 1 mg ONCE STA Administration Protocol Hydromorphone HCl 2 mg 10/29/24 09:09 10/29/24 09:17 Hydromorphone Hcl 2 Mg/Ml Vial IVPUSH 10/29/24 09:10 2 mg ONCE ONE Administration Protocol Hydromorphone HCl 2 mg 10/29/24 10:06 10/29/24 10:13 Hydromorphone Hcl 2 Mg/Ml Vial IVPUSH 10/29/24 10:07 2 mg ONCE ONE Administration Protocol Sodium Chloride 1,000 mls @ 999 mls/hr 10/29/24 08:16 10/29/24 10:04 Ns IV 10/29/24 09:16 Infused .Q1H1M STA Infusion Lactated Ringer's 1,000 mls @ 999 mls/hr 10/29/24 09:40 10/29/24 10:12 Lr IV 10/29/24 10:40 999 mls/hr .Q1H1M STA Administration Iohexol 85 ml 10/29/24 09:27 10/29/24 09:28 Iohexol 350 Mg/Ml 75 Ml Infus..Btl IV 10/29/24 09:28 85 ml ONCE ONE Administration Ketorolac Tromethamine 15 mg 10/29/24 08:16 10/29/24 08:26 Ketorolac Tromethamine 15 Mg/Ml Vial IVPUSH 10/29/24 08:17 15 mg ONCE STA Administration Ondansetron HCl 4 mg 10/29/24 08:16 10/29/24 08:26 Ondansetron Hcl 4 Mg/2 Ml Vial IVPUSH 10/29/24 08:17 4 mg ONCE ONE Administration Discharge Plan Discharge Patient Disposition: Admitted As Inpatient Prescriptions: No Action clonidine HCl 0.3 mg tablet 0.3 mg PO BEDTIME PRN (Reason: Sleep) sertraline 100 mg tablet 200 mg PO DAILY hydroxyzine HCl 25 mg tablet 25 mg PO TID PRN (Reason: pain) fenofibrate 160 mg tablet 160 mg PO DAILY buprenorphine-naloxone 4-1 mg film 1.25 film sublingual DAILY Synjardy 12.5-1,000 mg tablet 1 tab PO BID oxycodone 5 mg Tablet 5 mg PO Q4H PRN (Reason: moderate pain) Qty: 10 0RF Rx Instructions: Partial Fill upon patient request. Print Language: Samoan
[2024-10-29 08:12] LABS: MANUAL DIFF FLAG NO
[2024-10-29 08:17] LABS: Basophils Absolute Auto 0.1 X10*3/uL (0.0-0.2); Basophils Percent Auto 1.8 % (0-2); Eosinophils Absolute Auto 0.2 X10*3/uL (0.0-0.4); Eosinophils Percent Auto 2.9 % (0-4); Hematocrit 44.6 % (42.0-52.0); Hemoglobin 14.7 g/dl (14.0-18.0); Imm Gran Abs Auto 0.05 X10*3/uL (0.00-0.03); Imm Gran Pct Auto 0.7 % (0.0-0.4); Lymphocytes Absolute Auto 2.1 X10*3/uL (1.2-4.9); Lymphocytes Percent Auto 30.1 % (20-40); Mean Corpuscular Hemoglobin 26.7 pg (27.0-33.0); Mean Corpuscular Volume 80.9 fL (80.0-98.0); Mean Platelet Volume 9.6 fL (9.4-12.4); Monocytes Absolute Auto 0.5 X10*3/uL (0.1-1.2); Monocytes Percent Auto 6.6 % (2-11); Neutrophils Absolute Auto 4.1 x10*3/uL (2.0-8.3); Neutrophils Percent Auto 57.9 % (45-73); Platelet Count 255 X10*3/uL (160-400); Red Blood Count 5.51 X10*6/uL (4.60-5.80); Red Cell Distribution Width 12.9 % (11.0-16.0); White Blood Count 7.1 X10*3/uL (4.8-10.8)
[2024-10-29] MEDS: HYDROmorphone HCl 1 MG/ML SYRINGE IVPUSH ×3 (08:24→19:28)
[2024-10-29] MEDS: 0.9 % Sodium Chloride 1,000 ML 999 ML IV (08:24)
[2024-10-29] MEDS: ondansetron HCL 4 MG/2 ML VIAL IVPUSH (08:26)
[2024-10-29] MEDS: Ketorolac Tromethamine 15 MG/ML VIAL IVPUSH (08:26)
[2024-10-29 08:34] LABS: Alanine Aminotransferase 24 U/L (0-40); Albumin Level 4.7 g/dL (3.5-5.0); Alkaline Phosphatase 49 U/L (39-117); Anion Gap 14 (12-20); Aspartate Amino Transferase 37 U/L (5-37); Bilirubin Direct 0.1 mg/dL (0.0-0.5); Bilirubin Total 0.3 mg/dL (0.0-1.0); Blood Urea Nitrogen 16 mg/dL (9-16); Carbon Dioxide 26 mmol/L (22-29); Chloride 104 mmol/L (96-108); Creatinine Clr Calc Pharmacy 92.9; Estimated Glomerular Filt Rate > 60; Glucose Random 139 mg/dL (60-115); Potassium 4.2 mmol/L (3.3-5.1); Sodium 140 mmol/L (135-145)
[2024-10-29 08:52] LABS: Lipase 372 U/L (8-78)
[2024-10-29] MEDS: HYDROmorphone HCl 2 MG/ML VIAL IVPUSH ×2 (09:17→10:13)
[2024-10-29] MEDS: iohexoL 350 MG/ML 75 ML INFUS..BTL 85 ML IV (09:28)
[2024-10-29] MEDS: Lactated Ringers 1,000 ML 999 ML IV (10:12)
[2024-10-29 10:34] LABS: Ethanol < 10 mg/dL
--- NOTE | 2024-10-29 13:44 | PC.NURSE ---
Hospitalist at bedside
--- NOTE | 2024-10-29 13:48 | PHA.MEDREC ---
Addendum entered by Addison Fuentes 10/29/24 14:01: reviewed Original Note: Pharmacy Consult ? Medication Reconciliation Pharmacy has completed the medication reconciliation. Spoke to patient to confirm med list. patient states he takes 6 mg of Suboxone ( 1 and 1/2 of 4 mg) daily. patient says he is still taking Fenofibrate 160 mg , however last fill date was 02/13/24 for 90 days. patient states he last took his medications yesterday.
[2024-10-29] MEDS: Lactated Ringers 1,000 ML 125 ML IVCONT ×2 (14:59→21:50)
--- NOTE | 2024-10-29 15:31 | P.HPHOSP_ITS ---
History of Present Illness Date of Service: 10/29/24 Chief Complaint: Abdominal pain. 54-year-old male with past medical history significant for recurrent pancreatitis, history of hypertriglyceridemia, depression, opiate dependence on Suboxone, status post cholecystectomy presented to ED today due to symptoms of abdominal pain, patient woke up at 04:00 with abdominal pain and nausea at 06:00 pain was worse , he denies outside food, no abdominal trauma, no recent URI symptoms, denies alcohol intake, had last episode of pancreatitis in February at that time he admitted of taking few beers at [place], but now he is adamant that he has had no alcohol and is a recovering alcoholic, in 2020 patient had an episode of pancreatitis and no cause was found, his IgG subtypes were negative in regard to autoimmune pancreatitis in the past, workup in ED showed normal electrolytes and CBC, CT abdomen and pelvis suggestive of acute pancreatitis, 1.8 cm soft tissue focus anterior to the pancreas may represent residual phlegmonous changes from February, enlarged lymph nodes or soft tissue lesion not excluded, LFTs unremarkable, lipase 372 patient treated in the emergency room with IV fluids, Analgesics and now being admitted for continued monitoring and treatment of acute pancreatitis. Review of Systems 2 Review of Systems: General no headache no dizziness ,no fever chills. CVS no chest pain, no palpitation. Respiratory no cough no sob Gastrointestinal nausea and abdominal pain, no constipation, no diarrhea Skin no rash Musculoskeletal no pain All other system reviewed and are negative. [facility] Medical History Difficult airway for intubation Hx of opioid abuse History of COVID-19 Depression Diabetes Pancreatitis Elevated triglycerides with high cholesterol Anxiety Surgical History Hx of hemorrhoidectomy History of ERCP History of cholecystectomy Social History Household Members: Family Household Members Other:: Daughter Housing: House Do you presently have visiting nurse or other home services: No Alcohol intake: former Comment: sleeping Patient Tobacco Use Status: Former Tobacco user Tobacco use type: Cigarette Smoked in Last 30 Days: No Second Hand Smoke Exposure: No Use of substances other than those prescribed or required for medical reasons: No Substance Use Type: Marijuana Advance Directives: No Advance Directives Information Provided: Yes Do you have a plan to hurt others: No Plan service: No Current occupational status: employed Meds Allergies Allergy/AdvReac Type Severity Reaction Status Date / Time No Known Allergies Allergy Verified 10/29/24 08:02 [No Known Allergies*] Active Medications: Current Medications Acetaminophen (Acetaminophen 325 Mg Tablet) 650 mg PO Q6H PRN PRN Reason: Pain, Mild 1-3,fever,headache Buprenorphine/Naloxone (Buprenorphine/Naloxone 4/1 Mg Film) 1.5 film SUBLINGUAL DAILY [facility] Calcium Carbonate (Calcium Carbonate 750 Mg Tab.Chew) 750 mg PO Q4H PRN PRN Reason: Heartburn Clonidine HCl (Clonidine Hcl 0.1 Mg Tablet) 0.3 mg PO BEDTIME PRN; Protocol PRN Reason: Sleep Fenofibrate (Fenofibrate 160 Mg Tablet) 160 mg PO DAILY [facility] Hydromorphone HCl (Hydromorphone Hcl 0.5 Mg/0.5 Ml Syringe) 0.5 mg IVPUSH Q4H PRN; Protocol PRN Reason: Pain, Moderate(Pain Scale 4-6) Lactated Ringer's (Lr) 1,000 mls @ 125 mls/hr IVCONT .Q8H [facility] Last Admin: 10/29/24 14:59 Dose: 125 mls/hr Magnesium Hydroxide (Milk Of Magnesia 30 Ml Oral.Susp) 30 ml PO DAILY PRN PRN Reason: Constipation Melatonin (Melatonin 3 Mg Tablet) 6 mg PO BEDTIME PRN PRN Reason: Insomnia Ondansetron HCl (Ondansetron Hcl 4 Mg/2 Ml Vial) 4 mg IVPUSH Q8H PRN PRN Reason: Nausea and Vomiting Oxycodone HCl (Oxycodone Hcl Immed Release 5 Mg Tablet) 5 mg PO Q6H PRN PRN Reason: Pain, Moderate(Pain Scale 4-6) Sertraline HCl (Sertraline Hcl 100 Mg Tablet) 200 mg PO DAILY [facility] Sodium Chloride (0.9 % Sodium Chloride Flush 3 Ml Syringe) 3 ml IVFLUSH QSHIFT [facility] Last Admin: 10/29/24 15:14 Dose: Not Given Home Medications ?Medication ?Instructions ?Recorded ?Confirmed ?Last Taken ?Type buprenorphine 4 mg-naloxone 1 mg 1.5 film sublingual DAILY 03/06/24 10/29/24 10/28/24 History sublingual film clonidine HCl 0.3 mg tablet 0.3 mg PO BEDTIME PRN Sleep 03/06/24 10/29/24 Unknown History empagliflozin 12.5 mg-metformin 1 tab PO BID 03/06/24 10/29/24 10/28/24 History 1,000 mg tablet (Synjardy) fenofibrate 160 mg tablet 160 mg PO DAILY 03/06/24 10/29/24 10/28/24 History hydroxyzine HCl 25 mg tablet 25 mg PO TID PRN pain 03/06/24 10/29/24 Unknown History sertraline 100 mg tablet 200 mg PO DAILY 03/06/24 10/29/24 10/28/24 History Physical Exam 2 Vital Signs and Narrative: Vital Signs: Last Vital Signs Temp 98.4 F 10/29/24 08:01 Pulse 77 10/29/24 12:15 Resp 16 10/29/24 12:15 BP 127/60 10/29/24 12:15 Pulse Ox 99 10/29/24 12:15 O2 Del Method Room Air 10/29/24 12:15 BMI result Body Mass Index 28.5 Const: Other: General resting comfortably in mild distress due to acute pain Anicteric sclera Neck no JVD. CVS regular rate rhythm, Respiratory lungs clear to auscultation, no respiratory distress, no wheeze, no rhonchi. Gastrointestinal abdomen soft, epigastric tenderness, no distention, bowel sounds audible, no guarding , no rigidity. Extremities no edema. Neuro non focal Skin no rash Psych appropriate affect Results Labs 10/29/24 08:06 10/29/24 08:06 Labs: Laboratory Results - last 24 hr 10/29/24 08:06 MCV 80.9 MCH 26.7 L MCHC 33.0 RDW 12.9 Plt Count 255 MPV 9.6 Immature Gran % (Auto) 0.7 H Neut % (Auto) 57.9 Lymph % (Auto) 30.1 [place] % (Auto) 6.6 Eos % (Auto) 2.9 Baso % (Auto) 1.8 Lymph # (Auto) 2.1 [place] # (Auto) 0.5 Eos # (Auto) 0.2 Baso # (Auto) 0.1 Abs Immat Gran (auto) 0.05 H Absolute Neuts (auto) 4.1 Absolute Nucleated RBC 0.000 Nucleated RBC % (auto) 0.0 Hold Purple Top SEE NOTE Anion Gap 14 Estim Creat Clear Calc 92.9 Estimated GFR > 60 Random Glucose 139 H Calcium 10.0 D Total Bilirubin 0.3 Direct Bilirubin 0.1 AST 37 ALT 24 Alkaline Phosphatase 49 Total Protein 8.0 Albumin 4.7 Lipase 372 H Hold Yellow Top See Note Ethyl Alcohol < 10 Imaging Radiologist's Impressions: Impressions Abdomen/Pelvis CT 10/29/24 09:23 IMPRESSION: Acute pancreatitis. 1.8 cm soft tissue focus anterior to the pancreas may represent residual phlegmonous change from February. Enlarged lymph nodes node or soft tissue lesion not excluded. Consider short-term CT follow-up. Fleischner guidelines were followed. Electronically signed by: Rossana Robles MD 10/29/2024 11:10 AM [facility] Assessment and Plan (1) Acute pancreatitis: Status: Acute Plan 54M PMH hypertriglyceridemia, depression, diabetes, opiate dependence presented with abdominal pain and nausea Acute recurrent pancreatitis Question etiology denies use of alcohol, normal LFTs, prior workup for autoimmune pancreatitis negative, will check triglyceride level, has prior history of hypertriglyceridemia currently on fenofibrate Continue IV fluids, IV Dilaudid and oxycodone for pain Clear liquid diet Monitor BMP, CBC GI consult Opiate dependence On Suboxone Depression Continue Zoloft, and clonidine as needed Pre Diabetes Check hemoglobin A1c Hypertriglyceridemia Continue fenofibrate DVT prophylaxis with Lovenox Full Code Patient will require 2 night inpatient hospitalization for treatment recurrent pancreatitis and expert consultation. Quality Stroke Does the patient have a stroke diagnosis?: No VTE Prior VTE?: No VTE Risk Level:: Medical - moderate - high VTE Device Contraindication: Treatment Not Indicated VTE Drug Contraindication: N/A - Med Ordered
[2024-10-29] MEDS: HYDROmorphone HCl 0.5 MG/0.5 ML SYRINGE IVPUSH (15:42)
--- NOTE | 2024-10-29 15:52 | PC.NURSE ---
Pt treated for pain per JAN.
[2024-10-29 16:37] LABS: Appearance Urine Clear; Color Urine Yellow; Glucose Urine UA >=1000 mg/dL (Negative); Leukocyte Esterase Urine Negative (Negative); Nitrite Urine Negative (Negative); Specific Gravity - Urine >= 1.030 (1.005-1.025); UMIC TRIGGER UACC YES; Urine Blood Negative (Negative); Urine Ketones 15 mg/dL (Negative); Urine Protein Negative (Neg-Trace)
[2024-10-29 16:44] LABS: Bacteria Urine None Seen (None Seen); Hyaline Casts Urine 0-2 /LPF (0-2); RBC Urine 0-2 /HPF (0-2); Squamous Epithelial Cell Urine 0-2 /HPF (0-2); UACC Culture Trigger YES; WBC Clumps Urine Present
[2024-10-29 16:46] LABS: Amphetamine Screen Urine Not Detected (Not Detect); Barbiturates, Urine Not Detected (Not Detect); Benzodiazepines Screen Urine POSITIVE (Not Detect); Buprenorphine Scr Positive (Not Detect); Cannabinoid Screen Urine Not Detected (Not Detect); Cocaine Screen Urine Not Detected (Not Detect); Fentanyl, urine Not Detected (Not Detect); Methadone Screen, Urine Not Detected (Not Detect); Opiate Screen Urine POSITIVE (Not Detect); Oxycodone Screen Urine Not Detected (Not Detect); Phencyclidine Screen Urine Not Detected (Not Detect)
[2024-10-29] MEDS: cloNIDine HCL 0.1 MG TABLET 0.3 MG PO (21:48)
[2024-10-29] MEDS: oxyCODONE HCl Immed Release 5 MG TABLET PO (21:49)
--- NOTE | 2024-10-29 23:16 | PC.NURSE ---
Pt c/o abdl pain, 08/22, too early for prn Dilaudid, pt agreed to take Oxycodone prn , later pt verbalized good effect.
[2024-10-30] MEDS: HYDROmorphone HCl 1 MG/ML SYRINGE IVPUSH ×4 (00:08→14:12)
[2024-10-30 03:08] VITALS: BP 110/68; PULSE 67; RESP 16; TEMP 36; O2SAT 97
[2024-10-30] MEDS: Lactated Ringers 1,000 ML 125 ML IVCONT ×3 (04:39→21:01)
[2024-10-30] MEDS: oxyCODONE HCl Immed Release 5 MG TABLET PO ×3 (06:29→18:51)
[2024-10-30 07:01] VITALS: BP 127/76; PULSE 68; RESP 14; TEMP 36.6; O2SAT 95
[2024-10-30 07:19] LABS: Hematocrit 39.5 % (42.0-52.0); Hemoglobin 13.2 g/dl (14.0-18.0); Mean Corpuscular HGB Conc 33.4 g/dl (31.0-36.0); Mean Corpuscular Hemoglobin 26.8 pg (27.0-33.0); Mean Corpuscular Volume 80.1 fL (80.0-98.0); Mean Platelet Volume 9.7 fL (9.4-12.4); Platelet Count 213 X10*3/uL (160-400); Red Blood Count 4.93 X10*6/uL (4.60-5.80); Red Cell Distribution Width 13.1 % (11.0-16.0); White Blood Count 8.9 X10*3/uL (4.8-10.8)
[2024-10-30 07:32] LABS: Anion Gap 11 (12-20); Blood Urea Nitrogen 11 mg/dL (9-16); Carbon Dioxide 26 mmol/L (22-29); Chloride 106 mmol/L (96-108); Cholesterol 147 mg/dL (<200); Creatinine Clr Calc Pharmacy 118.1; Estimated Glomerular Filt Rate > 60; Glucose Random 127 mg/dL (60-115); HDL Cholesterol 41 mg/dL (>40); LDL Cholesterol Calculated 74 mg/dL (<100); Potassium 3.8 mmol/L (3.3-5.1); Sodium 139 mmol/L (135-145); Triglycerides 164 mg/dL (<150)
[2024-10-30 08:03] LABS: Estimated Average Glucose 134 mg/dL; Hemoglobin A1c % 6.3 % (<6.0); Total Hemoglobin (HGBA1C) 3363.6173 umol/L
[2024-10-30 08:16] LABS: Lipase 299 U/L (8-78)
[2024-10-30] MEDS: Buprenorphine/Naloxone 4/1 mg FILM 1.5 FILM SUBLINGUAL (08:58)
[2024-10-30] MEDS: Sertraline HCL 100 MG TABLET 200 MG PO (09:00)
[2024-10-30] MEDS: Fenofibrate 160 MG TABLET PO (09:00)
[2024-10-30] MEDS: Flu Vacc TS2024-25(6mos up)/PF 0.5 ML SYRINGE IM (09:01)
--- NOTE | 2024-10-30 09:52 | MHC.CM.PN ---
CM MET WITH PT AT BEDSIDE. PT LIVES WITH SPOUSE AND CHILDREN. PT IS INDEPENDENT WITH MOBILITY AND EMPLOYED F/T. NO SERVICES/DME. + HCP PCP DR. EUBANKS DP: HOME, NO SERVICES ANTICIPATED. PT HAS OWN RIDE HOME. CM WILL CONTINUE TO FOLLOW FOR ANY CHANGE TO DC PLAN/NEEDS.
[2024-10-30] MEDS: HYDROmorphone HCl 0.5 MG/0.5 ML SYRINGE IVPUSH ×3 (10:50→23:24)
--- NOTE | 2024-10-30 12:28 | P.EN_ITS ---
Event Note Date of Service: 10/30/24 Event Note: GI Consult-Full note dictated. History from patient and EMR. Imp: Recurrent pancreatitis of unclear etiology at this time. His LFT's and TG's are normal, CT is negative for any biliary disease, and there is no history of EtOH nor any new meds. Previous MRCP did not show any pancreatic ductal disease. However, he seems to be getting better rapidly. Rec: Supportive care, F/U labs, and advance diet as tolerated. I will plan to F/U with him and repeat a CT in 4 to 6 weeks. I will most likely refer him for an EUS of the pancreas at [facility] for further evaluation as well. I told him to continue his Fenofibrate, low fat diet, and avoidance of EtOH. He was comfo rtable with this plan. Thanks. Time Spent With Patient Time: Total time managing care of this patient today ____ minutes.
--- NOTE | 2024-10-30 14:04 | CONS_ITS ---
DATE OF SERVICE: 10/30/2024 REASON FOR CONSULTATION: Abdominal pain and pancreatitis. HISTORY OF PRESENT ILLNESS: The patient is a 54-year-old male, known to me from previous hospitalizations and office visits in regard to pancreatitis. The etiology of his pancreatitis has not been entirely clear, although he does have a history of hypertriglyceridemia in the past. There was initial concern about a biliary source of pancreatitis with a question of choledocholithiasis on an MRCP after a laparoscopic cholecystectomy. A followup ERCP with sphincterotomy did not reveal any sign of choledocholithiasis. Subsequent imaging studies of the biliary tree and pancreatic ducts have been unremarkable as well. He was last hospitalized here for pancreatitis in February. At that time, he describes having had a couple of beers [place] as the possible trigger for the pancreatitis at that time. He had not had any further problems since that time up until just early yesterday morning when he was awakened with abdominal pain, which progressed over the course of the morning and prompting his ER visit. The pain became quite severe. He had nausea, but no vomiting. There was no diarrhea. He denies any associated jaundice, fevers, hematochezia, nor melena. He has not used any alcohol since the hospitalization for pancreatitis in the Spring. He has not been on any new medications. He has been compliant with his fenofibrate. There is no family history of pancreatic disease. Since admission here yesterday, he has been feeling much better and today is tolerating liquids. He has passed flatus. There has been no vomiting. He reports that he is definitely significantly improved as compared to when he 1st arrived yesterday. MEDICATIONS: At home include Suboxone, clonidine, fenofibrate, sertraline, and Jardiance. His medications here in the hospital include acetaminophen, Suboxone, Tums, clonidine, fenofibrate, hydromorphone p.r.n., melatonin p.r.n., milk of magnesia p.r.n., Zofran p.r.n., oxycodone p.r.n., and Zoloft. PAST MEDICAL HISTORY: Pancreatitis as above. Anxiety and depression. Previous opiate dependence. Diabetes mellitus. He denies history of NH, stroke, nor lung disease. Hypertriglyceridemia. PAST SURGICAL HISTORY: His only surgery is that of cholecystectomy. 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 He does not smoke and does not use any significant amounts of alcohol. He is , but currently . FAMILY HISTORY: Noncontributory. REVIEW OF SYSTEMS: CONSTITUTIONAL: Prior to yesterday, was feeling well with good energy and good appetite. SKIN: No rash. No pruritus. CARDIAC: No chest pains. PULMONARY: No coughing or hemoptysis. GI: As above. URINARY: No dysuria. No hematuria. NEUROLOGIC: No headache or seizures. PHYSICAL EXAMINATION: GENERAL: The patient is a pleasant, alert, comfortable-appearing male. SKIN: Warm and dry. Nonjaundiced. Anicteric sclerae. Moist mucous membranes. NECK: Supple. CHEST: Clear. CARDIAC: Normal S1, S2. ABDOMEN: Soft, nondistended with normal bowel sounds. There is no palpable mass and only minimal epigastric tenderness. EXTREMITIES: Without edema. LABORATORY DATA: CT scan of his abdomen from yesterday describes some fluid around the pancreas and some changes of the pancreas consistent with pancreatitis. There was a 1.8 x 1.4 x 1.3 cm soft tissue density in the region of the pancreas. This was improved as compared to a 4.6 cm lesion back in February when he was hospitalized. There was no sign of any biliary disease. The liver appeared normal. The remainder of the CT scan appeared normal as well. White blood cell count 8.9, hemoglobin 13.2, platelets 213,000. Normal electrolytes. BUN 11, creatinine 0.9. Liver profile yesterday was completely normal. Lipase yesterday was 372 and today is 299. Triglyceride level was 164 this morning. IMPRESSION: Given the patient's clinical history, this certainly seems consistent with another episode of acute pancreatitis. However, the etiology is unclear at this time. His previous workups and present workup do not indicate any type of biliary process, alcohol-related pancreatitis at the present time, nor any medication-induced pancreatitis. He did have previous normal IgG subtyping to rule out autoimmune pancreatitis. He has been compliant with his fenofibrate and his triglyceride level was normal today. Previous imaging on MRCP did not show any pancreatic duct abnormality such as pancreas divisum. PLAN: At this point, I would recommend continue supportive care as he does seem to be getting better quickly. He will have followup laboratories tomorrow and have his diet advanced as tolerated. I advised him that the plan, as long as things remain stable and improved, would be to follow him up as an outpatient and repeat a CT scan of the abdomen in 4 to 6 weeks to be sure the area around the pancreas has normalized. I advised him I will most likely refer him for an endoscopic ultrasound of the pancreas at [facility] as well. I did advise him to continue his fenofibrate, a low-fat diet, and complete avoidance of alcohol. He was comfortable with that plan. Thank you for the consultation. MD ALEX Fallon/DONALD / [phone] DARRYL
--- NOTE | 2024-10-30 14:35 | HO.PM.IMPN ---
Subjective Subjective Date of Service: 10/30/24 Interval History: Feeling better less abdominal pain, no nausea, no vomiting, no fevers, no chills, no other acute events overnight. Review of Systems All other system reviewed and are negative. Physical Exam Vital Signs: Vital Signs: Last Vital Signs Temp 97.9 F 10/30/24 07:01 Pulse 68 10/30/24 07:01 Resp 14 10/30/24 07:01 BP 127/76 10/30/24 07:01 Pulse Ox 95 10/30/24 07:01 O2 Del Method Room Air 10/30/24 07:01 BMI result Body Mass Index 28.8 Const: Other: General resting comfortably in mild distress due to acute pain Anicteric sclera Neck no JVD. CVS regular rate rhythm, Respiratory lungs clear to auscultation, no respiratory distress, no wheeze, no rhonchi. Gastrointestinal abdomen soft, mild epigastric tenderness, no distention, bowel sounds audible, no guarding , no rigidity. Extremities no edema. Neuro non focal Skin no rash Psych appropriate affect Objective Data Active Medications Acetaminophen (Acetaminophen 325 Mg Tablet) 650 mg PO Q6H PRN PRN Reason: Pain, Mild 1-3,fever,headache Buprenorphine/Naloxone (Buprenorphine/Naloxone 4/1 Mg Film) 1.5 film SUBLINGUAL DAILY [facility] Last Admin: 10/30/24 08:58 Dose: 1.5 film Documented By: ROGERS Calcium Carbonate (Calcium Carbonate 750 Mg Tab.Chew) 750 mg PO Q4H PRN PRN Reason: Heartburn Clonidine HCl (Clonidine Hcl 0.1 Mg Tablet) 0.3 mg PO BEDTIME PRN; Protocol PRN Reason: Sleep Last Admin: 10/29/24 21:48 Dose: 0.3 mg Documented By: CASTILFelton Fenofibrate (Fenofibrate 160 Mg Tablet) 160 mg PO DAILY [facility] Last Admin: 10/30/24 09:00 Dose: 160 mg Documented By: ROGERS Hydromorphone HCl (Hydromorphone Hcl 0.5 Mg/0.5 Ml Syringe) 0.5 mg IVPUSH Q4H PRN; Protocol PRN Reason: Pain, Moderate(Pain Scale 4-6) Last Admin: 10/30/24 10:50 Dose: 0.5 mg Documented By: ROGERS Hydromorphone HCl (Hydromorphone Hcl 1 Mg/Ml Syringe) 1 mg IVPUSH Q4H PRN; Protocol PRN Reason: Pain, Severe (Pain Scale 7-10) Last Admin: 10/30/24 14:12 Dose: 1 mg Documented By: ROGERS Lactated Ringer's (Lr) 1,000 mls @ 125 mls/hr IVCONT .Q8H [facility] Last Admin: 10/30/24 12:53 Dose: 125 mls/hr Documented By: ROGERS Magnesium Hydroxide (Milk Of Magnesia 30 Ml Oral.Susp) 30 ml PO DAILY PRN PRN Reason: Constipation Melatonin (Melatonin 3 Mg Tablet) 6 mg PO BEDTIME PRN PRN Reason: Insomnia Ondansetron HCl (Ondansetron Hcl 4 Mg/2 Ml Vial) 4 mg IVPUSH Q8H PRN PRN Reason: Nausea and Vomiting Oxycodone HCl (Oxycodone Hcl Immed Release 5 Mg Tablet) 5 mg PO Q6H PRN PRN Reason: Pain, Moderate(Pain Scale 4-6) Last Admin: 10/30/24 12:15 Dose: 5 mg Documented By: EDGAR Sertraline HCl (Sertraline Hcl 100 Mg Tablet) 200 mg PO DAILY [facility] Last Admin: 10/30/24 09:00 Dose: 200 mg Documented By: ROGERS Sodium Chloride (0.9 % Sodium Chloride Flush 3 Ml Syringe) 3 ml IVFLUSH QSHIFT [facility] Last Admin: 10/30/24 09:00 Dose: Not Given Documented By: ROGERS Non-Admin Reason: IV Running Labs 10/30/24 06:28 10/30/24 06:27 Labs: Laboratory Results - last 24 hr 10/29/24 10/30/24 10/30/24 16:29 06:27 06:28 MCV 80.1 MCH 26.8 L MCHC 33.4 RDW 13.1 Plt Count 213 MPV 9.7 Absolute Nucleated RBC 0.000 Nucleated RBC % (auto) 0.0 Anion Gap 11 L Estim Creat Clear Calc 118.1 Estimated GFR > 60 Random Glucose 127 H Estimat Average Glucose 134 Hemoglobin A1c % 6.3 H Calcium 9.0 D Triglycerides 164 H Cholesterol 147 LDL Cholesterol, Calc 74 HDL Cholesterol 41 Lipase 299 H Urine Color Yellow Urine Appearance Clear Urine pH 6.0 Ur Specific [place] >= 1.030 H Urine Protein Negative Urine Glucose (UA) >=1000 H Urine Ketones 15 Urine Blood Negative Urine Nitrite Negative Ur Leukocyte Esterase Negative Urine RBC 0-2 Urine WBC 6-10 Urine WBC Clumps Present Ur Squamous Epith Cells 0-2 Urine Bacteria None Seen Hyaline Casts 0-2 Urine Opiates Screen POSITIVE H Ur Buprenorphine Scrn Positive H Ur Oxycodone Screen Not Detected Urine Methadone Screen Not Detected Urine Fentanyl Screen Not Detected Ur Barbiturates Screen Not Detected Ur Phencyclidine Scrn Not Detected Ur Amphetamines Screen Not Detected U Benzodiazepines Scrn POSITIVE H Urine Cocaine Screen Not Detected U Marijuana (THC) Screen Not Detected Microbiology Microbiology Results: Microbiology 10/29/24 Unknown Urine Culture - Preliminary Urine clean catch - Clean Catch Midstream Culture in progress. Assessment and Plan (1) Acute pancreatitis: Status: Acute (2) Diabetes: Status: Acute Plan 54M PMH hypertriglyceridemia, depression, diabetes, opiate dependence presented with abdominal pain and nausea Acute recurrent pancreatitis Question etiology denies use of alcohol, normal LFTs, prior workup for autoimmune pancreatitis negative, nl triglyceride level, has prior history of hypertriglyceridemia currently on fenofibrate Continue IV fluids, IV Dilaudid and oxycodone for pain Advanced to full liquid diet Monitor BMP, CBC Seen by GI they will refer him to [facility] for EUS of the pancreas Opiate dependence On Suboxone Depression Continue Zoloft, and clonidine as needed Pre Diabetes hemoglobin A1c 6.3, recommend to follow diabetic diet Hypertriglyceridemia Continue fenofibrate DVT prophylaxis with Lovenox Full Code Patient will require continued inpatient hospitalization for treatment recurrent pancreatitis requiring IV fluids and IV analgesics. Quality Stroke Does the patient have a stroke diagnosis?: No VTE Prior VTE?: No VTE Risk Level:: Medical - moderate - high VTE Device Contraindication: Treatment Not Indicated VTE Drug Contraindication: N/A - Med Ordered
[2024-10-30 15:32] VITALS: BP 130/62; PULSE 69; RESP 18; TEMP 36.3; O2SAT 97
[2024-10-30 19:22] VITALS: BP 113/59; PULSE 66; RESP 16; TEMP 36.9; O2SAT 96
[2024-10-30 20:54] VITALS: BP 122/70
[2024-10-30] MEDS: cloNIDine HCL 0.1 MG TABLET 0.3 MG PO (20:54)
[2024-10-30] MEDS: Acetaminophen 325 MG TABLET 650 MG PO (20:57)
[2024-10-30 23:24] VITALS: RESP 17
[2024-10-31] MEDS: oxyCODONE HCl Immed Release 5 MG TABLET PO ×2 (02:18→08:26)
[2024-10-31 03:33] VITALS: BP 97/56; PULSE 56; RESP 16; TEMP 36; O2SAT 94
[2024-10-31] MEDS: Lactated Ringers 1,000 ML 125 ML IVCONT (05:03)
[2024-10-31 05:30] VITALS: RESP 17
[2024-10-31] MEDS: HYDROmorphone HCl 0.5 MG/0.5 ML SYRINGE IVPUSH (05:30)
[2024-10-31 06:29] LABS: Alanine Aminotransferase 11 U/L (0-40); Albumin Level 3.4 g/dL (3.5-5.0); Alkaline Phosphatase 32 U/L (39-117); Anion Gap 9 (12-20); Aspartate Amino Transferase 20 U/L (5-37); Bilirubin Direct 0.1 mg/dL (0.0-0.5); Bilirubin Total 0.3 mg/dL (0.0-1.0); Blood Urea Nitrogen 10 mg/dL (9-16); Calcium 8.8 mg/dL (8.4-10.2); Carbon Dioxide 27 mmol/L (22-29); Chloride 110 mmol/L (96-108); Creatinine Clr Calc Pharmacy 114.1; Estimated Glomerular Filt Rate > 60; Glucose Random 120 mg/dL (60-115); Lipase 67 U/L (8-78); Potassium 3.8 mmol/L (3.3-5.1); Sodium 142 mmol/L (135-145); Total Protein 5.8 g/dL (6.5-8.0)
[2024-10-31 07:11] VITALS: BP 94/53; PULSE 54; RESP 14; TEMP 36.4; O2SAT 96
[2024-10-31 07:52] VITALS: BP 108/59; PULSE 65
[2024-10-31] MEDS: Fenofibrate 160 MG TABLET PO (07:54)
[2024-10-31] MEDS: Sertraline HCL 100 MG TABLET 200 MG PO (07:54)
[2024-10-31] MEDS: Buprenorphine/Naloxone 4/1 mg FILM 1.5 FILM SUBLINGUAL (07:55)
[2024-10-31] MEDS: 0.9 % Sodium Chloride Flush 3 ML SYRINGE IVFLUSH (07:56)
--- NOTE | 2024-10-31 09:37 | P.DS_ITS ---
DS: Providers Provider Date of Service: 10/31/24 Date of admission: 10/29/24 13:44 Date of discharge: 10/31/24 Primary care physician: Gasper Coker MD Consults: 10/29/24 15:30 Consult to Gastroenterology Routine Consulting Provider: Jhon Eisenberg Reason for consultation: recurrent pancreatitis Has provider been notified: No DS: Diagnosis Discharge Diagnosis (1) Acute pancreatitis: Status: Acute (2) Diabetes: Status: Acute DS: Summary Hospital Course Hospital Course: History of presenting illness: Date of Service: 10/29/24 Chief Complaint: Abdominal pain. 54-year-old male with past medical history significant for recurrent pancreatitis, history of hypertriglyceridemia, depression, opiate dependence on Suboxone, status post cholecystectomy presented to ED today due to symptoms of abdominal pain, patient woke up at 04:00 with abdominal pain and nausea at 06:00 pain was worse , he denies outside food, no abdominal trauma, no recent URI symptoms, denies alcohol intake, had last episode of pancreatitis in February at that time he admitted of taking few beers at [place], but now he is adamant that he has had no alcohol and is a recovering alcoholic, in 2020 patient had an episode of pancreatitis and no cause was found, his IgG subtypes were negative in regard to autoimmune pancreatitis in the past, workup in ED showed normal electrolytes and CBC, CT abdomen and pelvis suggestive of acute pancreatitis, 1.8 cm soft tissue focus anterior to the pancreas may represent residual phlegmonous changes from February, enlarged lymph nodes or soft tissue lesion not excluded, LFTs unremarkable, lipase 372 patient treated in the emergency room with IV fluids, Analgesics and now being admitted for continued monitoring and treatment of acute pancreatitis. Hospital course: 54M PMH hypertriglyceridemia, depression, diabetes, opiate dependence presented with abdominal pain and nausea and admitted with a diagnosis of Acute recurrent pancreatitis of unknown etiology, has had 2 previous episodes of pancreatitis, one episode was attributed to use of alcohol, otherwise abnormal LFTs, triglycerides 167 , CT negative for any biliary disease, previous MRCP did not show any pancreatic ductal disease, negative autoimmune pancreatitis workup in the past, treated with IV fluids, analgesics, diet was gradually advanced, lipas e normalized, currently tolerating low-fat diet, was evaluated by Dr. Eisenberg he recommend outpatient endoscopic ultrasound of the pancreas at [facility] for further evaluation, will discharge patient home on low-fat diet strongly recommend to abstain from alcohol and continue fenofibrate . Opiate dependence continue Suboxone Depression Continue Zoloft, and clonidine as needed Pre Diabetes hemoglobin A1c 6.3, recommend to follow diabetic diet and home medications Hypertriglyceridemia Continue fenofibrate, triglyceride level of 164 Time Attestation Discharge Coordination Time (in mins): 38 Quality: Safe Use of Opioids Does Pt have an Active Cancer Diagnosis on the Problem List?: No Quality: Stroke Does the patient have a stroke diagnosis?: No Physical Exam Vital Signs: Vital Signs: Last Vital Signs Temp 97.6 F 10/31/24 07:11 Pulse 65 10/31/24 07:52 Resp 14 10/31/24 07:11 BP 108/59 L 10/31/24 07:52 Pulse Ox 96 10/31/24 07:11 O2 Del Method Room Air 10/31/24 07:11 BMI result Body Mass Index 28.8 Const: Other: General resting comfortably , in no acute distress Anicteric sclera Neck no JVD. CVS regular rate rhythm, Respiratory lungs clear to auscultation, no respiratory distress, no wheeze, no rhonchi. Gastrointestinal abdomen soft, no distention, bowel sounds audible, no guarding , no rigidity. Extremities no edema. Neuro non focal Skin no rash Psych appropriate affect DS: Data Data Completed and Pending Completed studies during hospitalization [Text1]: Procedures Dilation of Common Bile Duct with Intraluminal Device, Via Natural or Artificial Opening Endoscopic (09/13/20) Labs on day of discharge: Laboratory Results - last 24 hr 10/31/24 05:42 Sodium 142 Potassium 3.8 Chloride 110 H Carbon Dioxide 27 Anion Gap 9 L BUN 10 Creatinine 0.90 Estim Creat Clear Calc 114.1 Estimated GFR > 60 Random Glucose 120 H Calcium 8.8 Total Bilirubin 0.3 Direct Bilirubin 0.1 AST 20 ALT 11 Alkaline Phosphatase 32 L Total Protein 5.8 L Albumin 3.4 L Lipase 67 Discharge Plan Discharge Anticipated Discharge Date/Time: 10/31/24 07:55 Patient Disposition: Home, Self-Care Discharge Diagnosis: Acute recurrent pancreatitis Referrals: Gasper Coker MD [Primary Care Provider] - 1 Week Discharge Medications: Continued clonidine HCl 0.3 mg tablet 0.3 mg PO BEDTIME PRN (Reason: Sleep) sertraline 100 mg tablet 200 mg PO DAILY hydroxyzine HCl 25 mg tablet 25 mg PO TID PRN (Reason: pain) fenofibrate 160 mg tablet 160 mg PO DAILY buprenorphine-naloxone 4-1 mg film 1.5 film sublingual DAILY Synjardy 12.5-1,000 mg tablet 1 tab PO BID Discharge Orders: Discharge Order (Routine); Ordered 10/31/24 Ordered By: Kamran Beth Diet: Low fat, low cholesterol Activity on Discharge: As tolerated Stand Alone Forms: Patient Portal Discharge page Print Language: Malian Care Plan Goals: Acute recurrent pancreatitis resolved follow low-fat diet complete abstinence from alcohol Health Concerns: Follow diabetic diet continue all home medications as before. Plan of Treatment: Outpatient follow-up with Dr. Eisenberg Outpatient follow-up with primary care physician call for appointment Assessment: As above
--- NOTE | 2024-10-31 09:53 | MHC.CM.PN ---
PATIENT IS DC HOME - SELF CARE. PER REVIEW OF NOTES, PATIENT HAS TRANSPORT HOME. RN AWARE OF PLAN.
== END 2024-10-31 11:18 | disposition home or self-care (01) | DRG 439 ==
LOC: HO.ED 12:15 → HO.EDOVER 13:48 → HO.S3 15:25
PROVIDERS: Admitting Provider Hospitalist; Emergency Provider Emergency Medicine Emergency Medical Services; PCP Internal Medicine; Visit Provider Hospitalist
DX: K85.90 Acute pancreatitis without necrosis or infection, unspecified (principal); F11.20 Opioid dependence, uncomplicated; Z23 Encounter for immunization; R73.03 Prediabetes; E78.1 Pure hyperglyceridemia; Z79.899 Other long term (current) drug therapy
CPT/HCPCS: 36415; 74177; 80048; 80053; 80061; 80076; 80307; 81001; 82248; 83036; 83690; 85025; 85027; 87086; 90656; 93005; 99285; J1171; J1885; J2405; J7120; Q9967

== ENCOUNTER → 2024-10-29 08:09 | Outpatient (BNV) | payer OTHER, SELFPAY | PROVIDERS: Admitting Provider Hospitalist; Emergency Provider Emergency Medicine Emergency Medical Services; Visit Provider Internal Medicine | DX: R10.10 Upper abdominal pain, unspecified (principal) | CPT/HCPCS: 93010 ==

== ENCOUNTER → 2024-10-29 13:44 | Outpatient (BNV) | payer OTHER, SELFPAY | PROVIDERS: Admitting Provider Hospitalist; Emergency Provider Emergency Medicine Emergency Medical Services; Visit Provider Hospitalist | DX: K85.90 Acute pancreatitis without necrosis or infection, unspecified (principal); E11.9 Type 2 diabetes mellitus without complications | CPT/HCPCS: 99232; 99239 ==

== ENCOUNTER 2024-12-21 08:27 | Inpatient (IN) | payer OTHER, SELFPAY ==
[2024-12-21] VITALS (8 sets, daily range): BP systolic 144–173; BP diastolic 72–108; PULSE 63–95; RESP 16–24; TEMP 36.4–38.2; O2SAT 93–100; BMI 30.4
--- NOTE | ~2024-12-21 | CT_ITS ---
CLINICAL HISTORY: pancreatitis CT abdomen and pelvis with contrast Comparison: CT - CT ABDOMEN PELVIS W IV CON - 12/21/24 10:[address]/SC/SR - CT ABDOMEN PELVIS W IV CON - 10/29/24 09:23 EST Findings: No consolidation or effusion. There is prominent abnormal stranding about the pancreas. There is no pancreatic gas or drainable fluid collection. The splenic vein is well opacified. The gallbladder is surgically absent. The liver, spleen, adrenal glands, kidneys, ureters and bladder demonstrate no acute process. No bowel obstruction or free air. Normal appendix. The bladder is distended. No acute osseous finding. Impression: Findings are consistent with acute pancreatitis. There is no evidence of gas within the pancreatic bed. There is no drainable fluid collection. This document has been electronically signed by: Aldair Martinez MD on 12/21/2024 12:10:39
--- NOTE | 2024-12-21 08:30 | ED_ITS ---
HPI - General Adult General Chief complaint: Abdominal Pain Stated complaint: ABD PAIN VOMITING Time Seen by Provider: 12/21/24 08:30 History of Present Illness ED Provider: Shanta CHRISTOPHER narrative: The patient is a 54-year-old male with a history of pancreatitis. He says that he began to experience pain early this morning similar to his previous episodes of pancreatitis. He was in severe pain and called an ambulance. There has been very nauseated and has been retching. No definite fever. He says the pain began at around 05:00 this morning. He says that he used to drink alcohol but he has not had alcohol for several years. He cannot think of any dietary indiscretions which may have triggered this event. Related Data Home Medications ?Medication ?Instructions ?Recorded ?Confirmed buprenorphine 4 mg-naloxone 1 mg 1.5 film sublingual DAILY 03/06/24 10/29/24 sublingual film clonidine HCl 0.3 mg tablet 0.3 mg PO BEDTIME PRN Sleep 03/06/24 10/29/24 empagliflozin 12.5 mg-metformin 1 tab PO BID 03/06/24 10/29/24 1,000 mg tablet (Synjardy) fenofibrate 160 mg tablet 160 mg PO DAILY 03/06/24 10/29/24 hydroxyzine HCl 25 mg tablet 25 mg PO TID PRN pain 03/06/24 10/29/24 sertraline 100 mg tablet 200 mg PO DAILY 03/06/24 10/29/24 Previous Rx's ?Medication ?Instructions ?Recorded oxycodone 5 mg tablet 5 mg PO Q6H PRN Pain, 10/31/24 Moderate(Pain Scale 4-6) #12 tabs Allergies Allergy/AdvReac Type Severity Reaction Status Date / Time No Known Allergies Allergy Verified 12/21/24 08:38 [No Known Allergies*] PMFSH Past Medical History Medical History Difficult airway for intubation Hx of opioid abuse History of COVID-19 Depression Diabetes Pancreatitis Elevated triglycerides with high cholesterol Anxiety Surgical History Hx of hemorrhoidectomy History of ERCP History of cholecystectomy Social History Social History Household Members: Spouse and Children Household Members Other:: adult daughters Housing: House Do you presently have visiting nurse or other home services: No Alcohol intake: former Comment: sleeping Patient Tobacco Use Status: Former Tobacco user Tobacco use type: Cigarette Second Hand Smoke Exposure: No Substance Use Type: Marijuana Advance Directives: Yes Advance Directives on File: Yes Advance Directives Date on File: 11/01/24 service: No Current occupational status: employed Physical Exam ED Vital Signs: Vital Signs - 24 hr 12/21/24 08:36 12/21/24 10:02 12/21/24 12:28 Temperature 97.8 F 97.6 F Pulse Rate 63 68 71 Respiratory Rate 24 H 16 16 Blood Pressure 144/108 H 148/75 H 160/92 H Pulse Oximetry 100 97 99 Oxygen Delivery Method Room Air Room Air Room Air BMI result Body Mass Index 30.4 Const Other: The patient was awake, screaming, and retching. He seemed distracted by discomfort. HENMT Other: Face was symmetrical. Mucous membranes not obviously dry. Eyes Other: No scleral icterus General: appearance normal, both eyes and all related structures Neck Neck: Yes full ROM Resp Effort & Inspection: normal respiratory effort Auscultation: clear to auscultation bilaterally Cardio Rate: regular rate Rhythm: regular rhythm Heart sounds: S1 normal heart sound present and S2 normal heart sound present GI Other: The patient is tender in the epigastrium with voluntary guarding. Skin Other: Skin is pale and dry Neuro Other: The patient was awake and screaming in pain. No obvious facial asymmetry. Moving extremities symmetrically. Extrem Other: No peripheral edema Medications Administered Discontinued Medications Generic Name Dose Route Start Last Admin Trade Name Miranda PRN Reason Stop Dose Admin Diphenhydramine HCl 50 mg 12/21/24 08:32 12/21/24 08:42 Diphenhydramine Hcl 50 Mg/Ml Vial IVPUSH 12/21/24 08:33 50 mg ONCE ONE Administration Haloperidol Lactate 5 mg 12/21/24 08:32 12/21/24 08:43 Haloperidol Lactate 5 Mg/Ml Vial IVPUSH 12/21/24 08:33 5 mg STAT STA Administration Hydromorphone HCl 1 mg 12/21/24 08:32 12/21/24 08:44 Hydromorphone Hcl 1 Mg/Ml Syringe IVPUSH 12/21/24 08:33 1 mg ONCE ONE Administration Protocol Sodium Chloride 1,000 mls @ 999 mls/hr 12/21/24 08:45 12/21/24 09:50 Ns IV 12/21/24 09:45 Infused .Q1H1M ALIYA Infusion Iohexol 85 ml 12/21/24 10:58 12/21/24 10:59 Iohexol 350 Mg/Ml 100 Ml Infus..Btl IV 12/21/24 10:59 85 ml ONCE ONE Administration Lorazepam 2 mg 12/21/24 08:53 12/21/24 08:56 Lorazepam 2 Mg/Ml Vial IVPUSH 12/21/24 08:54 2 mg ONCE ONE Administration Medical Decision Making Medical Decision Making MDM Narrative: The patient arrived by ambulance in apparent agony. He was distracted by discomfort. He has a history of recurrent pancreatitis. He was treated right away with IV haloperidol, IV diphenhydramine, and IV hydromorphone. This did not seem to require his screams and so he was also given 2 mg of IV lorazepam. Eventually who was calm. Labs showed an elevated lipase. The patient was sent for a CT scan which shows findings consistent with uncomplicated pancreatitis. The patient will be admitted to the hospitalist service for ongoing care. Lab Data 12/21/24 08:43 12/21/24 08:43 Labs: Lab Results 12/21/24 12/21/24 Range/Units 08:43 08:50 WBC 11.6 H (4.8-10.8) X10*3/uL RBC 5.83 H (4.60-5.80) X10*6/uL Hgb 15.6 (14.0-18.0) g/dl Hct 47.0 (42.0-52.0) % MCV 80.6 (80.0-98.0) fL MCH 26.8 L (27.0-33.0) pg MCHC 33.2 (31.0-36.0) g/dl RDW 13.0 (11.0-16.0) % Plt Count 340 D (160-400) X10*3/uL MPV 9.3 L (9.4-12.4) fL Immature Gran % (Auto) 1.0 H (0.0-0.4) % Neut % (Auto) 52.9 (45-73) % Lymph % (Auto) 37.1 (20-40) % [place] % (Auto) 5.1 (2-11) % Eos % (Auto) 2.4 (0-4) % Baso % (Auto) 1.5 (0-2) % Lymph # (Auto) 4.3 (1.2-4.9) X10*3/uL [place] # (Auto) 0.6 (0.1-1.2) X10*3/uL Eos # (Auto) 0.3 (0.0-0.4) X10*3/uL Baso # (Auto) 0.2 (0.0-0.2) X10*3/uL Abs Immat Gran (auto) 0.12 H (0.00-0.03) X10*3/uL Absolute Neuts (auto) 6.2 (2.0-8.3) x10*3/uL Absolute Nucleated RBC 0.000 (0.0-0.012) X10*3/uL Nucleated RBC % (auto) 0.0 (0.0-0.2) /100WBC PT 11.9 (10.9-12.4) SEC INR 1.0 (0.9-1.1) VBG pH 7.43 (7.32-7.43) VBG pCO2 36 mmHg VBG pO2 26 mmHg VBG HCO3 24 (22-26) mmol/L VBG O2 Saturation 39.0 % VBG Base Excess 0.6 mmol/L Sodium 141 (135-145) mmol/L Potassium 3.4 (3.3-5.1) mmol/L Chloride 106 (96-108) mmol/L Carbon Dioxide 22 (22-29) mmol/L Anion Gap 16 (12-20) BUN 19 H (9-16) mg/dL Creatinine 0.94 (0.5-1.4) mg/dL Estim Creat Clear Calc 99.4 Estimated GFR > 60 Random Glucose 206 H (60-115) mg/dL Calcium 10.0 D (8.4-10.2) mg/dL Magnesium 1.8 (1.6-2.6) mg/dL Total Bilirubin 0.4 (0.0-1.0) mg/dL Direct Bilirubin 0.1 (0.0-0.5) mg/dL AST 26 (5-37) U/L ALT 18 (0-40) U/L Alkaline Phosphatase 47 (39-117) U/L C-Reactive Protein 0.15 (< or = 0.50) mg/dL Total Protein 8.1 H (6.5-8.0) g/dL Albumin 4.8 (3.5-5.0) g/dL Lipase 605 H (8-78) U/L Ethyl Alcohol < 10 mg/dL Influenza Type A (PCR) NEGATIVE (Negative) Influenza Type B (PCR) NEGATIVE (Negative) RSV RNA Qual (PCR) NEGATIVE (Negative) SARS-CoV-2 RNA (RT-PCR) NEGATIVE (Negative) Discharge Plan Discharge Clinical Impression: Pancreatitis Patient Disposition: Admitted As Inpatient Prescriptions: No Action clonidine HCl 0.3 mg tablet 0.3 mg PO BEDTIME PRN (Reason: Sleep) sertraline 100 mg tablet 200 mg PO DAILY hydroxyzine HCl 25 mg tablet 25 mg PO TID PRN (Reason: pain) fenofibrate 160 mg tablet 160 mg PO DAILY buprenorphine-naloxone 4-1 mg film 1.5 film sublingual DAILY Synjardy 12.5-1,000 mg tablet 1 tab PO BID oxycodone 5 mg Tablet 5 mg PO Q6H PRN (Reason: Pain, Moderate(Pain Scale 4-6)) Qty: 12 0RF Rx Instructions: Partial Fill upon patient request. Print Language: Portuguese
[2024-12-21] MEDS: diphenhydrAMINE HCL 50 MG/ML VIAL IVPUSH (08:42)
[2024-12-21] MEDS: Haloperidol Lactate 5 MG/ML VIAL IVPUSH (08:43)
[2024-12-21] MEDS: 0.9 % Sodium Chloride 1,000 ML 999 ML IV ×2 (08:43→13:07)
[2024-12-21] MEDS: HYDROmorphone HCl 1 MG/ML SYRINGE IVPUSH ×5 (08:44→22:27)
[2024-12-21 08:49] LABS: MANUAL DIFF FLAG NO
[2024-12-21 08:50] LABS: Basophils Absolute Auto 0.2 X10*3/uL (0.0-0.2); Basophils Percent Auto 1.5 % (0-2); Eosinophils Absolute Auto 0.3 X10*3/uL (0.0-0.4); Eosinophils Percent Auto 2.4 % (0-4); Hemoglobin 15.6 g/dl (14.0-18.0); Imm Gran Abs Auto 0.12 X10*3/uL (0.00-0.03); Lymphocytes Absolute Auto 4.3 X10*3/uL (1.2-4.9); Lymphocytes Percent Auto 37.1 % (20-40); Mean Corpuscular HGB Conc 33.2 g/dl (31.0-36.0); Mean Corpuscular Hemoglobin 26.8 pg (27.0-33.0); Mean Corpuscular Volume 80.6 fL (80.0-98.0); Mean Platelet Volume 9.3 fL (9.4-12.4); Monocytes Absolute Auto 0.6 X10*3/uL (0.1-1.2); Monocytes Percent Auto 5.1 % (2-11); Neutrophils Absolute Auto 6.2 x10*3/uL (2.0-8.3); Neutrophils Percent Auto 52.9 % (45-73); Platelet Count 340 X10*3/uL (160-400); Red Blood Count 5.83 X10*6/uL (4.60-5.80); White Blood Count 11.6 X10*3/uL (4.8-10.8)
[2024-12-21 08:55] LABS: VBG Base Excess 0.6 mmol/L; VBG HCO3 24 mmol/L (22-26); VBG pCO2 36 mmHg; VBG pH 7.43 (7.32-7.43); VBG pO2 26 mmHg
[2024-12-21 08:56] LABS: Prothrombin Time 11.9 SEC (10.9-12.4)
[2024-12-21] MEDS: LORazepam 2 MG/ML VIAL IVPUSH ×2 (08:56→19:45)
[2024-12-21 08:57] LABS: Venous Blood Gas Refer to POC result
[2024-12-21 09:21] LABS: Alanine Aminotransferase 18 U/L (0-40); Albumin Level 4.8 g/dL (3.5-5.0); Alkaline Phosphatase 47 U/L (39-117); Anion Gap 16 (12-20); Aspartate Amino Transferase 26 U/L (5-37); Bilirubin Direct 0.1 mg/dL (0.0-0.5); Bilirubin Total 0.4 mg/dL (0.0-1.0); Blood Urea Nitrogen 19 mg/dL (9-16); C Reactive Protein 0.15 mg/dL (< or = 0.50); Carbon Dioxide 22 mmol/L (22-29); Chloride 106 mmol/L (96-108); Creatinine Clr Calc Pharmacy 99.4; Estimated Glomerular Filt Rate > 60; Ethanol < 10 mg/dL; Glucose Random 206 mg/dL (60-115); Magnesium 1.8 mg/dL (1.6-2.6); Potassium 3.4 mmol/L (3.3-5.1); Sodium 141 mmol/L (135-145); Total Protein 8.1 g/dL (6.5-8.0)
--- OUTSIDE RECORDS SUMMARY | 2024-12-21 09:25 | XMS_ITS | Encounter Summary ---
Author Organization [facility] Address [address] [place] [address] Care Team Providers Care Landcare Facilitator Name Role Phone Unavailable Primary Care Provider Unavailabl e Encounter Details Date Type Department Care Team (Latest Contact Info) Description 10/18/2024 Lab Requisition [facility] - Main Lab [address] [place] [address] Gasper Coker MD [address] [place] [address] Alcohol induced acute pancreatitis without necrosis or infection; Mixed hyperlipidemia; Type 2 diabetes mellitus without complications (CMS/HCC) Social History Tobacco Use Types Packs/Day Years Used Date Smoking Tobacco: Never Assessed Sex and Gender Information Value Date Recorded Sex Assigned at Not on file Gender Identity Not on file Sexual Orientation Not on file documented as of this encounter Plan of Treatment Not on file documented as of this encounter Procedures Procedure Name Priority Date/Time Associated Diagnosis Comments LIPID PANEL WITH REFLEX TO DIRECT LDL Routine 10/18/2024 7:15 AM EST Alcohol induced acute pancreatitis without necrosis or infection Mixed hyperlipidemia Type 2 diabetes mellitus without complications (CMS/HCC) CBC WITH AUTO DIFFERENTIAL Routine 10/18/2024 7:15 AM EST Alcohol induced acute pancreatitis without necrosis or infection Mixed hyperlipidemia Type 2 diabetes mellitus without complications (CMS/HCC) CBC AND DIFFERENTIAL Routine 10/18/2024 7:15 AM EST Alcohol induced acute pancreatitis without necrosis or infection Mixed hyperlipidemia Type 2 diabetes mellitus without complications (CMS/HCC) HEMOGLOBIN A1C Routine 10/18/2024 7:15 AM EST Alcohol induced acute pancreatitis without necrosis or infection Mixed hyperlipidemia Type 2 diabetes mellitus without complications (CMS/HCC) COMPREHENSIVE METABOLIC PANEL Routine 10/18/2024 7:15 AM EST Alcohol induced acute pancreatitis without necrosis or infection Mixed hyperlipidemia Type 2 diabetes mellitus without complications (CMS/HCC) documented in this encounter Results * (ABNORMAL) CBC auto differential (10/18/2024 7:15 AM EST) WBC 6.0 4.8 - 10.8 K/mcL LAB HEMETOLOGY METHOD 10/18/2024 8:10 AM [facility] RBC 5.30 4.50 - 5.50 M/mcL LAB HEMETOLOGY METHOD 10/18/2024 8:10 AM [facility] Hemoglobin 13.9 13.5 - 17.5 g/dL LAB HEMETOLOGY METHOD 10/18/2024 8:10 AM [facility] Hematocrit 44.2 42.0 - 54.0 % LAB HEMETOLOGY METHOD 10/18/2024 8:10 AM [facility] MCV 83.9 79.0 - 98.0 FL LAB HEMETOLOGY METHOD 10/18/2024 8:10 AM [facility] MCH 26.4(L) 27.0 - 32.0 pcg LAB HEMETOLOGY METHOD 10/18/2024 8:10 AM [facility] MCHC 31.4(L) 32.0 - 37.0 g/dL LAB HEMETOLOGY METHOD 10/18/2024 8:10 AM [facility] RDW 13.0 11.0 - 15.0 % LAB HEMETOLOGY METHOD 10/18/2024 8:10 AM [facility] Platelets 233 130 - 400 K/mcL LAB HEMETOLOGY METHOD 10/18/2024 8:10 AM [facility] MPV 10.1 7.0 - 11.0 FL LAB HEMETOLOGY METHOD 10/18/2024 8:10 AM [facility] NRBC 0.0 <1.0 % LAB HEMETOLOGY METHOD 10/18/2024 8:10 AM [facility] NRBC Absolute 0.00 <0.10 K/mcL LAB HEMETOLOGY METHOD 10/18/2024 8:10 AM [facility] Neutrophils Relative 51.4 % LAB HEMETOLOGY METHOD 10/18/2024 8:10 AM [facility] Lymphocytes Relative 34.9 % LAB HEMETOLOGY METHOD 10/18/2024 8:10 AM [facility] Monocytes Relative 7.2 % LAB HEMETOLOGY METHOD 10/18/2024 8:10 AM [facility] Eosinophils Relative 3.8 % LAB HEMETOLOGY METHOD 10/18/2024 8:10 AM [facility] Basophils Relative 2.2 % LAB HEMETOLOGY METHOD 10/18/2024 8:10 AM [facility] Immature Granulocytes Relative 0.5 % LAB HEMETOLOGY METHOD 10/18/2024 8:10 AM [facility] Neutrophils Absolute 3.09 1.50 - 7.00 K/mcL LAB HEMETOLOGY METHOD 10/18/2024 8:10 AM [facility] Lymphocytes Absolute 2.10 1.00 - 5.00 K/mcL LAB HEMETOLOGY METHOD 10/18/2024 8:10 AM [facility] Monocytes Absolute 0.43 0.20 - 1.00 K/mcL LAB HEMETOLOGY METHOD 10/18/2024 8:10 AM [facility] Eosinophils Absolute 0.23 0.00 - 0.50 K/mcL LAB HEMETOLOGY METHOD 10/18/2024 8:10 AM [facility] Basophils Absolute 0.13 0.00 - 0.20 K/mcL LAB HEMETOLOGY METHOD 10/18/2024 8:10 AM [facility] Immature Granulocytes Absolute 0.03 0.00 - 0.03 K/mcL LAB HEMETOLOGY METHOD 10/18/2024 8:10 AM [facility] Blood Venous blood specimen / Unknown 10/18/2024 7:15 AM EST 10/18/2024 7:53 AM EST Gasper Coker MD LAB BLOOD ORDERABLES [facility] [address] [place] [address], * (ABNORMAL) Lipid panel with reflex to direct LDL (10/18/2024 7:15 AM EST) Cholesterol 169 0 - 200 mg/dL LAB CHEMISTRY METHOD 10/18/2024 8:35 AM [facility] Triglycerides 227(H) 0 - 150 mg/dL LAB CHEMISTRY METHOD 10/18/2024 8:35 AM [facility] HDL 46 >=40 mg/dL LAB CHEMISTRY METHOD 10/18/2024 8:35 AM [facility] LDL Calculated 78 0 - 100 mg/dL LAB CHEMISTRY METHOD 10/18/2024 8:35 AM [facility] VLDL Cholesterol Jorden 45.4 mg/dL LAB CHEMISTRY METHOD 10/18/2024 8:35 AM [facility] Non HDL Chol. (LDL+VLDL) 123 <145 mg/dL LAB CHEMISTRY METHOD 10/18/2024 8:35 AM [facility] Chol/HDL Ratio 3.7 0.0 - 4.4 LAB CHEMISTRY METHOD 10/18/2024 8:35 AM [facility] Blood Venous blood specimen / Unknown 10/18/2024 7:15 AM EST 10/18/2024 7:53 AM EST Gasper Coker MD LAB BLOOD ORDERABLES [facility] [address] [place] [address], [place] [phone] * Hemoglobin A1c (10/18/2024 7:15 AM EST) [facility] Hemoglobin A1C 6.3 <6.5 % LAB CHEMISTRY METHOD 10/18/2024 2:17 PM EST [facility] Mean Bld Glu Estim. 134 mg/dL LAB CHEMISTRY METHOD 10/18/2024 2:17 PM [facility] Blood Venous blood specimen / Unknown 10/18/2024 7:15 AM EST 10/18/2024 7:53 AM EST Gasper Coker MD LAB BLOOD ORDERABLES [facility] [address] [place] [address], [place] [phone] * (ABNORMAL) Comprehensive metabolic panel (10/18/2024 7:15 AM EST) [facility] Sodium 140 133 - 145 mmol/L LAB CHEMISTRY METHOD 10/18/2024 8:35 AM [facility] Potassium 3.8 3.5 - 5.5 mmol/L LAB CHEMISTRY METHOD 10/18/2024 8:35 AM [facility] Chloride 106 96 - 110 mmol/L LAB CHEMISTRY METHOD 10/18/2024 8:35 AM [facility] CO2 28 21 - 32 mmol/L LAB CHEMISTRY METHOD 10/18/2024 8:35 AM [facility] Anion Gap 6 3 - 11 LAB CHEMISTRY METHOD 10/18/2024 8:35 AM [facility] Glucose 137(H) 70 - 100 mg/dL LAB CHEMISTRY METHOD 10/18/2024 8:35 AM [facility] BUN 20 5 - 25 mg/dL LAB CHEMISTRY METHOD 10/18/2024 8:35 AM [facility] Creatinine 1.17 0.70 - 1.30 mg/dL LAB CHEMISTRY METHOD 10/18/2024 8:35 AM [facility] eGFR 75 >=60 mL/min/1. 73m2 LAB CHEMISTRY METHOD 10/18/2024 8:35 AM [facility] Comment:Calculation based on the??Chronic Kidney Disease Epidemiology Collaboration (CKD-EPI) equation refit??without adjustment for race. BUN/Creatinine Ratio 17.1 LAB CHEMISTRY METHOD 10/18/2024 8:35 AM [facility] Calcium 9.7 8.5 - 10.5 mg/dL LAB CHEMISTRY METHOD 10/18/2024 8:35 AM [facility] AST (SGOT) 24 10 - 42 unit/L LAB CHEMISTRY METHOD 10/18/2024 8:35 AM [facility] ALT (SGPT) 25 10 - 60 unit/L LAB CHEMISTRY METHOD 10/18/2024 8:35 AM [facility] Alkaline Phosphatase 87 42 - 121 unit/L LAB CHEMISTRY METHOD 10/18/2024 8:35 AM [facility] Total Protein 7.1 6.0 - 8.0 g/dL LAB CHEMISTRY METHOD 10/18/2024 8:35 AM [facility] Albumin 4.2 3.2 - 5.0 g/dL LAB CHEMISTRY METHOD 10/18/2024 8:35 AM [facility] Total Bilirubin 0.3 0.0 - 1.4 mg/dL LAB CHEMISTRY METHOD 10/18/2024 8:35 AM [facility] Blood Venous blood specimen / Unknown 10/18/2024 7:15 AM EST 10/18/2024 7:53 AM EST Gasper Coker MD LAB BLOOD ORDERABLES [facility] [address] [place] [address], documented in this encounter Visit Diagnoses Diagnosis Alcohol induced acute pancreatitis without necrosis or infection Mixed hyperlipidemia Type 2 diabetes mellitus without complications (CMS/HCC) documented in this encounter
--- OUTSIDE RECORDS SUMMARY | 2024-12-21 09:26 | XMS_ITS | Clinical Summary ---
Author Organization [facility] Address [address] [place] [address] Care Team Providers Care Clothing Busheler Name Role Phone Unavailable Primary Care Provider Unavailabl e Source Comments PLEASE NOTE, if this patient is a minor, it may be UNLAWFUL to discuss sensitive information that is contained in these records (such as FAMILY PLANNING, MENTAL HEALTH or SUBSTANCE ABUSE) with the minor patient's parent or other person without the patient's specific authorization.[facility] Immunizations Name Administration Dates Next Due Moderna COVID-19 Vaccine, re d cap blue label, 12+ Primary Series 03/30/2021,03/02/2021 Social History Tobacco Use Types Packs/Day Years Used Date Smoking Tobacco: Never Assessed Social Connections Answer Date Recorded Social Connections and Isolation 0 03/02/2021 Financial Resource Strain Answer Date R ecorded Financial Resource Strain 0 2020 Stress Answer Date Recorded Stress 0 03/02/2021 Physical Activity Answer Date Recorded Physical Activity 0 03/02/2021 Food Insecurity Answer Date Recorded Food 0 03/02/2021 Transportation Needs Answer Date Record ed Transportation 0 03/02/2021 Housing Stability Answer Date Recorded Housing 0 03/02/2021 Safety and Environment Answer Date Esteban rded Safety 0 03/02/2021 Utilities Answer Date Recorded Utilities 0 03/02/2021 Employment Answer Date Recorded Employment 0 03/02/2021 Sex and Gender Information Value Date Recorded Sex Assigned at Not on file Legal Sex Male 6:38 AM PDT Gender Identity Not on file Sexual Orientation Not on file Plan of Treatment Health Maintenance Due Date Last Done Comments Diabetes Screening 1971 Hepatitis C Screening 1971 Lipid Screening 1971 Tobacco Screening 1971 HIV Screening 1986 Annual Preventive Care Visit 1989 Hypertension Screening (#1) 1989 Imm-DTaP/Tdap/Td (1 - Tdap) 1990 Imm-Hepatitis B (1 of 3 - 19 + 3-dose series) 1990 CT Colonography 01/29/2016 Colonoscopy 01/29/2016 Colorectal Cancer Screening 01/29/2016 FIT/gFOBT 01/29/2016 Fecal DNA 01/29/2016 Flexible Sigmoidoscopy 01/29/2016 Imm-Zoster, Recombinant (1 of 2) 2021 Alcohol and Drug Screen 11/13/2023 Depression Annual Screen 11/13/2023 Dmr-VBRHW-24 ( season) 2024 021, 03/02/2021 Imm-Influenza (#1) 2024 08/08/2016 Insurance [facility] Member Subscriber Plan / Payer (Ef fective 2021-Present) Name:Ezequiel Fields Relation to Subscriber:Self Name:Ezequiel Fields Payer ID:[id number] Type:Indemnity Address: [facility] [id number] [id number]
--- OUTSIDE RECORDS SUMMARY | 2024-12-21 09:26 | XMS_ITS | Clinical Summary ---
Author Organization [address] [facility] Address [address] [place] [address] Phone Care Team Providers Care Safety Net Maker Name Role Phone Unavailable Primary Care Provider Unavailabl e Encounters Date Type Department Care Team Description 10/18/2024 Lab Requisition [facility] - Main Lab [address] [facility] [place] [address] Gasper Coker MD Alcohol induced acute pancreatitis without necrosis or infection; Mixed hyperlipidemia; Type 2 diabetes mellitus without complications (CMS/HCC) from Last 3 Months Social History Tobacco Use Types Packs/Day Years Used Date Smoking Tobacco: Never Assessed Sex and Gender Information Value Date Recorded Sex Assigned at Not on file Gender Identity Not on file Sexual Orientation Not on file Plan of Treatment Health Maintenance Due Date Last Done Comments Pneumococcal Vaccine: Pediat rics (0 to 5 Years) and At-Risk Patients (6 to 64 Years) (1 of 2 - PCV) 1977 Diabetes: Annual Foot Exam 1981 Diabetes: Annual Retina Eye Exam 1981 DTaP,Tdap,and Td Vaccines (1 - Tdap) 1990 Hepatitis B Vaccines (1 of 3 - 19+ 3-dose series) 1990 Zoster Vaccines (1 of 2) 2021 COVID-19 Vaccine ( - 2023-2 5 season) 2024 Influenza Vaccine (#1) 2024 Colorectal Cancer Screening: Colonoscopy 10/18/2024 Depression Screening 10/18/2024 Diabetes: Annual Urine Albumin-Creatinine Ratio (uACR) 10/18/2024 HIV Screening 10/18/2024 Hepatitis C Screening 10/18/2024 Social Influencers of Health Screening 10/18/2024 Diabetes: Blood Sugar Contro l Test (HGBA1C) 04/18/2025 10/18/2024 Diabetes: Annual GFR (Glomer ular Filtration Rate) 10/18/2025 10/18/2024 Cholesterol Screening (Lipid Panel) 10/18/2029 10/18/2024 HIB Vaccines Aged Out No longer eligi ble based on patient's age to complete this topic HPV Vaccines Aged Out No longer eligi ble based on patient's age to complete this topic Hepatitis A Vaccines Aged Out No long er eligible based on patient's age to complete this topic IPV Vaccines Aged Out No longer eligi ble based on patient's age to complete this topic MMR Vaccines Aged Out No longer eligi ble based on patient's age to complete this topic Meningococcal ACWY Vaccine Aged Out N o longer eligible based on patient's age to complete this topic RSV Immunization Patients Un radha 20 months Aged Out No longer eligible b ased on patient's age to complete this topic Varicella Vaccines Aged Out No longer eligible based on patient's age to complete this topic Procedures Procedure Name Priority Date/Time Associated Diagnosis Comments CBC WITH AUTO DIFFERENTIAL Routine 10/18/2024 7:15 AM EST Alcohol induced acute pancreatitis without necrosis or infection Mixed hyperlipidemia Type 2 diabetes mellitus without complications (CMS/HCC) LIPID PANEL WITH REFLEX TO DIRECT LDL [...] Type 2 diabetes mellitus without complications (CMS/HCC) from Last 3 Months Results * (ABNORMAL) Lipid panel with reflex to direct LDL (10/18/2024 7:15 AM EST) Cholesterol 169 0 - 200 mg/dL LAB CHEMISTRY METHOD 10/18/2024 8:35 AM [facility] Triglycerides 227(H) 0 - 150 mg/dL LAB CHEMISTRY METHOD 10/18/2024 8:35 AM [facility] HDL 46 >=40 mg/dL LAB CHEMISTRY METHOD 10/18/2024 8:35 AM [facility] LDL Calculated 78 0 - 100 mg/dL LAB CHEMISTRY METHOD 10/18/2024 8:35 AM [facility] VLDL Cholesterol Jorden 45.4 mg/dL LAB CHEMISTRY METHOD 10/18/2024 8:35 AM [facility] Non HDL Chol. (LDL+VLDL) 123 <145 mg/dL LAB CHEMISTRY METHOD 10/18/2024 8:35 AM [facility] Chol/HDL Ratio 3.7 0.0 - 4.4 LAB CHEMISTRY METHOD 10/18/2024 8:35 AM [facility] Blood Venous blood specimen / Unknown 10/18/2024 7:15 AM EST 10/18/2024 7:53 AM EST Gasper Coker MD LAB BLOOD ORDERABLES [facility] [address] [place] [address], * (ABNORMAL) CBC auto differential (10/18/2024 7:15 AM EST) WBC 6.0 4.8 - 10.8 K/mcL LAB HEMETOLOGY METHOD 10/18/2024 8:10 AM [facility] RBC 5.30 4.50 - 5.50 M/mcL LAB HEMETOLOGY METHOD 10/18/2024 8:10 AM [facility] Hemoglobin 13.9 13.5 - 17.5 g/dL LAB HEMETOLOGY METHOD 10/18/2024 8:10 AM [facility] Hematocrit 44.2 42.0 - 54.0 % LAB HEMETOLOGY METHOD 10/18/2024 8:10 AM [facility] MCV 83.9 79.0 - 98.0 FL LAB HEMETOLOGY METHOD 10/18/2024 8:10 AM [facility] MCH 26.4(L) 27.0 - 32.0 pcg LAB HEMETOLOGY METHOD 10/18/2024 8:10 AM [facility] MCHC 31.4(L) 32.0 - 37.0 g/dL LAB HEMETOLOGY METHOD 10/18/2024 8:10 AM [facility] RDW 13.0 11.0 - 15.0 % LAB HEMETOLOGY METHOD 10/18/2024 8:10 AM [facility] Platelets 233 130 - 400 K/mcL LAB HEMETOLOGY METHOD 10/18/2024 8:10 AM [facility] MPV 10.1 7.0 - 11.0 FL LAB HEMETOLOGY METHOD 10/18/2024 8:10 AM [facility] NRBC 0.0 <1.0 % LAB HEMETOLOGY METHOD 10/18/2024 8:10 AM [facility] NRBC Absolute 0.00 <0.10 K/mcL LAB HEMETOLOGY METHOD 10/18/2024 8:10 AM [facility] Neutrophils Relative 51.4 % LAB HEMETOLOGY METHOD 10/18/2024 8:10 AM [facility] Lymphocytes Relative 34.9 % LAB HEMETOLOGY METHOD 10/18/2024 8:10 AM [facility] Monocytes Relative 7.2 % LAB HEMETOLOGY METHOD 10/18/2024 8:10 AM [facility] Eosinophils Relative 3.8 % LAB HEMETOLOGY METHOD 10/18/2024 8:10 AM [facility] Basophils Relative 2.2 % LAB HEMETOLOGY METHOD 10/18/2024 8:10 AM EST [facility] Immature Granulocytes Relative 0.5 % LAB HEMETOLOGY METHOD 10/18/2024 8:10 AM EST [facility] Neutrophils Absolute 3.09 1.50 - 7.00 K/mcL LAB HEMETOLOGY METHOD 10/18/2024 8:10 AM EST [facility] Lymphocytes Absolute 2.10 1.00 - 5.00 K/mcL LAB HEMETOLOGY METHOD 10/18/2024 8:10 AM EST [facility] Monocytes Absolute 0.43 0.20 - 1.00 K/mcL LAB HEMETOLOGY METHOD 10/18/2024 8:10 AM [facility] Eosinophils Absolute 0.23 0.00 - 0.50 K/mcL LAB HEMETOLOGY METHOD 10/18/2024 8:10 AM EST [facility] Basophils Absolute 0.13 0.00 - 0.20 K/mcL LAB HEMETOLOGY METHOD 10/18/2024 8:10 AM [facility] Immature Granulocytes Absolute 0.03 0.00 - 0.03 K/mcL LAB HEMETOLOGY METHOD 10/18/2024 8:10 AM [facility] Blood Venous blood specimen / Unknown 10/18/2024 7:15 AM EST 10/18/2024 7:53 AM EST Gasper Coker MD LAB BLOOD ORDERABLES [facility] [address] [place] [address], * Hemoglobin A1c (10/18/2024 7:15 AM EST) Hemoglobin A1C 6.3 <6.5 % LAB CHEMISTRY METHOD 10/18/2024 2:17 PM EST [facility] Mean Bld Glu Estim. 134 mg/dL LAB CHEMISTRY METHOD 10/18/2024 2:17 PM [facility] Blood Venous blood specimen / Unknown 10/18/2024 7:15 AM EST 10/18/2024 7:53 AM EST Gasper Coker MD LAB BLOOD ORDERABLES [facility] [address] [place] [address], * (ABNORMAL) Comprehensive metabolic panel (10/18/2024 7:15 AM EST) Sodium 140 133 - 145 mmol/L LAB CHEMISTRY METHOD 10/18/2024 8:35 AM [facility] Potassium 3.8 3.5 - 5.5 mmol/L LAB CHEMISTRY METHOD 10/18/2024 8:35 AM [facility] Chloride 106 96 - 110 mmol/L LAB CHEMISTRY METHOD 10/18/2024 8:35 AM [facility] CO2 28 21 - 32 mmol/L LAB CHEMISTRY METHOD 10/18/2024 8:35 AM [facility] Anion Gap 6 3 - 11 LAB CHEMISTRY METHOD 10/18/2024 8:35 AM [facility] Glucose 137(H) 70 - 100 mg/dL LAB CHEMISTRY METHOD 10/18/2024 8:35 AM [facility] BUN 20 5 - 25 mg/dL LAB CHEMISTRY METHOD 10/18/2024 8:35 AM [facility] Creatinine 1.17 0.70 - 1.30 mg/dL LAB CHEMISTRY METHOD 10/18/2024 8:35 AM [facility] eGFR 75 >=60 mL/min/1. 73m2 LAB CHEMISTRY METHOD 10/18/2024 8:35 AM [facility] Comment:Calculation based on the??Chronic Kidney Disease Epidemiology Collaboration (CKD-EPI) equation refit??without adjustment for race. BUN/Creatinine Ratio 17.1 LAB CHEMISTRY METHOD 10/18/2024 8:35 AM [facility] Calcium 9.7 8.5 - 10.5 mg/dL LAB CHEMISTRY METHOD 10/18/2024 8:35 AM [facility] AST (SGOT) 24 10 - 42 unit/L LAB CHEMISTRY METHOD 10/18/2024 8:35 AM [facility] ALT (SGPT) 25 10 - 60 unit/L LAB CHEMISTRY METHOD 10/18/2024 8:35 AM [facility] Alkaline Phosphatase 87 42 - 121 unit/L LAB CHEMISTRY METHOD 10/18/2024 8:35 AM [facility] Total Protein 7.1 6.0 - 8.0 g/dL LAB CHEMISTRY METHOD 10/18/2024 8:35 AM [facility] Albumin 4.2 3.2 - 5.0 g/dL LAB CHEMISTRY METHOD 10/18/2024 8:35 AM [facility] Total Bilirubin 0.3 0.0 - 1.4 mg/dL LAB CHEMISTRY METHOD 10/18/2024 8:35 AM [facility] Blood Venous blood specimen / Unknown 10/18/2024 7:15 AM EST 10/18/2024 7:53 AM EST Gasper Coker MD LAB BLOOD ORDERABLES [facility] [address] [place] [address], from Last 3 Months
--- OUTSIDE RECORDS SUMMARY | 2024-12-21 09:26 | XMS_ITS ---
Author Organization [facility] Address [address] [place] [phone] Care Team Providers Care Scheduling Administrator Name Role Phone Gasper Coker Primary Care Provider Jhon Coburn Unavailable [phone] RANDI COX Unavailable Unavailable REASON FOR VISIT CT and labs PROBLEMS Problem Type ICD Code Onset Dates Problem Status W/U Status Risk SNOMED Code Notes Problem Acute pancreatitis without infection or necrosis, unspecified pancreatitis type (K85.90) Active confirmed Acute pancreatitis (477353629) Problem Abnormal CT scan, pancreas or bile duct (R93.2) Active confirmed Abnormal findings diagnostic imaging of liver and biliary tract (731137747) Encounters Encounter Location Date Provider Diagnosis [facility] [address] [place] [phone] 11/01/2024 Jhon Eisenberg Acute pancreatitis without infection or necrosis, unspecified pancreatitis type K85.[address] scan, pancreas or bile duct R93.2 ASSESSMENTS Encounter Date Diagnosis Assessment Notes Treatment Notes Treatment Clinical Notes 11/01/2024 Acute pancreatitis without infection or necrosis, unspecified pancreatitis type (ICD-10 - K85.90) 11/01/[address] scan, pancreas or bile duct (ICD-10 - R93.2) PLAN OF TREATMENT Pending Test Test Name Order Date CHEM 7 PROFILE 11/01/2024 LIVER PROFILE 11/01/2024 CA 19-9 11/01/2024 CT ABD & PELVIS WITH CONTRAST 11/01/2024 Amylase 11/01/2024 Lipase 11/01/2024
--- OUTSIDE RECORDS SUMMARY | 2024-12-21 09:26 | XMS_ITS | Patient Health Record ---
Author Organization [facility] Address [address] [place] [address] Care Team Providers Care Web Editor Name Role Phone Gasper Coker Primary Care Provider Jhon Coburn Unavailable [phone] RANDI COX Unavailable Unavailable ALLERGIES No Known Allergies RESULTS Component Value Reference Range Notes Liver Panel Reviewed date:10/31/2024 10:21:34 AM Interpretation: Performing Lab:[facility], [address] [place] [phone] Notes/Report: Bilirubin Total 0.3 0.0-1.0 mg/dL Bilirubin Direct 0.1 0.0-0.5 mg/dL Aspartate Amino Transferase 20 5-37 U/L Alanine Aminotransferase 11 0-40 U/L Total Protein 5.8 6.5-8.0 g/dL Albumin Level 3.4 3.5-5.0 g/dL Alkaline Phosphatase 32 39-117 U/L Basic Metabolic Panel Reviewed date:10/31/2024 10:21:22 AM Interpretation: Performing Lab:[facility], [address] [place] [phone] Notes/Report: Sodium 142 135-145 mmol/L Potassium 3.8 3.3-5.1 mmol/L Chloride 110 96-108 mmol/L Carbon Dioxide 27 22-29 mmol/L Anion Gap 9 12-20 Blood Urea Nitrogen 10 9-16 mg/dL Creatinine 0.90 0.5-1.4 mg/dL Creatinine Clr Calc Pharmacy 114.1 eGFR (calculated from the MDRD study equation) and eCrCl (calculated from the Cockcroft-Gault equation) are based on different parameters and may not yield comparable results. If eCrCl result is absurd, please check patient's height/weight. Estimated Glomerular Filt Rate > 60 Chronic Kidney Disease: Estimated GFR < 60 mL/min/1.73m2 Severe Kidney Disease: Estimated GFR < 15 mL/min/1.73m2 Glucose Random 120 60-115 mg/dL Calcium 8.8 8.4-10.2 mg/dL Lipase Reviewed date:10/31/2024 10:21:01 AM Interpretation: Performing Lab:[facility], [address] [place] [phone] Notes/Report: Lipase 67 8-78 U/L REASON FOR REFERRAL No Information MEDICATIONS Medication SIG (Take, Route, Frequency, Duration) Notes Start Date End Date Status Dicyclomine HCl 20 MG Oral for 90 Active Multivitamin Active Buprenorphine HCl-Naloxone HCl 4-1 MG Sublingual for 18 Active Sertraline HCl 100 MG Oral for 90 Active hydrOXYzine HCl 25 MG Oral for 30 Active Fenofibrate 160 MG Oral for 90 Active metFORMIN HCl 500 MG Oral for 30 Active IMMUNIZATIONS Vaccine Route Administration Date Status Comme nts Influenza Unknown 09/13/2021 Administered SOCIAL HISTORY Tobacco Use: Social History Observation Description Date Details (start date - stop date) Former Smoker NA - NA Sex Assigned At : Social History Observation Description Sex Assigned At Unknown Tobacco Use/Smoking Question Answer Notes Patient is a former smoker How long has it been since you last smoked? 5-10 years Alcohol Screen Question Answer Notes Did you have a drink containing alcohol in the p ast year? No Points 0 Interpretation Negative PROBLEMS Problem Type ICD Code Onset Dates Problem Status W/U Status Risk SNOMED Code Notes Problem Encounter for screening for malignant neoplasm of colon (Z12.11) Active confirmed 738804439 Problem Family history of colon cancer (Z80.0) Active confirmed 065284452 Problem Idiopathic acute pancreatitis without infection or necrosis (K85.00) Active confirmed 751231753 Problem Irritable bowel syndrome with constipation (K58.1) Active confirmed 474840471 Problem Idiopathic acute pancreatitis without necrosis or infection (K85.00) Active confirmed 362732225 Problem Diverticulosis of colon (K57.30) Active confirmed Diverticulosi s of colon (386214426) Problem Acute pancreatitis without infection or necrosis, unspecified pancreatitis type (K85.90) Active confirmed Acute pancreatitis (419797527) Problem Abnormal CT scan, pancreas or bile duct (R93.2) Active confirmed Abnormal findin diagnostic imaging of liver and biliary tract (585134491) Encounters Encounter Location Date Provider Diagnosis [facility] [address] [place] [phone] 11/01/2024 Jhon Eisenberg Acute pancreatitis without infection or necrosis, unspecified pancreatitis type K85.[address] scan, pancreas or bile duct R93.2 [facility] [address] [place] [phone] 12/03/2024 Jhon Eisenberg ASSESSMENTS Encounter Date Diagnosis Assessment Notes Treatment Notes Treatment Clinical Notes 11/01/[address] scan, pancreas or bile duct (ICD-10 - R93.2) 11/01/2024 Acute pancreatitis without infection or necrosis, unspecified pancreatitis type (ICD-10 - K85.90) PLAN OF TREATMENT Pending Test Test Name Order Date CHEM 7 PROFILE 11/01/2024 BUN 10/14/2021 CREATININE 10/14/2021 LIVER PROFILE 10/14/2021 LIVER PROFILE 11/01/2024 LIPASE 10/14/2021 CA 19-9 11/01/2024 CT ABD & PELVIS WITH CONTRAST 10/24/2021 CT ABD & PELVIS WITH CONTRAST 11/01/2024 MRI ABD W&WO CONTRAST 10/14/2021 Amylase 11/01/2024 Lipase 11/01/2024 Future Test Test Name Order Date COLONOSCOPY 10/14/2021 Insurance Providers Payer Name Payer Address Payer Phone Subscriber Number Group Number Insured Name Patient Relationship to Insured Coverage Start Date Coverage End Date [facility] [address] [place], [place] [id number] LUIS MOSS Self - patient is the insured MEDICAL (GENERAL) HISTORY Medical History History ICD Code NIDDM 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 Did not use any IVDA COVID in 2019 Normal ERCP with sphincterotomy in 10/02 20. Pancreatitis x 2 in 2020 in February and in -- probably due to diet, hypertriglceridemia, and some alcohol. He had previously normal IgG levels. Denies UT,DM,CVA,Lung disease,renal dise ase Depression Hypertriglyceridemia IBS with constipation Surgical History Surgery Date(Month/Year) Cholecystectomy 2017 Hemorrhoidectomy
[2024-12-21 09:29] LABS: Influenza A PCR NEGATIVE (Negative); Influenza B PCR NEGATIVE (Negative); Resp Syncy Virus RNA Qual PCR NEGATIVE (Negative); SARS COV2 PCR INHOUSE NEGATIVE (Negative)
[2024-12-21 09:37] LABS: Lipase 605 U/L (8-78)
[2024-12-21] MEDS: iohexoL 350 MG/ML 100 ML INFUS..BTL 85 ML IV (10:59)
[2024-12-21] MEDS: Lactated Ringers 1,000 ML 125 ML IVCONT ×2 (13:07→21:58)
[2024-12-21] MEDS: Enoxaparin Sodium 40 MG/0.4 ML SYRINGE SUBCUT (13:10)
[2024-12-21 13:12] LABS: Lactate Dehydrogenase 153 U/L (118-273); Triglycerides 203 mg/dL (<150)
--- NOTE | 2024-12-21 13:21 | PM.IMHP ---
History of Present Illness Date of Service: 12/21/24 Chief Complaint: abd pain 54yo M with hx recurrent pancreatitis [he estimates 5 prior episodes including most recently admitted here 10/29-10/31/24], hyperTG, depression, DM2, OUD on Suboxone, hx cholecystectomy, hx AUD but sober for past 1 yr. He woke up today at 5am with severe abd pain and then had non-bloody non-bilious emesis. He is adamant that he has not had alcohol for a year. History of negative autoimmune pancreatitis workup. During the prior admission, he had a 1.8 cm soft tissue focus anterior to the pancreas on CT A/P that was thought to represent residual phlegomonous changes from the penultimate episode of pancreatitis in February 2024. Prior MRCP did not show any pancreatic ductal abnormalities. Dr John Eisenberg from GI was consulted during the last admission and recommended outpatient EUS at [facility] [place]. In the ED, he was screaming in pain and was given haloperidol, hydromorphone, lorazepam, and diphenhydramine. CT A/P showed acute panceatitis but no residual mass. No drainable fluid collection nor any gas, either. Review of Systems Review of Systems: Yes all other systems are reviewed and are negative [facility] Medical History Difficult airway for intubation Hx of opioid abuse History of COVID-19 Depression Diabetes Pancreatitis Elevated triglycerides with high cholesterol Anxiety Surgical History Hx of hemorrhoidectomy History of ERCP History of cholecystectomy Social History Household Members: Spouse and Children Household Members Other:: adult daughters Housing: House Do you presently have visiting nurse or other home services: No Alcohol intake: former Comment: sleeping Patient Tobacco Use Status: Former Tobacco user Tobacco use type: Cigarette Second Hand Smoke Exposure: No Substance Use Type: Marijuana Advance Directives: Yes Advance Directives on File: Yes Advance Directives Date on File: 11/01/24 service: No Current occupational status: employed Meds Allergies Allergy/AdvReac Type Severity Reaction Status Date / Time No Known Allergies Allergy Verified 12/21/24 08:38 [No Known Allergies*] Active Medications: Current Medications Acetaminophen (Acetaminophen 325 Mg Tablet) 650 mg PO Q6H PRN PRN Reason: Pain, Mild 1-3,fever,headache Calcium Carbonate (Calcium Carbonate 750 Mg Tab.Chew) 750 mg PO Q4H PRN PRN Reason: Heartburn Dextrose (Dextrose 50 % 25 Gm/50 Ml Syringe) 25 gm IVPUSH Q15M PRN; Protocol PRN Reason: per Hypoglycemia Standing Ord. Enoxaparin Sodium (Enoxaparin Sodium 40 Mg/0.4 Ml Syringe) [address] [facility] Last Admin: 12/21/24 13:10 Dose: 40 mg Glucose (Glucose Gel 15 Gm Gel..Gram.) 15 gm PO Q15M PRN; Protocol PRN Reason: per Hypoglycemia Standing Ord. Hydromorphone HCl (Hydromorphone Hcl 1 Mg/Ml Syringe) 1 mg IVPUSH Q4H PRN; Protocol PRN Reason: pain, severe Sodium Chloride (Ns) 1,000 mls @ 999 mls/hr IV .Q1H1M [facility] Stop: 12/21/24 14:00 Last Admin: 12/21/24 13:07 Dose: 999 mls/hr Lactated Ringer's (Lr) 1,000 mls @ 125 mls/hr IVCONT .Q8H [facility] Last Admin: 12/21/24 13:07 Dose: 125 mls/hr Insulin Human Lispro (Insulin Lispro 100 Unit/Ml 3 Ml Vial) [address] [facility]; Protocol Magnesium Hydroxide (Milk Of Magnesia 30 Ml Oral.Susp) 30 ml PO DAILY PRN PRN Reason: Constipation Melatonin (Melatonin 3 Mg Tablet) 6 mg PO BEDTIME PRN PRN Reason: Insomnia Ondansetron HCl (Ondansetron Hcl 4 Mg/2 Ml Vial) 4 mg IVPUSH Q4H PRN PRN Reason: Nausea and Vomiting Sodium Chloride (0.9 % Sodium Chloride Flush 3 Ml Syringe) [facility] Medications ?Medication ?Instructions ?Recorded ?Confirmed ?Last Taken ?Type buprenorphine 4 mg-naloxone 1 mg 1.5 film sublingual DAILY 03/06/24 10/29/24 10/28/24 History sublingual film clonidine HCl 0.3 mg tablet 0.3 mg PO BEDTIME PRN Sleep 03/06/24 10/29/24 Unknown History empagliflozin 12.5 mg-metformin 1 tab PO BID 03/06/24 10/29/24 10/28/24 History 1,000 mg tablet (Synjardy) fenofibrate 160 mg tablet 160 mg PO DAILY 03/06/24 10/29/24 10/28/24 History hydroxyzine HCl 25 mg tablet 25 mg PO TID PRN pain 03/06/24 10/29/24 Unknown History sertraline 100 mg tablet 200 mg PO DAILY 03/06/24 10/29/24 10/28/24 History Physical Exam Vital Signs and Narrative: Vital Signs: Last Vital Signs Temp 97.6 F 12/21/24 12:28 Pulse 71 12/21/24 12:28 Resp 16 12/21/24 12:28 BP 160/92 H 12/21/24 12:28 Pulse Ox 99 12/21/24 12:28 O2 Del Method Room Air 12/21/24 12:28 BMI result Body Mass Index 30.4 Gen: in no acute distress HEENT: sclera anicteric, moist mucus membranes Neck: supple Lungs: clear to auscultation bilaterally Heart: regular rate and rhythm, no murmurs Abd: soft, tender around umbilicus, non-distended Ext: no edema Skin: warm/well-perfused Neuro: alert and oriented x3, no focal findings Psych: appropriate affect Results Labs 12/21/24 08:43 12/21/24 08:43 Labs: Laboratory Results - last 24 hr 12/21/24 12/21/24 08:43 08:50 MCV 80.6 MCH 26.8 L MCHC 33.2 RDW 13.0 Plt Count 340 D MPV 9.3 L Immature Gran % (Auto) 1.0 H Neut % (Auto) 52.9 Lymph % (Auto) 37.1 [place] % (Auto) 5.1 Eos % (Auto) 2.4 Baso % (Auto) 1.5 Lymph # (Auto) 4.3 [place] # (Auto) 0.6 Eos # (Auto) 0.3 Baso # (Auto) 0.2 Abs Immat Gran (auto) 0.12 H Absolute Neuts (auto) 6.2 Absolute Nucleated RBC 0.000 Nucleated RBC % (auto) 0.0 PT 11.9 INR 1.0 VBG pH 7.43 VBG pCO2 36 VBG pO2 26 VBG HCO3 24 VBG O2 Saturation 39.0 VBG Base Excess 0.6 Anion Gap 16 Estim Creat Clear Calc 99.4 Estimated GFR > 60 Random Glucose 206 H Calcium 10.0 D Magnesium 1.8 Total Bilirubin 0.4 Direct Bilirubin 0.1 AST 26 ALT 18 Alkaline Phosphatase 47 Lactate Dehydrogenase 153 C-Reactive Protein 0.15 Total Protein 8.1 H Albumin 4.8 Triglycerides 203 H Lipase 605 H Ethyl Alcohol < 10 Influenza Type A (PCR) NEGATIVE Influenza Type B (PCR) NEGATIVE RSV RNA Qual (PCR) NEGATIVE SARS-CoV-2 RNA (RT-PCR) NEGATIVE Imaging Radiologist's Impressions: CT A/P 12/21/24 Findings are consistent with acute pancreatitis. There is no evidence of gas within the pancreatic bed. There is no drainable fluid collection. Assessment and Plan (1) Acute pancreatitis: Status: Acute Plan 54yo M with hx recurrent pancreatitis, hx AUD though sober for past yr, hyperTG, hx cholecystectomy, depression, DM2, OUD on Suboxone presenting with acute abd pain and found to have recurrent acute pancreatitis acute pancreatitis - admit to M/S, NPO, IV LR, prn hydromorphone; pursue outpt GI follow-up for EUS at [facility] [place]; check triglycerides; check phosphatidyl-ethanol hyperTG - fenofibrate OUD - Suboxone mood disorder - clonidine, hydroxyzine, sertraline DM2, recent A1c 6.1 - hold OHGs; give demetrius-dose lispro VTE prophylaxis - enoxaparin dispo - eventual home code status - full I anticipate that the patient will stay at least 2 midnights as an inpatient in the hospital due to the above reasons. It is neither reasonable nor safe to care for them in a less acute setting. Quality Stroke Does the patient have a stroke diagnosis?: No VTE Prior VTE?: No VTE Risk Level:: Medical - moderate - high VTE Device Contraindication: N/A - Device Ordered VTE Drug Contraindication: N/A - Med Ordered
[2024-12-21 14:51] LABS: Appearance Urine Clear; Color Urine Yellow; Glucose Urine UA >=1000 mg/dL (Negative); Leukocyte Esterase Urine Negative (Negative); Nitrite Urine Negative (Negative); Specific Gravity - Urine >= 1.030 (1.005-1.025); UMIC TRIGGER UACC YES; Urine Blood Negative (Negative); Urine Ketones Negative (Negative); Urine Protein Negative (Neg-Trace)
[2024-12-21 14:54] LABS: Bacteria Urine None Seen (None Seen); Hyaline Casts Urine 0-2 /LPF (0-2); RBC Urine 0-2 /HPF (0-2); Squamous Epithelial Cell Urine 0-2 /HPF (0-2); WBC Urine 0-5 /HPF (0-5)
[2024-12-21 15:00] LABS: Amphetamine Screen Urine Not Detected (Not Detect); Barbiturates, Urine Not Detected (Not Detect); Benzodiazepines Screen Urine Not Detected (Not Detect); Buprenorphine Scr Positive (Not Detect); Cannabinoid Screen Urine POSITIVE (Not Detect); Cocaine Screen Urine Not Detected (Not Detect); Fentanyl, urine Not Detected (Not Detect); Methadone Screen, Urine Not Detected (Not Detect); Opiate Screen Urine Not Detected (Not Detect); Oxycodone Screen Urine Not Detected (Not Detect); Phencyclidine Screen Urine Not Detected (Not Detect)
--- NOTE | 2024-12-21 15:38 | PHA.MEDREC ---
Addendum entered by Missy Stewart RPh 12/21/24 15:50: Med rec was reviewed by [facility]. Original Note: Pharmacy Consult ? Medication Reconciliation Pharmacy has completed the medication reconciliation. Spoke to pt to confirm meds.
[2024-12-21] MEDS: hydrOXYzine HCL 25 MG TABLET PO (15:55)
[2024-12-21 16:53] LABS: Glucose, Whole Blood 163 mg/dL (60-115)
[2024-12-21] MEDS: Insulin Lispro 100 UNIT/ML 3 ML VIAL SUBCUT ×2 (16:56→21:12)
[2024-12-21] MEDS: Ketorolac Tromethamine 30 MG/ML VIAL IVPUSH (19:45)
[2024-12-21 21:05] LABS: Glucose, Whole Blood 181 mg/dL (60-115)
[2024-12-21] MEDS: cloNIDine HCL 0.1 MG TABLET 0.3 MG PO (22:26)
[2024-12-21] MEDS: Acetaminophen 325 MG TABLET 650 MG PO (22:26)
[2024-12-22] VITALS (9 sets, daily range): BP systolic 106–172; BP diastolic 58–90; PULSE 76–95; RESP 16–20; TEMP 36.2–37.9; O2SAT 93–99
[2024-12-22] MEDS: HYDROmorphone HCl 1 MG/ML SYRINGE IVPUSH ×3 (02:37→10:18)
[2024-12-22] MEDS: hydrOXYzine HCL 25 MG TABLET PO ×2 (05:32→14:29)
[2024-12-22] MEDS: Lactated Ringers 1,000 ML 125 ML IVCONT ×3 (06:16→21:54)
[2024-12-22 06:44] LABS: Hematocrit 43.1 % (42.0-52.0); Hemoglobin 14.5 g/dl (14.0-18.0); Mean Corpuscular HGB Conc 33.6 g/dl (31.0-36.0); Mean Corpuscular Hemoglobin 26.8 pg (27.0-33.0); Mean Corpuscular Volume 79.7 fL (80.0-98.0); Mean Platelet Volume 9.7 fL (9.4-12.4); Platelet Count 236 X10*3/uL (160-400); Red Blood Count 5.41 X10*6/uL (4.60-5.80); Red Cell Distribution Width 13.1 % (11.0-16.0); White Blood Count 16.3 X10*3/uL (4.8-10.8)
[2024-12-22 07:44] LABS: Glucose, Whole Blood 169 mg/dL (60-115)
[2024-12-22 07:49] LABS: Alanine Aminotransferase 15 U/L (0-40); Alkaline Phosphatase 39 U/L (39-117); Anion Gap 14 (12-20); Aspartate Amino Transferase 27 U/L (5-37); Bilirubin Total 0.7 mg/dL (0.0-1.0); Blood Urea Nitrogen 16 mg/dL (9-16); Carbon Dioxide 20 mmol/L (22-29); Chloride 108 mmol/L (96-108); Creatinine Clr Calc Pharmacy 115.3; Estimated Glomerular Filt Rate > 60; Glucose Random 172 mg/dL (60-115); Magnesium 1.6 mg/dL (1.6-2.6); Potassium 3.7 mmol/L (3.3-5.1); Sodium 138 mmol/L (135-145); Total Protein 6.9 g/dL (6.5-8.0)
[2024-12-22] MEDS: Fenofibrate 160 MG TABLET PO (08:55)
[2024-12-22] MEDS: Sertraline HCL 100 MG TABLET 200 MG PO (08:55)
--- NOTE | 2024-12-22 09:48 | MHC.CM.PN ---
FROM HOME W/ FAMILY. INDEPENDENT. HX ETOH ABUSE - SOBER X1 YR HX VIOLETA - ON SUBOXONE PCP CELSA EUBANKS MD HCP ON FILE AND VERIFIED DP: HOME SELF CARE, FAMILY TRANSPORT. CM WILL CONTINUE TO FOLLOW.
[2024-12-22 11:21] LABS: Glucose, Whole Blood 160 mg/dL (60-115)
--- NOTE | 2024-12-22 12:12 | HO.PM.IMPN ---
Subjective Subjective Date of Service: 12/22/24 Interval History: still c/o severe periumbilical pain no N/V Review of Systems Review of Systems: Yes all other systems are reviewed and are negative Physical Exam Vital Signs: Vital Signs: Last Vital Signs Temp 98.6 F 12/22/24 11:49 Pulse 95 12/22/24 11:49 Resp 18 12/22/24 11:49 BP 168/90 H 12/22/24 11:49 Pulse Ox 99 12/22/24 11:49 O2 Del Method Room Air 12/22/24 11:49 BMI result Body Mass Index 30.4 Gen: in no acute distress HEENT: sclera anicteric, moist mucus membranes Neck: supple Lungs: clear to auscultation bilaterally Heart: regular rate and rhythm, no murmurs Abd: soft, tender around umbilicus, non-distended Ext: no edema Skin: warm/well-perfused Neuro: alert and oriented x3, no focal findings Psych: appropriate affect Objective Data Active Medications Acetaminophen (Acetaminophen 325 Mg Tablet) 650 mg PO Q6H PRN PRN Reason: Pain, Mild 1-3,fever,headache Last Admin: 12/21/24 22:26 Dose: 650 mg Documented By: PARDEEP Buprenorphine/Naloxone (Buprenorphine/Naloxone 4/1 Mg Film) 1.5 film SUBLINGUAL DAILY [facility] Last Admin: 12/22/24 08:57 Dose: Not Given Documented By: GOSIA Non-Admin Reason: Patient Refused Calcium Carbonate (Calcium Carbonate 750 Mg Tab.Chew) 750 mg PO Q4H PRN PRN Reason: Heartburn Clonidine HCl (Clonidine Hcl 0.1 Mg Tablet) 0.3 mg PO BEDTIME PRN; Protocol PRN Reason: Sleep Last Admin: 12/21/24 22:26 Dose: 0.3 mg Documented By: PARDEEP Dextrose (Dextrose 50 % 25 Gm/50 Ml Syringe) 25 gm IVPUSH Q15M PRN; Protocol PRN Reason: per Hypoglycemia Standing Ord. Enoxaparin Sodium (Enoxaparin Sodium 40 Mg/0.4 Ml Syringe) 40 mg SUBCUT Q24H [facility] Last Admin: 12/21/24 13:10 Dose: 40 mg Documented By: SALMATOLC Fenofibrate (Fenofibrate 160 Mg Tablet) 160 mg PO DAILY [facility] Last Admin: 12/22/24 08:55 Dose: 160 mg Documented By: GOSIA Glucose (Glucose Gel 15 Gm Gel..Gram.) 15 gm PO Q15M PRN; Protocol PRN Reason: per Hypoglycemia Standing Ord. Hydromorphone HCl (Hydromorphone Hcl 1 Mg/Ml Syringe) 1 mg IVPUSH Q4H PRN; Protocol PRN Reason: pain, severe Last Admin: 12/22/24 10:18 Dose: 1 mg Documented By: GOSIA Hydroxyzine HCl (Hydroxyzine Hcl 25 Mg Tablet) 25 mg PO TID PRN PRN Reason: Anxiety Last Admin: 12/22/24 05:32 Dose: 25 mg Documented By: PARDEEP Lactated Ringer's (Lr) 1,000 mls @ 125 mls/hr IVCONT .Q8H [facility] Last Admin: 12/22/24 06:16 Dose: 125 mls/hr Documented By: PARDEEP Insulin Human Lispro (Insulin Lispro 100 Unit/Ml 3 Ml Vial) [facility]; Protocol Last Admin: 12/22/24 07:59 Dose: Not Given Documented By: GOSIA Non-Admin Reason: Physician Held Med Magnesium Hydroxide (Milk Of Magnesia 30 Ml Oral.Susp) 30 ml PO DAILY PRN PRN Reason: Constipation Melatonin (Melatonin 3 Mg Tablet) 6 mg PO BEDTIME PRN PRN Reason: Insomnia Ondansetron HCl (Ondansetron Hcl 4 Mg/2 Ml Vial) 4 mg IVPUSH Q4H PRN PRN Reason: Nausea and Vomiting Sertraline HCl (Sertraline Hcl 100 Mg Tablet) 200 mg PO DAILY [facility] Last Admin: 12/22/24 08:55 Dose: 200 mg Documented By: GOSIA Sodium Chloride (0.9 % Sodium Chloride Flush 3 Ml Syringe) 3 ml IVFLUSH QSHIFT [facility] Last Admin: 12/22/24 07:59 Dose: Not Given Documented By: GOSIA Non-Admin Reason: IV Running Labs 12/22/24 06:21 12/22/24 06:20 Labs: Laboratory Results - last 24 hr 12/21/24 12/21/24 12/21/24 08:43 14:39 15:23 MCV MCH MCHC RDW Plt Count MPV Absolute Nucleated RBC Nucleated RBC % (auto) Hold Purple Top SEE NOTE Anion Gap Estim Creat Clear Calc Estimated GFR POC Glucose Random Glucose Calcium Magnesium Total Bilirubin AST ALT Alkaline Phosphatase Lactate Dehydrogenase 153 Total Protein Albumin Triglycerides 203 H Urine Color Yellow Urine Appearance Clear Urine pH 7.0 Ur Specific [place] >= 1.030 H Urine Protein Negative Urine Glucose (UA) >=1000 H Urine Ketones Negative Urine Blood Negative Urine Nitrite Negative Ur Leukocyte Esterase Negative Urine RBC 0-2 Urine WBC 0-5 Ur Squamous Epith Cells 0-2 Urine Bacteria None Seen Hyaline Casts 0-2 Urine Opiates Screen Not Detected Ur Buprenorphine Scrn Positive H Ur Oxycodone Screen Not Detected Urine Methadone Screen Not Detected Urine Fentanyl Screen Not Detected Ur Barbiturates Screen Not Detected Ur Phencyclidine Scrn Not Detected Ur Amphetamines Screen Not Detected U Benzodiazepines Scrn Not Detected Urine Cocaine Screen Not Detected U Marijuana (THC) Screen POSITIVE H 12/21/24 12/21/24 12/22/24 16:48 21:00 06:20 MCV MCH MCHC RDW Plt Count MPV Absolute Nucleated RBC Nucleated RBC % (auto) Hold Purple Top Anion Gap 14 Estim Creat Clear Calc 115.3 Estimated GFR > 60 POC Glucose 163 H 181 H Random Glucose 172 H Calcium 9.0 D Magnesium 1.6 Total Bilirubin 0.7 AST 27 ALT 15 Alkaline Phosphatase 39 Lactate Dehydrogenase Total Protein 6.9 Albumin 4.0 Triglycerides Urine Color Urine Appearance Urine pH Ur Specific [place] Urine Protein Urine Glucose (UA) Urine Ketones Urine Blood Urine Nitrite Ur Leukocyte Esterase Urine RBC Urine WBC Ur Squamous Epith Cells Urine Bacteria Hyaline Casts Urine Opiates Screen Ur Buprenorphine Scrn Ur Oxycodone Screen Urine Methadone Screen Urine Fentanyl Screen Ur Barbiturates Screen Ur Phencyclidine Scrn Ur Amphetamines Screen U Benzodiazepines Scrn Urine Cocaine Screen U Marijuana (THC) Screen 12/22/24 12/22/24 12/22/24 06:21 07:41 11:17 MCV 79.7 L MCH 26.8 L MCHC 33.6 RDW 13.1 Plt Count 236 D MPV 9.7 Absolute Nucleated RBC 0.000 Nucleated RBC % (auto) 0.0 Hold Purple Top Anion Gap Estim Creat Clear Calc Estimated GFR POC Glucose 169 H 160 H Random Glucose Calcium Magnesium Total Bilirubin AST ALT Alkaline Phosphatase Lactate Dehydrogenase Total Protein Albumin Triglycerides Urine Color Urine Appearance Urine pH Ur Specific [place] Urine Protein Urine Glucose (UA) Urine Ketones Urine Blood Urine Nitrite Ur Leukocyte Esterase Urine RBC Urine WBC Ur Squamous Epith Cells Urine Bacteria Hyaline Casts Urine Opiates Screen Ur Buprenorphine Scrn Ur Oxycodone Screen Urine Methadone Screen Urine Fentanyl Screen Ur Barbiturates Screen Ur Phencyclidine Scrn Ur Amphetamines Screen U Benzodiazepines Scrn Urine Cocaine Screen U Marijuana (THC) Screen Assessment and Plan (1) Acute pancreatitis: Status: Acute (2) Diabetes: Status: Acute Plan d2 for 54yo M with hx recurrent pancreatitis, hx AUD though sober for past yr, hyperTG, hx cholecystectomy, depression, DM2, OUD on Suboxone presenting with acute abd pain and found to have recurrent acute pancreatitis acute pancreatitis - continue NPO, IV LR, increase dose of prn hydromorphone; pursue outpt GI follow-up for EUS at [facility]; phosphatidyl-ethanol level pending; triglycerides 203 hyperTG - fenofibrate OUD - Suboxone mood disorder - clonidine, hydroxyzine, sertraline DM2, recent A1c 6.1 - hold oral hypoglycemics; give demetrius-dose lispro VTE prophylaxis - enoxaparin dispo - eventual home In my clinical judgment, the patient requires continued inpatient hospitalization for the following reasons: IV fluids, IV analgesia Total time managing care of this patient today: 35 minutes. Quality Stroke Does the patient have a stroke diagnosis?: No VTE Prior VTE?: No VTE Risk Level:: Medical - moderate - high VTE Device Contraindication: N/A - Device Ordered VTE Drug Contraindication: N/A - Med Ordered
[2024-12-22] MEDS: Enoxaparin Sodium 40 MG/0.4 ML SYRINGE SUBCUT (12:46)
[2024-12-22] MEDS: ondansetron HCL 4 MG/2 ML VIAL IVPUSH (12:46)
[2024-12-22] MEDS: HYDROmorphone HCl 1 MG/ML SYRINGE 1.5 MG IVPUSH ×3 (14:24→22:59)
[2024-12-22] MEDS: 0.9 % Sodium Chloride Flush 3 ML SYRINGE IVFLUSH ×2 (14:27→23:02)
[2024-12-22 16:14] LABS: Glucose, Whole Blood 138 mg/dL (60-115)
[2024-12-22] MEDS: Acetaminophen 325 MG TABLET 650 MG PO (20:39)
[2024-12-22 20:44] LABS: Glucose, Whole Blood 144 mg/dL (60-115)
[2024-12-22] MEDS: cloNIDine HCL 0.1 MG TABLET 0.3 MG PO (21:18)
[2024-12-22] MEDS: Ketorolac Tromethamine 30 MG/ML VIAL IVPUSH (21:50)
[2024-12-23] VITALS (7 sets, daily range): BP systolic 104–130; BP diastolic 50–77; PULSE 78–100; RESP 16–20; TEMP 36.3–37.3; O2SAT 94–96
[2024-12-23] MEDS: HYDROmorphone HCl 1 MG/ML SYRINGE 1.5 MG IVPUSH ×5 (03:29→20:14)
[2024-12-23] MEDS: hydrOXYzine HCL 25 MG TABLET PO ×2 (03:32→12:04)
[2024-12-23] MEDS: Lactated Ringers 1,000 ML 125 ML IVCONT ×3 (05:17→20:45)
[2024-12-23 06:01] LABS: Anion Gap 13 (12-20); Blood Urea Nitrogen 14 mg/dL (9-16); Carbon Dioxide 26 mmol/L (22-29); Chloride 107 mmol/L (96-108); Creatinine Clr Calc Pharmacy 112.5; Estimated Glomerular Filt Rate > 60; Glucose Random 124 mg/dL (60-115); Magnesium 1.7 mg/dL (1.6-2.6); Potassium 3.6 mmol/L (3.3-5.1); Sodium 142 mmol/L (135-145)
[2024-12-23 07:40] LABS: Glucose, Whole Blood 126 mg/dL (60-115)
[2024-12-23] MEDS: 0.9 % Sodium Chloride Flush 3 ML SYRINGE IVFLUSH (07:41)
[2024-12-23] MEDS: Sertraline HCL 100 MG TABLET 200 MG PO (08:30)
[2024-12-23] MEDS: Fenofibrate 160 MG TABLET PO (08:30)
[2024-12-23] MEDS: Buprenorphine/Naloxone 4/1 mg FILM 1.5 FILM SUBLINGUAL (08:30)
[2024-12-23 08:46] LABS: Lipase 143 U/L (8-78)
[2024-12-23] MEDS: ondansetron HCL 4 MG/2 ML VIAL IVPUSH (10:31)
[2024-12-23 11:33] LABS: Glucose, Whole Blood 102 mg/dL (60-115)
--- NOTE | 2024-12-23 11:34 | P.PNIM_ITS ---
Subjective Subjective Date of Service: 12/23/24 Interval History: Being followed for acute pancreatitis Complaining of persistent abdominal pain but improved significantly, persistent mild nausea, no fevers, no chills, no other acute events overnight. Review of Systems All other system reviewed and are negative. Physical Exam 2 Vital Signs: Vital Signs: Last Vital Signs Temp 97.8 F 12/23/24 11:23 Pulse 81 12/23/24 11:23 Resp 16 12/23/24 11:23 BP 122/70 12/23/24 11:23 Pulse Ox 94 12/23/24 11:23 O2 Del Method Room Air 12/23/24 11:23 BMI result Body Mass Index 30.4 Const: Other: Gen: in no acute distress HEENT: sclera anicteric, moist mucus membranes Neck: supple Lungs: clear to auscultation bilaterally Heart: regular rate and rhythm, no murmurs Abd: soft, tender mid abdomen, non-distended, no rebound, no rigidity Ext: no edema Skin: warm/well-perfused Neuro: alert and oriented x3, no focal findings Psych: appropriate affect Objective Data Active Medications Acetaminophen (Acetaminophen 325 Mg Tablet) 650 mg PO Q6H PRN PRN Reason: Pain, Mild 1-3,fever,headache Last Admin: 12/22/24 20:39 Dose: 650 mg Documented By: HAYLEE Buprenorphine/Naloxone (Buprenorphine/Naloxone 4/1 Mg Film) 1.5 film SUBLINGUAL DAILY [facility] Last Admin: 12/23/24 08:30 Dose: 1.5 film Documented By: DAVID Calcium Carbonate (Calcium Carbonate 750 Mg Tab.Chew) 750 mg PO Q4H PRN PRN Reason: Heartburn Clonidine HCl (Clonidine Hcl 0.1 Mg Tablet) 0.3 mg PO BEDTIME PRN; Protocol PRN Reason: Sleep Last Admin: 12/22/24 21:18 Dose: 0.3 mg Documented By: HAYLEE Dextrose (Dextrose 50 % 25 Gm/50 Ml Syringe) 25 gm IVPUSH Q15M PRN; Protocol PRN Reason: per Hypoglycemia Standing Ord. Enoxaparin Sodium (Enoxaparin Sodium 40 Mg/0.4 Ml Syringe) 40 mg SUBCUT Q24H [facility] Last Admin: 12/22/24 12:46 Dose: 40 mg Documented By: CARMEN Fenofibrate (Fenofibrate 160 Mg Tablet) 160 mg PO DAILY [facility] Last Admin: 12/23/24 08:30 Dose: 160 mg Documented By: DAVID Glucose (Glucose Gel 15 Gm Gel..Gram.) 15 gm PO Q15M PRN; Protocol PRN Reason: per Hypoglycemia Standing Ord. Hydromorphone HCl (Hydromorphone Hcl 1 Mg/Ml Syringe) 1.5 mg IVPUSH Q4H PRN; Protocol PRN Reason: pain, severe Last Admin: 12/23/24 07:36 Dose: 1.5 mg Documented By: DAVID Hydroxyzine HCl (Hydroxyzine Hcl 25 Mg Tablet) 25 mg PO TID PRN PRN Reason: Anxiety Last Admin: 12/23/24 03:32 Dose: 25 mg Documented By: HAYLEE Lactated Ringer's (Lr) 1,000 mls @ 125 mls/hr IVCONT .Q8H [facility] Last Admin: 12/23/24 05:17 Dose: 125 mls/hr Documented By: HAYLEE Insulin Human Lispro (Insulin Lispro 100 Unit/Ml 3 Ml Vial) 0 unit SUBCUT QIDACHS [facility]; Protocol Last Admin: 12/23/24 07:42 Dose: Not Given Documented By: DAVID Non-Admin Reason: No Insulin Coverage Magnesium Hydroxide (Milk Of Magnesia 30 Ml Oral.Susp) 30 ml PO DAILY PRN PRN Reason: Constipation Melatonin (Melatonin 3 Mg Tablet) 6 mg PO BEDTIME PRN PRN Reason: Insomnia Ondansetron HCl (Ondansetron Hcl 4 Mg/2 Ml Vial) 4 mg IVPUSH Q4H PRN PRN Reason: Nausea and Vomiting Last Admin: 12/23/24 10:31 Dose: 4 mg Documented By: BUDDY Sertraline HCl (Sertraline Hcl 100 Mg Tablet) 200 mg PO DAILY [facility] Last Admin: 12/23/24 08:30 Dose: 200 mg Documented By: DAVID Sodium Chloride (0.9 % Sodium Chloride Flush 3 Ml Syringe) [facility] Last Admin: 12/23/24 07:41 Dose: 3 ml Documented By: DAVID Labs 12/22/24 06:21 12/23/24 05:15 Labs: Laboratory Results - last 24 hr 12/22/24 12/22/24 12/23/24 16:09 20:34 05:15 Hold Purple Top SEE NOTE Anion Gap 13 Estim Creat Clear Calc 112.5 Estimated GFR > 60 POC Glucose 138 H 144 H Random Glucose 124 H Calcium 9.0 Magnesium 1.7 Lipase 143 H 12/23/24 12/23/24 07:25 11:27 Hold Purple Top Anion Gap Estim Creat Clear Calc Estimated GFR POC Glucose 126 H 102 Random Glucose Calcium Magnesium Lipase Assessment and Plan (1) Acute pancreatitis: Status: Acute (2) Diabetes: Status: Acute Plan 54yo M with hx recurrent pancreatitis, hx AUD though sober for past yr, hyperTG, hx cholecystectomy, depression, DM2, OUD on Suboxone presenting with acute abd pain and found to have recurrent acute pancreatitis acute pancreatitis - history of recurrent pancreatitis of unclear etiology with normal triglyceride, CT negative for biliary disease, no history of alcohol abuse, previous MRCP did not show any pancreatic ductal disease - improving, continue IV LR, iv hydromorphone, start clear liquid diet Lipase trended down to 143, pursue outpt GI follow-up for EUS at [facility]; phosphatidyl-ethanol level pending; triglycerides 203 hyperTG - fenofibrate OUD - Suboxone mood disorder -continue clonidine, hydroxyzine, sertraline DM2, recent A1c 6.1 - hold oral hypoglycemics; give demetrius-dose lispro VTE prophylaxis - enoxaparin dispo - eventual home In my clinical judgment, the patient requires continued inpatient hospitalization for the following reasons: IV fluids, IV analgesia Quality Stroke Does the patient have a stroke diagnosis?: No VTE Prior VTE?: No VTE Risk Level:: Medical - moderate - high VTE Device Contraindication: N/A - Device Ordered VTE Drug Contraindication: N/A - Med Ordered
--- NOTE | 2024-12-23 12:39 | MHC.CM.PN ---
Per MD rounds Patient is not medically cleared to discharge today. Patient is ordered for a clear liquid diet. DP Home with Family support and transport.
[2024-12-23] MEDS: Enoxaparin Sodium 40 MG/0.4 ML SYRINGE SUBCUT (12:55)
[2024-12-23 16:14] LABS: Glucose, Whole Blood 110 mg/dL (60-115)
[2024-12-23 19:40] LABS: Glucose, Whole Blood 194 mg/dL (60-115)
[2024-12-23] MEDS: Insulin Lispro 100 UNIT/ML 3 ML VIAL SUBCUT (20:07)
[2024-12-23] MEDS: cloNIDine HCL 0.1 MG TABLET 0.3 MG PO (20:08)
[2024-12-24] MEDS: 0.9 % Sodium Chloride Flush 3 ML SYRINGE IVFLUSH (00:15)
[2024-12-24] MEDS: HYDROmorphone HCl 1 MG/ML SYRINGE 1.5 MG IVPUSH ×2 (00:16→05:16)
[2024-12-24 03:14] VITALS: BP 111/56; PULSE 60; RESP 16; TEMP 36; O2SAT 93
[2024-12-24] MEDS: Lactated Ringers 1,000 ML 125 ML IVCONT (05:20)
[2024-12-24 07:23] VITALS: BP 128/69; PULSE 91; RESP 16; TEMP 36.3; O2SAT 97
[2024-12-24 07:41] LABS: Glucose, Whole Blood 101 mg/dL (60-115)
[2024-12-24] MEDS: hydrOXYzine HCL 25 MG TABLET PO (08:20)
[2024-12-24] MEDS: Buprenorphine/Naloxone 4/1 mg FILM 1.5 FILM SUBLINGUAL (08:20)
[2024-12-24] MEDS: Fenofibrate 160 MG TABLET PO (08:20)
[2024-12-24] MEDS: Sertraline HCL 100 MG TABLET 200 MG PO (08:20)
[2024-12-24] MEDS: oxyCODONE HCl Immed Release 5 MG TABLET PO (10:45)
[2024-12-24 11:15] VITALS: BP 116/60; PULSE 72; RESP 16; TEMP 36.4; O2SAT 92
[2024-12-24 11:19] LABS: Hematocrit 35.2 % (42.0-52.0); Hemoglobin 11.5 g/dl (14.0-18.0); Mean Corpuscular HGB Conc 32.7 g/dl (31.0-36.0); Mean Corpuscular Hemoglobin 26.7 pg (27.0-33.0); Mean Corpuscular Volume 81.9 fL (80.0-98.0); Mean Platelet Volume 9.6 fL (9.4-12.4); Platelet Count 156 X10*3/uL (160-400); Red Cell Distribution Width 12.8 % (11.0-16.0); White Blood Count 9.1 X10*3/uL (4.8-10.8)
[2024-12-24 11:35] LABS: Glucose, Whole Blood 141 mg/dL (60-115)
[2024-12-24 11:44] LABS: Lipase 52 U/L (8-78)
--- NOTE | 2024-12-24 12:47 | PM.DS ---
DS: Providers Provider Date of Service: 12/24/24 Date of admission: 12/21/24 12:54 Date of discharge: 12/24/24 Primary care physician: Gasper Coker MD DS: Diagnosis Discharge Diagnosis (1) Acute pancreatitis: Status: Acute (2) Diabetes: Status: Acute DS: Summary Hospital Course Hospital Course: History of presenting illness: Date of Service: 12/21/24 Chief Complaint: abd pain 54yo M with hx recurrent pancreatitis [he estimates 5 prior episodes including most recently admitted here 10/29-10/31/24], hyperTG, depression, DM2, OUD on Suboxone, hx cholecystectomy, hx AUD but sober for past 1 yr. He woke up today at 5am with severe abd pain and then had non-bloody non-bilious emesis. He is adamant that he has not had alcohol for a year. History of negative autoimmune pancreatitis workup. During the prior admission, he had a 1.8 cm soft tissue focus anterior to the pancreas on CT A/P that was thought to represent residual phlegomonous changes from the penultimate episode of pancreatitis in February 2024. Prior MRCP did not show any pancreatic ductal abnormalities. Dr Jhon Eisenberg from GI was consulted during the last admission and [place] [facility] [place], he was screaming in pain and was given haloperidol, hydromorphone, lorazepam, and diphenhydramine. CT A/P showed acute panceatitis but no residual mass. No drainable fluid collection nor any gas, either. Hospital course: 54yo M with hx recurrent pancreatitis, hx AUD though sober for past yr, hyperTG, hx cholecystectomy, depression, DM2, OUD on Suboxone presenting with acute abd pain and found to have recurrent acute pancreatitis And admitted to medical floor, patient is history recurrent pancreatitis of unclear etiology with normal triglyceride, CT negative for biliary disease, no history of alcohol abuse, previous MRCP did not show any pancreatic ductal disease, patient treated with IV fluids, IV analgesics and bowel rest, patient responded to above treatment lipase normalized, currently tolerating regular diet he is recommended outpatient GI follow-[place] [facility] [place]; phosphatidyl-ethanol level pending; triglycerides 203, recommend to continue fenofibrate for hypertriglyceridemia OUD -continue Suboxone mood disorder -continue clonidine, hydroxyzine, sertraline DM2, recent A1c 6.1 continue oral hypoglycemics Time Attestation Discharge Coordination Time (in mins): 40 Quality: Safe Use of Opioids Does Pt have an Active Cancer Diagnosis on the Problem List?: No Quality: Stroke Does the patient have a stroke diagnosis?: No Physical Exam Vital Signs: Vital Signs: Last Vital Signs Temp 97.5 F 12/24/24 11:15 Pulse 72 12/24/24 11:15 Resp 16 12/24/24 11:15 BP 116/60 12/24/24 11:15 Pulse Ox 92 12/24/24 11:15 O2 Del Method Room Air 12/24/24 11:15 BMI result Body Mass Index 30.4 Const: Other: Gen: in no acute distress HEENT: sclera anicteric, moist mucus membranes Neck: supple Lungs: clear to auscultation bilaterally Heart: regular rate and rhythm, no murmurs Abd: soft, non tender, non-distended, no rebound, no rigidity Ext: no edema Skin: warm/well-perfused Neuro: alert and oriented x3, no focal findings Psych: appropriate affect DS: Data Data Completed and Pending Completed studies during hospitalization [Text1]: Procedures Dilation of Common Bile Duct with Intraluminal Device, Via Natural or Artificial Opening Endoscopic (09/13/20) Labs on day of discharge: Laboratory Results - last 24 hr 12/23/24 12/23/24 12/24/24 16:03 19:05 07:27 WBC RBC Hgb Hct MCV MCH MCHC RDW Plt Count MPV Absolute Nucleated RBC Nucleated RBC % (auto) POC Glucose 110 194 H 101 Lipase 12/24/24 12/24/24 10:54 11:18 WBC 9.1 RBC 4.30 L D Hgb 11.5 L D Hct 35.2 L MCV 81.9 MCH 26.7 L MCHC 32.7 RDW 12.8 Plt Count 156 L D MPV 9.6 Absolute Nucleated RBC 0.000 Nucleated RBC % (auto) 0.0 POC Glucose 141 H Lipase 52 Discharge Plan Discharge Anticipated Discharge Date/Time: 12/24/24 07:57 Patient Disposition: Home, Self-Care Discharge Diagnosis: Recurrent acute pancreatitis Referrals: Gasper Coker MD [Primary Care Provider] - 1 Week Discharge Medications: New oxycodone 5 mg Tablet 5 mg PO Q6H PRN (Reason: Pain, Severe (Pain Scale 7-10)) Qty: 10 0RF Rx Instructions: Partial Fill upon patient request. Continued clonidine HCl 0.3 mg tablet 0.3 mg PO BEDTIME PRN (Reason: Sleep) sertraline 100 mg tablet 200 mg PO DAILY hydroxyzine HCl 25 mg tablet 25 mg PO TID PRN (Reason: Anxiety) fenofibrate 160 mg tablet 160 mg PO DAILY buprenorphine-naloxone 4-1 mg film 1.5 film sublingual DAILY Synjardy 12.5-1,000 mg tablet 1 tab PO BID Discharge Orders: Discharge Order (Routine); Ordered 12/24/24 Ordered By: Kamran Beth Diet: Diabetic diet Activity on Discharge: As tolerated Stand Alone Forms: Patient Portal Discharge page Print Language: Zimbabwean Care Plan Goals: Acute pancreatitis resolved follow low-fat diet Health Concerns: Continue all home medications Plan of Treatment: Outpatient follow-up with primary care physician and Gastroenterology Assessment: As above
--- NOTE | 2024-12-24 13:00 | MHC.CM.PN ---
DP: PT HAS BEEN MEDICALLY CLEARED FOR DC HOME, NO SERVICES. FAMILY WILL TRANSPORT.
[2024-12-24 13:11] VITALS: BP 146/85; PULSE 100; RESP 16; TEMP 36.4; O2SAT 96
[2024-12-30 11:36] LABS: Phosphatidylethanol 16:0-18:1 NEGATIVE; Phosphatidylethanol 16:0-18:2 NEGATIVE
== END 2024-12-24 13:09 | disposition home or self-care (01) | DRG 440 ==
LOC: HO.ED 12:41 → HO.EDOVER 13:02 → HO.S3 19:31
PROVIDERS: Admitting Provider Family Medicine; Emergency Provider Emergency Medicine; PCP Internal Medicine; Visit Provider Hospitalist
DX: K85.90 Acute pancreatitis without necrosis or infection, unspecified (principal); E78.1 Pure hyperglyceridemia; F39 Unspecified mood [affective] disorder; F10.91 Alcohol use, unspecified, in remission; Z20.822 Contact with and (suspected) exposure to COVID-19; Z87.891 Personal history of nicotine dependence; Z79.899 Other long term (current) drug therapy
CPT/HCPCS: 0241U; 36415; 74177; 80048; 80053; 80076; 80307; 80321; 81001; 82803; 82947; 83615; 83690; 83735; 84478; 85025; 85027; 85610; 86140; 99285; J1171; J1200; J1630; J1650; J1885; J2060; J2405; J7120; Q9967

== ENCOUNTER → 2024-12-21 09:46 | Outpatient (BNV) | payer OTHER, SELFPAY | PROVIDERS: Emergency Provider Emergency Medicine; PCP Internal Medicine; Visit Provider Radiology Vascular & Interventional Radiology | DX: K85.20 Alcohol induced acute pancreatitis without necrosis or infection (principal) | CPT/HCPCS: 74177 ==

== ENCOUNTER → 2024-12-21 12:54 | Outpatient (BNV) | payer OTHER, SELFPAY | PROVIDERS: Admitting Provider Family Medicine; Emergency Provider Emergency Medicine; PCP Internal Medicine; Visit Provider Family Medicine | DX: K85.90 Acute pancreatitis without necrosis or infection, unspecified (principal); E11.9 Type 2 diabetes mellitus without complications | CPT/HCPCS: 99223; 99232; 99233; 99239 ==

== ENCOUNTER 2025-01-29 13:15 | Outpatient (REF) | payer OTHER, SELFPAY ==
--- NOTE | ~2025-01-29 | CT_ITS ---
CLINICAL HISTORY: ACUTE PANCREATITIS CT abdomen and pelvis with contrast Comparison: 12/21/2024 Findings: The lung bases are clear. The gallbladder and solid organs are within normal limits. There are no abnormal findings in the gallbladder fossa. No renal stones. No bowel obstruction, pneumoperitoneum, or pneumatosis. Pelvic contents unremarkable. Normal appendix. The bones are intact. IMPRESSION: No acute findings. This document has been electronically signed by: Wyatt Lugo MD on 01/31/2025 07:54:54
--- OUTSIDE RECORDS SUMMARY | 2025-01-29 15:40 | XMS_ITS ---
Author Organization [facility] Address [address] [place] [address] Care Team Providers Care Courtesy Car Driver Name Role Phone Gasper Coker Primary Care Provider Jhon Coburn Unavailable [phone] RANDI COX Unavailable Unavailable Encounters Encounter Location Date Provider Diagnosis [facility] [address] [place] [address] 12/03/2024 Jhon Eisenberg Plan Of Treatment Next Appt Details Provider Name:Jhon Eisenberg , 07/30/2025 04:00:00 PM, [address], [address], [place], [address], Progress Notes * LUIS MOSSDOB:1970 (54 yo M)Acc No.[id number]:12/03/2024 Patient:?LUIS MOSS :1970???Age:54 Y???Sex:Male Address:[address] [place] [address] [place], [address] * true * Date:? Generated for Printi duane/Neha/eTransmitting on:?01/29/2025 03:39 PM EDT
--- OUTSIDE RECORDS SUMMARY | 2025-01-29 15:40 | XMS_ITS ---
Author Organization [facility] Address [address] [place] [address] Care Team Providers Care Resource Management Specialist Name Role Phone Gasper Coker Primary Care Provider Jhon Coburn Unavailable [phone] RANDI COX Unavailable Unavailable REASON FOR VISIT CT and labs Problems Problem Type SNOMED Code ICD Code Onset Dates Problem Status W/U Status Risk Notes Problem Acute pancreatitis (962109241) Acute pancreatitis without infection or necrosis, unspecified pancreatitis type (K85.90) Active confirmed Problem Abnormal findings diagnostic imaging of liver and biliary tract (432654984) Abnormal CT scan, pancreas or bile duct (R93.2) Active confirmed Encounters Encounter Location Date Provider [facility] [address] [place] [address] 11/01/2024 Jhon Eisenberg Acute pancreatitis without infection or necrosis, unspecified pancreatitis type K85.[address] scan, pancreas or bile duct R93.2 Assessments Encounter Date Diagnosis (ICD Code) Assessment Notes Treatment Notes Treatment Clinical Notes Section Notes 11/01/2024 Acute pancreatitis without infection or necrosis, unspecified pancreatitis type (ICD-10 - K85.90) 11/01/[address] scan, pancreas or bile duct (ICD-10 - R93.2) Plan Of Treatment Pending Test Test Name Order Date CHEM 7 PROFILE 11/01/2024 LIVER PROFILE 11/01/2024 CA 19-9 11/01/2024 CT ABD & PELVIS WITH CONTRAST 11/01/2024 Amylase 11/01/2024 Lipase 11/01/2024 Next Appt Details Provider Name:Jhon Eisenberg , 07/30/2025 04:00:00 PM, [address], [address], [place], [address], Progress Notes * LUIS MOSSDOB:1970 (54 yo M)Acc No.[id number]:11/01/2024 Patient:?LUIS MOSS :1970???Age:54 Y???Sex:Male Address:[address] [place] [address] [place], [address] Subjective: * Chief Complaints: * ???CT and labs * Medical History:? * Surgical History:? * Hospitalization/Major Diagno stic Procedure:? * Medications:? Objective: Assessment: * Assessment: 1.?Acute pancreatitis withou t infection or necrosis, unspecified pancreatitis type - K85.90 (Primary)?2.?Abnormal CT scan, pancreas or bile duct - R93.2? Plan: * Treatment: 2.?Abnormal CT scan, pancreas or bile duct?LAB: CHEM 7 PROFILE ?LAB: LIVER PROFILE ?LAB: CA 19-9 ?LAB: Amylase ?LAB: Lipase ?Imaging: CT ABD & PELVIS WITH CONTRAST* * Procedure Codes:? * true * Date:? Generated for Talya zepeda/Neha/eTransmitting on:?01/29/2025 03:40 PM EDT
--- OUTSIDE RECORDS SUMMARY | 2025-01-29 15:40 | XMS_ITS | Clinical Summary ---
Author Organization [address] Address [address] [place] [address] Phone Care Team Providers Care Training Director Name Role Phone Unavailable Primary Care Provider Unavailabl e Social History Tobacco Use Types Packs/Day Years Used Date Smoking Tobacco: Never Assessed Sex and Gender Information Value Date Recorded Sex Assigned at Not on file Legal Sex Male 7:41 AM EST Gender Identity Not on file Sexual Orientation Not on file Plan of Treatment Health Maintenance Due Date Last Done Comments Diabetes: Annual Foot Exam 1981 Diabetes: Annual Retina Eye Exam 1981 DTaP,Tdap,and Td Vaccines (1 - Tdap) 1990 Hepatitis B Vaccines (1 of 3 - 19+ 3-dose series) 1990 Pneumococcal Vaccine: 50+ Ye ars (1 of 2 - PCV) 1990 Pneumococcal Vaccine: Pediat rics (0 to 5 Years) and At-Risk Patients (6 to 64 Years) (1 of 2 - PCV) 1990 Zoster Vaccines (1 of 2) 2021 [...] patient's age to complete this topic Meningococcal B Vacine Aged Out No lo nger eligible based on patient's age to complete this topic RSV Immunization Patients Un radha 20 months Aged Out No longer eligible b ased on patient's age to complete this topic Varicella Vaccines Aged Out No longer eligible based on patient's age to complete this topic Procedures Procedure Name Priority Date/Time Associated Diagnosis Comments COMPREHENSIVE METABOLIC PANEL Routine 10/18/2024 7:15 AM [...] without complications (CMS/HCC) from Last 3 Months or Most Recently Relevant to Health Maintenance Results * (ABNORMAL) Lipid panel with reflex to direct LDL (10/18/2024 7:15 AM EST) Cholesterol 169 0 - 200 mg/dL LAB CHEMISTRY METHOD 10/18/2024 8:35 AM [facility] Triglycerides 227(H) 0 - 150 mg/dL LAB CHEMISTRY METHOD 10/18/2024 8:35 AM EST [facility] HDL 46 >=40 mg/dL LAB CHEMISTRY METHOD 10/18/2024 8:35 AM [facility] LDL Calculated 78 0 - 100 mg/dL LAB CHEMISTRY METHOD 10/18/2024 8:35 AM [facility] VLDL Cholesterol Jorden 45.4 mg/dL LAB CHEMISTRY METHOD 10/18/2024 8:35 AM EST [facility] Non HDL Chol. (LDL+VLDL) 123 <145 mg/dL LAB CHEMISTRY METHOD 10/18/2024 8:35 AM EST [facility] Chol/HDL Ratio 3.7 0.0 - 4.4 LAB CHEMISTRY METHOD 10/18/2024 8:35 AM EST [facility] Blood Venous blood specimen / Unknown 10/18/2024 7:15 AM EST 10/18/2024 7:53 AM EST us Gasper Coker MD LAB BLOOD ORDERABLES Final Res ult Performing Organization Address [facility]/ZIP Co de Phone Number [facility] [address] [place] [address], [place] [phone] * Hemoglobin A1c (10/18/2024 7:15 AM EST) Hemoglobin A1C 6.3 <6.5 % LAB CHEMISTRY METHOD 10/18/2024 2:17 PM EST [facility] Mean Bld Glu Estim. 134 mg/dL LAB CHEMISTRY METHOD 10/18/2024 2:17 PM [facility] Blood Venous blood specimen / Unknown 10/18/2024 7:15 AM EST 10/18/2024 7:53 AM EST us Gasper Coker MD LAB BLOOD ORDERABLES Final Res ult [facility] [address] [place] [address], [place] [phone] * (ABNORMAL) Comprehensive metabolic panel (10/18/2024 7:15 AM EST) Sodium 140 133 - 145 mmol/L LAB CHEMISTRY METHOD 10/18/2024 8:35 AM EST [facility] Potassium 3.8 3.5 - 5.5 mmol/L LAB CHEMISTRY METHOD 10/18/2024 8:35 AM [facility] Chloride 106 96 - 110 mmol/L LAB CHEMISTRY METHOD 10/18/2024 8:35 AM [facility] CO2 28 21 - 32 mmol/L LAB CHEMISTRY METHOD 10/18/2024 8:35 AM [facility] Anion Gap 6 3 - 11 LAB CHEMISTRY METHOD 10/18/2024 8:35 AM [facility] Glucose 137(H) 70 - 100 mg/dL LAB CHEMISTRY METHOD 10/18/2024 8:35 AM [facility] BUN 20 5 - 25 mg/dL LAB CHEMISTRY METHOD 10/18/2024 8:35 AM [facility] Creatinine 1.17 0.70 - 1.30 mg/dL LAB CHEMISTRY METHOD 10/18/2024 8:35 AM [facility] eGFR 75 >=60 mL/min/1. 73m2 LAB CHEMISTRY METHOD 10/18/2024 8:35 AM [facility] Comment:Calculation based on the??Chronic Kidney Disease Epidemiology Collaboration (CKD-EPI) equation refit??without adjustment for race. BUN/Creatinine Ratio 17.1 LAB CHEMISTRY METHOD 10/18/2024 8:35 AM [facility] Calcium 9.7 8.5 - 10.5 mg/dL LAB CHEMISTRY METHOD 10/18/2024 8:35 AM [facility] AST (SGOT) 24 10 - 42 unit/L LAB CHEMISTRY METHOD 10/18/2024 8:35 AM [facility] ALT (SGPT) 25 10 - 60 unit/L LAB CHEMISTRY METHOD 10/18/2024 8:35 AM [facility] Alkaline Phosphatase 87 42 - 121 unit/L LAB CHEMISTRY METHOD 10/18/2024 8:35 AM [facility] Total Protein 7.1 6.0 - 8.0 g/dL LAB CHEMISTRY METHOD 10/18/2024 8:35 AM EST [facility] Albumin 4.2 3.2 - 5.0 g/dL LAB CHEMISTRY METHOD 10/18/2024 8:35 AM EST [facility] Total Bilirubin 0.3 0.0 - 1.4 mg/dL LAB CHEMISTRY METHOD 10/18/2024 8:35 AM EST [facility] Blood Venous blood specimen / Unknown 10/18/2024 7:15 AM EST 10/18/2024 7:53 AM EST us Gasper Coker MD LAB BLOOD ORDERABLES Final Res ult [facility] [address] [place] [address], from Last 3 Months or Most Recently Relevant to Health Maintenance Insurance [employer]
--- OUTSIDE RECORDS SUMMARY | 2025-01-29 15:40 | XMS_ITS | Clinical Summary ---
Author Organization [facility] Address [address] [place] [address] Care Team Providers Care Public Services Assistant Name Role Phone Unavailable Primary Care Provider [...] Drug Screen 11/13/2023 Depression Annual Screen 11/13/2023 [id number] ( season) 2024 021, 03/02/2021 Imm-Influenza (#1) 2024 08/08/2016 Insurance [facility] Member Subscriber Plan / Payer (Ef fective 2021-Present) Name:Ezequiel Fields Relation to Subscriber:Self Name:Ezequiel Fields Payer ID:[id number] Type:Indemnity Address: [facility] [id number] [place] [phone]
--- OUTSIDE RECORDS SUMMARY | 2025-01-29 15:40 | XMS_ITS ---
Author Organization [facility] Address [address] [place] [address] Care Team Providers Care Steam Turbine Assembler Name Role Phone Gasper Coker Primary Care Provider Jhon Coburn Unavailable [phone] RANDI COX Unavailable Unavailable REASON FOR VISIT Needs EUS for his pancreatitis Encounters Encounter Location Date Provider Diagnosis [facility] [address] [place] [address] 01/25/2025 Jhon Eisenberg Plan Of Treatment Next Appt Details Provider Name:Jhon Eisenberg , 07/30/2025 04:00:00 PM, [address], [address], [place], [address], Progress Notes * LUIS MOSSDOB:1970 (55 yo M)Acc No.[id number]:01/25/2025 Patient:?LUIS MOSS :1970???Age:54 Y???Sex:Male Address:[address] [place] [address], [address] * * Date:?
--- OUTSIDE RECORDS SUMMARY | 2025-01-29 15:40 | XMS_ITS | Patient Health Record ---
Author Organization [facility] Address [address] [place] [address] Care Team Providers Care Manager Business Information Name Role Phone Gasper Coker Primary Care Provider Jhon Coburn Unavailable [phone] RANDI COX Unavailable Unavailable Allergies No Known Allergies Results Component Value Reference Range Notes Liver Panel Reviewed date:10/31/2024 10:21:34 AM Interpretation: Performing Lab:[facility], [address] [place] [phone] Notes/Report: Bilirubin Total 0.3 0.0-1.0 mg/dL Bilirubin Direct 0.1 0.0-0.5 mg/dL Aspartate Amino Transferase 20 5-37 U/L Alanine Aminotransferase 11 0-40 U/L Total Protein 5.8 6.5-8.0 g/dL Albumin Level 3.4 3.5-5.0 g/dL Alkaline Phosphatase 32 39-117 U/L Basic Metabolic Panel Reviewed date:10/31/2024 10:21:22 AM Interpretation: Performing Lab:[facility], [address] [place] [phone] Notes/Report: Sodium 142 135-145 mmol/L Potassium 3.8 [...] Lipase Reviewed date:10/31/2024 10:21:01 AM Interpretation: Performing Lab:[facility], [address] [place] [phone] Notes/Report: Lipase 67 8-78 U/L Reason For Referral No Information Medications Medication SIG (Take, Route, Frequency, Duration) Notes Start Date End Date Status Dicyclomine HCl 20 MG Oral for 90 Active Multivitamin Active Buprenorphine HCl-Naloxone HCl 4-1 MG Sublingual for 18 Active Sertraline HCl 100 MG Oral for 90 Active hydrOXYzine HCl 25 MG Oral for 30 Active Fenofibrate 160 MG Oral for 90 Active metFORMIN HCl 500 MG Oral for 30 Active Immunizations Vaccine Route Administration Date Status Comme nts Influenza Unknown 09/13/2021 Administered Social History Tobacco Use: Social History Observation Description Date Details (start date - stop date) Former Smoker NA - NA Tobacco Use/Smoking Question Answer Notes Patient is a former smoker How long has it been since you last smoked? 5-10 years Alcohol Screen Question Answer Notes Did you have a drink containing alcohol in the p ast year? No Points 0 Interpretation Negative Section Notes: Nonsmoker; no sig alcohol Problems Problem Type SNOMED Code ICD Code Onset Dates Problem Status W/U Status Risk Notes Problem 161517981 Encounter for screening for malignant neoplasm of colon (Z12.11) Active confirmed Problem Abnormal findings diagnostic imaging of liver and biliary tract (355501054) Abnormal CT scan, pancreas or bile duct (R93.2) Active confirmed Problem 690526177 Family history o f colon cancer (Z80.0) Active confirmed Problem 561125122 Irritable bowel syndrome with constipation (K58.1) Active confirmed Problem 720199049 Idiopathic acute pancreatitis without necrosis or infection (K85.00) Active confirmed Problem Acute pancreatitis (193686884) Acute pancreatitis without infection or necrosis, unspecified pancreatitis type (K85.90) Active confirmed Problem 194309264 Idiopathic acute pancreatitis without infection or necrosis (K85.00) Active confirmed Problem Diverticulosis of colon (374877753) Diverticulosis of colon (K57.30) Active confirmed Encounters Encounter Location Date Provider Diagnosis [facility] [address] [place] [address] 01/25/[address] [facility] [address] [place] [address] [place] [address] 11/01/2024 Jhon Eisenberg Acute pancreatitis without infection or necrosis, unspecified pancreatitis type K85.[address] scan, pancreas or bile duct R93.2 [facility] [address] [place] [address] 12/03/2024 Jhon Eisenberg Assessments Encounter Date Diagnosis (ICD Code) Assessment Notes Treatment Notes Treatment Clinical Notes Section Notes 11/01/[address] scan, pancreas or bile duct (ICD-10 - R93.2) 11/01/2024 Acute pancreatitis without infection or necrosis, unspecified pancreatitis type (ICD-10 - K85.90) Plan Of Treatment Pending Test Test Name Order Date CHEM 7 PROFILE 11/01/2024 BUN 10/14/2021 CREATININE 10/14/2021 LIVER PROFILE 10/14/2021 LIVER PROFILE 11/01/2024 LIPASE 10/14/2021 CA 19-9 11/01/2024 CT ABD & PELVIS WITH CONTRAST 11/01/2024 CT ABD & PELVIS WITH CONTRAST 10/24/2021 MRI ABD W&WO CONTRAST 10/14/2021 Amylase 11/01/2024 Lipase 11/01/2024 Future Test Test Name Order Date COLONOSCOPY 10/14/2021 Next Appt Details Provider Name:Jhon Eisenberg , 07/30/2025 04:00:00 PM, [address] [place] [address], [address], [place], [address], Insurance Providers Payer Name Payer Address Payer Phone Subscriber Number Group Number Insured Name Patient Relationship to Insured Coverage Start Date Coverage End Date [facility] [address] [place], [place] [id number] AJAY LUIS Self - patient is the insured Medical (General) History Medical History History ICD Code NIDDM 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 Did not use any IVDA COVID in 2019 Normal ERCP with sphincterotomy in 10/02 20. Pancreatitis x 2 in 2020 in February and in -- probably due to diet, hypertriglceridemia, and some alcohol. He had previously normal IgG levels. Denies DE,DM,CVA,Lung disease,renal dise ase Depression Hypertriglyceridemia IBS with constipation Surgical History Surgery Date(Month/Year) Cholecystectomy 2017 Hemorrhoidectomy
--- OUTSIDE RECORDS SUMMARY | 2025-01-29 15:40 | XMS_ITS | Encounter Summary ---
Author Organization [facility] Address [address] [place] [address] Care Team Providers Care Air Traffic Control Manager Name Role Phone Unavailable Primary Care Provider Unavailabl e Encounter Details Date Type Department Care Team (Latest Contact Info) Description 10/18/2024 Lab Requisition [facility] [address] [facility] [place] [address] Gasper Coker MD [address] Alcohol induced acute pancreatitis without necrosis or [...] LAB HEMETOLOGY METHOD 10/18/2024 8:10 AM EST [facility] Blood Venous blood specimen / Unknown 10/18/2024 7:15 AM EST 10/18/2024 7:53 AM EST us Gasper Coker MD LAB BLOOD ORDERABLES Final Res ult [facility] [address] [place] [address], [place] [phone] * (ABNORMAL) Lipid panel with reflex to [...] ORDERABLES Final Res ult Performing Organization Address [facility]/ZIP Co de Phone Number [facility] [address] [place] [address], * Hemoglobin A1c (10/18/2024 7:15 AM EST) Pathologist [facility] Hemoglobin A1C 6.3 <6.5 % LAB CHEMISTRY METHOD 10/18/2024 2:17 PM EST [facility] Mean Bld Glu Estim. 134 mg/dL LAB CHEMISTRY METHOD 10/18/2024 2:17 PM [facility] Blood Venous blood specimen / Unknown 10/18/2024 7:15 AM EST 10/18/2024 7:53 AM EST Gasper Coker MD LAB BLOOD ORDERABLES Final Res ult Performing Organization Address [facility]/ZIP Co de Phone Number [facility] [address] [place] [address], [place] [phone] * (ABNORMAL) Comprehensive metabolic panel (10/18/2024 7:15 AM EST) [facility] Sodium 140 133 - 145 mmol/L LAB [...] MD LAB BLOOD ORDERABLES Final Res ult [facility] [address] [place] [address], documented in this encounter Visit Diagnoses Diagnosis Alcohol induced acute pancreatitis without necrosis or infection Mixed hyperlipidemia Type 2 diabetes mellitus without complications (CMS/HCC) documented in this encounter
[2025-01-29] MEDS: iohexoL 350 MG/ML 100 ML INFUS..BTL IV (15:59)
[2025-01-29] MEDS: Barium Sulfate Oral (Mocha) 450 ML ORAL.SUSP 900 ML PO (16:00)
[2025-01-30 14:00] LABS: GFR POC > 60
== END 2025-01-29 13:16 | disposition home or self-care (01) ==
LOC: HO.CT 13:15
PROVIDERS: PCP Internal Medicine; Visit Provider Internal Medicine
DX: K85.90 Acute pancreatitis without necrosis or infection, unspecified (principal); R93.2 Abnormal findings on diagnostic imaging of liver and biliary tract
CPT/HCPCS: 74177; 82565; Q9967

== ENCOUNTER → 2025-01-29 13:18 | Outpatient (BNV) | payer OTHER, SELFPAY | PROVIDERS: PCP Internal Medicine; Visit Provider Specialist | DX: R93.2 Abnormal findings on diagnostic imaging of liver and biliary tract (principal) | CPT/HCPCS: 74177 ==

== ENCOUNTER → 2025-08-27 13:57 | Outpatient (BNVA) | payer OTHER, SELFPAY | PROVIDERS: PCP Internal Medicine; Visit Provider Emergency Medicine | DX: S20.371A Other superficial bite of right front wall of thorax, initial encounter (principal); Y04.1XXA Assault by human bite, initial encounter; Z23 Encounter for immunization; Z02.79 Encounter for issue of other medical certificate | CPT/HCPCS: 90715; 99203 ==

== ENCOUNTER → 2025-09-02 09:34 | Outpatient (BNVA) | payer OTHER, SELFPAY | PROVIDERS: PCP Internal Medicine; Visit Provider Emergency Medicine | DX: S20.371A Other superficial bite of right front wall of thorax, initial encounter (principal); Y04.1XXA Assault by human bite, initial encounter; L03.313 Cellulitis of chest wall; Z02.79 Encounter for issue of other medical certificate | CPT/HCPCS: 99213 ==

== ENCOUNTER → 2025-09-09 08:43 | Outpatient (BNVA) | payer OTHER, SELFPAY | PROVIDERS: PCP Internal Medicine; Visit Provider Emergency Medicine | DX: S20.371A Other superficial bite of right front wall of thorax, initial encounter (principal); Y04.1XXA Assault by human bite, initial encounter; L03.313 Cellulitis of chest wall; Z02.79 Encounter for issue of other medical certificate | CPT/HCPCS: 99213 ==